=== PATIENT | female | born 1930 | race Hispanic/Latino ===

== ENCOUNTER 2019-01-14 17:27 | Emergency (ER) | payer MEDICARE ==
[2019-01-14 17:39] VITALS: BMI 32.3
[2019-01-14 17:45] VITALS: TEMP 97.5
[2019-01-14] MEDS ORDERED: Sodium Chloride 0.9% 1,000 ML IV SCH (17:45)
[2019-01-14] MEDS ORDERED: Nitroglycerin 2% Ointment Foilpak UD TOP STA (18:03)
[2019-01-14 18:15] LABS: BASO % 0.9 % (0.0-2.0); EOS # 0.1 K/uL (0.0-0.7); EOS % 2.4 % (0.0-4.0); LYMPH # 1.3 K/uL (1.0-4.3); LYMPH % 23.7 % (20.0-40.0); MEAN CELL VOLUME 95.6 fL (81.0-99.0); MEAN CORPUSCULAR HEMOGLOBIN 31.4 pg (27.0-31.0); MEAN CORPUSCULAR HGB CONC 32.9 g/dL (33.0-37.0); MEAN PLATELET VOLUME 8.6 fL (7.2-11.7); MONO # 0.4 K/uL (0.0-0.8); NEUT # 3.6 K/uL (1.8-7.0); RBC 3.5 Mil/uL (3.80-5.20); RED CELL DISTRIBUTION WIDTH 14.4 % (11.5-14.5); WHITE BLOOD COUNT 5.6 K/uL (4.8-10.8)
--- NOTE | 2019-01-14 18:20 | CT ---
Date of service: 01/14/2019 PROCEDURE: CT HEAD WITHOUT CONTRAST. HISTORY: slurred speech x 24 hours COMPARISON: Comparison is made to the previous study dated 03/26/2017 TECHNIQUE: Axial computed tomography images were obtained through the head/brain without intravenous contrast. Radiation dose: Total exam DLP = 842.37 mGy-cm. This CT exam was performed using one or more of the following dose reduction techniques: Automated exposure control, adjustment of the mA and/or kV according to patient size, and/or use of iterative reconstruction technique. FINDINGS: HEMORRHAGE: No intracranial hemorrhage. BRAIN: No mass effect or edema. Mild volume loss is again noted. Moderate to extensive white matter changes suggestive of chronic microvascular ischemic disease is also again noted. VENTRICLES: Unremarkable. No hydrocephalus. CALVARIUM: Unremarkable. PARANASAL SINUSES: Unremarkable as visualized. No significant inflammatory changes. MASTOID AIR CELLS: Unremarkable as visualized. No inflammatory changes. OTHER FINDINGS: None. IMPRESSION: No evidence of acute intracranial hemorrhage or acute territorial infarct. Volume loss and extensive white matter changes suggestive of chronic microvascular ischemic disease.
[2019-01-14 18:22] LABS: PROTHROMBIN TIME 11.4 SECONDS (9.7-12.2)
[2019-01-14] MEDS ORDERED: Nitroglycerin 2% Ointment Foilpak UD TOP ONE (18:26)
[2019-01-14 18:28] LABS: BLOOD UREA NITROGEN 51 mg/dL (7-17); CALCIUM 9.2 mg/dl (8.6-10.4); GFR NON-AFRICAN AMERICAN 28
[2019-01-14 18:29] LABS: ALB/GLOB RATIO 1.4 (1.0-2.1); ALBUMIN 4.5 g/dL (3.5-5.0); ALT/SGPT 7 U/L (9-52); AST/SGOT 18 U/L (14-36); HDL CHOLESTEROL 46 mg/dL (30-70)
[2019-01-14 18:39] LABS: LDL CHOLESTEROL 77 mg/dL (0-129)
[2019-01-14 18:46] VITALS: BP 180/70; PULSE 68; RESP 16
[2019-01-14 18:54] VITALS: O2SAT 97
--- NOTE | 2019-01-14 18:54 | C.PDOC ---
History Of Present Illness 88 y/o female comes in for expressive aphasia for the past 24 hours that was noticed by her daughters. Daughters report patient starting speaking nonsensically at 2pm yesterday. Denies headache, weakness, fever, or other symptoms. Patient, from baseline, is walking with walker. No facial droop noted. Time Seen by Provider: 01/14/19 17:42 Chief Complaint (Nursing): Weakness/Neurological Deficit History Per: Family History/Exam Limitations: no limitations Onset/Duration Of Symptoms: Days Current Symptoms Are (Timing): Still Present Past Medical History Reviewed: Historical Data, Nursing Documentation, Vital Signs Vital Signs: Last Vital Signs Temp 97.5 F L 01/14/19 17:44 Pulse 72 01/14/19 17:44 Resp 18 01/14/19 17:44 BP 193/72 H 01/14/19 17:44 Pulse Ox 97 01/14/19 17:44 - Medical History PMH: HTN, Hypercholesterolemia Denies: Chronic Kidney Disease - [facility] Procedures EXCISION OF LEFT LOWER LEG MUSCLE, OPEN APPROACH (04/22/16) EXCISION OF LEFT LOWER LEG SKIN, EXTERNAL APPROACH, DIAGN (05/27/16) EXTRACTION OF L FOOT SUBCU/FASCIA, OPEN APPROACH (04/22/16) EXTRACTION OF LEFT LOWER LEG SKIN, EXTERNAL APPROACH (05/27/16) GAIT TRAINING/AMBULAT TREATMENT USING ASSIST EQUIPMENT (04/30/16) HOME MANAGEMENT TREATMENT (04/30/16) REPLACE L LOW LEG SKIN W AUTOL SUB, FULL THICK, LEARNING SPECIALIST (05/27/16) THERAPEUTIC EXERCISE TREATMENT OF MUSCULOSK LOW BACK/LE (04/30/16) TRANSFUSE NONAUT RED BLOOD CELLS IN PERIPH VEIN, PERC (04/30/16) Family History: States: No Known Family Hx - Social History Hx Alcohol Use: No Hx Substance Use: No - Immunization History Hx Tetanus Toxoid Vaccination: No Hx Influenza Vaccination: No Hx Pneumococcal Vaccination: No Review Of Systems Except As Marked, All Systems Reviewed And Found Negative. Constitutional: Negative for: Fever, Chills Cardiovascular: Negative for: Chest Pain Respiratory: Negative for: Shortness of Breath Gastrointestinal: Negative for: Nausea, Vomiting Neurological: Positive for: Other (Aphasia, no facial droop). Negative for: Weakness, Numbness, Headache Physical Exam - Physical Exam Appears: Non-toxic, No Acute Distress, Confused Skin: Warm, Dry Head: Atraumatic, Normacephalic Eye(s): bilateral: PERRL, EOMI Oral Mucosa: Moist Neck: Supple Cardiovascular: Rhythm Regular, No Murmur Respiratory: Normal Breath Sounds, No Rales, No Rhonchi, No Wheezing Gastrointestinal/Abdominal: Soft, No Tenderness Extremity: No Swelling Extremity: Bilateral: Atraumatic, Normal ROM Neurological/Psych: Other (Awake and alert. Speech nonsensical) ED Course And Treatment - Laboratory Results Result Diagrams: 01/14/19 18:11 01/14/19 18:11 Lab Results: PT 11.4 SECONDS (9.7-12.2) 01/14/19 18:11 INR 1.0 01/14/19 18:11 APTT 31 SECONDS (21-34) 01/14/19 18:11 Troponin I < 0.0120 ng/mL (0.00-0.120) 01/14/19 18:11 Total Bilirubin 0.7 mg/dL (0.2-1.3) 01/14/19 18:11 AST 18 U/L (14-36) 01/14/19 18:11 ALT 7 U/L (9-52) L D 01/14/19 18:11 Alkaline Phosphatase 109 U/L (38-126) 01/14/19 18:11 Total Protein 7.6 g/dL (6.3-8.3) 01/14/19 18:11 Albumin 4.5 g/dL (3.5-5.0) 01/14/19 18:11 Globulin 3.2 gm/dL (2.2-3.9) 01/14/19 18:11 Albumin/Globulin Ratio 1.4 (1.0-2.1) 01/14/19 18:11 Lab Interpretation: Abnormal (creat 1.7 from 1.3 (2016)) ECG: Interpreted By Ut ECG Rhythm: Sinus Rhythm ECG Interpretation: Normal Rate From EC O2 Sat by Pulse Oximetry: 97 (RA) Pulse Ox Interpretation: Normal - Radiology CXR: Interpreted by Ut CXR Interpretation: Yes: No Acute Disease - CT Scan/US head CT Other Rad Studies (CT/US): Radiology Report Reviewed (no acute findings) Reevaluation Time: 19:06 Reassessment Condition: Improved (remains intermittently coherent, but always awake/alert/aware) Medical Decision Making Medical Decision Making: Plan: --Head CT --EKG --Labs --Chest XR --Ecotrin 162 mg PO --Nitrobid --IV fluids head CT neg, but pt with sudden onset of expressive aphasia (not complete) for about 24 hours, suggest infarct to Broca's area of L temporal brain. today's head CT neg but MRI prob more revealing pt and family adamantly decline inpatient eval ASA and BP control reviewed opt f/u with PMD referral for NEuro and opt MRI Disposition Doctor Will See Patient In The: Office Counseled Patient/Family Regarding: Studies Performed, Diagnosis - Disposition Referrals: [facility] [Outside] [facility] [Outside] [facility] [Outside] Saul Peters DO [Staff Provider] - Tania Gifford MD [Staff Provider] - Disposition: HOME/ ROUTINE Disposition Time: 19:09 Condition: GOOD Additional Instructions: continue daily Aspirin 325 mg continue best BP control Seek Neuro follow-up with Dr. Gifford- Neurology Security Checker- for baseline and further tx. Outpatient MRI brain suggested f/u with Dr. Peters Return to ED for any significant changes or deterioration. Forms: [employer] ([place]) - Clinical Impression Clinical Impression: Expressive aphasia - Scribe Statement The provider has reviewed the documentation as recorded by the Scribe Demetria Segovia Provider Attestation: All medical record entries made by the Scribe were at my direction and pers onally dictated by me. I have reviewed the chart and agree that the record accurately reflects my personal performance of the history, physical exam, medical decision making, and the department course for this patient. I have also personally directed, reviewed, and agree with the discharge instructions and disposition.
--- NOTE | 2019-01-15 14:40 | RAD ---
Date of service: 01/14/2019 HISTORY: Code Stroke COMPARISON: Comparison is made with 02/29/2016 FINDINGS: LUNGS: New consolidation and or infiltrate at the right lung base noted. Findings may represent atelectasis or infiltrate. PLEURA: No significant pleural effusion identified, no pneumothorax apparent. CARDIOVASCULAR: No aortic atherosclerotic calcification present. Normal cardiac size. No pulmonary vascular congestion. OSSEOUS STRUCTURES: No significant abnormalities. VISUALIZED UPPER ABDOMEN: Normal. OTHER FINDINGS: None. IMPRESSION: Atelectasis or infiltrate at the right lung base.
--- NOTE | 2019-01-17 20:55 | CARD ---
APPROVED REPORT Date of service: 01/14/2019 EKG Measurement Heart [id number] <Conclusion> Normal sinus rhythm Incomplete right bundle branch block Left ventricular hypertrophy with repolarization abnormality Cannot rule out Septal infarct, age undetermined Abnormal ECG
== END 2019-01-14 19:35 | disposition home or self-care (01) ==
LOC: C.ER 17:27
DX: R47.01 Aphasia (principal); I10 Essential (primary) hypertension; E78.00 Pure hypercholesterolemia, unspecified

== ENCOUNTER 2019-01-18 22:17 | Inpatient (IN) | payer MEDICARE ==
[2019-01-18 22:18] VITALS: BMI 32.3
--- NOTE | 2019-01-18 23:19 | C.PDOC ---
History Of Present Illness 88 year old female seen here 2 days ago for expressive dysphagia, had work up suggestive of possible TIA or infarct but family did not want patient to be admitted, she was discharged home, symptoms had resolved prior to discharge. W quinn she was here she was noted to have cough, CXR showed possible right lower lobe infiltrate, she was seen at home visit by Dr. Peters who started her on antibiotics, however family does not known which one. Today patient was getting up to go to the bathroom when her legs gave out and she landed on her right knee, she is suppose to use walker due to gait disturbance but does not like to. Patient has been unable to get up and has not walked or been able to weight bear since fall, transported here via EMS. Denies change in sensation, chest pain, SOB, headache, or dizziness. - HPI Time Seen by Provider: 01/18/19 22:35 Chief Complaint (Nursing): Trauma History Per: Patient, Family History/Exam Limitations: no limitations Onset/Duration Of Symptoms: Hrs Injury Occurred (Timing): Just Before Arrival Location Of Injury: Right: Knee Recent travel outside of the [place]: No Past Medical History Reviewed: Historical Data, Nursing Documentation, Vital Signs Vital Signs: Last Vital Signs Temp 97.6 F 01/18/19 22:30 Pulse 81 01/18/19 22:30 Resp 20 01/18/19 22:30 BP 179/104 H 01/18/19 22:30 Pulse Ox 95 01/18/19 22:30 - Medical History PMH: HTN, Hypercholesterolemia Denies: Chronic Kidney Disease - [facility] Procedures EXCISION OF LEFT LOWER LEG MUSCLE, OPEN APPROACH (04/22/16) EXCISION OF LEFT LOWER LEG SKIN, EXTERNAL APPROACH, DIAGN (05/27/16) EXTRACTION OF L FOOT SUBCU/FASCIA, OPEN APPROACH (04/22/16) EXTRACTION OF LEFT LOWER LEG SKIN, EXTERNAL APPROACH (05/27/16) GAIT TRAINING/AMBULAT TREATMENT USING ASSIST EQUIPMENT (04/30/16) HOME MANAGEMENT TREATMENT (04/30/16) REPLACE L LOW LEG SKIN W AUTOL SUB, FULL THICK, INVENTORY COORDINATOR (05/27/16) THERAPEUTIC EXERCISE TREATMENT OF MUSCULOSK LOW BACK/LE (04/30/16) TRANSFUSE NONAUT RED BLOOD CELLS IN PERIPH VEIN, PERC (04/30/16) Family History: States: Unknown Family Hx - Social History Hx Alcohol Use: No Hx Substance Use: No - Immunization History Hx Tetanus Toxoid Vaccination: No Hx Influenza Vaccination: No Hx Pneumococcal Vaccination: No Review Of Systems Constitutional: Negative for: Fever, Chills Cardiovascular: Negative for: Chest Pain, Palpitations Respiratory: Negative for: Cough, Shortness of Breath Gastrointestinal: Negative for: Nausea, Vomiting Musculoskeletal: Positive for: Other (Right knee pain) Neurological: Negative for: Weakness, Numbness, Headache, Dizziness Physical Exam - Physical Exam Appears: Non-toxic Skin: Normal Color, Warm, Dry Head: Atraumatic, Normacephalic Eye(s): bilateral: Normal Inspection, PERRL, EOMI Oral Mucosa: Moist Neck: Normal, No Midline Cervical Tenderness, No Paracervical Tenderness, Supple Chest: Symmetrical, No Tenderness Cardiovascular: Rhythm Regular Respiratory: Normal Breath Sounds, No Rales, No Rhonchi, No Wheezing Gastrointestinal/Abdominal: Soft, No Tenderness Extremity: Deformity (shortening of right leg), Other (Right knee tender to palpation, resisting flexion holding leg at extention, tenderness to right hip at greater trochanter which daughter states is chronic) Neurological/Psych: Oriented x3, Normal Speech, Normal Motor, Normal Sensation ED Course And Treatment - Laboratory Results Result Diagrams: 01/18/19 23:23 01/18/19 23:23 Lab Interpretation: Abnormal (BUN 54, CR 2.0, Hgb 10.4, Hct 31.0) O2 Sat by Pulse Oximetry: 95 (room air) Pulse Ox Interpretation: Normal - Other Rad Right hip X-Ray: Interpreted by Me Interpretation: Intertrochanteric fracture right knee X-Ray: Interpreted by Me Interpretation: No evidence of fracture or dislocation, no effusion Progress Note: Blood work, right knee x-ray and right hip x-ray ordered. - Physician Consult Information Time Consulting Physician Contacted: : Physician Contacted: Bjorn Arcos Disposition - Disposition Disposition: HOSPITALIZED Disposition Time: :07 Condition: FAIR - Clinical Impression Clinical Impression: Fracture, intertrochanteric, right femur - Scribe Statement The provider has reviewed the documentation as recorded by the Scribe Yonathan No All medical record entries made by the Scribe were at my direction and pers onally dictated by me. I have reviewed the chart and agree that the record accurately reflects my personal performance of the history, physical exam, medical decision making, and the department course for this patient. I have also personally directed, reviewed, and agree with the discharge instructions and disposition. Physician Patient Turnover Patient Signed Over To: Ga Langford Handoff Comments: awaiting call back from Dr Arcos for admission.
[2019-01-18 23:26] LABS: BASO % 0.4 % (0.0-2.0); EOS # 0.1 K/uL (0.0-0.7); EOS % 0.9 % (0.0-4.0); HEMOGLOBIN 10.4 g/dL (11.0-16.0); LYMPH # 0.8 K/uL (1.0-4.3); LYMPH % 9.3 % (20.0-40.0); MEAN CELL VOLUME 96.1 fL (81.0-99.0); MEAN CORPUSCULAR HEMOGLOBIN 32.3 pg (27.0-31.0); MEAN CORPUSCULAR HGB CONC 33.6 g/dL (33.0-37.0); MEAN PLATELET VOLUME 8.9 fL (7.2-11.7); MONO # 0.7 K/uL (0.0-0.8); MONO % 7.6 % (0.0-10.0); NEUT # 7.4 K/uL (1.8-7.0); NEUT % 81.8 % (50.0-75.0); PLATELET COUNT 214 K/uL (130-400); RBC 3.22 Mil/uL (3.80-5.20); RED CELL DISTRIBUTION WIDTH 14.6 % (11.5-14.5)
[2019-01-18 23:44] LABS: ALB/GLOB RATIO 1.3 (1.0-2.1); ALBUMIN 4.4 g/dL (3.5-5.0); CALCIUM 9.3 mg/dl (8.6-10.4)
[2019-01-19 00:38] LABS: BANDS 3 % (0-2); EOSINOPHIL 3 % (0-4); LYMPHOCYTE 6 % (20-40); MONOCYTE 4 % (0-10); NEUTROPHIL 84 % (50-75); PLATELET ESTIMATE NORMAL (NORMAL); TOTAL CELLS COUNTED 100
[2019-01-19] MEDS ORDERED: Sodium Chloride 0.9% 1,000 ML IV ONE (02:28)
[2019-01-19] MEDS ORDERED: Sodium Chloride 0.9% 1,000 ML ONE (03:07)
[2019-01-19 04:35] LABS: INR 1.1
[2019-01-19] MEDS: Sodium Chloride 0.45% 1,000 ML IV SCH ×2 (07:00→23:10)
--- NOTE | 2019-01-19 07:59 | RAD ---
Date of service: 01/19/2019 PROCEDURE: CHEST RADIOGRAPH, 1 VIEW HISTORY: admission, Fx Right hip COMPARISON: 01/14/2019 FINDINGS: LUNGS: Discoid atelectasis and/or scarring right lung base similar. Lung volumes shallow as before even more so now than before. PLEURA: No pneumothorax. No significant appearing pleural effusion noted. CARDIOVASCULAR: There is presence of aortic atherosclerotic calcification on x-ray. Mild cardiomegaly Mild concomitant pulmonary venous congestion difficult to assess-not excluded given shallow inspiration. No worsening pulmonary venous congestion appreciated OSSEOUS STRUCTURES: Thoracic spondylosis. Bilateral shoulder arthrosis. VISUALIZED UPPER ABDOMEN: Normal. OTHER FINDINGS: None. IMPRESSION: Interval decreased lung volumes. Similar right basal discoid atelectasis and/or scarring. Other findings as above.
--- NOTE | 2019-01-19 08:08 | RAD ---
Date of service: 01/19/2019 PROCEDURE: Right Knee Radiographs. HISTORY: fall COMPARISON: 07/27/2014 FINDINGS: Exam is limited due to projections and level sof contrast BONES: Generalized osteopenia. No fracture appreciated. JOINTS: Tricompartmental joint arthrosis. JOINT EFFUSION: None. OTHER FINDINGS: Atherosclerotic vascular calcifications present. Bilateral Quadriceps insertional enthesophytes-similar IMPRESSION: No interval fracture or dislocation or gross lytic lesion. Tricompartmental [id number] Interval accentuation of diffuse osteopenia. Bilateral quadriceps insertional enthesophyte.
[2019-01-19] MEDS: (Novolin R) Insulin Human Regular 100 units/ml vial SC SCH ×6 (08:11→22:00)
--- NOTE | 2019-01-19 08:39 | RAD ---
Date of service: 01/19/2019 PROCEDURE: HISTORY: fall COMPARISON: None TECHNIQUE: AP pelvis and frog's leg view. FINDINGS: A right intertrochanteric fracture with fracture maximal spacing of approximately 7 mm near the greater trochanter is present. Bilateral hip joint space narrowing especially severe on the right with diffuse sclerosis and diffuse exuberant osteophytosis. Inferior lumbar spondylosis with probable prominent Schmorl's node indentations and left L5-S1 facet hypertrophic arthrosis. Sacroiliac and pubic symphyseal joints unremarkable. Atherosclerotic vascular calcifications present.. Phleboliths noted. Right stool retention. IMPRESSION: Right intertrochanteric fracture with diastases type displacement no further additional displacement is noted. Severe right hip arthrosis Mild moderate left hip arthrosisOther findings as above. Comments: Fracture findings were called in to the ER where upon it was learned that the patient had already been admitted. The fracture findings were discussed and were already known as per direct conversation with the nurse taking care of this patient Tata Wang at approximately 8 30 a.m. on 01/19/2019
--- NOTE | 2019-01-19 13:34 | CT ---
Date of service: 01/19/2019 PROCEDURE: HISTORY: Rt hip fracture COMPARISON: TECHNIQUE: FINDINGS: Severe degenerative changes of the femoral acetabular joint with joint space narrowing, marginal spur formation and subarticular cyst formation. Minimally displaced intertrochanteric fracture of the left hip. IMPRESSION: Minimally displaced intertrochanteric fracture of the left hip.
[2019-01-19] MEDS ORDERED: Albuterol-Ipratrop 3 mg / 0.5 (3 ml) UD INH STA (15:58)
[2019-01-19] MEDS ORDERED: Promethazine DM 6.25 mg-15 mg/5 ml Syrup PO PRN (16:00)
--- NOTE | 2019-01-19 18:24 | HP ---
HISTORY OF PRESENT ILLNESS: I saw her this morning with the daughter present. She is a 88-year-old white female who had expressive aphasia about two days ago, had workup, suggestive of a TIA. The patient and family did not want her admitted to the hospital. She was discharged to home. The symptoms resolved before she left the hospital. Chest x-ray did show possible right lower lobe infiltrate a few days ago. I put her on antibiotics once more at her home. Today she went up to walk in the bathroom, she was supposed to use the walker, did not. The legs gave out, she landed on the right knee and hurt her right hip. She could not get, she could not weightbear ever since the fall and it took her to the emergency room. She had injuries to the right knee and right leg. She has history of excision of left lower lobe leg muscle. She had gait training in the past. SOCIAL HISTORY: No smoking, no drinking, no drugs. FAMILY HISTORY: Unknown. ALLERGIES: ACETAMINOPHEN AND OXYCODONE. REVIEW OF SYSTEMS: No acute vision or hearing changes at all. No neck pain. No sore throat. No chest pain or palpitations. No shortness of breath or cough. No nausea or vomiting. She has right knee and right leg pain. She is weak, headache, just not feeling well overall, in lot of pain. PHYSICAL EXAMINATION: VITAL SIGNS: She has a 97.6 temperature, 81 pulse, 20 respiratory rate, 179/104 blood pressure, 95% O2 saturation. HEENT: Head is atraumatic, normocephalic. Throat is dry. NECK: Supple. HEART: Regular rate. LUNGS: Decreased breath sounds but clear. No wheezing, no rhonchi, no rales. ABDOMEN: Soft, nontender. Positive bowel sounds. EXTREMITIES: Shortening of the right leg. Right knee very tender to palpation. Cannot flex the leg, cannot move it without having severe pain, the whole trochanter is tender. NEUROLOGIC: She is alert. Speech is fair. Very discomforting. SKIN: Turgor and tone is intact. LABORATORY DATA: She had a bunch of tests done. She has 141 sodium, potassium 4.7, BUN 54, creatinine 2. I put her on IV fluids. GFR is 24. Sugar is 235. I put her on coverage. Calcium is 9.3, total bilirubin 0.6, AST is 19, ALT is 11, alkaline phosphatase 117. Total protein is 7.8, albumin 4.4, INR is 1.1. She has a 9 white count, 10.4 hemoglobin, 31 hematocrit, 214 platelets. There are hip x-rays that are not read yet. Knee x-ray, chest x-ray and EKG are not read yet. ASSESSMENT AND PLAN: She has a fractured right leg. Right femur has a fracture. I will call in Orthopedics, call on Cardiology and make her n.p.o. except meds, pain medication, SCDs, and hopefully within the next 24 hours, we could do right hip surgery are discussed with the daughter at length. We gave pain medications for her also. Discussed with the nurse. Saul Peters DO MTDDotty
--- NOTE | 2019-01-19 18:29 | RAD ---
Date of service: 01/19/2019 HISTORY: Coughing COMPARISON: No prior. FINDINGS: LUNGS: Poor inspiration with low lung volumes, crowded bronchovascular markings and mild bibasilar atelectasis right greater than left. Small effusions not excluded. The central pulmonary vasculature is also slightly congested in appearance which could be due to patient positioning however underlying element of mild chronic compensated pulmonary venous congestion not excluded PLEURA: As above. No pneumothorax apparent. CARDIOVASCULAR: Mild aortic atherosclerotic calcification present. Cardiomegaly. . OSSEOUS STRUCTURES: No significant abnormalities. VISUALIZED UPPER ABDOMEN: Normal. OTHER FINDINGS: None. IMPRESSION: Poor inspiration with low lung volumes, crowded bronchovascular markings and mild bibasilar atelectasis right greater than left. Small effusions not excluded. The central pulmonary vasculature is also slightly congested in appearance which could be due to patient positioning however underlying element of mild chronic compensated pulmonary venous congestion not excluded
--- NOTE | 2019-01-19 19:09 | CP.PCM.CON ---
History of Present Illness - History of Present Illness History of Present Illness: Orthopedic consult: Dr. Kendall Patient is an 88 y/o sami speaking female c/o R hip pain. Her daughters are at bedside who provide history and translation for patient. Patient reports transferring to the bathroom and lost balance resulting in a fall onto her right side. She experienced severe R hip pain and was unable to get up to WB. She denies any LOC/dizziness/other injuries during the fall. She usually walks with walker and lives at home with daughter. Her pain is sharp, intermittent and located at the groin. The pain is worsened with movement and alleviated with rest. She denies radiation of pain/numbness/tingling. She also denies CP/SOB/N/V/D/fever/dysuria/melena. PMH: DM, HTN,HLD PSH: Bunionectomy, L leg skin graft, cataracts meds: as per Med rec allergy: NKDA SH: denies tobacco/drug use, wine occasionally Review of Systems - Review of Systems All systems: reviewed and no additional remarkable complaints except Review of Systems: as per HPI Past Patient History - Infectious Disease Hx of Infectious Diseases: None - Past Medical History & Family History Past Medical History?: Yes Past Family History: Reviewed and not pertinent - Past Social History Smoking Status: Never Smoked - CARDIAC Hx Hypercholesterolemia: Yes Hx Hypertension: Yes - PULMONARY Hx Respiratory Disorders: No - NEUROLOGICAL Hx Dementia: Yes - HEENT Hx HEENT Problems: Yes Hx Cataracts: Yes - RENAL Hx Chronic Kidney Disease: No - ENDOCRINE/METABOLIC Hx Endocrine Disorders: Yes Hx Diabetes Mellitus Type 2: Yes - HEMATOLOGICAL/ONCOLOGICAL Hx Blood Disorders: No - INTEGUMENTARY Hx Dermatological Problems: Yes Other/Comment: LEFT LATERAL LEG ULCER 2015. - MUSCULOSKELETAL/RHEUMATOLOGICAL Hx Falls: Yes - GASTROINTESTINAL Hx Gastrointestinal Disorders: No - GENITOURINARY/GYNECOLOGICAL Hx Genitourinary Disorders: No - PSYCHIATRIC Hx Substance Use: No - SURGICAL HISTORY Hx Surgeries: Yes Hx Eye Surgery: Yes (HENRY CATARACT) Other/Comment: Henry. Bunion Removed. - ANESTHESIA Hx Anesthesia: Yes Hx Anesthesia Reactions: No Hx Malignant Hyperthermia: No Has any member of the family had a problem w/ anesthesia?: No Meds Allergies/Adverse Reactions: Allergies Allergy/AdvReac Type Severity Reaction Status Date / Time acetaminophen [From Percocet] Allergy Verified 01/18/19 22:34 oxycodone [From Percocet] Allergy Verified 01/18/19 22:34 - Medications Medications: Current Medications Albuterol/Ipratropium (Duoneb 3 Mg/0.5 Mg (3 Ml) Ud) 3 ml INH RQ6 [facility] Gabapentin (Neurontin) 300 mg PO HS [facility] Hydrochlorothiazide (Hydrodiuril) 25 mg PO DAILY [facility] Last Admin: 01/19/19 09:30 Dose: 25 mg Sodium Chloride (Sodium Chloride 0.45%) 1,000 mls @ 60 mls/hr IV .[id number] [facility] Last Admin: 01/19/19 07:00 Dose: 60 mls/hr Influenza Virus Vaccine (Flucelvax Quad 8117-6010 Syr) 60 mcg IM .ONCE ONE Stop: 01/21/19 11:01 Insulin Human Regular (Novolin R) 0 unit SC ACHS [facility] Last Admin: 01/19/19 16:30 Dose: Not Given Lamotrigine (Lamictal) 25 mg PO BID [facility] Last Admin: 01/19/19 09:26 Dose: 25 mg Losartan Potassium (Cozaar) 100 mg PO DAILY [facility] Last Admin: 01/19/19 09:26 Dose: 100 mg Metoprolol Succinate (Toprol Xl) 50 mg PO DAILY [facility] Morphine Sulfate (Morphine) 2 mg IVP Q4 PRN PRN Reason: Pain, moderate (4-7) Last Admin: 01/19/19 17:11 Dose: 2 mg Promethazine HCl/Dextromethorphan (Phenergan Dm Syrup) 5 ml PO Q6H PRN PRN Reason: Coughing Quetiapine Fumarate (Seroquel Xr) 50 mg PO [facility] Physical Exam - Constitutional Appears: Well, No Acute Distress - Head Exam Head Exam: ATRAUMATIC, NORMOCEPHALIC - Eye Exam Eye Exam: EOMI, Normal appearance - ENT Exam ENT Exam: Mucous Membranes Moist - Respiratory Exam Respiratory Exam: NORMAL BREATHING PATTERN - Extremities Exam Additional comments: R hip: no lesions/masses/erythema tenderness to groin and over greater troch sensation intact SP/DP/TN motor intact EHL/FHL/TA/G pedal pulse intact calves soft NT b/l L hip: no lesions/masses/erythema no tenderness sensation intact SP/DP/TN motor intact EHL/FHL/TA/G pedal pulse intact - Neurological Exam Neurological exam: Alert, Oriented x3 - Psychiatric Exam Psychiatric exam: Normal Affect, Normal Mood - Skin Skin Exam: Normal Color, Warm Results - Vital Signs Recent Vital Signs: Last Vital Signs Temp 98.1 F 01/19/19 15:16 Pulse 85 01/19/19 16:11 Resp 18 01/19/19 15:16 BP 136/68 01/19/19 15:16 Pulse Ox 94 L 01/19/19 15:16 - Labs Result Diagrams: 01/18/19 23:23 01/18/19 23:23 Labs: Laboratory Results - last 24 hr 01/18/19 01/18/19 01/19/19 23:23 23:23 04:06 WBC 9.0 D RBC 3.22 L Hgb 10.4 L Hct 31.0 L MCV 96.1 MCH 32.3 H MCHC 33.6 RDW 14.6 H Plt Count 214 MPV 8.9 Neut % (Auto) 81.8 H Lymph % (Auto) 9.3 L Jasper % (Auto) 7.6 Eos % (Auto) 0.9 Baso % (Auto) 0.4 Neut # (Auto) 7.4 H Lymph # (Auto) 0.8 L Jasper # (Auto) 0.7 Eos # (Auto) 0.1 Baso # (Auto) 0.0 Neutrophils % (Manual) 84 H Band Neutrophils % 3 H Lymphocytes % (Manual) 6 L Monocytes % (Manual) 4 Eosinophils % (Manual) 3 Platelet Estimate Normal PT INR APTT Sodium 141 Potassium 4.7 Chloride 104 Carbon Dioxide 26 Anion Gap 16 BUN 54 H Creatinine 2.0 H Est GFR ( Amer) 29 Est GFR (Non-Af Amer) 24 POC Glucose (mg/dL) Random Glucose 235 H D Calcium 9.3 Total Bilirubin 0.6 AST 19 ALT 11 Alkaline Phosphatase 117 Total Protein 7.8 Albumin 4.4 Globulin 3.4 Albumin/Globulin Ratio 1.3 Blood Type B POSITIVE Antibody Screen Negative 01/19/19 01/19/19 01/19/19 04:23 06:42 11:24 WBC RBC Hgb Hct MCV MCH MCHC RDW Plt Count MPV Neut % (Auto) Lymph % (Auto) Jasper % (Auto) Eos % (Auto) Baso % (Auto) Neut # (Auto) Lymph # (Auto) Jasper # (Auto) Eos # (Auto) Baso # (Auto) Neutrophils % (Manual) Band Neutrophils % Lymphocytes % (Manual) Monocytes % (Manual) Eosinophils % (Manual) Platelet Estimate PT 12.0 INR 1.1 APTT 28 Sodium Potassium Chloride Carbon Dioxide Anion Gap BUN Creatinine Est GFR ( Amer) Est GFR (Non-Af Amer) POC Glucose (mg/dL) 291 H 147 H Random Glucose Calcium Total Bilirubin AST ALT Alkaline Phosphatase Total Protein Albumin Globulin Albumin/Globulin Ratio Blood Type Antibody Screen 01/19/19 16:36 WBC RBC Hgb Hct MCV MCH MCHC RDW Plt Count MPV Neut % (Auto) Lymph % (Auto) Jasper % (Auto) Eos % (Auto) Baso % (Auto) Neut # (Auto) Lymph # (Auto) Jasper # (Auto) Eos # (Auto) Baso # (Auto) Neutrophils % (Manual) Band Neutrophils % Lymphocytes % (Manual) Monocytes % (Manual) Eosinophils % (Manual) Platelet Estimate PT INR APTT Sodium Potassium Chloride Carbon Dioxide Anion Gap BUN Creatinine Est GFR ( Amer) Est GFR (Non-Af Amer) POC Glucose (mg/dL) 131 H Random Glucose Calcium Total Bilirubin AST ALT Alkaline Phosphatase Total Protein Albumin Globulin Albumin/Globulin Ratio Blood Type Antibody Screen - Impressions Impression: Accession No. : [id number] Patient Name / ID : HEBERT ROE / [id number] Exam Date : 01/19/2019 00:46:59 ( Approved ) Study Comment : Sex / Age : F / 88Y Creator : Rasheeda Long Dictator : Rasheeda Long Returns Clerk : Mine [employer] : Rasheeda Long Approver2 : Report Date : 01/19/2019 08:21:57 My Comment : Date of service: 01/19/2019 PROCEDURE: HISTORY: fall COMPARISON: None TECHNIQUE: AP pelvis and frog's leg view. FINDINGS: A right intertrochanteric fracture with fracture maximal spacing of approximately 7 mm near the greater trochanter is present. Bilateral hip joint space narrowing especially severe on the right with diffuse sclerosis and diffuse exuberant osteophytosis. Inferior lumbar spondylosis with probable prominent Schmorl's node indentations and left L5-S1 facet hypertrophic arthrosis. Sacroiliac and pubic symphyseal joints unremarkable. Atherosclerotic vascular calcifications present.. Phleboliths noted. Right stool retention. IMPRESSION: Right intertrochanteric fracture with diastases type displacement no further additional displacement is noted. Severe right hip arthrosis Mild moderate left hip arthrosisOther findings as above. Comments: Fracture findings were called in to the ER where upon it was learned that the patient had already been admitted. The fracture findings were discussed and were already known as per direct conversation with the nurse taking care of this patient Tata Palmadestiny at approximately 8 30 a.m. on 01/19/2019 Accession No. : [id number] Patient Name / ID : HEBERT ROE / [id number] Exam Date : 01/19/2019 11:54:20 ( Approved ) Study Comment : Sex / Age : F / 88Y Creator : Tomy Bush MD Dictator : Tomy Bush MD Returns Clerk : [employer] : Tomy Bush MD Approver2 : Report Date : 01/19/2019 13:30:13 My Comment : Date of service: 01/19/2019 PROCEDURE: HISTORY: Rt hip fracture COMPARISON: TECHNIQUE: FINDINGS: Severe degenerative changes of the femoral acetabular joint with joint space narrowing, marginal spur formation and subarticular cyst formation. Minimally displaced intertrochanteric fracture of the left hip. IMPRESSION: Minimally displaced intertrochanteric fracture of the left hip. Assessment & Plan (1) Fracture, intertrochanteric, right femur Assessment and Plan: -Dr. Kendall recommends R hip ORIF with intermedullary nail once cleared -Risks/benefits/alternatives were explained to patient and family who understand and agrees to proceed with above procedure -awaiting cardiac clearance -bucks traction, overhead trapeze -bedrest, NWB RLE, frequent icing -NPO pMN -above d/w Dr. Kendall in agreement Status: Acute - Date & Time Date: 01/19/19 Time: 19:09
[2019-01-19] MEDS: Albuterol-Ipratrop 3 mg / 0.5 (3 ml) UD INH SCH (19:14)
[2019-01-19] MEDS ORDERED: Enoxaparin 30 mg Syringe SC STA (21:47)
[2019-01-19 22:35] LABS: CK-MB 1.16 ng/mL (0.0-3.38)
[2019-01-19] MEDS: QUEtiapine 50 mg XR Tab PO SCH (22:40)
--- NOTE | 2019-01-20 00:07 | CARD ---
APPROVED REPORT Date of service: 01/19/2019 EKG Measurement Heart [id number] [place] [id number] <Conclusion> Normal sinus rhythm ST & T wave abnormality, consider lateral ischemia Abnormal ECG
[2019-01-20] MEDS: Albuterol-Ipratrop 3 mg / 0.5 (3 ml) UD INH SCH ×4 (01:38→22:31)
[2019-01-20] MEDS: Sodium Chloride 0.45% 1,000 ML IV SCH ×2 (02:02→16:30)
--- NOTE | 2019-01-20 07:44 | CP.PCM.PN ---
Subjective - Date & Time of Evaluation Date of Evaluation: 01/20/19 Time of Evaluation: 07:44 Objective - Vital Signs/Intake and Output Vital Signs (last 24 hours): Temp Pulse Resp BP Pulse Ox 99.3 F 109 H 20 140/67 96 01/19/19 23:50 01/19/19 23:50 01/19/19 23:50 01/19/19 23:50 01/19/19 23:50 Intake and Output: 01/20/19 01/20/19 06:59 18:59 Intake Total 880 Balance 880 - Medications Medications: Current Medications Albuterol/Ipratropium (Duoneb 3 Mg/0.5 Mg (3 Ml) Ud) 3 ml INH RQ6 [facility] Last Admin: 01/20/19 01:38 Dose: 3 ml Gabapentin (Neurontin) 300 mg PO [facility] Last Admin: 01/19/19 22:16 Dose: 300 mg Hydrochlorothiazide (Hydrodiuril) 25 mg PO DAILY [facility] Last Admin: 01/19/19 09:30 Dose: 25 mg Sodium Chloride (Sodium Chloride 0.45%) 1,000 mls @ 60 mls/hr IV .[id number] [facility] Last Admin: 01/20/19 02:02 Dose: 60 mls/hr Influenza Virus Vaccine (Flucelvax Quad 2705-8268 Syr) 60 mcg IM .ONCE ONE Stop: 01/21/19 11:01 Insulin Human Regular (Novolin R) 0 unit SC ACHS [facility] Last Admin: 01/19/19 22:00 Dose: Not Given Lamotrigine (Lamictal) 25 mg PO BID [facility] Last Admin: 01/19/19 22:09 Dose: 25 mg Losartan Potassium (Cozaar) 100 mg PO DAILY [facility] Last Admin: 01/19/19 09:26 Dose: 100 mg Metoprolol Succinate (Toprol Xl) 50 mg PO DAILY [facility] Morphine Sulfate (Morphine) 2 mg IVP Q4 PRN PRN Reason: Pain, moderate (4-7) Last Admin: 01/20/19 02:02 Dose: 2 mg Promethazine HCl/Dextromethorphan (Phenergan Dm Syrup) 5 ml PO Q6H PRN PRN Reason: Coughing Quetiapine Fumarate (Seroquel Xr) 50 mg PO [facility] Last Admin: 01/19/19 22:40 Dose: 50 mg - Labs Labs: 01/18/19 23:23 01/18/19 23:23 PT 12.0 SECONDS (9.7-12.2) 01/19/19 04:23 INR 1.1 01/19/19 04:23 APTT 28 SECONDS (21-34) 01/19/19 04:23 Assessment and Plan (1) Fracture, intertrochanteric, right femur Status: Acute
[2019-01-20] MEDS: (Novolin R) Insulin Human Regular 100 units/ml vial SC SCH ×4 (08:00→22:09)
[2019-01-20] MEDS ORDERED: Enoxaparin 30 mg Syringe SC SCH (10:00)
[2019-01-20] MEDS ORDERED: Caffeine Citrated **INJ** 20 MG/ML IV ONE (10:07)
--- NOTE | 2019-01-20 10:44 | PN ---
DATE: 01/20/2019 SUBJECTIVE: I saw her this morning with family present, she was having the Maza catheter in place. Cozaar, DuoNebs, HydroDIURIL, Lamictal, morphine, Neurontin, Novolin, Phenergan, Seroquel, IV fluids, and Toprol presently. PHYSICAL EXAMINATION: GENERAL: Multiple phone calls with Orthopedics yesterday. Cardiology came in and ordered cardiologic tests before they can do the surgery. Hopefully, get the surgery done later today or possibly Wednesday. VITAL SIGNS: She has 99.3 temperature, 109 pulse, 140/67 blood pressure, 20 respiratory rate, 96% O2 sat on nasal cannula. HEENT: Head is atraumatic, normocephalic. HEART: Regular rate. LUNGS: Decreased breath sounds, but clear. ABDOMEN: Soft, obese. EXTREMITIES: No edema. She has a fractured hip. LABORATORY DATA: She has a 9 white count, 10.4 hemoglobin, 31 hematocrit with 214 platelets. Unsure why there were no blood tests for yesterday. 141 sodium, potassium 4.7, BUN 64, creatinine 2, GFR is 24, sugar is 177, calcium 9.3, total bili is 0.6, AST is 19, ALT is 11, alk phos 117, total bili is 7.8. ASSESSMENT AND PLAN: I will order blood tests again for this morning and for tomorrow. Hopefully, they can do the surgery soon, multiple discussions. I will continue with aggressive treatment and care on Ms. Roach. Right femur has a fracture, needs to be repaired. Saul Peters DO
[2019-01-20 13:50] LABS: MEAN CELL VOLUME 96.6 fL (81.0-99.0); MEAN CORPUSCULAR HEMOGLOBIN 32.1 pg (27.0-31.0); MEAN CORPUSCULAR HGB CONC 33.3 g/dL (33.0-37.0); MEAN PLATELET VOLUME 9.1 fL (7.2-11.7); RBC 2.59 Mil/uL (3.80-5.20); RED CELL DISTRIBUTION WIDTH 14.9 % (11.5-14.5); WHITE BLOOD COUNT 7.1 K/uL (4.8-10.8)
[2019-01-20 13:53] LABS: HEMOGLOBIN 8.3 g/dL (11.0-16.0)
[2019-01-20] MEDS: Metoprolol Succinate 50 mg XL Tab PO SCH (13:58)
[2019-01-20 14:03] LABS: ALB/GLOB RATIO 1.2 (1.0-2.1); ALBUMIN 3.3 g/dL (3.5-5.0); CALCIUM 8.8 mg/dl (8.6-10.4)
--- NOTE | 2019-01-20 16:07 | CP.PCM.CON ---
History of Present Illness - History of Present Illness History of Present Illness: Pre Op cardiac risk assessment: Patient is an 88 y/o setswana speaking female c/o R hip pain. Her daughters are at bedside who provide history and translation for patient. Patient reports transferring to the bathroom and lost balance resulting in a fall onto her right side. She experienced severe R hip pain and was unable to get up to WB. She denies any LOC/dizziness/other injuries during the fall. She usually walks with walker and lives at home with daughter. Her pain is sharp, intermittent and located at the groin. The pain is worsened with movement and alleviated with rest. She denies radiation of pain/numbness/tingling. She also denies CP/SOB/N/V/D/fever/dysuria/melena. PMH: DM, HTN,HLD PSH: Bunionectomy, L leg skin graft, cataracts meds: as per Med rec allergy: NKDA SH: denies tobacco/drug use, wine occasionally Review of Systems - Review of Systems All systems: reviewed and no additional remarkable complaints except Review of Systems: as per HPI Physical Exam - Constitutional Appears: Well, No Acute Distress - Head Exam Head Exam: ATRAUMATIC, NORMOCEPHALIC - Eye Exam Eye Exam: EOMI, Normal appearance - ENT Exam ENT Exam: Mucous Membranes Moist - Respiratory Exam Respiratory Exam: NORMAL BREATHING PATTERN - Extremities Exam Additional comments: R hip: no lesions/masses/erythema tenderness to groin and over greater troch sensation intact SP/DP/TN motor intact EHL/FHL/TA/G pedal pulse intact calves soft NT b/l L hip: no lesions/masses/erythema no tenderness sensation intact SP/DP/TN motor intact EHL/FHL/TA/G pedal pulse intact - Neurological Exam Neurological exam: Alert, Oriented x3 - Psychiatric Exam Psychiatric exam: Normal Affect, Normal Mood - Skin Skin Exam: Normal Color, Warm Past Patient History - Infectious Disease Hx of Infectious Diseases: None - Past Medical History & Family History Past Medical History?: Yes Past Family History: Reviewed and not pertinent - Past Social History Smoking Status: Never Smoked - CARDIAC Hx Hypercholesterolemia: Yes Hx Hypertension: Yes - PULMONARY Hx Respiratory Disorders: No - NEUROLOGICAL Hx Dementia: Yes - HEENT Hx HEENT Problems: Yes Hx Cataracts: Yes - RENAL Hx Chronic Kidney Disease: No - ENDOCRINE/METABOLIC Hx Endocrine Disorders: Yes Hx Diabetes Mellitus Type 2: Yes - HEMATOLOGICAL/ONCOLOGICAL Hx Blood Disorders: No - INTEGUMENTARY Hx Dermatological Problems: Yes Other/Comment: LEFT LATERAL LEG ULCER 2015. - MUSCULOSKELETAL/RHEUMATOLOGICAL Hx Falls: Yes - GASTROINTESTINAL Hx Gastrointestinal Disorders: No - GENITOURINARY/GYNECOLOGICAL Hx Genitourinary Disorders: No - PSYCHIATRIC Hx Substance Use: No - SURGICAL HISTORY Hx Surgeries: Yes Hx Eye Surgery: Yes (BRET CATARACT) Other/Comment: Bret. Bunion Removed. - ANESTHESIA Hx Anesthesia: Yes Hx Anesthesia Reactions: No Hx Malignant Hyperthermia: No Has any member of the family had a problem w/ anesthesia?: No Meds Allergies/Adverse Reactions: Allergies Allergy/AdvReac Type Severity Reaction Status Date / Time acetaminophen [From Percocet] Allergy Verified 01/18/19 22:34 oxycodone [From Percocet] Allergy Verified 01/18/19 22:34 - Medications Medications: Current Medications Albuterol/Ipratropium (Duoneb 3 Mg/0.5 Mg (3 Ml) Ud) 3 ml INH RQ6 [facility] Last Admin: 01/20/19 15:39 Dose: Not Given Alprazolam (Xanax) 0.5 mg PO ONCE PRN PRN Reason: Anxiety Gabapentin (Neurontin) 300 mg PO HS [facility] Last Admin: 01/19/19 22:16 Dose: 300 mg Hydrochlorothiazide (Hydrodiuril) 25 mg PO DAILY [facility] Last Admin: 01/20/19 13:57 Dose: 25 mg Sodium Chloride (Sodium Chloride 0.45%) 1,000 mls @ 60 mls/hr IV .[id number] [facility] Last Admin: 01/20/19 02:02 Dose: 60 mls/hr Influenza Virus Vaccine (Flucelvax Quad [id number] Syr) 60 mcg IM .ONCE ONE Stop: 01/21/19 11:01 Insulin Human Regular (Novolin R) 0 unit SC ACHS [facility] Last Admin: 01/20/19 12:08 Dose: Not Given Lamotrigine (Lamictal) 25 mg PO BID [facility] Last Admin: 01/20/19 13:58 Dose: 25 mg Losartan Potassium (Cozaar) 100 mg PO DAILY [facility] Last Admin: 01/20/19 13:58 Dose: 100 mg Metoprolol Succinate (Toprol Xl) 50 mg PO DAILY [facility] Last Admin: 01/20/19 13:58 Dose: 50 mg Morphine Sulfate (Morphine) 2 mg IVP Q4 PRN PRN Reason: Pain, moderate (4-7) Last Admin: 01/20/19 02:02 Dose: 2 mg Promethazine HCl/Dextromethorphan (Phenergan Dm Syrup) 5 ml PO Q6H PRN PRN Reason: Coughing Quetiapine Fumarate (Seroquel Xr) 50 mg PO HS [facility] Last Admin: 01/19/19 22:40 Dose: 50 mg Results - Vital Signs Recent Vital Signs: Last Vital Signs Temp 99.6 F 01/20/19 08:59 Pulse 104 H 01/20/19 13:57 Resp 20 01/20/19 08:59 BP 128/74 01/20/19 13:57 Pulse Ox 97 01/20/19 08:59 - Labs Result Diagrams: 01/20/19 13:42 01/20/19 13:42 Labs: Laboratory Results - last 24 hr 01/19/19 01/19/19 01/19/19 16:36 21:04 22:06 WBC RBC Hgb Hct MCV MCH MCHC RDW Plt Count MPV Sodium Potassium Chloride Carbon Dioxide Anion Gap BUN Creatinine Est GFR ( Amer) Est GFR (Non-Af Amer) POC Glucose (mg/dL) 131 H 177 H Random Glucose Calcium Total Bilirubin AST ALT Alkaline Phosphatase Total Creatine Kinase 48 CK-MB (Mass) 1.16 Troponin I < 0.0120 Total Protein Albumin Globulin Albumin/Globulin Ratio 01/20/19 01/20/19 01/20/19 06:21 13:42 13:42 WBC 7.1 RBC 2.59 L Hgb 8.3 L D Hct 25.0 L MCV 96.6 MCH 32.1 H MCHC 33.3 RDW 14.9 H Plt Count 149 MPV 9.1 Sodium 137 Potassium 4.8 Chloride 106 Carbon Dioxide 23 Anion Gap 13 BUN 54 H Creatinine 2.0 H Est GFR ( Amer) 29 Est GFR (Non-Af Amer) 24 POC Glucose (mg/dL) 252 H Random Glucose 219 H Calcium 8.8 Total Bilirubin 0.5 AST 15 ALT 11 Alkaline Phosphatase 83 Total Creatine Kinase CK-MB (Mass) Troponin I Total Protein 6.0 L Albumin 3.3 L D Globulin 2.7 Albumin/Globulin Ratio 1.2 Assessment & Plan - Assessment and Plan (Free Text) Assessment: Pre Op Cardiac Risk assessment: 89 F with Hx of HTN, DM2, ? CVA, Obesity admitted for Right Hip Fracture Pre Op cardiac risk assessment requested No hx of NE Stress test is normal ECHO: Normal EF, No major valvular issues, Severe Pulmonary HTN Basing on ACC/AHA guidelines this patient is assessed as moderate to high risk of Cardiopulmonary events particularly due to severe Pulmonary HTN, eventhough the chance of getting a Myocardial Inafarction during the surgery is less. If benefit outweighs the risk please proceed with the surgery No further cardiac work up necessary at this time I will follow Thank you
--- NOTE | 2019-01-20 16:49 | CARD ---
APPROVED REPORT Date of service: 01/20/2019 Protocol: LEXISCAN Test Type: LEXISCAN STRESS Test Indications: PRE OP Medical History: CP Target HR: 133 bpm Resting ECG: NSR WITH [address] DEPRESSIONS V5-V6 Resting Heart Rate: 102 bpm Resting Blood Pressure: 138/80mmHg submaximum (85%): 113 bpm TEST SUMMARY PREINFSNHYPERV.14:340.00..[id number]/80.0. INFUSIONDOSE 100:300.00.01.0101/.0. [id number]:510.00..[id number]/80.0. PROCEDURE Pharmacologic stress testing was performed using 0.4mg per 5ml of regadenoson given intravenously over 7-10 seconds. POST EXERCISE Reason for Termination: Protocol Completed Target HR: No Max HR: 101 bpm 80% of Maximum Predicted HR: 133 bpm Exercise duration: 00:30 min:sec, 0 Stage Exercise capacity: 1.0METs Max Blood Pressure: 138/80mmHg Blood Pressure response to exercise: normal resting BP - appropriate response Heart Rate response to exercise: appropriate Chest Pain: No, none Angina index: 0 Arrhythmia: No, none ST Change: Yes, NO CHANGE FROM BASELINE Deviation: 0 mm INTERPRETATION Stress EKG Conclusion: NEGATIVE LEXISCAN STRESS TEST NORMAL BP RESPONSE TO LEXISCAN NUCLEAR STUDIES TO BE READ SEPARATELY EXAM: Myocardial Perfusion REST/STRESS Imaging Protocol The imaging protocol used to acquire images was Rest Tc-99m/stress Tc-99m 1 day Rest Spect myocardial perfusion imaging was performed in supine position 45 minutes following the injection of 13 mCi of Tc-99 Myoview. Gated Stress Spect was performed 43 minutes after intravenous 32.4 mCi Tc-99 Myoview injection. The images were gated to evaluate regional wall motion and calculate ventricular ejection fraction.Images were reconstructed using backfilter projection method in short horizontal and verticle long axis. Spect slices were generated. RESTING DATA EDV55.10ikSI3.00L/min ESV14.00mlMyocardial Mass99.00g Av. Heart Rate99.00bpm EF75.00% STRESS DATA EDV55.12mnPU2.30L/min ESV13.00mlMyocardial Mass99.00g EF76.00% Regional WT score at stress:3.00 Regional WM score at stress:0.00 Summed WT score at stress:21.00 Av. Heart Uyve945.00bpmSummed WM score at stress:5.00 LV Perf. Quant 17 Seg. SSS0.00 17 Seg. SRS0.00 17 Seg. SDS0.00 Stress Defect Extent (% LAD)0.00Rest Defect Extent (% LAD)0.00Rev. Defect Extent (% LAD)0.00 Stress Defect Extent (% LCX)0.00Rest Defect Extent (% LCX)0.00Rev. Defect Extent (% LCX)0.00 Stress Defect Extent (% RCA)0.00Rest Defect Extent (% RCA)0.00Rev. Defect Extent (% RCA)0.00 Stress Defect Extent (% PATIENCE)0.00Rest Defect Extent (% PATIENCE)0.00Rev. Defect Extent (% PATIENCE)0.00 Other Information Quality:Good IMPRESSION Normal Myocardial Perfusion exercise stress study Left Ventricle LV Function:Left ventricle systolic function is normal. The Ejection Fraction is >55%. Metabolism/Perfusion There are no perfusion/metabolism defects. Conclusion 1. Normal Lexiscan Nuclear Stress test. Normal EF
--- NOTE | 2019-01-20 16:53 | CARD ---
APPROVED REPORT Date of service: 01/20/2019 EXAM: Two-dimensional and M-mode echocardiogram with Doppler and color Doppler. INDICATION Abnormal EKG/Arrhythmia Pre-Op RISK FACTORS Hypertension Hyperlipidemia Diabetes 2D DIMENSIONS IVSd1.1 (0.7-1.1cm)LVDd4.6 (3.9-5.9cm) PWd1.4 (0.7-1.1cm)LA [id number] (18-58mL) LVDs2.4 (2.5-4.0cm)FS (%) 47.7 % LVEF (%)79.1 (>50%)LVEF (Julio's)69.88 % M-Mode DIMENSIONS RVDd1.59 (2.1-3.2cm)Left Atrium (MM)3.61 (2.5-4.0cm) IVSd0.94 (0.7-1.1cm)Aortic Root3.65 (2.2-3.7cm) LVDd4.95 (4.0-5.6cm)Aortic Cusp Exc.2.16 (1.5-2.0cm) PWd1.04 (0.7-1.1cm)FS (%) 44 % LVDs2.77 (2.0-3.8cm)TAPSE11.06 cm LVEF (%)75 (>50%) Mitral Valve MV E Zmfxitzt36.5cm/sMV A Ntznevjr44.3cm/sE/A ratio0.5 TDI Lateral E' Peak V5.84cm/sMedial E' Peak V3.77cm/sE/Lateral E'8.8 E/Medial E'13.7 Tricuspid Valve TR Peak Rquszrrg252nv/sTR Peak Gr.[id number] LEFT VENTRICLE The left ventricle is normal size. There is mild concentric left ventricular hypertrophy. Left ventricle systolic function is normal. The Ejection Fraction is 65-70%. There is normal LV segmental wall motion. Transmitral Doppler flow pattern is abnormal. There is no ventricular septal defect visualized. RIGHT VENTRICLE The right ventricle is normal size. The right ventricular systolic function is normal. ATRIA The left atrium is mildly dilated. The right atrium size is normal. AORTIC VALVE The aortic valve is mildly sclerotic. The aortic valve is probably trileaflet. No aortic regurgitation is present. There is no aortic valvular stenosis. MITRAL VALVE The mitral valve is normal in structure. There is no evidence of mitral valve prolapse. There is no mitral valve regurgitation noted. TRICUSPID VALVE The tricuspid valve is normal in structure. There is moderate tricuspid regurgitation. Right ventricular systolic pressure is estimated at greater than 60 mmHg. There is severe pulmonary hypertension. PULMONIC VALVE The pulmonic valve is not well visualized. GREAT VESSELS The aortic root is normal in size. The ascending aorta is normal in size. The IVC was not visualized. PERICARDIAL EFFUSION There is no pericardial effusion. <Conclusion> There is mild concentric left ventricular hypertrophy. Left ventricle systolic function is normal. The Ejection Fraction is 65-70%. Transmitral Doppler flow pattern is abnormal. There is severe pulmonary hypertension.
--- NOTE | 2019-01-20 18:45 | CP.PCM.CON ---
History of Present Illness - History of Present Illness History of Present Illness: INFECTIOUS DISEASE CONSULTATION DAVID MONTEJO MD, FACP 01/20/2019 CHART REVIEWED PT EXAMINED CASE DISCUSSED WITH DOMENICA SALGADO AND BANG AN INFECTIOUS DISEASE CONSULTATION WAS REQUESTED BY THE [facility] 2ND CHANGE OF MENTAL STATUS AND POSSIBLE ATELECTASIS VS PNEUMONIA. Patient is an 88 y/o tunisian speaking female c/o R hip pain. PRESENTLY THE PATIENT IS NOT COHERENT AND BARELY ABLE TO MAKE ANY SENSE-THIS WAS OCCURING BEFORE HER FALL AT HOME AND HER PRESENTATION HERE X 2. Her daughters are at bedside who provide history and translation for patient, THOUGH I SPEAK PANAMANIAN FLUENTLY, AND SHE DOESN'T MAKE ANY SENSE IN EITHER LANGUAGE. Patient reportED transferring to the bathroom and lost balance resulting in a fall onto her right side. She experienced severe R hip pain and was unable to get up to WB. APPARENTLY SHE DENIED any LOC/dizziness/other injuries during the fall. She usually walks with walker and lives at home with daughter. Her pain WAS REPORTED sharp, intermittent and located at the groin. The pain is worsened with movement and alleviated with rest. She denies radiation of pain/numbness/tingling. She also denies CP/SOB/N/V/D/fever/dysuria/melena. PMH: DM, HTN, HLD PSH: Bunionectomy, L leg skin graft, cataracts meds: as per Med rec allergy: NKDA SH: denies tobacco/drug use, wine occasionally Review of Systems - Review of Systems All systems: reviewed and no additional remarkable complaints except Review of Systems: as per HPI Physical Exam - Constitutional Appears: Well, No Acute Distress - Head Exam Head Exam: ATRAUMATIC, NORMOCEPHALIC - Eye Exam Eye Exam: EOMI, Normal appearance - ENT Exam ENT Exam: Mucous Membranes Moist - Respiratory Exam Respiratory Exam: NORMAL BREATHING PATTERN - Extremities Exam Additional comments: R hip: no lesions/masses/erythema tenderness to groin and over greater troch sensation intact SP/DP/TN motor intact EHL/FHL/TA/G pedal pulse intact calves soft NT b/l L hip: no lesions/masses/erythema no tenderness sensation intact SP/DP/TN motor intact EHL/FHL/TA/G pedal pulse intact - Neurological Exam Neurological exam: Alert, Oriented x3 - Psychiatric Exam Psychiatric exam: Normal Affect, Normal Mood - Skin Skin Exam: Normal Color, Warm Past Patient History - Infectious Disease Hx of Infectious Diseases: None - Past Medical History & Family History Past Medical History?: Yes Past Family History: Reviewed and not pertinent - Past Social History Smoking Status: Never Smoked - CARDIAC Hx Hypercholesterolemia: Yes Hx Hypertension: Yes - PULMONARY Hx Respiratory Disorders: No - NEUROLOGICAL Hx Dementia: Yes - HEENT Hx HEENT Problems: Yes Hx Cataracts: Yes - RENAL Hx Chronic Kidney Disease: No - ENDOCRINE/METABOLIC Hx Endocrine Disorders: Yes Hx Diabetes Mellitus Type 2: Yes - HEMATOLOGICAL/ONCOLOGICAL Hx Blood Disorders: No - INTEGUMENTARY Hx Dermatological Problems: Yes Other/Comment: LEFT LATERAL LEG ULCER 2014. - MUSCULOSKELETAL/RHEUMATOLOGICAL Hx Falls: Yes - GASTROINTESTINAL Hx Gastrointestinal Disorders: No - GENITOURINARY/GYNECOLOGICAL Hx Genitourinary Disorders: No - PSYCHIATRIC Hx Substance Use: No - SURGICAL HISTORY Hx Surgeries: Yes Hx Eye Surgery: Yes (HENRY CATARACT) Other/Comment: Henry. Bunion Removed. - ANESTHESIA Hx Anesthesia: Yes Hx Anesthesia Reactions: No Hx Malignant Hyperthermia: No Has any member of the family had a problem w/ anesthesia?: No Meds Allergies/Adverse Reactions: Allergies Allergy/AdvReac Type Severity Reaction Status Date / Time acetaminophen [From Percocet] Allergy Verified 01/18/19 22:34 oxycodone [From Percocet] Allergy Verified 01/18/19 22:34 - Medications Medications: Current Medications Albuterol/Ipratropium (Duoneb 3 Mg/0.5 Mg (3 Ml) Ud) 3 ml INH RQ6 [facility] Last Admin: 01/20/19 15:39 Dose: Not Given Alprazolam (Xanax) 0.5 mg PO ONCE PRN PRN Reason: Anxiety Gabapentin (Neurontin) 300 mg PO HS [facility] Last Admin: 01/19/19 22:16 Dose: 300 mg Hydrochlorothiazide (Hydrodiuril) 25 mg PO DAILY [facility] Last Admin: 01/20/19 13:57 Dose: 25 mg Sodium Chloride (Sodium Chloride 0.45%) 1,000 mls @ 60 mls/hr IV .[id number] [facility] Last Admin: 01/20/19 02:02 Dose: 60 mls/hr Influenza Virus Vaccine (Flucelvax Quad [id number] Syr) 60 mcg IM .ONCE ONE Stop: 01/21/19 11:01 Insulin Human Regular (Novolin R) 0 unit SC ACHS [facility] Last Admin: 01/20/19 12:08 Dose: Not Given Lamotrigine (Lamictal) 25 mg PO BID [facility] Last Admin: 01/20/19 13:58 Dose: 25 mg Losartan Potassium (Cozaar) 100 mg PO DAILY [facility] Last Admin: 01/20/19 13:58 Dose: 100 mg Metoprolol Succinate (Toprol Xl) 50 mg PO DAILY [facility] Last Admin: 01/20/19 13:58 Dose: 50 mg Morphine Sulfate (Morphine) 2 mg IVP Q4 PRN PRN Reason: Pain, moderate (4-7) Last Admin: 01/20/19 02:02 Dose: 2 mg Promethazine HCl/Dextromethorphan (Phenergan Dm Syrup) 5 ml PO Q6H PRN PRN Reason: Coughing Quetiapine Fumarate (Seroquel Xr) 50 mg PO HS [facility] Last Admin: 01/19/19 22:40 Dose: 50 mg Results - Vital Signs Recent Vital Signs: Last Vital Signs Temp 99.6 F 01/20/19 08:59 Pulse 104 H 01/20/19 13:57 Resp 20 01/20/19 08:59 BP 128/74 01/20/19 13:57 Pulse Ox 97 01/20/19 08:59 - Labs Result Diagrams: 01/20/19 13:42 01/20/19 13:42 Labs: Laboratory Results - last 24 hr 01/19/19 01/19/19 01/19/19 16:36 21:04 22:06 WBC RBC Hgb Hct MCV MCH MCHC RDW Plt Count MPV Sodium Potassium Chloride Carbon Dioxide Anion Gap BUN Creatinine Est GFR ( Amer) Est GFR (Non-Af Amer) POC Glucose (mg/dL) 131 H 177 H Random Glucose Calcium Total Bilirubin AST ALT Alkaline Phosphatase Total Creatine Kinase 48 CK-MB (Mass) 1.16 Troponin I < 0.0120 Total Protein Albumin Globulin Albumin/Globulin Ratio 01/20/19 01/20/19 01/20/19 06:21 13:42 13:42 WBC 7.1 RBC 2.59 L Hgb 8.3 L D Hct 25.0 L MCV 96.6 MCH 32.1 H MCHC 33.3 RDW 14.9 H Plt Count 149 MPV 9.1 Sodium 137 Potassium 4.8 Chloride 106 Carbon Dioxide 23 Anion Gap 13 BUN 54 H Creatinine 2.0 H Est GFR ( Amer) 29 Est GFR (Non-Af Amer) 24 POC Glucose (mg/dL) 252 H Random Glucose 219 H Calcium 8.8 Total Bilirubin 0.5 AST 15 ALT 11 Alkaline Phosphatase 83 Total Creatine Kinase CK-MB (Mass) Troponin I Total Protein 6.0 L Albumin 3.3 L D Globulin 2.7 Albumin/Globulin Ratio 1.2 I REVIEWED HER LABS AND CXR'S- ATELECTASIS VS POSSIBLE PNEUMONIA(?)- IN VIEW OF HER FRACTURED HIP, ADVANCED AGE AND DM-WOULD CONSIDER STARTING ROCE PHIN 2 G,S IVPB DAILY, OF NOW. ALERT ME TO ANY CLINICAL OR LABORATORY ISSUES FROM THE ID POINT OF VIEW. CONSIDER A NEUROLOGIST EVALUATION, WITHIN REASON, IF POSSIBLE. DAVID MORELOS MD, FACP Past Patient History - Infectious Disease Hx of Infectious Diseases: None - Past Medical History & Family History Past Medical History?: Yes Past Family History: Reviewed and not pertinent - Past Social History Smoking Status: Never Smoked - CARDIAC Hx Hypercholesterolemia: Yes Hx Hypertension: Yes - PULMONARY Hx Respiratory Disorders: No - NEUROLOGICAL Hx Dementia: Yes - HEENT Hx HEENT Problems: Yes Hx Cataracts: Yes - RENAL Hx Chronic Kidney Disease: No - ENDOCRINE/METABOLIC Hx Endocrine Disorders: Yes Hx Diabetes Mellitus Type 2: Yes - HEMATOLOGICAL/ONCOLOGICAL Hx Blood Disorders: No - INTEGUMENTARY Hx Dermatological Problems: Yes Other/Comment: LEFT LATERAL LEG ULCER 2014. - MUSCULOSKELETAL/RHEUMATOLOGICAL Hx Falls: Yes - GASTROINTESTINAL Hx Gastrointestinal Disorders: No - GENITOURINARY/GYNECOLOGICAL Hx Genitourinary Disorders: No - PSYCHIATRIC Hx Substance Use: No - SURGICAL HISTORY Hx Surgeries: Yes Hx Eye Surgery: Yes (HENRY CATARACT) Other/Comment: Henry. Bunion Removed. - ANESTHESIA Hx Anesthesia: Yes Hx Anesthesia Reactions: No Hx Malignant Hyperthermia: No Has any member of the family had a problem w/ anesthesia?: No Meds Allergies/Adverse Reactions: Allergies Allergy/AdvReac Type Severity Reaction Status Date / Time acetaminophen [From Percocet] Allergy Verified 01/18/19 22:34 oxycodone [From Percocet] Allergy Verified 01/18/19 22:34 - Medications Medications: Current Medications Albuterol/Ipratropium (Duoneb 3 Mg/0.5 Mg (3 Ml) Ud) 3 ml INH RQ6 [facility] Last Admin: 01/20/19 15:39 Dose: Not Given Alprazolam (Xanax) 0.5 mg PO ONCE PRN PRN Reason: Anxiety Gabapentin (Neurontin) 300 mg PO HS [facility] Last Admin: 01/19/19 22:16 Dose: 300 mg Hydrochlorothiazide (Hydrodiuril) 25 mg PO DAILY [facility] Last Admin: 01/20/19 13:57 Dose: 25 mg Sodium Chloride (Sodium Chloride 0.45%) 1,000 mls @ 60 mls/hr IV .[id number] [facility] Last Admin: 01/20/19 02:02 Dose: 60 mls/hr Influenza Virus Vaccine (Flucelvax Quad [id number] Syr) 60 mcg IM .ONCE ONE Stop: 01/21/19 11:01 Insulin Human Regular (Novolin R) 0 unit SC [facility] Last Admin: 01/20/19 12:08 Dose: Not Given Lamotrigine (Lamictal) 25 mg PO BID [facility] Last Admin: 01/20/19 13:58 Dose: 25 mg Losartan Potassium (Cozaar) 100 mg PO DAILY [facility] Last Admin: 01/20/19 13:58 Dose: 100 mg Metoprolol Succinate (Toprol Xl) 50 mg PO DAILY [facility] Last Admin: 01/20/19 13:58 Dose: 50 mg Morphine Sulfate (Morphine) 2 mg IVP Q4 PRN PRN Reason: Pain, moderate (4-7) Last Admin: 01/20/19 02:02 Dose: 2 mg Promethazine HCl/Dextromethorphan (Phenergan Dm Syrup) 5 ml PO Q6H PRN PRN Reason: Coughing Quetiapine Fumarate (Seroquel Xr) 50 mg PO [facility] Last Admin: 01/19/19 22:40 Dose: 50 mg Results - Vital Signs Recent Vital Signs: Last Vital Signs Temp 99.8 F H 01/20/19 15:08 Pulse 94 H 01/20/19 15:08 Resp 18 01/20/19 15:08 BP 110/54 L 01/20/19 15:08 Pulse Ox 94 L 01/20/19 15:08 - Labs Result Diagrams: 01/20/19 13:42 01/20/19 13:42 Labs: Laboratory Results - last 24 hr 01/19/19 01/19/19 01/20/19 21:04 22:06 06:21 WBC RBC Hgb Hct MCV MCH MCHC RDW Plt Count MPV Sodium Potassium Chloride Carbon Dioxide Anion Gap BUN Creatinine Est GFR ( Amer) Est GFR (Non-Af Amer) POC Glucose (mg/dL) 177 H 252 H Random Glucose Calcium Total Bilirubin AST ALT Alkaline Phosphatase Total Creatine Kinase 48 CK-MB (Mass) 1.16 Troponin I < 0.0120 Total Protein Albumin Globulin Albumin/Globulin Ratio 01/20/19 01/20/19 01/20/19 13:42 13:42 16:40 WBC 7.1 RBC 2.59 L Hgb 8.3 L D Hct 25.0 L MCV 96.6 MCH 32.1 H MCHC 33.3 RDW 14.9 H Plt Count 149 MPV 9.1 Sodium 137 Potassium 4.8 Chloride 106 Carbon Dioxide 23 Anion Gap 13 BUN 54 H Creatinine 2.0 H Est GFR ( Amer) 29 Est GFR (Non-Af Amer) 24 POC Glucose (mg/dL) 225 H Random Glucose 219 H Calcium 8.8 Total Bilirubin 0.5 AST 15 ALT 11 Alkaline Phosphatase 83 Total Creatine Kinase CK-MB (Mass) Troponin I Total Protein 6.0 L Albumin 3.3 L D Globulin 2.7 Albumin/Globulin Ratio 1.2
[2019-01-20] MEDS: cefTRIAXone 2 GM in Sodium Chloride 0.9% 100 ML IVPB SCH (21:03)
[2019-01-20] MEDS: QUEtiapine 50 mg XR Tab PO SCH (22:13)
[2019-01-21] MEDS: Albuterol-Ipratrop 3 mg / 0.5 (3 ml) UD INH SCH ×4 (01:29→20:28)
[2019-01-21] MEDS: Sodium Chloride 0.45% 1,000 ML IV SCH ×2 (05:45→10:24)
[2019-01-21] MEDS: (Novolin R) Insulin Human Regular 100 units/ml vial SC SCH ×4 (07:30→22:50)
[2019-01-21 09:06] LABS: HEMOGLOBIN 8.3 g/dL (11.0-16.0); MEAN CELL VOLUME 95.4 fL (81.0-99.0); MEAN CORPUSCULAR HEMOGLOBIN 32.7 pg (27.0-31.0); MEAN CORPUSCULAR HGB CONC 34.2 g/dL (33.0-37.0); RBC 2.53 Mil/uL (3.80-5.20); RED CELL DISTRIBUTION WIDTH 14.6 % (11.5-14.5); WHITE BLOOD COUNT 6.5 K/uL (4.8-10.8)
[2019-01-21] MEDS: cefTRIAXone 2 GM in Sodium Chloride 0.9% 100 ML IVPB SCH (09:15)
[2019-01-21 10:19] LABS: ALB/GLOB RATIO 1.1 (1.0-2.1); ALBUMIN 3.1 g/dL (3.5-5.0); CALCIUM 8.8 mg/dl (8.6-10.4)
[2019-01-21] MEDS: Azithromycin 500 MG in Sodium Chloride 0.9% 250 ML IVPB SCH (10:21)
[2019-01-21] MEDS: Metoprolol Succinate 50 mg XL Tab PO SCH (10:22)
[2019-01-21] MEDS ORDERED: Influenza Vaccine 60 mcg/0.5 mL SYR (4YR UP) IM ONE (11:00)
--- NOTE | 2019-01-21 16:29 | CP.PCM.CON ---
History of Present Illness - History of Present Illness History of Present Illness: Neurology Consultation Note: Consult requested by Dr. Peters Mrs. Roach is an 89-year-old woman with a past medical history of DM, HTN, anxiety/depression, gait disturbance, who was in the ED 3 days ago for speech difficulty that resolved. She left the hospital because family did not want her admitted. She then went home and had a fall because she did not use her walker. She was subsequently unable to stand. She was brought to the ED again and was found to have a left hip fracture. She is scheduled for surgery tomorrow. When I saw the patient, her family was present. She had some slurred speech, but had recently received morphine. The content of her speech was not abnormal. She was not aphasic, but had a mild dysarthria. However, she was seemingly confused and was attempting to take off her O2 sensor and pre-occupied with the wires. Review of Systems - Constitutional Constitutional: As Per HPI - EENT Eyes: absent: As Per HPI, Blind Spots, Blurred Vision, Change in Vision, Decreased Night Vision, Diplopia, Discharge, Dry Eye, Exophthalmos, Floaters, Irritation, Itchy Eyes, Loss of Peripheral Vision, Pain, Photophobia, Requires Corrective Lenses, Sees Flashes, Spots in Vision, Tunnel Vision, Other Visual Disturbances, Loss of Vision, Other Ears: absent: As Per HPI, Decreased Hearing, Ear Discharge, Ear Pain, Tinnitus, Abnormal Hearing, Disequilibrium, Dizziness, Other Nose/Mouth/Throat: absent: As Per HPI, Epistaxis, Nasal Congestion, Nasal Dis charge, Nasal Obstruction, Nasal Trauma, Nose Pain, Post Nasal Drip, Sinus Pain, Sinus Pressure, Bleeding Gums, Change in Voice, Dental Pain, Dry Mouth, Dysphagia, Halitosis, Hoarsness, Lip Swelling, Mouth Lesions, Mouth Pain, Odynophagia, Sore Throat, Throat Swelling, Tongue Swelling, Facial Pain, Neck Pain, Neck Mass, Other - Cardiovascular Cardiovascular: absent: As Per HPI, Acrocyanosis, Chest Pain, Chest Pain at Rest, Chest Pain with Activity, Claudication, Diaphoresis, Dyspnea, Dyspnea on Exertion, Edema, Irregular Heart Rhythm, Pain Radiating to Arm/Neck/Jaw, Leg Edema, Leg Ulcers, Lightheadedness, Orthopnea, Palpitations, Paroxysmal Nocturnal Dyspnea, Pedal Edema, Radiating Pain, Rapid Heart Rate, Slow Heart Rate, Syncope, Other - Respiratory Respiratory: absent: As Per HPI, Cough, Dyspnea, Hemoptysis, Dyspnea on Exertion, Wheezing, Snoring, Stridor, Pain on Inspiration, Chest Congestion, Excessive Mucous Production, Change in Mucous Color, Pain with Coughing, Other - Musculoskeletal Musculoskeletal: As Per HPI - Integumentary Integumentary: absent: As Per HPI, Acne, Alopecia, Bleeding Lesions, Change in Hair, Change in Nails, Change in Pigmentation, Changing Lesions, Dry Skin, Erythema, Furuncle, Hirsutism, Lesions, New Lesions, Non-Healing Lesions, Photosensitivity, Pruritus, Rash, Skin Pain, Skin Ulcer, Sores, Striae, Swelling, Unusual Bruising, Wounds, Jaundice, Other - Neurological Neurological: As Per HPI - Psychiatric Psychiatric: absent: As Per HPI, Abnormal Sleep Pattern, Anhedonia, Anxiety, Auditory Hallucinations, Behavioral Changes, Change in Appetite, Change in Libido, Confusion, Depression, Difficulty Concentrating, Hallucinations, Homicidal Ideation, Hopelessness, Irritability, Memory Loss, Mood Swings, Panic Attacks, Paranoia, Suicidal Ideation, Visual Hallucinations, Tactile Hallucinations, Other - Endocrine Endocrine: absent: As Per HPI, Change in Body Appearance, Change in Libido, Cold Intolorance, Deepening of Voice, Excessive Sweating, Fatigue, Flushing, Heat Intolorance, Increase in Ring/Shoe/Hat Size, Palpitations, Polydipsia, Polyphagia, Polyuria, Other - Hematologic/Lymphatic Hematologic: absent: As Per HPI, Easy Bleeding, Easy Bruising, Lymphadenopathy, Other Past Patient History - Infectious Disease Hx of Infectious Diseases: None - Past Medical History & Family History Past Medical History?: Yes Past Family History: Reviewed and not pertinent - Past Social History Smoking Status: Never Smoked - CARDIAC Hx Hypercholesterolemia: Yes Hx Hypertension: Yes - PULMONARY Hx Respiratory Disorders: No - NEUROLOGICAL Hx Dementia: Yes - HEENT Hx HEENT Problems: Yes Hx Cataracts: Yes - RENAL Hx Chronic Kidney Disease: No - ENDOCRINE/METABOLIC Hx Endocrine Disorders: Yes Hx Diabetes Mellitus Type 2: Yes - HEMATOLOGICAL/ONCOLOGICAL Hx Blood Disorders: No - INTEGUMENTARY Hx Dermatological Problems: Yes Other/Comment: LEFT LATERAL LEG ULCER 2015. - MUSCULOSKELETAL/RHEUMATOLOGICAL Hx Falls: Yes - GASTROINTESTINAL Hx Gastrointestinal Disorders: No - GENITOURINARY/GYNECOLOGICAL Hx Genitourinary Disorders: No - PSYCHIATRIC Hx Substance Use: No - SURGICAL HISTORY Hx Surgeries: Yes Hx Eye Surgery: Yes (BRET CATARACT) Other/Comment: Bret. Bunion Removed. - ANESTHESIA Hx Anesthesia: Yes Hx Anesthesia Reactions: No Hx Malignant Hyperthermia: No Has any member of the family had a problem w/ anesthesia?: No Meds Allergies/Adverse Reactions: Allergies Allergy/AdvReac Type Severity Reaction Status Date / Time acetaminophen [From Percocet] Allergy Verified 01/18/19 22:34 oxycodone [From Percocet] Allergy Verified 01/18/19 22:34 - Medications Medications: Current Medications Albuterol/Ipratropium (Duoneb 3 Mg/0.5 Mg (3 Ml) Ud) 3 ml INH RQ6 [facility] Last Admin: 01/21/19 10:13 Dose: Not Given Alprazolam (Xanax) 0.5 mg PO ONCE PRN PRN Reason: Anxiety Gabapentin (Neurontin) 300 mg PO HS [facility] Last Admin: 01/20/19 22:14 Dose: 300 mg Hydrochlorothiazide (Hydrodiuril) 25 mg PO DAILY [facility] Last Admin: 01/21/19 10:22 Dose: 25 mg Sodium Chloride (Sodium Chloride 0.45%) 1,000 mls @ 60 mls/hr IV .[id number] [facility] Last Admin: 01/21/19 10:24 Dose: Not Given Ceftriaxone Sodium 2 gm/ (Sodium Chloride) 100 mls @ 100 mls/hr IVPB DAILY [facility]; Protocol Last Admin: 01/21/19 09:15 Dose: 100 mls/hr Azithromycin 500 mg/ Sodium (Chloride) 250 mls @ 250 mls/hr IVPB DAILY [facility]; Protocol Stop: 01/24/19 10:01 Last Admin: 01/21/19 10:21 Dose: 250 mls/hr Insulin Human Regular (Novolin R) 0 unit SC ACHS [facility] Last Admin: 01/21/19 11:45 Dose: Not Given Lamotrigine (Lamictal) 25 mg PO BID [facility] Last Admin: 01/21/19 10:22 Dose: 25 mg Losartan Potassium (Cozaar) 100 mg PO DAILY [facility] Last Admin: 01/21/19 10:22 Dose: 100 mg Metoprolol Succinate (Toprol Xl) 50 mg PO DAILY [facility] Last Admin: 01/21/19 10:22 Dose: 50 mg Morphine Sulfate (Morphine) 2 mg IVP Q4 PRN PRN Reason: Pain, moderate (4-7) Last Admin: 01/21/19 10:54 Dose: 2 mg Promethazine HCl/Dextromethorphan (Phenergan Dm Syrup) 5 ml PO Q6H PRN PRN Reason: Coughing Quetiapine Fumarate (Seroquel Xr) 50 mg PO HS [facility] Last Admin: 01/20/19 22:13 Dose: 50 mg Physical Exam - Constitutional Appears: Well - Head Exam Head Exam: ATRAUMATIC, NORMAL INSPECTION, NORMOCEPHALIC - Eye Exam Eye Exam: EOMI, Normal appearance, PERRL Pupil Exam: NORMAL ACCOMODATION, PERRL - ENT Exam ENT Exam: Mucous Membranes Moist, Normal Exam - Neck Exam Neck exam: Positive for: Normal Inspection - Respiratory Exam Respiratory Exam: Clear to Auscultation Bilateral, NORMAL BREATHING PATTERN - Cardiovascular Exam Cardiovascular Exam: REGULAR RHYTHM, +S1, +S2 - GI/Abdominal Exam GI & Abdominal Exam: Normal Bowel Sounds, Soft. absent: Tenderness - Extremities Exam Extremities exam: Positive for: normal inspection - Back Exam Back exam: NORMAL INSPECTION - Neurological Exam Neurological exam: Alert, Altered, CN II-XII Intact, Reflexes Normal Additional comments: Unable to test gait. Left hip fracture/weakness. Speech is slightly dysarthric, not aphasic, otherwise non-focal exam. - Psychiatric Exam Psychiatric exam: Normal Affect, Normal Mood - Skin Skin Exam: Dry, Intact, Normal Color, Warm Results - Vital Signs Recent Vital Signs: Last Vital Signs Temp 98.3 F 01/21/19 15:25 Pulse 94 H 01/21/19 15:25 Resp 20 01/21/19 15:25 BP 121/71 01/21/19 15:25 Pulse Ox 93 L 01/21/19 07:00 - Labs Result Diagrams: 01/21/19 09:01 01/21/19 08:54 Labs: Laboratory Results - last 24 hr 01/20/19 01/20/19 01/21/19 16:40 21:35 08:54 WBC RBC Hgb Hct MCV MCH MCHC RDW Plt Count MPV Sodium 137 Potassium 4.2 Chloride 106 Carbon Dioxide 23 Anion Gap 11 BUN 54 H Creatinine 1.9 H Est GFR ( Amer) 30 Est GFR (Non-Af Amer) 25 POC Glucose (mg/dL) 225 H 212 H Random Glucose 154 H D Calcium 8.8 Total Bilirubin 0.4 AST 18 ALT 9 Alkaline Phosphatase 80 Total Protein 5.9 L Albumin 3.1 L Globulin 2.8 Albumin/Globulin Ratio 1.1 Blood Type Antibody Screen Crossmatch 01/21/19 01/21/19 09:01 11:33 WBC 6.5 RBC 2.53 L Hgb 8.3 L Hct 24.1 L MCV 95.4 MCH 32.7 H MCHC 34.2 RDW 14.6 H Plt Count 149 MPV 9.0 Sodium Potassium Chloride Carbon Dioxide Anion Gap BUN Creatinine Est GFR ( Amer) Est GFR (Non-Af Amer) POC Glucose (mg/dL) Random Glucose Calcium Total Bilirubin AST ALT Alkaline Phosphatase Total Protein Albumin Globulin Albumin/Globulin Ratio Blood Type B POSITIVE Antibody Screen Negative Crossmatch See Detail Assessment & Plan (1) Dysarthria Assessment and Plan: Could be due to a small infarct, or may be due to current medication effect, etc. Would recommend MRI of the brain without contrast for further evaluation (will require open MRI as an outpatient, when stable). She is to have surgery tomorrow, so aspirin was held. Will base the resuming of aspirin on orthopedic recommendation after surgery. Continue current management. Thank you for this consultation. Status: Acute
[2019-01-21] MEDS ORDERED: Enoxaparin 40 mg Syringe SC ONE (19:46)
--- NOTE | 2019-01-21 21:04 | CP.PCM.PN ---
Subjective - Date & Time of Evaluation Date of Evaluation: 01/20/19 Time of Evaluation: 15:00 - Subjective Subjective: patient lying in bed sleeping comfortably. Family/daughter's bedside. Objective - Vital Signs/Intake and Output Vital Signs (last 24 hours): Temp Pulse Resp BP Pulse Ox 98.9 F 89 20 130/82 95 01/21/19 17:47 01/21/19 17:47 01/21/19 17:47 01/21/19 20:00 01/21/19 15:33 Intake and Output: 01/21/19 01/22/19 18:59 06:59 Intake Total 325 Output Total 300 Balance 25 - Medications Medications: Current Medications Albuterol/Ipratropium (Duoneb 3 Mg/0.5 Mg (3 Ml) Ud) 3 ml INH RQ6 [facility] Last Admin: 01/21/19 20:28 Dose: 3 ml Alprazolam (Xanax) 0.5 mg PO ONCE PRN PRN Reason: Anxiety Gabapentin (Neurontin) 300 mg PO HS [facility] Last Admin: 01/20/19 22:14 Dose: 300 mg Hydrochlorothiazide (Hydrodiuril) 25 mg PO DAILY [facility] Last Admin: 01/21/19 10:22 Dose: 25 mg Sodium Chloride (Sodium Chloride 0.45%) 1,000 mls @ 60 mls/hr IV .[id number] [facility] Last Admin: 01/21/19 10:24 Dose: Not Given Ceftriaxone Sodium 2 gm/ (Sodium Chloride) 100 mls @ 100 mls/hr IVPB DAILY [facility]; Protocol Last Admin: 01/21/19 09:15 Dose: 100 mls/hr Azithromycin 500 mg/ Sodium (Chloride) 250 mls @ 250 mls/hr IVPB DAILY [facility]; Protocol Stop: 01/24/19 10:01 Last Admin: 01/21/19 10:21 Dose: 250 mls/hr Insulin Human Regular (Novolin R) 0 unit SC ACHS [facility] Last Admin: 01/21/19 17:21 Dose: Not Given Lamotrigine (Lamictal) 25 mg PO BID [facility] Last Admin: 01/21/19 17:43 Dose: 25 mg Losartan Potassium (Cozaar) 100 mg PO DAILY [facility] Last Admin: 01/21/19 10:22 Dose: 100 mg Metoprolol Succinate (Toprol Xl) 50 mg PO DAILY [facility] Last Admin: 01/21/19 10:22 Dose: 50 mg Morphine Sulfate (Morphine) 2 mg IVP Q4 PRN PRN Reason: Pain, moderate (4-7) Last Admin: 01/21/19 10:54 Dose: 2 mg Promethazine HCl/Dextromethorphan (Phenergan Dm Syrup) 5 ml PO Q6H PRN PRN Reason: Coughing Quetiapine Fumarate (Seroquel Xr) 50 mg PO HS [facility] Last Admin: 01/20/19 22:13 Dose: 50 mg - Labs Labs: 01/21/19 09:01 01/21/19 08:54 PT 12.0 SECONDS (9.7-12.2) 01/19/19 04:23 INR 1.1 01/19/19 04:23 APTT 28 SECONDS (21-34) 01/19/19 04:23 - Extremities Exam Additional comments: right lower extremity: + TTP groin and greater trochanter, + + + LOG roll, unable to tolerate any range of motion, skin intact -swelling/erythema/deformity/warmth, + 5/5 motor strength Ankle Dorsiflex/ Ankle Plantarflex/ EHL/ FHL, Sensory intact L2-S1/ DPN/SPN/TN/SN, 2+ DP, DTR 2+, - Babinski, no beats of clonus left lower extremity: -ttp, -swelling/erythema/deformity/warmth, - groin ttp, - GT ttp, FROM= Abd to 45 degrees, Flex to 120 degrees, Ext to 10 degrees, ER to 45 degrees, IR to 40 degrees,- TIFF - TIA - SI mal alignment - instability, - log roll, - TIA, - Impingement w/ flex & IR, - Impingement w/ Ext & ER, - internal snapping, - external snapping, + 5/5 motor strength Hip Flex/ Hip Ext/ Knee flex/ Knee Ext/ Ankle Dorsiflex/ Ankle Plantarflex/ EHL/ FHL, Sensory intact L2-S1/ DPN/SPN/TN/SN, 2+ DP, DTR 2+, - Babinski, no beats of clonus Assessment and Plan (1) Fracture, intertrochanteric, right femur Assessment & Plan: 89-year-old female with questionable history of stroke/TIA with aphasic event3 days prior to admission seen at [facility] event. Admitted through [facility] ER on01/19/19 with RR hip pain after falling at home while going to the bathroom wit hout using her walker. 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
--- NOTE | 2019-01-21 21:44 | CP.PCM.PN ---
Subjective - Date & Time of Evaluation Date of Evaluation: 01/21/19 Time of Evaluation: 09:25 - Subjective Subjective: Patient seen and evaluated Denies chest pain and dyspnea PMH: DM, HTN,HLD PSH: Bunionectomy, L leg skin graft, cataracts meds: as per Med rec allergy: NKDA SH: denies tobacco/drug use, wine occasionally Review of Systems - Review of Systems All systems: reviewed and no additional remarkable complaints except Review of Systems: as per HPI Physical Exam - Constitutional Appears: Well, No Acute Distress - Head Exam Head Exam: ATRAUMATIC, NORMOCEPHALIC - Eye Exam Eye Exam: EOMI, Normal appearance - ENT Exam ENT Exam: Mucous Membranes Moist - Respiratory Exam Respiratory Exam: NORMAL BREATHING PATTERN - Extremities Exam Additional comments: R hip: no lesions/masses/erythema tenderness to groin and over greater troch sensation intact SP/DP/TN motor intact EHL/FHL/TA/G pedal pulse intact calves soft NT b/l L hip: no lesions/masses/erythema no tenderness sensation intact SP/DP/TN motor intact EHL/FHL/TA/G pedal pulse intact - Neurological Exam Neurological exam: Alert, Oriented x3 - Psychiatric Exam Psychiatric exam: Normal Affect, Normal Mood - Skin Skin Exam: Normal Color, Warm Assessment & Plan - Assessment and Plan (Free Text) Assessment: Pre Op Cardiac Risk assessment: 89 F with Hx of HTN, DM2, ? CVA, Obesity admitted for Right Hip Fracture Pre Op cardiac risk assessment requested No hx of [place] Stress test is normal ECHO: Normal EF, No major valvular issues, Severe Pulmonary HTN Basing on ACC/AHA guidelines this patient is assessed as moderate to high risk of Cardiopulmonary events particularly due to severe Pulmonary HTN, eventhough the chance of getting a Myocardial Inafarction during the surgery is less. If benefit outweighs the risk please proceed with the surgery No further cardiac work up necessary at this time I will follow Thank you Patient for surgery on Wednesday Objective - Vital Signs/Intake and Output Vital Signs (last 24 hours): Temp Pulse Resp BP Pulse Ox 98.9 F 89 20 130/82 95 01/21/19 17:47 01/21/19 17:47 01/21/19 17:47 01/21/19 20:00 01/21/19 15:33 Intake and Output: 01/21/19 01/22/19 18:59 06:59 Intake Total 325 Output Total 300 Balance 25 - Medications Medications: Current Medications Albuterol/Ipratropium (Duoneb 3 Mg/0.5 Mg (3 Ml) Ud) 3 ml INH RQ6 [facility] Last Admin: 01/21/19 20:28 Dose: 3 ml Alprazolam (Xanax) 0.5 mg PO ONCE PRN PRN Reason: Anxiety Gabapentin (Neurontin) 300 mg PO HS [facility] Last Admin: 01/20/19 22:14 Dose: 300 mg Hydrochlorothiazide (Hydrodiuril) 25 mg PO DAILY [facility] Last Admin: 01/21/19 10:22 Dose: 25 mg Sodium Chloride (Sodium Chloride 0.45%) 1,000 mls @ 60 mls/hr IV .[id number] [facility] Last Admin: 01/21/19 10:24 Dose: Not Given Ceftriaxone Sodium 2 gm/ (Sodium Chloride) 100 mls @ 100 mls/hr IVPB DAILY [facility]; Protocol Last Admin: 01/21/19 09:15 Dose: 100 mls/hr Azithromycin 500 mg/ Sodium (Chloride) 250 mls @ 250 mls/hr IVPB DAILY [facility]; Protocol Stop: 01/24/19 10:01 Last Admin: 01/21/19 10:21 Dose: 250 mls/hr Insulin Human Regular (Novolin R) 0 unit SC ACHS [facility] Last Admin: 01/21/19 17:21 Dose: Not Given Lamotrigine (Lamictal) 25 mg PO BID [facility] Last Admin: 01/21/19 17:43 Dose: 25 mg Losartan Potassium (Cozaar) 100 mg PO DAILY [facility] Last Admin: 01/21/19 10:22 Dose: 100 mg Metoprolol Succinate (Toprol Xl) 50 mg PO DAILY [facility] Last Admin: 01/21/19 10:22 Dose: 50 mg Morphine Sulfate (Morphine) 2 mg IVP Q4 PRN PRN Reason: Pain, moderate (4-7) Last Admin: 01/21/19 10:54 Dose: 2 mg Promethazine HCl/Dextromethorphan (Phenergan Dm Syrup) 5 ml PO Q6H PRN PRN Reason: Coughing Quetiapine Fumarate (Seroquel Xr) 50 mg PO HS [facility] Last Admin: 01/20/19 22:13 Dose: 50 mg - Labs Labs: 01/21/19 09:01 01/21/19 08:54 PT 12.0 SECONDS (9.7-12.2) 01/19/19 04:23 INR 1.1 01/19/19 04:23 APTT 28 SECONDS (21-34) 01/19/19 04:23
[2019-01-21] MEDS: QUEtiapine 50 mg XR Tab PO SCH (22:49)
[2019-01-22] MEDS: Sodium Chloride 0.45% 1,000 ML IV SCH ×2 (01:00→23:50)
[2019-01-22] MEDS: Albuterol-Ipratrop 3 mg / 0.5 (3 ml) UD INH SCH ×4 (02:01→20:32)
[2019-01-22] MEDS: (Novolin R) Insulin Human Regular 100 units/ml vial SC SCH ×4 (08:10→21:32)
[2019-01-22] MEDS: cefTRIAXone 2 GM in Sodium Chloride 0.9% 100 ML IVPB SCH (09:00)
[2019-01-22 09:31] LABS: MEAN CORPUSCULAR HEMOGLOBIN 31.5 pg (27.0-31.0); MEAN CORPUSCULAR HGB CONC 34.2 g/dL (33.0-37.0); MEAN PLATELET VOLUME 9.3 fL (7.2-11.7); RBC 3.7 Mil/uL (3.80-5.20); RED CELL DISTRIBUTION WIDTH 15.9 % (11.5-14.5); WHITE BLOOD COUNT 7.2 K/uL (4.8-10.8)
[2019-01-22 09:34] LABS: HEMOGLOBIN 11.6 g/dL (11.0-16.0); MEAN CELL VOLUME 92.1 fL (81.0-99.0)
[2019-01-22 09:37] LABS: ALB/GLOB RATIO 1.1 (1.0-2.1); ALBUMIN 3.5 g/dL (3.5-5.0)
[2019-01-22] MEDS: Metoprolol Succinate 50 mg XL Tab PO SCH (09:55)
[2019-01-22] MEDS: Azithromycin 500 MG in Sodium Chloride 0.9% 250 ML IVPB SCH (09:56)
[2019-01-22] MEDS ORDERED: Enoxaparin 30 mg Syringe SC ONE (11:30)
[2019-01-22] MEDS: QUEtiapine 50 mg XR Tab PO SCH (22:21)
--- NOTE | 2019-01-22 23:24 | CP.PCM.PN ---
Subjective - Date & Time of Evaluation Date of Evaluation: 01/22/19 Time of Evaluation: 11:10 - Subjective Subjective: Patient with no cardiac events Possible surgery tomorrow PMH: DM, HTN,HLD PSH: Bunionectomy, L leg skin graft, cataracts meds: as per Med rec allergy: NKDA SH: denies tobacco/drug use, wine occasionally Review of Systems - Review of Systems All systems: reviewed and no additional remarkable complaints except Review of Systems: as per HPI Physical Exam - Constitutional Appears: Well, No Acute Distress - Head Exam Head Exam: ATRAUMATIC, NORMOCEPHALIC - Eye Exam Eye Exam: EOMI, Normal appearance - ENT Exam ENT Exam: Mucous Membranes Moist - Respiratory Exam Respiratory Exam: NORMAL BREATHING PATTERN - Extremities Exam Additional comments: R hip: no lesions/masses/erythema tenderness to groin and over greater troch sensation intact SP/DP/TN motor intact EHL/FHL/TA/G pedal pulse intact calves soft NT b/l L hip: no lesions/masses/erythema no tenderness sensation intact SP/DP/TN motor intact EHL/FHL/TA/G pedal pulse intact - Neurological Exam Neurological exam: Alert, Oriented x3 - Psychiatric Exam Psychiatric exam: Normal Affect, Normal Mood - Skin Skin Exam: Normal Color, Warm Assessment & Plan - Assessment and Plan (Free Text) Assessment: Pre Op Cardiac Risk assessment: 89 F with Hx of HTN, DM2, ? CVA, Obesity admitted for Right Hip Fracture Pre Op cardiac risk assessment requested No hx of [place] Stress test is normal ECHO: Normal EF, No major valvular issues, Severe Pulmonary HTN Basing on ACC/AHA guidelines this patient is assessed as moderate to high risk of Cardiopulmonary events particularly due to severe Pulmonary HTN, eventhough the chance of getting a Myocardial Inafarction during the surgery is less. If benefit outweighs the risk please proceed with the surgery No further cardiac work up necessary at this time Objective - Vital Signs/Intake and Output Vital Signs (last 24 hours): Temp Pulse Resp BP Pulse Ox 98 F 98 H 20 152/72 H 92 L 01/22/19 21:32 01/22/19 21:32 01/22/19 21:32 01/22/19 21:32 01/22/19 21:32 Intake and Output: 01/22/19 01/23/19 18:59 06:59 Intake Total 1200 Output Total 600 800 Balance 600 -800 - Medications Medications: Current Medications Albuterol/Ipratropium (Duoneb 3 Mg/0.5 Mg (3 Ml) Ud) 3 ml INH RQ6 [facility] Last Admin: 01/22/19 20:32 Dose: 3 ml Alprazolam (Xanax) 0.5 mg PO ONCE PRN PRN Reason: Anxiety Gabapentin (Neurontin) 300 mg PO HS [facility] Last Admin: 01/22/19 22:20 Dose: 300 mg Hydrochlorothiazide (Hydrodiuril) 25 mg PO DAILY [facility] Last Admin: 01/22/19 09:55 Dose: 25 mg Sodium Chloride (Sodium Chloride 0.45%) 1,000 mls @ 60 mls/hr IV .[id number] [facility] Last Admin: 01/22/19 01:00 Dose: Not Given Ceftriaxone Sodium 2 gm/ (Sodium Chloride) 100 mls @ 100 mls/hr IVPB DAILY [facility]; Protocol Last Admin: 01/22/19 09:00 Dose: 100 mls/hr Azithromycin 500 mg/ Sodium (Chloride) 250 mls @ 250 mls/hr IVPB DAILY [facility]; Protocol Stop: 01/24/19 10:01 Last Admin: 01/22/19 09:56 Dose: 250 mls/hr Insulin Human Regular (Novolin R) 0 unit SC ACHS [facility] Last Admin: 01/22/19 21:32 Dose: Not Given Lamotrigine (Lamictal) 25 mg PO BID [facility] Last Admin: 01/22/19 18:03 Dose: 25 mg Losartan Potassium (Cozaar) 100 mg PO DAILY [facility] Last Admin: 01/22/19 09:55 Dose: 100 mg Metoprolol Succinate (Toprol Xl) 50 mg PO DAILY [facility] Last Admin: 01/22/19 09:55 Dose: 50 mg Morphine Sulfate (Morphine) 2 mg IVP Q4 PRN PRN Reason: Pain, moderate (4-7) Last Admin: 01/22/19 22:20 Dose: 2 mg Promethazine HCl/Dextromethorphan (Phenergan Dm Syrup) 5 ml PO Q6H PRN PRN Reason: Coughing Quetiapine Fumarate (Seroquel Xr) 50 mg PO HS [facility] Last Admin: 01/22/19 22:21 Dose: 50 mg - Labs Labs: 01/22/19 09:08 01/22/19 09:08 PT 12.0 SECONDS (9.7-12.2) 01/19/19 04:23 INR 1.1 01/19/19 04:23 APTT 28 SECONDS (21-34) 01/19/19 04:23
[2019-01-23] MEDS: Albuterol-Ipratrop 3 mg / 0.5 (3 ml) UD INH SCH ×4 (01:46→20:39)
[2019-01-23 07:17] LABS: HEMOGLOBIN 10.6 g/dL (11.0-16.0); MEAN CELL VOLUME 92.8 fL (81.0-99.0); MEAN CORPUSCULAR HEMOGLOBIN 31.2 pg (27.0-31.0); MEAN CORPUSCULAR HGB CONC 33.6 g/dL (33.0-37.0); MEAN PLATELET VOLUME 8.8 fL (7.2-11.7); RBC 3.39 Mil/uL (3.80-5.20); RED CELL DISTRIBUTION WIDTH 15.6 % (11.5-14.5); WHITE BLOOD COUNT 6.5 K/uL (4.8-10.8)
[2019-01-23] MEDS: (Novolin R) Insulin Human Regular 100 units/ml vial SC SCH ×3 (07:46→22:46)
--- NOTE | 2019-01-23 08:13 | PN ---
DATE: 01/22/2019 SUBJECTIVE: I spoke to her yesterday, she was going for surgery, today is Wednesday, now I'm told she's not going today she's going on Wednesday. Anesthesia and Surgery and Cardiology. MEDICATIONS: She is on Rocephin, Cozaar, DuoNebs, HydroDIURIL, Lamictal, morphine, Neurontin, Novolin, Phenergan, Seroquel, IV fluids, Toprol, and Xanax. She has PHYSICAL EXAMINATION: GENERAL: She is resting in bed. She is very alert today, much more alert than in the past family is with the concern that she has not done the surgery yet. VITAL SIGNS: She has 98.5 temperature, 88 pulse, 190/9 148/66 blood pressure, 20 respiratory rate, 96% O2 sat on 2L. HEAD: Atraumatic, normocephalic. HEART: Regular rate. LUNGS: Decreased breath sounds, but clear. ABDOMEN: Soft. EXTREMITIES: In traction, has a right femur traction from a fall and fractured hip. LABORATORY DATA: She has 7.2 white count, 11.6 hemoglobin, much better after transfusion, 34.1 hematocrit with 155 platelets. I am happy about the hemoglobin surgery. INR 1.1. Sodium 137, potassium 4.2, BUN 64, creatinine 1.9, a little better. GFR is 25, blood sugar is 154, calcium is 8.8. Total bili is 0.4, AST is 18, ALT is 9, alk phos 80, total protein is 5.9. ASSESSMENT AND PLAN: She is seen by neurology, Cardiology, Orthopedics, Infectious Disease. Pulmonary was consulted Blood pressure went up high today. She is on Cozaar, Diuril blood pressure. check her labs tomorrow . Saul Peters DO MTDD
[2019-01-23 08:20] LABS: ALB/GLOB RATIO 1.1 (1.0-2.1); ALBUMIN 3.2 g/dL (3.5-5.0); ALT/SGPT < 6 U/L (9-52); AST/SGOT 14 U/L (14-36); BLOOD UREA NITROGEN 40 mg/dL (7-17); CALCIUM 8.9 mg/dl (8.6-10.4); GFR NON-AFRICAN AMERICAN 33
[2019-01-23] MEDS: Metoprolol Succinate 50 mg XL Tab PO SCH (08:20)
--- NOTE | 2019-01-23 08:32 | PN ---
DATE: 01/21/2019 SUBJECTIVE: I saw her resting comfortably in bed in the 6th floor at [facility]. MEDICATIONS: She is on azithromycin, Rocephin, Cozaar, DuoNebs, HydroDIURIL, Lamictal, morphine, Neurontin, Novolin, Phenergan, Seroquel, IV fluids, Toprol, and Xanax. She is here with her family. I discussed this with Orthopedics who is going to talk to Anesthesia. She is high risk, we know she was at high risks being 89-year-old with all the comorbidities, but there is a delay in surgery because it is Wednesday and we are waiting for Anesthesia to let us know their opinion. PHYSICAL EXAMINATION: VITAL SIGNS: 99.5 temperature, 85 pulse, 142/59 blood pressure, 20 respiratory rate, 90% O2 sat on 2 L. HEAD: Atraumatic, normocephalic. HEART: Regular rate. LUNGS: Decreased breath sounds with congestion bilaterally. ABDOMEN: Soft. EXTREMITIES: No edema. She is in a traction. She has SCDs on. She has a right femur fracture. LABORATORY DATA: She has 7.1 white count, hemoglobin is 8.3, she will need to be transfused, it has gone from 10.4 to 8.3, 25 hematocrit with 149 platelets. She has sodium 137, potassium 4.8, BUN 54, creatinine 2, sugar 212, calcium is 8.8. Total bilirubin is 0.5, AST is 15, ALT is 11, alk phos 83, troponin I is less than 0.012, total protein is 6. ASSESSMENT AND PLAN: Hopefully, she goes for surgery today; because she is high risk, she needs to have this done. She has been seen by Infectious Disease, Cardiology, and Surgery. I will continue with aggressive treatment and care on the patient. Discussed at length with the family. Saul Peters DO
--- NOTE | 2019-01-23 08:45 | PN ---
DATE: 01/23/2019 SUBJECTIVE: She is resting comfortably in bed. Slept well. Family is present. She is on azithromycin, ceftriaxone, Cozaar, DuoNeb, HydroDIURIL, Lamictal, morphine, Neurontin, insulin, Phenergan, Seroquel, IV fluids, Toprol, and Xanax. PHYSICAL EXAMINATION: VITAL SIGNS: She has a 99.5 temp, 94 pulse, 171/74 blood pressure, 20 respiratory rate, 94% O2 sat on nasal cannula. HEENT: Head is atraumatic, normocephalic. HEART: Regular rate. LUNGS: Decreased breath sounds, but clear. ABDOMEN: Soft. EXTREMITIES: The leg is in traction. LABORATORY DATA: She has 7.2 white count, 11.6 hemoglobin, and 155 platelets. Labs are pending this morning. As of yesterday; sodium 147, potassium 4, BUN 51, creatinine 1.7, GFR is 28, sugar is 142, calcium is 9. Total bili is 0.7, AST is 11, ALT is 89, total protein 6.5. ASSESSMENT AND PLAN: She is being seen by Cardiology, Neurology, Orthopedics, and Infectious Disease. Hopefully, she did well today. I believe, today, they are taking her to surgery, and after that, we will work on subacute rehabilitation. Saul Peters DO
[2019-01-23] MEDS ORDERED: ceFAZolin 1 gm in NS 1 GM/100 ML BAG IVPB ONE ×2 (09:16→09:33)
[2019-01-23] MEDS ORDERED: Bupivacaine HCl 0.5% PF (10 ml) Inj ONE (09:17)
--- NOTE | 2019-01-23 10:24 | VASCLAB ---
Date of service: 01/20/2019 PROCEDURE: Carotid Duplex Exam. HISTORY: Fall COMPARISON: None available. TECHNIQUE: Grayscale and duplex Doppler evaluation of the cervical carotid and vertebral arteries were performed. The common carotid, carotid bifurcations and cervical Internal Carotid Artery (ICA) and proximal External Carotid Artery (ECA) were evaluated. The vertebral arteries were evaluated for gross patency and flow direction. Report prepared by Yonathan Martinez, BS, RVT FINDINGS: RIGHT CAROTID ARTERIES: 1. Common Carotid Artery: No significant focal plaque formation of the right common carotid artery. Maximum Peak Systolic velocity: 87 cm/sec: End-diastolic velocity 12 cm/sec. 2. Carotid Bifurcation: plaque formation. Maximum Peak Systolic velocity: 70 cm/sec: End-diastolic velocity 11 cm/sec. 3. Internal Carotid Artery: Plaque description: 3.1. Proximal Segment: Peak systolic velocity 97 cm/sec: End-diastolic velocity 25 cm/sec - % stenosis 0-15% 3.2. Middle Segment: Peak systolic velocity 57 cm/sec: End-diastolic velocity 9 cm/sec - % stenosis 0-15% 3.3. Distal Segment: Peak systolic velocity 82 cm/sec: End-diastolic velocity 19 cm/sec - % stenosis 0-15% 4. External Carotid Artery: No significant focal plaque formation. Peak systolic velocity 169 cm/sec 5. ICA/CCA Ratio: 1.1 LEFT CAROTID ARTERIES: 1. Common Carotid Artery: No significant focal plaque formation of the left common carotid artery. Maximum Peak Systolic velocity: 78 cm/sec: End-diastolic velocity 9 cm/sec. 2. Carotid Bifurcation: plaque formation. Maximum Peak Systolic velocity: 90 cm/sec: End-diastolic velocity 17 cm/sec. 3. Internal Carotid Artery: Plaque description: 3.1. Proximal Segment: Peak systolic velocity 114 cm/sec: End-diastolic velocity 17 cm/sec - % stenosis 0-15% 3.2. Middle Segment: Peak systolic velocity 106 cm/sec: End-diastolic velocity 27 cm/sec - % stenosis 0-15% 3.3. Distal Segment: Peak systolic velocity 54 cm/sec: End-diastolic velocity 9 cm/sec - % stenosis 0-15% 4. External Carotid Artery: No significant focal plaque formation. Peak systolic velocity 116 cm/sec 5. ICA/CCA Ratio: 1.5 VERTEBRAL ARTERIES: 1. Right Vertebral Artery: The right vertebral artery flow direction is antegrade. 2. Left Vertebral Artery: The left vertebral artery flow direction is antegrade. OTHER FINDINGS: 1. Right Brachial Blood pressure: mmHg. 2. Left Brachial Blood pressure: mmHg. 3. No atherosclerotic calcification present IMPRESSION: RIGHT: Duplex scan does not suggest hemodynamically significant stenosis of the right extracranial carotid arteries. Tortuosity of the right internal carotid artery noted. LEFT: Duplex scan does not suggest hemodynamically significant stenosis of the left extracranial carotid arteries.
[2019-01-23] MEDS ORDERED: Etomidate 20 mg/10ml Inj IV ONE (10:33)
[2019-01-23] MEDS ORDERED: Succinylcholine Chloride 20 mg/ml Syr (5 ml) IV ONE (10:34)
[2019-01-23] MEDS ORDERED: Rocuronium 10 mg/ml (5 ml) ONE (10:34)
[2019-01-23] MEDS: Azithromycin 500 MG in Sodium Chloride 0.9% 250 ML IVPB SCH (11:00)
[2019-01-23] MEDS ORDERED: Phenylephrine 10 mg/ml Inj ONE (11:40)
[2019-01-23] MEDS ORDERED: Tramadol 25 mg PO PRN ×2 (13:16→15:30)
[2019-01-23] MEDS ORDERED: Sodium Chloride 0.9% 1,000 ML IV SCH (13:30)
--- NOTE | 2019-01-23 14:24 | RAD ---
Date of service: 01/23/2019 PROCEDURE: Intraoperative Fluoroscopy. HISTORY: Right hip fracture FINDINGS: Fluoroscopic assistance was provided for open reduction internal fixation of a right hip fracture.. Please refer to the operative report from SAMMY Arambula , MD JOSE.
--- NOTE | 2019-01-23 17:17 | CP.PCM.PN ---
Subjective - Date & Time of Evaluation Date of Evaluation: 01/23/19 Time of Evaluation: 17:15 - Subjective Subjective: INFECTIOUS DISEASE PROGRESS NOTES DAVID MORELOS MD, FACP 01/23/2019 CHART REVIEWED PT EXAMINED CASE DISCUSSED POST ORTHOPEDIC SURGERY MUCH MORE AWAKE THAN ON WEDNESDAY PM LOOKS AND ACTS SOMEWHAT MORE COHERENT WATCH FOR SWALLOWING AND FOR ASPIRATION. MAY NEED SENIOR LIVING PLACEMENT. Objective - Vital Signs/Intake and Output Vital Signs (last 24 hours): Temp Pulse Resp BP Pulse Ox 97.5 F L 88 14 140/56 L 95 01/23/19 15:00 01/23/19 15:30 01/23/19 15:30 01/23/19 15:30 01/23/19 15:30 Intake and Output: 01/23/19 01/23/19 06:59 18:59 Intake Total 480 1050 Output Total 1150 250 Balance -670 800 - Medications Medications: Current Medications Acetaminophen (Tylenol 325mg Tab) 650 mg PO Q6 [facility] Stop: 01/25/19 18:01 Albuterol/Ipratropium (Duoneb 3 Mg/0.5 Mg (3 Ml) Ud) 3 ml INH RQ6 [facility] Last Admin: 01/23/19 13:47 Dose: Not Given Alprazolam (Xanax) 0.5 mg PO ONCE PRN PRN Reason: Anxiety Docusate Sodium (Colace) 100 mg PO BID [facility] Gabapentin (Neurontin) 300 mg PO HS [facility] Last Admin: 01/22/19 22:20 Dose: 300 mg Heparin Sodium (Porcine) (Heparin) 5,000 units SC Q12 [facility] Hydrochlorothiazide (Hydrodiuril) 25 mg PO DAILY [facility] Last Admin: 01/22/19 09:55 Dose: 25 mg Sodium Chloride (Sodium Chloride 0.45%) 1,000 mls @ 60 mls/hr IV .[id number] [facility] Last Admin: 01/22/19 23:50 Dose: 60 mls/hr Ceftriaxone Sodium 2 gm/ (Sodium Chloride) 100 mls @ 100 mls/hr IVPB DAILY [facility]; Protocol Last Admin: 01/22/19 09:00 Dose: 100 mls/hr Azithromycin 500 mg/ Sodium (Chloride) 250 mls @ 250 mls/hr IVPB DAILY [facility]; Protocol Stop: 01/24/19 10:01 Last Admin: 01/23/19 11:00 Dose: 250 mls Sodium Chloride (Sodium Chloride 0.9%) 1,000 mls @ 80 mls/hr IV .[id number] [facility] Insulin Human Regular (Novolin R) 0 unit SC ACHS [facility] Last Admin: 01/23/19 07:46 Dose: Not Given Lamotrigine (Lamictal) 25 mg PO BID [facility] Last Admin: 01/22/19 18:03 Dose: 25 mg Losartan Potassium (Cozaar) 100 mg PO DAILY [facility] Last Admin: 01/22/19 09:55 Dose: 100 mg Metoprolol Succinate (Toprol Xl) 50 mg PO DAILY [facility] Last Admin: 01/23/19 08:20 Dose: 50 mg Morphine Sulfate (Morphine) 1 mg IVP Q4H PRN PRN Reason: Pain, severe (8-10) Ondansetron HCl (Zofran Inj) 4 mg IVP ONCE PRN PRN Reason: Nausea/Vomiting Promethazine HCl/Dextromethorphan (Phenergan Dm Syrup) 5 ml PO Q6H PRN PRN Reason: Coughing Quetiapine Fumarate (Seroquel Xr) 50 mg PO HS [facility] Last Admin: 01/22/19 22:21 Dose: 50 mg Tramadol HCl (Ultram) 100 mg PO Q6 PRN PRN Reason: Pain, moderate (4-7) Tramadol HCl (Ultram) 50 mg PO Q6 PRN PRN Reason: Pain, Mild (1-3) - Labs Labs: 01/23/19 07:09 01/23/19 07:09 PT 12.0 SECONDS (9.7-12.2) 01/19/19 04:23 INR 1.1 01/19/19 04:23 APTT 28 SECONDS (21-34) 01/19/19 04:23
[2019-01-23] MEDS: QUEtiapine 50 mg XR Tab PO SCH (21:17)
--- NOTE | 2019-01-23 22:50 | CP.PCM.PN ---
Subjective - Date & Time of Evaluation Date of Evaluation: 01/23/19 Time of Evaluation: 09:30 - Subjective Subjective: Patient seen and evaluated Denies chest pain and dyspnea Review of Systems - Review of Systems All systems: reviewed and no additional remarkable complaints except Review of Systems: as per HPI Physical Exam - Constitutional Appears: Well, No Acute Distress - Head Exam Head Exam: ATRAUMATIC, NORMOCEPHALIC - Eye Exam Eye Exam: EOMI, Normal appearance - ENT Exam ENT Exam: Mucous Membranes Moist - Respiratory Exam Respiratory Exam: NORMAL BREATHING PATTERN - Extremities Exam Additional comments: R hip: no lesions/masses/erythema tenderness to groin and over greater troch sensation intact SP/DP/TN motor intact EHL/FHL/TA/G pedal pulse intact calves soft NT b/l L hip: no lesions/masses/erythema no tenderness sensation intact SP/DP/TN motor intact EHL/FHL/TA/G pedal pulse intact - Neurological Exam Neurological exam: Alert, Oriented x3 - Psychiatric Exam Psychiatric exam: Normal Affect, Normal Mood - Skin Skin Exam: Normal Color, Warm Objective - Vital Signs/Intake and Output Vital Signs (last 24 hours): Temp Pulse Resp BP Pulse Ox 97.5 F L 88 14 140/56 L 95 01/23/19 15:00 01/23/19 15:30 01/23/19 15:30 01/23/19 15:30 01/23/19 15:30 Intake and Output: 01/23/19 01/24/19 18:59 06:59 Intake Total 1050 Output Total 250 Balance 800 - Medications Medications: Current Medications Acetaminophen (Tylenol 325mg Tab) 650 mg PO Q6 [facility] Stop: 01/25/19 18:01 Last Admin: 01/23/19 18:18 Dose: 650 mg Albuterol/Ipratropium (Duoneb 3 Mg/0.5 Mg (3 Ml) Ud) 3 ml INH RQ6 [facility] Last Admin: 01/23/19 20:39 Dose: 3 ml Alprazolam (Xanax) 0.5 mg PO ONCE PRN PRN Reason: Anxiety Docusate Sodium (Colace) 100 mg PO BID [facility] Last Admin: 01/23/19 18:17 Dose: 100 mg Gabapentin (Neurontin) 300 mg PO HS [facility] Last Admin: 01/23/19 21:19 Dose: 300 mg Heparin Sodium (Porcine) (Heparin) 5,000 units SC Q12 [facility] Last Admin: 01/23/19 21:18 Dose: 5,000 units Hydrochlorothiazide (Hydrodiuril) 25 mg PO DAILY [facility] Last Admin: 01/22/19 09:55 Dose: 25 mg Sodium Chloride (Sodium Chloride 0.45%) 1,000 mls @ 60 mls/hr IV .[id number] [facility] Last Admin: 01/22/19 23:50 Dose: 60 mls/hr Ceftriaxone Sodium 2 gm/ (Sodium Chloride) 100 mls @ 100 mls/hr IVPB DAILY [facility]; Protocol Last Admin: 01/22/19 09:00 Dose: 100 mls/hr Azithromycin 500 mg/ Sodium (Chloride) 250 mls @ 250 mls/hr IVPB DAILY [facility]; Protocol Stop: 01/24/19 10:01 Last Admin: 01/23/19 11:00 Dose: 250 mls Sodium Chloride (Sodium Chloride 0.9%) 1,000 mls @ 80 mls/hr IV .[id number] [facility] Insulin Human Regular (Novolin R) 0 unit SC ACHS [facility] Last Admin: 01/23/19 17:34 Dose: Not Given Lamotrigine (Lamictal) 25 mg PO BID [facility] Last Admin: 01/23/19 18:17 Dose: 25 mg Losartan Potassium (Cozaar) 100 mg PO DAILY [facility] Last Admin: 01/22/19 09:55 Dose: 100 mg Metoprolol Succinate (Toprol Xl) 50 mg PO DAILY [facility] Last Admin: 01/23/19 08:20 Dose: 50 mg Morphine Sulfate (Morphine) 1 mg IVP Q4H PRN PRN Reason: Pain, severe (8-10) Ondansetron HCl (Zofran Inj) 4 mg IVP ONCE PRN PRN Reason: Nausea/Vomiting Promethazine HCl/Dextromethorphan (Phenergan Dm Syrup) 5 ml PO Q6H PRN PRN Reason: Coughing Quetiapine Fumarate (Seroquel Xr) 50 mg PO HS [facility] Last Admin: 01/23/19 21:17 Dose: 50 mg Tramadol HCl (Ultram) 100 mg PO Q6 PRN PRN Reason: Pain, moderate (4-7) Tramadol HCl (Ultram) 50 mg PO Q6 PRN PRN Reason: Pain, Mild (1-3) - Labs Labs: 01/23/19 07:09 01/23/19 07:09 PT 12.0 SECONDS (9.7-12.2) 01/19/19 04:23 INR 1.1 01/19/19 04:23 APTT 28 SECONDS (21-34) 01/19/19 04:23 Assessment and Plan - Assessment and Plan (Free Text) Assessment: Hip Fracture Patient for Hip surgery today will monitor
[2019-01-24] MEDS: Albuterol-Ipratrop 3 mg / 0.5 (3 ml) UD INH SCH ×4 (01:59→19:25)
[2019-01-24] MEDS: ceFAZolin 2 MG in Sodium Chloride 0.9% 100 ML IVPB SCH ×2 (05:58→13:03)
[2019-01-24 08:38] LABS: HEMOGLOBIN 9.6 g/dL (11.0-16.0); MEAN CELL VOLUME 93.4 fL (81.0-99.0); MEAN CORPUSCULAR HEMOGLOBIN 31.3 pg (27.0-31.0); MEAN CORPUSCULAR HGB CONC 33.5 g/dL (33.0-37.0); MEAN PLATELET VOLUME 8.9 fL (7.2-11.7); RBC 3.06 Mil/uL (3.80-5.20); RED CELL DISTRIBUTION WIDTH 15.6 % (11.5-14.5); WHITE BLOOD COUNT 6.6 K/uL (4.8-10.8)
[2019-01-24] MEDS: cefTRIAXone 2 GM in Sodium Chloride 0.9% 100 ML IVPB SCH ×2 (09:24→12:51)
--- NOTE | 2019-01-24 09:52 | CP.PCM.PN ---
Subjective - Date & Time of Evaluation Date of Evaluation: 01/24/19 Time of Evaluation: 09:52 - Subjective Subjective: Patient seen and examined at bedside. Awake and alert, at times drowsy. Patient's daughters at bedside. Patient's pain is currently moderate, last pain medication given 4 hours ago. No acute events overnight. Denies CP/SOB/fever/dizziness. Objective - Vital Signs/Intake and Output Vital Signs (last 24 hours): Temp Pulse Resp BP Pulse Ox 97.8 F 96 H 20 141/64 96 01/24/19 08:51 01/24/19 08:51 01/24/19 08:51 01/24/19 08:51 01/24/19 08:51 Intake and Output: 01/24/19 01/24/19 06:59 18:59 Intake Total 660 Output Total 60 Balance 660 -60 - Medications Medications: Current Medications Acetaminophen (Tylenol 325mg Tab) 650 mg PO Q6 [facility] Stop: 01/25/19 18:01 Last Admin: 01/24/19 06:39 Dose: Not Given Albuterol/Ipratropium (Duoneb 3 Mg/0.5 Mg (3 Ml) Ud) 3 ml INH RQ6 [facility] Last Admin: 01/24/19 01:59 Dose: 3 ml Alprazolam (Xanax) 0.5 mg PO ONCE PRN PRN Reason: Anxiety Amlodipine Besylate (Norvasc) 2.5 mg PO DAILY [facility] Docusate Sodium (Colace) 100 mg PO BID [facility] Last Admin: 01/23/19 18:17 Dose: 100 mg Gabapentin (Neurontin) 300 mg PO HS [facility] Last Admin: 01/23/19 21:19 Dose: 300 mg Heparin Sodium (Porcine) (Heparin) 5,000 units SC Q12 [facility] Last Admin: 01/23/19 21:18 Dose: 5,000 units Hydrochlorothiazide (Hydrodiuril) 25 mg PO DAILY [facility] Last Admin: 01/22/19 09:55 Dose: 25 mg Sodium Chloride (Sodium Chloride 0.45%) 1,000 mls @ 60 mls/hr IV .[id number] [facility] Last Admin: 01/22/19 23:50 Dose: 60 mls/hr Ceftriaxone Sodium 2 gm/ (Sodium Chloride) 100 mls @ 100 mls/hr IVPB DAILY [facility]; Protocol Last Admin: 01/22/19 09:00 Dose: 100 mls/hr Azithromycin 500 mg/ Sodium (Chloride) 250 mls @ 250 mls/hr IVPB DAILY [facility]; Protocol Stop: 01/24/19 10:01 Last Admin: 01/23/19 11:00 Dose: 250 mls Sodium Chloride (Sodium Chloride 0.9%) 1,000 mls @ 80 mls/hr IV .[id number] [facility] Cefazolin Sodium 2 mg/ Sodium (Chloride) 100 mls @ 100 mls/hr IVPB Q8H [facility]; Protocol Stop: 01/27/19 23:59 Last Admin: 01/24/19 05:58 Dose: 100 mls/hr Insulin Human Regular (Novolin R) 0 unit SC ACHS [facility] Last Admin: 01/23/19 22:46 Dose: Not Given Lamotrigine (Lamictal) 25 mg PO BID [facility] Last Admin: 01/23/19 18:17 Dose: 25 mg Losartan Potassium (Cozaar) 100 mg PO DAILY [facility] Last Admin: 01/22/19 09:55 Dose: 100 mg Metoprolol Succinate (Toprol Xl) 50 mg PO DAILY [facility] Last Admin: 01/23/19 08:20 Dose: 50 mg Morphine Sulfate (Morphine) 1 mg IVP Q4H PRN PRN Reason: Pain, severe (8-10) Last Admin: 01/24/19 06:05 Dose: 1 mg Ondansetron HCl (Zofran Inj) 4 mg IVP ONCE PRN PRN Reason: Nausea/Vomiting Promethazine HCl/Dextromethorphan (Phenergan Dm Syrup) 5 ml PO Q6H PRN PRN Reason: Coughing Quetiapine Fumarate (Seroquel Xr) 50 mg PO HS [facility] Last Admin: 01/23/19 21:17 Dose: 50 mg Tramadol HCl (Ultram) 100 mg PO Q6 PRN PRN Reason: Pain, moderate (4-7) Tramadol HCl (Ultram) 50 mg PO Q6 PRN PRN Reason: Pain, Mild (1-3) - Labs Labs: 01/24/19 08:21 01/23/19 07:09 PT 12.0 SECONDS (9.7-12.2) 01/19/19 04:23 INR 1.1 01/19/19 04:23 APTT 28 SECONDS (21-34) 01/19/19 04:23 - Extremities Exam Additional comments: R hip: Compression dressings intact Wound Dressings CDI moderate thigh swelling sensation intact SP/DP/TN motor intact EHL/FHL/TA/G pedal pulse dopplerable calves soft NT b/l Assessment and Plan (1) Fracture, intertrochanteric, right femur Assessment & Plan: POD#1 s/p R hip closed reduction internal fixation with long IM nail -continue pain regiment, patient sensitive to narcotics -PT/OT PWB RLE -DVT ppx, heparin, b/l SCD's -encourage OOB -above d/w Dr. Kendall in agreement Status: Acute
[2019-01-24] MEDS ORDERED: Enoxaparin 40 mg Syringe SC SCH (10:00)
[2019-01-24] MEDS: (Novolin R) Insulin Human Regular 100 units/ml vial SC SCH ×4 (10:24→22:56)
[2019-01-24] MEDS: Azithromycin 500 MG in Sodium Chloride 0.9% 250 ML IVPB SCH (10:24)
[2019-01-24] MEDS: Metoprolol Succinate 50 mg XL Tab PO SCH ×2 (10:28→10:29)
[2019-01-24 10:33] LABS: ALBUMIN 2.9 g/dL (3.5-5.0); CALCIUM 8.4 mg/dl (8.6-10.4)
--- NOTE | 2019-01-24 11:50 | PN ---
DATE: 01/24/2019 SUBJECTIVE: She finally had her hip surgery done yesterday. She is now congested, coughing, feels like she has a fever. She is alert. She is not eating. She needs swallow eval. Family is at the bedside. PHYSICAL EXAMINATION: VITAL SIGNS: She has 98.2 temperature, 100 pulse, 139/97 blood pressure. I added Norvasc 2.5 mg to her regular blood pressure meds, respiratory rate 20, 94% nasal cannula. HEENT: Head atraumatic, normocephalic. Alert. Eyes are open, not hungry. HEART: Regular rate and tachy. LUNGS: Decreased breath sounds with congestion bilaterally. I renewed DuoNebs. ABDOMEN: Soft, nontender. Positive bowel sounds. EXTREMITIES: Wrapped. LABORATORY DATA: She has 140 sodium, potassium 3.8, BUN is 45, creatinine 1.5, last blood sugar was 176. AST is 14, ALT is 6, alkaline phos 56, total protein 6.2. She has a 6.5 white count, 10.6 hemoglobin, 31.5 hematocrit with 169 platelets. ASSESSMENT AND PLAN: She has been seen by Infectious Disease, Cardiology, Neurology, Orthopedics. Continue aggressive treatment and care. I am going to order chest x-ray. At this time, we will today. Continue aggressive treatment and care and IV antibiotics status post fall, fracture, repair. Saul Peters DO MTDD
--- NOTE | 2019-01-24 13:13 | CP.PCM.PN ---
Subjective - Date & Time of Evaluation Date of Evaluation: 01/24/19 Time of Evaluation: 13:13 - Subjective Subjective: Neuro Follow-Up Note: Mrs. Roach was evaluated this afternoon at bedside. Pt's daughters at bedside. Pt has aphasia and is unable to answer my questions or speak. Pt follows simple commands. Per family, this started on 01/13/19. She was seen in the ED and had a CT Head done; was advised to stay in the hospital for further w/u but refused to be admitted. Family is concerned that her speech has not returned. Pt does appear comfortable. She is POD # 1 closed internal reduction of a femur fracture. ROS limited 2/2 pt's aphasia. Objective - Vital Signs/Intake and Output Vital Signs (last 24 hours): Temp Pulse Resp BP Pulse Ox 97.8 F 96 H 20 141/64 96 01/24/19 08:51 01/24/19 08:51 01/24/19 08:51 01/24/19 08:51 01/24/19 08:51 Intake and Output: 01/24/19 01/24/19 06:59 18:59 Intake Total 660 Output Total 60 Balance 660 -60 - Medications Medications: Current Medications Acetaminophen (Tylenol 325mg Tab) 650 mg PO Q6 [facility] Stop: 01/25/19 18:01 Last Admin: 01/24/19 13:02 Dose: Not Given Albuterol/Ipratropium (Duoneb 3 Mg/0.5 Mg (3 Ml) Ud) 3 ml INH RQ6 [facility] Last Admin: 01/24/19 09:59 Dose: 3 ml Alprazolam (Xanax) 0.5 mg PO ONCE PRN PRN Reason: Anxiety Amlodipine Besylate (Norvasc) 2.5 mg PO DAILY [facility] Last Admin: 01/24/19 10:23 Dose: 2.5 mg Docusate Sodium (Colace) 100 mg PO BID [facility] Last Admin: 01/24/19 10:23 Dose: 100 mg Gabapentin (Neurontin) 300 mg PO HS [facility] Last Admin: 01/23/19 21:19 Dose: 300 mg Heparin Sodium (Porcine) (Heparin) 5,000 units SC Q12 [facility] Last Admin: 01/24/19 10:20 Dose: 5,000 units Hydrochlorothiazide (Hydrodiuril) 25 mg PO DAILY [facility] Last Admin: 01/24/19 10:23 Dose: 25 mg Sodium Chloride (Sodium Chloride 0.45%) 1,000 mls @ 60 mls/hr IV .[id number] [facility] Last Admin: 01/22/19 23:50 Dose: 60 mls/hr Ceftriaxone Sodium 2 gm/ (Sodium Chloride) 100 mls @ 100 mls/hr IVPB DAILY [facility]; Protocol Last Admin: 01/24/19 12:51 Dose: Not Given Sodium Chloride (Sodium Chloride 0.9%) 1,000 mls @ 80 mls/hr IV .[id number] [facility] Cefazolin Sodium 2,000 mg/ (Sodium Chloride) 100 mls @ 100 mls/hr IVPB Q8H [facility]; Protocol Stop: 01/27/19 23:59 Insulin Human Regular (Novolin R) 0 unit SC ACHS [facility] Last Admin: 01/24/19 12:50 Dose: Not Given Lamotrigine (Lamictal) 25 mg PO BID [facility] Last Admin: 01/24/19 10:24 Dose: 25 mg Losartan Potassium (Cozaar) 100 mg PO DAILY [facility] Last Admin: 01/24/19 12:49 Dose: Not Given Metoprolol Succinate (Toprol Xl) 50 mg PO DAILY [facility] Last Admin: 01/24/19 10:29 Dose: 50 mg Morphine Sulfate (Morphine) 1 mg IVP Q4H PRN PRN Reason: Pain, severe (8-10) Last Admin: 01/24/19 06:05 Dose: 1 mg Ondansetron HCl (Zofran Inj) 4 mg IVP ONCE PRN PRN Reason: Nausea/Vomiting Promethazine HCl/Dextromethorphan (Phenergan Dm Syrup) 5 ml PO Q6H PRN PRN Reason: Coughing Last Admin: 01/24/19 10:23 Dose: 5 ml Quetiapine Fumarate (Seroquel Xr) 50 mg PO HS [facility] Last Admin: 01/23/19 21:17 Dose: 50 mg Tramadol HCl (Ultram) 100 mg PO Q6 PRN PRN Reason: Pain, moderate (4-7) Last Admin: 01/24/19 10:22 Dose: 100 mg Tramadol HCl (Ultram) 50 mg PO Q6 PRN PRN Reason: Pain, Mild (1-3) - Labs Labs: 01/24/19 08:21 01/24/19 08:21 PT 12.0 SECONDS (9.7-12.2) 01/19/19 04:23 INR 1.1 01/19/19 04:23 APTT 28 SECONDS (21-34) 01/19/19 04:23 - Constitutional Appears: Well, No Acute Distress - Head Exam Head Exam: ATRAUMATIC, NORMAL INSPECTION, NORMOCEPHALIC - Eye Exam Eye Exam: EOMI, Normal appearance, PERRL Pupil Exam: NORMAL ACCOMODATION, PERRL - ENT Exam ENT Exam: Mucous Membranes Moist - Neck Exam Neck Exam: Full ROM, Normal Inspection - Respiratory Exam Respiratory Exam: NORMAL BREATHING PATTERN - Extremities Exam Additional comments: able to move LLE and BUE without weakness limited rom to RLE noted 2/2 fracture - Neurological Exam Neurological Exam: Alert, Awake, CN II-XII Intact Neuro motor strength exam: Left Upper Extremity: 5, Right Upper Extremity: 5, Left Lower Extremity: 3 Additional comments: + expressive aphasia noted able to move LLE and BUE without weakness limited rom to RLE noted 2/2 fracture difficulty assessing sensation 2/2 pt cannot follow commands no tremors or abnormal movements - Psychiatric Exam Additional comments: difficult to assess 2/2 aphasia appears comfortable and in no distress - Skin Skin Exam: Normal Color Assessment and Plan (1) Dysarthria Assessment & Plan: Imaging reviewed: -CT head (01/13/19): No evidence of acute intracranial hemorrhage or acute te rritorial infarct. Volume loss and extensive white matter changes suggestive of chronic microvascular ischemic disease. -Family is requesting to hold off on MRI at this time as they feel pt may not be able to tolerate it. -Repeat non-contrast CT head to evaluate for any ischemic intracranial changes. -ASA on hold 2/2 ortho surgery. Will discuss with ortho once the CT Head is completed when to resume ASA. -Continue DVT ppx per ortho. -Continue PT. Start ST if not already done for expressive aphasia. -Notify neuro team of any acute changes. Adela Bravo, MARGARET, [employer]IE [employer]IVER Discussed with Dr. Gifford Status: Acute
--- NOTE | 2019-01-24 15:12 | RAD ---
Date of service: 01/24/2019 PROCEDURE: CHEST RADIOGRAPH, 1 VIEW HISTORY: cough COMPARISON: 01/19/2019 FINDINGS: LUNGS: The triangular opacity at the right lung base is no longer seen as such re-expansion of atelectatic changes here is inferred. The left hemidiaphragm is more indistinct on this exam-contiguous left basal infiltrate atelectasis or effusion are some considerations. Follow-up advised. PLEURA: No pneumothorax. Probable left pleural effusion-in part present explaining findings above at left lung base. CARDIOVASCULAR: There is presence of aortic atherosclerotic calcification on x-ray. Cardiomegaly interval increased pulmonary venous congestion. OSSEOUS STRUCTURES: Thoraco lumbar spondylosis. Right shoulder arthrosis. VISUALIZED UPPER ABDOMEN: Normal. OTHER FINDINGS: None. IMPRESSION: Interval increasing opacity perceived at left lung base-considerations increase left pleural effusion-compressive atelectasis with or without infiltrate are favored. Interval improved aeration right lung base. Cardiomegaly and pulmonary venous congestion-the latter slightly increased since prior exam. Other findings as above.
--- NOTE | 2019-01-24 16:16 | CT ---
Date of service: 01/24/2019 PROCEDURE: CT HEAD WITHOUT CONTRAST. HISTORY: r/o ischemic changes; pt is aphasic x11 days COMPARISON: 01/14/2019. TECHNIQUE: Axial computed tomography images were obtained through the head/brain without intravenous contrast. Radiation dose: Total exam DLP = 1014.29 mGy-cm. This CT exam was performed using one or more of the following dose reduction techniques: Automated exposure control, adjustment of the mA and/or kV according to patient size, and/or use of iterative reconstruction technique. FINDINGS: HEMORRHAGE: No intracranial hemorrhage. BRAIN: There are moderate chronic microangiopathic changes. There is a chronic lacunar infarction in left posterior basal ganglia. There is no mass, mass effect or abnormal extra-axial fluid collection. There is no territorial infarction. The midline sagittal structures are normal.There are coarse atherosclerotic calcifications in the cavernous carotid arteries. The VENTRICLES: There is mild age-related global parenchymal volume loss and proportionate enlargement of the ventricles and cortical sulci. CALVARIUM: There is no calvarial fracture or extracranial soft tissue swelling. PARANASAL SINUSES: There is scattered mucoperiosteal thickening in the ethmoid air cell and mild mucosal thickening in the maxillary sinuses with retention cysts/polyps, worse in the right maxillary sinus. MASTOID AIR CELLS: Predominantly clear. OTHER FINDINGS: None. IMPRESSION: No acute intracranial abnormality. If there is a persistent focal neurologic deficit and an ongoing clinical concern for acute infarction, an MRI of the brain without intravenous contrast would be a more sensitive modality for evaluation of hyperacute/acute ischemic infarction. Moderate chronic microangiopathic changes and mild age-related global parenchymal volume loss. 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
--- NOTE | 2019-01-24 20:21 | CP.PCM.PN ---
Subjective - Date & Time of Evaluation Date of Evaluation: 01/24/19 Time of Evaluation: 20:18 - Subjective Subjective: INFECTIOUS DISEASE PROGRESS NOTES DAVID MORELOS MD, FACP 01/24/2019 CHART REVIEWED PT EXAMINED CASE DISCUSSED WITH FAMILY CLINICALLY SLEEPING, WAS NOT ABLE TO MOVE FOR PHYSICAL THERAPY NEEDS NUTRITION LUNGS DECREASED BREATH SOUNDS COR NOTED ABD SOFT CT OF HEAD OLD INFARCTIONS, AND ADVANCED AGE TO D/C ROCEPHIN IV TODAY TO FOLLOW PERIPHERALLY, FAMILY AWARE. Objective - Vital Signs/Intake and Output Vital Signs (last 24 hours): Temp Pulse Resp BP Pulse Ox 97.4 F L 90 20 146/64 93 L 01/24/19 16:39 01/24/19 20:15 01/24/19 16:39 01/24/19 16:39 01/24/19 16:39 Intake and Output: 01/24/19 01/25/19 18:59 06:59 Output Total 60 Balance -60 - Medications Medications: Current Medications Acetaminophen (Tylenol 325mg Tab) 650 mg PO Q6 [facility] Stop: 01/25/19 18:01 Last Admin: 01/24/19 17:55 Dose: Not Given Albuterol/Ipratropium (Duoneb 3 Mg/0.5 Mg (3 Ml) Ud) 3 ml INH RQ6 [facility] Last Admin: 01/24/19 19:25 Dose: 3 ml Alprazolam (Xanax) 0.5 mg PO ONCE PRN PRN Reason: Anxiety Amlodipine Besylate (Norvasc) 2.5 mg PO DAILY [facility] Last Admin: 01/24/19 10:23 Dose: 2.5 mg Gabapentin (Neurontin) 300 mg PO HS [facility] Last Admin: 01/23/19 21:19 Dose: 300 mg Heparin Sodium (Porcine) (Heparin) 5,000 units SC Q12 [facility] Last Admin: 01/24/19 10:20 Dose: 5,000 units Hydrochlorothiazide (Hydrodiuril) 25 mg PO DAILY [facility] Last Admin: 01/24/19 10:23 Dose: 25 mg Cefazolin Sodium 2,000 mg/ (Sodium Chloride) 100 mls @ 100 mls/hr IVPB Q8H [facility]; Protocol Stop: 01/27/19 23:59 Last Admin: 01/24/19 14:09 Dose: 100 mls/hr Sodium Chloride (Sodium Chloride 0.45%) 1,000 mls @ 60 mls/hr IV .[id number] [facility] Insulin Human Regular (Novolin R) 0 unit SC ACHS [facility] Last Admin: 01/24/19 18:01 Dose: 6 unit Lamotrigine (Lamictal) 25 mg PO BID [facility] Last Admin: 01/24/19 17:52 Dose: 25 mg Losartan Potassium (Cozaar) 100 mg PO DAILY [facility] Last Admin: 01/24/19 12:49 Dose: Not Given Metoprolol Succinate (Toprol Xl) 50 mg PO DAILY [facility] Last Admin: 01/24/19 10:29 Dose: 50 mg Morphine Sulfate (Morphine) 1 mg IVP Q4H PRN PRN Reason: Pain, severe (8-10) Last Admin: 01/24/19 06:05 Dose: 1 mg Ondansetron HCl (Zofran Inj) 4 mg IVP ONCE PRN PRN Reason: Nausea/Vomiting Promethazine HCl/Dextromethorphan (Phenergan Dm Syrup) 5 ml PO Q6H PRN PRN Reason: Coughing Last Admin: 01/24/19 10:23 Dose: 5 ml Quetiapine Fumarate (Seroquel Xr) 50 mg PO HS [facility] Last Admin: 01/23/19 21:17 Dose: 50 mg Tramadol HCl (Ultram) 100 mg PO Q6 PRN PRN Reason: Pain, moderate (4-7) Last Admin: 01/24/19 10:22 Dose: 100 mg Tramadol HCl (Ultram) 50 mg PO Q6 PRN PRN Reason: Pain, Mild (1-3) - Labs Labs: 01/24/19 08:21 01/24/19 08:21 PT 12.0 SECONDS (9.7-12.2) 01/19/19 04:23 INR 1.1 01/19/19 04:23 APTT 28 SECONDS (21-34) 01/19/19 04:23
[2019-01-24] MEDS: QUEtiapine 50 mg XR Tab PO SCH ×2 (21:09→22:00)
[2019-01-24] MEDS: Sodium Chloride 0.45% 1,000 ML IV SCH (21:10)
--- NOTE | 2019-01-24 23:56 | CP.PCM.PN ---
Subjective - Date & Time of Evaluation Date of Evaluation: 01/24/19 Time of Evaluation: 16:40 - Subjective Subjective: Patient seen and evaluated Denies chest pain and dyspnea Review of Systems - Review of Systems All systems: reviewed and no additional remarkable complaints except Review of Systems: as per HPI Physical Exam - Constitutional Appears: Well, No Acute Distress - Head Exam Head Exam: ATRAUMATIC, NORMOCEPHALIC - Eye Exam Eye Exam: EOMI, Normal appearance - ENT Exam ENT Exam: Mucous Membranes Moist - Respiratory Exam Respiratory Exam: NORMAL BREATHING PATTERN - Extremities Exam Additional comments: R hip: no lesions/masses/erythema tenderness to groin and over greater troch sensation intact SP/DP/TN motor intact EHL/FHL/TA/G pedal pulse intact calves soft NT b/l L hip: no lesions/masses/erythema no tenderness sensation intact SP/DP/TN motor intact EHL/FHL/TA/G pedal pulse intact - Neurological Exam Neurological exam: Alert, Oriented x3 - Psychiatric Exam Psychiatric exam: Normal Affect, Normal Mood - Skin Skin Exam: Normal Color, Warm Assessment and Plan - Assessment and Plan (Free Text) Assessment: s/Hip surgery Stable Objective - Vital Signs/Intake and Output Vital Signs (last 24 hours): Temp Pulse Resp BP Pulse Ox 97.4 F L 90 20 146/64 93 L 01/24/19 16:39 01/24/19 20:15 01/24/19 16:39 01/24/19 16:39 01/24/19 16:39 Intake and Output: 01/24/19 01/25/19 18:59 06:59 Output Total 60 Balance -60 - Medications Medications: Current Medications Acetaminophen (Tylenol 325mg Tab) 650 mg PO Q6 [facility] Stop: 01/25/19 18:01 Last Admin: 01/24/19 17:55 Dose: Not Given Albuterol/Ipratropium (Duoneb 3 Mg/0.5 Mg (3 Ml) Ud) 3 ml INH RQ6 [facility] Last Admin: 01/24/19 19:25 Dose: 3 ml Alprazolam (Xanax) 0.5 mg PO ONCE PRN PRN Reason: Anxiety Amlodipine Besylate (Norvasc) 2.5 mg PO DAILY [facility] Last Admin: 01/24/19 10:23 Dose: 2.5 mg Gabapentin (Neurontin) 300 mg PO HS [facility] Last Admin: 01/24/19 21:13 Dose: 300 mg Heparin Sodium (Porcine) (Heparin) 5,000 units SC Q12 [facility] Last Admin: 01/24/19 21:13 Dose: 5,000 units Hydrochlorothiazide (Hydrodiuril) 25 mg PO DAILY [facility] Last Admin: 01/24/19 10:23 Dose: 25 mg Cefazolin Sodium 2,000 mg/ (Sodium Chloride) 100 mls @ 100 mls/hr IVPB Q8H [facility]; Protocol Stop: 01/27/19 23:59 Last Admin: 01/24/19 21:09 Dose: 100 mls/hr Sodium Chloride (Sodium Chloride 0.45%) 1,000 mls @ 60 mls/hr IV .[id number] [facility] Last Admin: 01/24/19 21:10 Dose: 60 mls/hr Insulin Human Regular (Novolin R) 0 unit SC ACHS [facility] Last Admin: 01/24/19 22:56 Dose: Not Given Lactulose (Enulose) 20 gm PO HS PRN PRN Reason: constipation Last Admin: 01/24/19 21:08 Dose: 20 gm Lamotrigine (Lamictal) 25 mg PO BID [facility] Last Admin: 01/24/19 17:52 Dose: 25 mg Losartan Potassium (Cozaar) 100 mg PO DAILY [facility] Last Admin: 01/24/19 12:49 Dose: Not Given Metoprolol Succinate (Toprol Xl) 50 mg PO DAILY [facility] Last Admin: 01/24/19 10:29 Dose: 50 mg Morphine Sulfate (Morphine) 1 mg IVP Q4H PRN PRN Reason: Pain, severe (8-10) Last Admin: 01/24/19 06:05 Dose: 1 mg Ondansetron HCl (Zofran Inj) 4 mg IVP ONCE PRN PRN Reason: Nausea/Vomiting Promethazine HCl/Dextromethorphan (Phenergan Dm Syrup) 5 ml PO Q6H PRN PRN Reason: Coughing Last Admin: 01/24/19 10:23 Dose: 5 ml Quetiapine Fumarate (Seroquel Xr) 50 mg PO HS [facility] Last Admin: 01/24/19 21:09 Dose: 50 mg Tramadol HCl (Ultram) 100 mg PO Q6 PRN PRN Reason: Pain, moderate (4-7) Last Admin: 01/24/19 10:22 Dose: 100 mg Tramadol HCl (Ultram) 50 mg PO Q6 PRN PRN Reason: Pain, Mild (1-3) - Labs Labs: 01/24/19 08:21 01/24/19 08:21 PT 12.0 SECONDS (9.7-12.2) 01/19/19 04:23 INR 1.1 01/19/19 04:23 APTT 28 SECONDS (21-34) 01/19/19 04:23
[2019-01-25] MEDS: Albuterol-Ipratrop 3 mg / 0.5 (3 ml) UD INH SCH ×4 (01:25→19:41)
[2019-01-25 07:35] LABS: HEMOGLOBIN 9.1 g/dL (11.0-16.0); MEAN CELL VOLUME 95.1 fL (81.0-99.0); MEAN CORPUSCULAR HEMOGLOBIN 31.1 pg (27.0-31.0); MEAN CORPUSCULAR HGB CONC 32.7 g/dL (33.0-37.0); MEAN PLATELET VOLUME 8.8 fL (7.2-11.7); RBC 2.94 Mil/uL (3.80-5.20); RED CELL DISTRIBUTION WIDTH 15.9 % (11.5-14.5); WHITE BLOOD COUNT 7.7 K/uL (4.8-10.8)
[2019-01-25 07:54] LABS: ALT/SGPT < 6 U/L (9-52); AST/SGOT 15 U/L (14-36); BLOOD UREA NITROGEN 35 mg/dL (7-17); CALCIUM 8.5 mg/dl (8.6-10.4); GFR NON-AFRICAN AMERICAN 33
[2019-01-25] MEDS: (Novolin R) Insulin Human Regular 100 units/ml vial SC SCH ×4 (08:22→22:06)
--- NOTE | 2019-01-25 08:50 | CP.PCM.PN ---
Subjective - Date & Time of Evaluation Date of Evaluation: 01/25/19 Time of Evaluation: 08:47 - Subjective Subjective: Patient with daughters at bedside. Patient refusing to eat, coughing, refuses swallow eval. Was unable to tolerate crushed pills last night. Complaining of severe pain in her leg with attempts with PT. Objective - Vital Signs/Intake and Output Vital Signs (last 24 hours): Temp Pulse Resp BP Pulse Ox 98.7 F 90 20 148/72 95 01/24/19 23:25 01/25/19 07:33 01/24/19 23:25 01/24/19 23:25 01/24/19 23:25 Intake and Output: 01/25/19 01/25/19 06:59 18:59 Intake Total 1140 Output Total 300 Balance 840 - Medications Medications: Current Medications Acetaminophen (Tylenol 325mg Tab) 650 mg PO Q6 [facility] Stop: 01/30/19 18:01 Last Admin: 01/25/19 05:46 Dose: Not Given Albuterol/Ipratropium (Duoneb 3 Mg/0.5 Mg (3 Ml) Ud) 3 ml INH RQ6 [facility] Last Admin: 01/25/19 08:41 Dose: 3 ml Alprazolam (Xanax) 0.5 mg PO ONCE PRN PRN Reason: Anxiety Amlodipine Besylate (Norvasc) 2.5 mg PO DAILY [facility] Last Admin: 01/24/19 10:23 Dose: 2.5 mg Gabapentin (Neurontin) 300 mg PO HS [facility] Last Admin: 01/24/19 21:13 Dose: 300 mg Heparin Sodium (Porcine) (Heparin) 5,000 units SC Q12 [facility] Last Admin: 01/24/19 21:13 Dose: 5,000 units Hydrochlorothiazide (Hydrodiuril) 25 mg PO DAILY [facility] Last Admin: 01/24/19 10:23 Dose: 25 mg Cefazolin Sodium 2,000 mg/ (Sodium Chloride) 100 mls @ 100 mls/hr IVPB Q8H [facility]; Protocol Stop: 01/27/19 23:59 Last Admin: 01/25/19 05:38 Dose: 100 mls/hr Sodium Chloride (Sodium Chloride 0.45%) 1,000 mls @ 60 mls/hr IV .[id number] [facility] Last Admin: 01/24/19 21:10 Dose: 60 mls/hr Insulin Human Regular (Novolin R) 0 unit SC ACHS [facility] Last Admin: 01/25/19 08:22 Dose: Not Given Ketorolac Tromethamine (Toradol) 15 mg IVP Q8H [facility] Stop: 01/27/19 00:46 Lactulose (Enulose) 20 gm PO HS PRN PRN Reason: constipation Last Admin: 01/24/19 21:08 Dose: 20 gm Lamotrigine (Lamictal) 25 mg PO BID [facility] Last Admin: 01/24/19 17:52 Dose: 25 mg Losartan Potassium (Cozaar) 100 mg PO DAILY [facility] Last Admin: 01/24/19 12:49 Dose: Not Given Metoprolol Succinate (Toprol Xl) 50 mg PO DAILY [facility] Last Admin: 01/24/19 10:29 Dose: 50 mg Morphine Sulfate (Morphine) 1 mg IVP Q4H PRN PRN Reason: Pain, severe (8-10) Last Admin: 01/24/19 06:05 Dose: 1 mg Ondansetron HCl (Zofran Inj) 4 mg IVP ONCE PRN PRN Reason: Nausea/Vomiting Promethazine HCl/Dextromethorphan (Phenergan Dm Syrup) 5 ml PO Q6H PRN PRN Reason: Coughing Last Admin: 01/24/19 10:23 Dose: 5 ml Quetiapine Fumarate (Seroquel Xr) 50 mg PO [facility] Last Admin: 01/24/19 21:09 Dose: 50 mg Tramadol HCl (Ultram) 100 mg PO Q6 PRN PRN Reason: Pain, moderate (4-7) Last Admin: 01/24/19 10:22 Dose: 100 mg Tramadol HCl (Ultram) 50 mg PO Q6 PRN PRN Reason: Pain, Mild (1-3) - Labs Labs: 01/25/19 07:15 01/25/19 07:15 PT 12.0 SECONDS (9.7-12.2) 01/19/19 04:23 INR 1.1 01/19/19 04:23 APTT 28 SECONDS (21-34) 01/19/19 04:23 - Extremities Exam Additional comments: RLE: thigh mild to mod swelling, ice applied, incisions dry, thigh tender, calf tender, +ROM ankle/toes but with much prompting. +DP/PT pulses, No venodyne to right leg, multiple areas of redness to right lower leg. sensation intact. Assessment and Plan (1) Fracture, intertrochanteric, right femur Assessment & Plan: POD#2 s/p longn IM nail O2 sat low unable to tolerate PO pain medication, toradol 15mg q8h ordered VTE proph on lovenox calf tender, dopplers ordered IS/RT d/w Dr. Kendall, agrees with above Status: Acute (2) Acute blood loss anemia Assessment & Plan: monitor, stable Status: Acute
[2019-01-25] MEDS: Metoprolol Succinate 50 mg XL Tab PO SCH (12:29)
[2019-01-25] MEDS: Sodium Chloride 0.45% 1,000 ML IV SCH (12:29)
[2019-01-25] MEDS ORDERED: Iodixanol 320 MG/ML 100 ML BOTTLE IV ONE (13:31)
--- NOTE | 2019-01-25 14:08 | CP.PCM.PN ---
<Adela Bravo - Last Filed: 01/25/19 14:12> Subjective - Date & Time of Evaluation Date of Evaluation: 01/25/19 Time of Evaluation: 14:05 - Subjective Subjective: Neuro Follow-Up Note: Mrs. Roach was evaluated this afternoon sitting in chair at bedside. Pt's daughters at bedside. Pt today is verbal with some slurring of speech noted. She is able to follow commands and answer questions. She is currently NPO for swallow eval; however, daughters stated that the pt just drank a glass of water and ate 6 blackberries without any difficulty or cough. She is POD # 2 closed internal reduction of a femur fracture. Pt denies h/a, dizziness, visual changes, chest pain, palpitations, sob, cough, abd pain, n/v/d, paresthesias. Does have some discomfort to the right leg on/off but none now. Objective - Vital Signs/Intake and Output Vital Signs (last 24 hours): Temp Pulse Resp BP Pulse Ox 98.7 F 90 20 148/72 95 01/24/19 23:25 01/25/19 07:33 01/24/19 23:25 01/24/19 23:25 01/24/19 23:25 Intake and Output: 01/25/19 01/25/19 06:59 18:59 Intake Total 1140 Output Total 300 Balance 840 - Medications Medications: Current Medications Acetaminophen (Tylenol 325mg Tab) 650 mg PO Q6 [facility] Stop: 01/30/19 18:01 Last Admin: 01/25/19 12:29 Dose: Not Given Albuterol/Ipratropium (Duoneb 3 Mg/0.5 Mg (3 Ml) Ud) 3 ml INH RQ6 [facility] Last Admin: 01/25/19 13:03 Dose: 3 ml Alprazolam (Xanax) 0.5 mg PO ONCE PRN PRN Reason: Anxiety Amlodipine Besylate (Norvasc) 2.5 mg PO DAILY [facility] Last Admin: 01/25/19 12:29 Dose: Not Given Gabapentin (Neurontin) 300 mg PO HS [facility] Last Admin: 01/24/19 21:13 Dose: 300 mg Heparin Sodium (Porcine) (Heparin) 5,000 units SC Q12 [facility] Last Admin: 01/25/19 09:33 Dose: 5,000 units Hydrochlorothiazide (Hydrodiuril) 25 mg PO DAILY [facility] Last Admin: 01/25/19 12:28 Dose: Not Given Sodium Chloride (Sodium Chloride 0.45%) 1,000 mls @ 60 mls/hr IV .[id number] [facility] Last Admin: 01/25/19 12:29 Dose: Not Given Multivitamins/Vitamin C 10 ml/Chromium/Copper/Manganese/Zinc 1 ml/ Amino Acids 1,011 mls @ 62 mls/hr IV .[id number] [facility] Stop: 01/26/19 10:00 Amino Acids (Clinimix 4.25/5 % "E" (1000 Ml)) 1,000 mls @ 62 mls/hr IV .[id number] [facility] Stop: 01/26/19 18:00 Fat Emulsion Intravenous (Intralipid 20%) 500 mls @ 23 mls/hr IV MWF@1800 [facility] Stop: 02/01/19 18:01 Insulin Human Regular (Novolin R) 0 unit SC ACHS [facility] Last Admin: 01/25/19 12:29 Dose: Not Given Ketorolac Tromethamine (Toradol) 15 mg IVP Q8H [facility] Stop: 01/27/19 00:46 Last Admin: 01/25/19 09:08 Dose: 15 mg Lactulose (Enulose) 20 gm PO HS PRN PRN Reason: constipation Last Admin: 01/24/19 21:08 Dose: 20 gm Lamotrigine (Lamictal) 25 mg PO BID [facility] Last Admin: 01/25/19 12:28 Dose: Not Given Losartan Potassium (Cozaar) 100 mg PO DAILY [facility] Last Admin: 01/25/19 12:28 Dose: Not Given Metoprolol Succinate (Toprol Xl) 50 mg PO DAILY [facility] Last Admin: 01/25/19 12:29 Dose: Not Given Morphine Sulfate (Morphine) 1 mg IVP Q4H PRN PRN Reason: Pain, severe (8-10) Last Admin: 01/24/19 06:05 Dose: 1 mg Ondansetron HCl (Zofran Inj) 4 mg IVP ONCE PRN PRN Reason: Nausea/Vomiting Promethazine HCl/Dextromethorphan (Phenergan Dm Syrup) 5 ml PO Q6H PRN PRN Reason: Coughing Last Admin: 01/24/19 10:23 Dose: 5 ml Quetiapine Fumarate (Seroquel Xr) 50 mg PO HS [facility] Last Admin: 01/24/19 21:09 Dose: 50 mg Rosuvastatin Calcium (Crestor) 5 mg PO HS [facility] Tramadol HCl (Ultram) 100 mg PO Q6 PRN PRN Reason: Pain, moderate (4-7) Last Admin: 01/24/19 10:22 Dose: 100 mg Tramadol HCl (Ultram) 50 mg PO Q6 PRN PRN Reason: Pain, Mild (1-3) - Labs Labs: 01/25/19 07:15 01/25/19 07:15 PT 12.0 SECONDS (9.7-12.2) 01/19/19 04:23 INR 1.1 01/19/19 04:23 APTT 28 SECONDS (21-34) 01/19/19 04:23 - Constitutional Appears: Well, Non-toxic, No Acute Distress - Head Exam Head Exam: ATRAUMATIC, NORMAL INSPECTION, NORMOCEPHALIC - Eye Exam Eye Exam: EOMI, Normal appearance, PERRL Pupil Exam: NORMAL ACCOMODATION, PERRL - ENT Exam ENT Exam: Mucous Membranes Moist - Neck Exam Neck Exam: Full ROM, Normal Inspection - Respiratory Exam Respiratory Exam: NORMAL BREATHING PATTERN - Extremities Exam Extremities Exam: absent: Calf Tenderness, Full ROM, Pedal Edema Additional comments: Able to move LLE and BUE Limited rom to RLE post-op however able to move foot and toes. - Neurological Exam Neurological Exam: Alert, Awake, CN II-XII Intact Neuro motor strength exam: Left Upper Extremity: 5 (imposer 4/5), Right Upper Extremity: 5 (imposer 4/5), Left Lower Extremity: 3, Right Lower Extremity: 0 (unable to move 2/2 post op pain) Additional comments: Pt is more alert today and is verbal. She is able to follow commands without difficulty and answers questions appropriately. No aphasia noted today, however, does have some slurring of speech. No facial asymmetry. Able to move LLE and BUE Limited rom to RLE post-op 2/2 pain however able to move foot and toes. No tremors or abnormal movements noted - Psychiatric Exam Psychiatric exam: Normal Affect, Normal Mood - Skin Skin Exam: Normal Color Assessment and Plan (1) Dysarthria Assessment & Plan: Imaging reviewed: -CT Head (01/24/19): No acute intracranial abnormality. If there is a persistent focal neurologic deficit and an ongoing clinical concern for acute infarction, an MRI of the brain without intravenous contrast would be a more sensitive modality for evaluation of hyperacute/acute ischemic infarction. Moderate chronic microangiopathic changes and mild age-related global parenchymal volume loss. 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 -CT head (01/13/19): No evidence of acute intracranial hemorrhage or acute territorial infarct. Volume loss and extensive white matter changes suggestive of chronic microvascular ischemic disease. -CTA head and neck ordered, pending---will f/u with results. -Family is requesting to hold off on MRI at this time as they feel pt may not be able to tolerate it--pt can have an outpatient open MRI as soon as she is d/c. -Ortho cleared pt to restart ASA 81 mg PO Daily--I discussed with Yanci LÓPEZ. For now we will hold off on restarting it as the pt will have endoscopy with GI tomorrow for dysphagia. Once she is cleared from that, we can restart ASA. -Start Statin once pt passes swallow eval and is not NPO. -Continue DVT ppx per ortho. -Continue PT and ST. -Notify neuro team of any acute changes. Adela Bravo, MARGARET, [employer] Discussed with Dr. Gifford Status: Acute <Tania Gifford - Last Filed: 01/26/19 09:08> Objective - Vital Signs/Intake and Output Vital Signs (last 24 hours): Temp Pulse Resp BP Pulse Ox 97.9 F 91 H 20 168/84 H 95 01/26/19 08:38 01/26/19 08:38 01/26/19 08:38 01/26/19 08:38 01/26/19 08:38 Intake and Output: 01/26/19 01/26/19 06:59 18:59 Intake Total 680 Output Total 750 Balance -70 - Medications Medications: Current Medications Acetaminophen (Tylenol 325mg Tab) 650 mg PO Q6 [facility] Stop: 01/30/19 18:01 Last Admin: 01/26/19 06:06 Dose: Not Given Albuterol/Ipratropium (Duoneb 3 Mg/0.5 Mg (3 Ml) Ud) 3 ml INH RQ6 [facility] Last Admin: 01/26/19 01:17 Dose: Not Given Alprazolam (Xanax) 0.5 mg PO ONCE PRN PRN Reason: Anxiety Amlodipine Besylate (Norvasc) 2.5 mg PO DAILY [facility] Last Admin: 01/25/19 12:29 Dose: Not Given Gabapentin (Neurontin) 300 mg PO HS [facility] Last Admin: 01/25/19 22:22 Dose: Not Given Heparin Sodium (Porcine) (Heparin) 5,000 units SC Q12 [facility] Last Admin: 01/25/19 22:05 Dose: 5,000 units Hydrochlorothiazide (Hydrodiuril) 25 mg PO DAILY [facility] Last Admin: 01/25/19 12:28 Dose: Not Given Sodium Chloride (Sodium Chloride 0.45%) 1,000 mls @ 60 mls/hr IV .[id number] [facility] Last Admin: 01/25/19 12:29 Dose: Not Given Multivitamins/Vitamin C 10 ml/Chromium/Copper/Manganese/Zinc 1 ml/ Amino Acids 1,011 mls @ 62 mls/hr IV .[id number] [facility] Stop: 01/26/19 10:00 Last Admin: 01/25/19 18:18 Dose: 62 mls/hr Amino Acids (Clinimix 4.25/5 % "E" (1000 Ml)) 1,000 mls @ 62 mls/hr IV .[id number] [facility] Stop: 01/26/19 18:00 Fat Emulsion Intravenous (Intralipid 20%) 500 mls @ 23 mls/hr IV MWF@1800 [facility] Stop: 02/01/19 18:01 Last Admin: 01/25/19 18:18 Dose: 23 mls/hr Potassium Chloride (Potassium Chloride 10 Meq/100 Ml) 10 meq in 100 mls @ 100 mls/hr IVPB ONCE [facility] Stop: 01/26/19 10:59 Insulin Human Regular (Novolin R) 0 unit SC ACHS [facility] Last Admin: 01/25/19 22:06 Dose: 9 unit Ketorolac Tromethamine (Toradol) 15 mg IVP Q8H [facility] Stop: 01/27/19 00:46 Last Admin: 01/26/19 01:02 Dose: 15 mg Lactulose (Enulose) 20 gm PO HS PRN PRN Reason: constipation Lamotrigine (Lamictal) 25 mg PO BID [facility] Last Admin: 01/25/19 18:35 Dose: Not Given Losartan Potassium (Cozaar) 100 mg PO DAILY [facility] Last Admin: 01/25/19 12:28 Dose: Not Given Metoprolol Succinate (Toprol Xl) 50 mg PO DAILY [facility] Last Admin: 01/25/19 12:29 Dose: Not Given Morphine Sulfate (Morphine) 1 mg IVP Q4H PRN PRN Reason: Pain, severe (8-10) Last Admin: 01/24/19 06:05 Dose: 1 mg Ondansetron HCl (Zofran Inj) 4 mg IVP ONCE PRN PRN Reason: Nausea/Vomiting Promethazine HCl/Dextromethorphan (Phenergan Dm Syrup) 5 ml PO Q6H PRN PRN Reason: Coughing Last Admin: 01/24/19 10:23 Dose: 5 ml Quetiapine Fumarate (Seroquel Xr) [address] [facility] Last Admin: 01/25/19 22:22 Dose: Not Given Rosuvastatin Calcium (Crestor) [address] [facility] Last Admin: 01/25/19 22:22 Dose: Not Given Tramadol HCl (Ultram) 100 mg PO Q6 PRN PRN Reason: Pain, moderate (4-7) Last Admin: 01/24/19 10:22 Dose: 100 mg Tramadol HCl (Ultram) 50 mg PO Q6 PRN PRN Reason: Pain, Mild (1-3) - Labs Labs: 01/26/19 07:38 01/26/19 07:38 PT 12.0 SECONDS (9.7-12.2) 01/19/19 04:23 INR 1.1 01/19/19 04:23 APTT 28 SECONDS (21-34) 01/19/19 04:23 Assessment and Plan - Assessment and Plan (Free Text) Assessment: Patient is cleared for EGD from a neurological point of view. I have discussed this with Dr. Glaser this morning at 845 This has also been documented in the chart. Thank you Dr. Gifford Neurology
--- NOTE | 2019-01-25 14:51 | RAD ---
Date of service: 01/25/2019 PROCEDURE: CHEST RADIOGRAPH, 1 VIEW HISTORY: Congestion COMPARISON: January 24, 2019. FINDINGS: LUNGS: Improved aeration of the lungs particularly findings in the lower lobes. PLEURA: No pneumothorax or pleural fluid seen. CARDIOVASCULAR: Atherosclerotic calcifications identified primarily aortic arch. Cardiomegaly. No evidence of acute, significant cardiovascular disease. OSSEOUS STRUCTURES: No significant abnormalities. VISUALIZED UPPER ABDOMEN: Normal. OTHER FINDINGS: None. IMPRESSION: No active disease.
--- NOTE | 2019-01-25 15:09 | CT ---
Date of service: 01/25/2019 PROCEDURE: CTA HEAD AND NECK WITH CONTRAST HISTORY: Stroke COMPARISON: None available. TECHNIQUE: Initial noncontrast head CT was performed. Subsequently, CT angiogram of the head and neck were performed after the intravenous administration of 80 mL of Omnipaque 350. Contiguous 1.5mm thick images were obtained in the axial plane of the neck. 2-D coronal and sagittal MPR images were obtained. Imaging postprocessing was performed with 3-D images also obtained. A delayed contrast head CT was also obtained. This CT exam was performed using one or more of the following dose reduction techniques: Automated exposure control, adjustment of the mA and/or kV according to patient size, and/or use of iterative reconstruction technique. Contrast dose: 100 mL Visipaque 320 Radiation dose: Total exam DLP = 563.33 mGy-cm. FINDINGS: HEAD: There are coarse atherosclerotic calcifications in the cavernous carotid and supraclinoid internal carotid arteries. Right: The intracranial internal carotid artery, and anterior and middle cerebral arteries are widely patent. Left: The intracranial internal carotid artery, and anterior and middle cerebral arteries are widely patent. Posterior circulation: The visualized intracranial vertebral arteries, basilar artery and posterior cerebral arteries are widely patent. The right vertebral artery is hypoplastic, an anatomic variant. There is dolichoectasia of the basilar artery There is no endoluminal filling defect to suggest thrombus. There is no intracranial saccular aneurysm. NECK: There is a three vessel aortic arch. There is no stenosis at the origins of the great vessels at the level of the aortic arch. There are coarse atherosclerotic calcifications in the carotid bulbs and right proximal internal carotid artery without hemodynamically significant stenosis. Right Carotid: On the right, the common carotid, internal carotid and external carotid arteries are widely patent. There is no hemodynamically significant stenosis in the internal carotid artery by NASCET criteria. Left Carotid: On the left, the common carotid, internal carotid and external carotid arteries are widely patent. There is no hemodynamically significant stenosis in the internal carotid artery by NASCET criteria. The vertebral arteries are widely patent. The right vertebral artery is hypoplastic, an anatomic variant. The visualized soft tissues of the neck are normal. The visualized brain and cervical spine are within normal limits. The lung apices are clear. IMPRESSION: 1. No evidence of endoluminal thrombus,occlusion or definite significant stenosis in the intracranial arteries. 2. No evidence of hemodynamically significant stenosis in the internal carotid arteries. 3. Patent bilateral vertebral arteries.
--- NOTE | 2019-01-25 15:11 | PN ---
DATE: 01/25/2019 LOCATION: 667, bed A. SUBJECTIVE: This is an 89-year-old female seen initially for GI consultation with Dr. Bartholomew on 01/24/2019, reexamined again today with very poor oral intake, choking when she swallows for which her dysphagia was persistent. The entire chart is reviewed including but not limited to the most recent lab and radiology study results, current and the previous medication list, current and the previous medical events. It has to be mentioned that no reported actual chest pain, palpitation, or significant increase of shortness of breath or evidence of active GI bleeding. Today's lab showed hemoglobin dropped to 9.1, hematocrit 28 with CO2 content of 21, BUN of 35, creatinine 1.5. Blood glucose level 162 with low calcium 8.5, albumin 3, total protein 5.9. Today's chest x-ray done is still pending, but yesterday's head CAT scan official report is seen. PHYSICAL EXAMINATION: GENERAL: An 89-year-old female. VITAL SIGNS: Afebrile with pulse of 86, respiratory rate of 20 to 22, blood pressure 140/70. HEENT: Pale dry oral mucous membrane. Nonicteric sclerae. LUNGS: Few scattered crepitation. Decreased air entry at bases. HEART: Positive S1 and S2. ABDOMEN: Soft with mild generalized tenderness. No mass or organomegaly. No rebound tenderness or guarding. It has to be mentioned that the patient is unable to perform any kind of physical therapy treatment. IMPRESSION: 1. Dysphagia of unclear etiology, to rule out upper gastrointestinal tract lesion versus dysphagia secondary to central lesion. 2. Rule out occult gastrointestinal blood loss. 3. Multiple past medical history, recent and old including but not limited to hypertension with hyperlipidemia as well as blood transfusion due to subsequent drop of hemoglobin and hematocrit with lower back pain chronic syndrome. 4. Malnutrition with hypoalbuminemia. 5. Prerenal azotemia. SUGGESTIONS: 1. Continue current management. 2. Antireflux measure. 3. Peripheral hyperalimentation. 4. Swallow evaluation. 5. The patient will need an upper endoscopy, that to be discussed with treating MD as well as the family members. Further recommendation to follow. Stephan Dobson MD
--- NOTE | 2019-01-25 15:29 | VASCLAB ---
Date of service: 01/25/2019 PROCEDURE: Lower Extremity Venous Duplex Exam. HISTORY: RLE swelling, r/o DVT PRIORS: None. TECHNIQUE: Bilateral common femoral, femoral, popliteal and posterior tibial, peroneal and great saphenous veins were evaluated. Flow was assessed with color Doppler, compressibility, assessment of phasic flow and augmentation response. Report prepared by AUDREY Coffey FINDINGS: RIGHT: 1. Common Femoral Vein: 1.1. Compressibility - Fully compressible: Thrombus - None : Flow - Phasic: Augmentation -Normal: Reflux - None. 2. Femoral Vein: (mid-distal views) 2.1. Compressibility - Fully compressible: Thrombus - None : Flow - Phasic: Augmentation -Normal: Reflux - None. 3. Popliteal Vein: 4. Posterior Tibial Vein: 4.1. Compressibility - Fully compressible: Thrombus - None: Flow - Phasic: Augmentation -Normal: Reflux - None. 5. Peroneal Vein: 5.1. Compressibility - Fully compressible: Thrombus - None: Flow - Phasic: Augmentation -Normal: Reflux - None. 6. Great Saphenous Vein: 6.1. Compressibility - Fully compressible: Thrombus - None: Flow - Phasic: Augmentation - Normal: Reflux - None. LEFT: 1. Common Femoral Vein: 1.1. Compressibility - Fully compressible: Thrombus - None: Flow - Phasic: Augmentation -Normal: Reflux - None. 2. Femoral Vein: (mid-distal views) 2.1. Compressibility - Fully compressible: Thrombus - None: Flow - Phasic: Augmentation -Normal: Reflux - None. 3. Popliteal Vein: 3.1. Compressibility - Fully compressible: Thrombus - None : Flow - Phasic: Augmentation -Normal: Reflux - None. 4. Posterior Tibial Vein: 4.1. Compressibility - Fully compressible: Thrombus - None: Flow - Phasic: Augmentation -Normal: Reflux - None. 5. Peroneal Vein: 6. Great Saphenous Vein: OTHER FINDINGS: LIMITED EXAM. Patient intolerant to probe compressions. IMPRESSION: No evidence of deep or superficial vein thrombosis of bilateral lower extremities, as visualized.
[2019-01-25] MEDS ORDERED: PPN #1 IV SCH (18:00)
[2019-01-25] MEDS: Fat Emulsion 20% IV 500 ML IV SCH (18:18)
--- NOTE | 2019-01-25 18:40 | CP.PCM.PN ---
Subjective - Date & Time of Evaluation Date of Evaluation: 01/25/19 Time of Evaluation: 18:39 - Subjective Subjective: INFECTIOUS DISEASE PROGRESS NOTES DAVID MORELOS MD, FACP 01/25/2019 CHART REVIEWED PT EXAMINED CASE DISCUSSED NO ID ISSUES APPEAR ACUTE TO FOLLOW PERIPHERALLY RECALL NECESSARY THANK YOU DR CUENCA/GLADIS Objective - Vital Signs/Intake and Output Vital Signs (last 24 hours): Temp Pulse Resp BP Pulse Ox 98.7 F 90 20 148/72 95 01/24/19 23:25 01/25/19 07:33 01/24/19 23:25 01/24/19 23:25 01/24/19 23:25 Intake and Output: 01/25/19 01/25/19 06:59 18:59 Intake Total 1140 670 Output Total 300 200 Balance 840 470 - Medications Medications: Current Medications Acetaminophen (Tylenol 325mg Tab) 650 mg PO Q6 [facility] Stop: 01/30/19 18:01 Last Admin: 01/25/19 12:29 Dose: Not Given Albuterol/Ipratropium (Duoneb 3 Mg/0.5 Mg (3 Ml) Ud) 3 ml INH RQ6 [facility] Last Admin: 01/25/19 13:03 Dose: 3 ml Alprazolam (Xanax) 0.5 mg PO ONCE PRN PRN Reason: Anxiety Amlodipine Besylate (Norvasc) 2.5 mg PO DAILY [facility] Last Admin: 01/25/19 12:29 Dose: Not Given Gabapentin (Neurontin) 300 mg PO HS [facility] Last Admin: 01/24/19 21:13 Dose: 300 mg Heparin Sodium (Porcine) (Heparin) 5,000 units SC Q12 [facility] Last Admin: 01/25/19 09:33 Dose: 5,000 units Hydrochlorothiazide (Hydrodiuril) 25 mg PO DAILY [facility] Last Admin: 01/25/19 12:28 Dose: Not Given Sodium Chloride (Sodium Chloride 0.45%) 1,000 mls @ 60 mls/hr IV .[id number] [facility] Last Admin: 01/25/19 12:29 Dose: Not Given Multivitamins/Vitamin C 10 ml/Chromium/Copper/Manganese/Zinc 1 ml/ Amino Acids 1,011 mls @ 62 mls/hr IV .[id number] [facility] Stop: 01/26/19 10:00 Last Admin: 01/25/19 18:18 Dose: 62 mls/hr Amino Acids (Clinimix 4.25/5 % "E" (1000 Ml)) 1,000 mls @ 62 mls/hr IV .[id number] [facility] Stop: 01/26/19 18:00 Fat Emulsion Intravenous (Intralipid 20%) 500 mls @ 23 mls/hr IV MWF@1800 [facility] Stop: 02/01/19 18:01 Last Admin: 01/25/19 18:18 Dose: 23 mls/hr Insulin Human Regular (Novolin R) 0 unit SC [facility] Last Admin: 01/25/19 17:30 Dose: Not Given Ketorolac Tromethamine (Toradol) 15 mg IVP Q8H [facility] Stop: 01/27/19 00:46 Last Admin: 01/25/19 09:08 Dose: 15 mg Lactulose (Enulose) 20 gm PO HS PRN PRN Reason: constipation Last Admin: 01/24/19 21:08 Dose: 20 gm Lamotrigine (Lamictal) 25 mg PO BID [facility] Last Admin: 01/25/19 18:35 Dose: Not Given Losartan Potassium (Cozaar) 100 mg PO DAILY [facility] Last Admin: 01/25/19 12:28 Dose: Not Given Metoprolol Succinate (Toprol Xl) 50 mg PO DAILY [facility] Last Admin: 01/25/19 12:29 Dose: Not Given Morphine Sulfate (Morphine) 1 mg IVP Q4H PRN PRN Reason: Pain, severe (8-10) Last Admin: 01/24/19 06:05 Dose: 1 mg Ondansetron HCl (Zofran Inj) 4 mg IVP ONCE PRN PRN Reason: Nausea/Vomiting Promethazine HCl/Dextromethorphan (Phenergan Dm Syrup) 5 ml PO Q6H PRN PRN Reason: Coughing Last Admin: 01/24/19 10:23 Dose: 5 ml Quetiapine Fumarate (Seroquel Xr) 50 mg PO HS [facility] Last Admin: 01/24/19 21:09 Dose: 50 mg Rosuvastatin Calcium (Crestor) 5 mg PO HS [facility] Tramadol HCl (Ultram) 100 mg PO Q6 PRN PRN Reason: Pain, moderate (4-7) Last Admin: 01/24/19 10:22 Dose: 100 mg Tramadol HCl (Ultram) 50 mg PO Q6 PRN PRN Reason: Pain, Mild (1-3) - Labs Labs: 01/25/19 07:15 01/25/19 07:15 PT 12.0 SECONDS (9.7-12.2) 01/19/19 04:23 INR 1.1 01/19/19 04:23 APTT 28 SECONDS (21-34) 01/19/19 04:23
[2019-01-25] MEDS: QUEtiapine 50 mg XR Tab PO SCH (22:22)
--- NOTE | 2019-01-26 00:34 | CP.PCM.PN ---
Subjective - Date & Time of Evaluation Date of Evaluation: 01/25/19 Time of Evaluation: 15:15 - Subjective Subjective: Patient seen and evaluated Denies chest pain and dyspnea No cardiac events noted Review of Systems - Review of Systems All systems: reviewed and no additional remarkable complaints except Review of Systems: as per HPI Physical Exam - Constitutional Appears: Well, No Acute Distress - Head Exam Head Exam: ATRAUMATIC, NORMOCEPHALIC - Eye Exam Eye Exam: EOMI, Normal appearance - ENT Exam ENT Exam: Mucous Membranes Moist - Respiratory Exam Respiratory Exam: NORMAL BREATHING PATTERN - Extremities Exam Additional comments: R hip: no lesions/masses/erythema tenderness to groin and over greater troch sensation intact SP/DP/TN motor intact EHL/FHL/TA/G pedal pulse intact calves soft NT b/l L hip: no lesions/masses/erythema no tenderness sensation intact SP/DP/TN motor intact EHL/FHL/TA/G pedal pulse intact - Neurological Exam Neurological exam: Alert, Oriented x3 - Psychiatric Exam Psychiatric exam: Normal Affect, Normal Mood - Skin Skin Exam: Normal Color, Warm Assessment and Plan - Assessment and Plan (Free Text) Assessment: s/Hip surgery Stable Objective - Vital Signs/Intake and Output Vital Signs (last 24 hours): Temp Pulse Resp BP Pulse Ox 98 F 87 20 144/59 L 96 01/25/19 15:00 01/25/19 15:00 01/25/19 15:00 01/25/19 15:00 01/25/19 15:00 Intake and Output: 01/25/19 01/26/19 18:59 06:59 Intake Total 670 Output Total 200 200 Balance 470 -200 - Medications Medications: Current Medications Acetaminophen (Tylenol 325mg Tab) 650 mg PO Q6 [facility] Stop: 01/30/19 18:01 Last Admin: 01/26/19 00:13 Dose: Not Given Albuterol/Ipratropium (Duoneb 3 Mg/0.5 Mg (3 Ml) Ud) 3 ml INH RQ6 [facility] Last Admin: 01/25/19 19:41 Dose: 3 ml Alprazolam (Xanax) 0.5 mg PO ONCE PRN PRN Reason: Anxiety Amlodipine Besylate (Norvasc) 2.5 mg PO DAILY [facility] Last Admin: 01/25/19 12:29 Dose: Not Given Gabapentin (Neurontin) 300 mg PO HS [facility] Last Admin: 01/25/19 22:22 Dose: Not Given Heparin Sodium (Porcine) (Heparin) 5,000 units SC Q12 [facility] Last Admin: 01/25/19 22:05 Dose: 5,000 units Hydrochlorothiazide (Hydrodiuril) 25 mg PO DAILY [facility] Last Admin: 01/25/19 12:28 Dose: Not Given Sodium Chloride (Sodium Chloride 0.45%) 1,000 mls @ 60 mls/hr IV .[id number] [facility] Last Admin: 01/25/19 12:29 Dose: Not Given Multivitamins/Vitamin C 10 ml/Chromium/Copper/Manganese/Zinc 1 ml/ Amino Acids 1,011 mls @ 62 mls/hr IV .[id number] [facility] Stop: 01/26/19 10:00 Last Admin: 01/25/19 18:18 Dose: 62 mls/hr Amino Acids (Clinimix 4.25/5 % "E" (1000 Ml)) 1,000 mls @ 62 mls/hr IV .Q16H8M [facility] Stop: 01/26/19 18:00 Fat Emulsion Intravenous (Intralipid 20%) 500 mls @ 23 mls/hr IV MWF@1800 [facility] Stop: 02/01/19 18:01 Last Admin: 01/25/19 18:18 Dose: 23 mls/hr Insulin Human Regular (Novolin R) 0 unit SC ACHS [facility] Last Admin: 01/25/19 22:06 Dose: 9 unit Ketorolac Tromethamine (Toradol) 15 mg IVP Q8H [facility] Stop: 01/27/19 00:46 Last Admin: 01/25/19 18:39 Dose: 15 mg Lactulose (Enulose) 20 gm PO HS PRN PRN Reason: constipation Lamotrigine (Lamictal) 25 mg PO BID [facility] Last Admin: 01/25/19 18:35 Dose: Not Given Losartan Potassium (Cozaar) 100 mg PO DAILY [facility] Last Admin: 01/25/19 12:28 Dose: Not Given Metoprolol Succinate (Toprol Xl) 50 mg PO DAILY [facility] Last Admin: 01/25/19 12:29 Dose: Not Given Morphine Sulfate (Morphine) 1 mg IVP Q4H PRN PRN Reason: Pain, severe (8-10) Last Admin: 01/24/19 06:05 Dose: 1 mg Ondansetron HCl (Zofran Inj) 4 mg IVP ONCE PRN PRN Reason: Nausea/Vomiting Promethazine HCl/Dextromethorphan (Phenergan Dm Syrup) 5 ml PO Q6H PRN PRN Reason: Coughing Last Admin: 01/24/19 10:23 Dose: 5 ml Quetiapine Fumarate (Seroquel Xr) 50 mg PO HS [facility] Last Admin: 01/25/19 22:22 Dose: Not Given Rosuvastatin Calcium (Crestor) 5 mg PO HS [facility] Last Admin: 01/25/19 22:22 Dose: Not Given Tramadol HCl (Ultram) 100 mg PO Q6 PRN PRN Reason: Pain, moderate (4-7) Last Admin: 01/24/19 10:22 Dose: 100 mg Tramadol HCl (Ultram) 50 mg PO Q6 PRN PRN Reason: Pain, Mild (1-3) - Labs Labs: 01/25/19 07:15 01/25/19 07:15 PT 12.0 SECONDS (9.7-12.2) 01/19/19 04:23 INR 1.1 01/19/19 04:23 APTT 28 SECONDS (21-34) 01/19/19 04:23
[2019-01-26] MEDS: Albuterol-Ipratrop 3 mg / 0.5 (3 ml) UD INH SCH ×4 (01:17→20:02)
--- NOTE | 2019-01-26 06:37 | PN ---
DATE: 01/25/2019 SUBJECTIVE: She is resting comfortably in bed right now. Looking comfortable. She is taking better deep breath plus congestion. Family is present. I understand and refused a swallow eval yesterday because she was sleeping. We had to change as they are coming to do it, we have to do the swallow eval. She is not getting her meds because she is not swallowing from the anesthesia. She is on IV, Cozaar. She is not getting DuoNeb, Rocephin, HydroDIURIL, Lamictal, morphine, Neurontin, Norvasc, Novolin, Phenergan, Seroquel, IV fluids, Toprol, also Xanax and Zofran are the medicines she refused. She is not getting because she is not swallowing about yet. PHYSICAL EXAMINATION: VITAL SIGNS: Temperature 98.7, 85 pulse, 148/70 blood pressure, 20 respiratory rate, 95% O2 sat on nasal cannula at 2 L. HEAD: Atraumatic, normocephalic. GENERAL: She was awake this morning. She tried to say good morning. HEART: Regular rate. LUNGS: Decreased breath sounds with a little bit of congestion but loose, more air movement than yesterday. Taking deeper breaths. ABDOMEN: Soft. EXTREMITIES: Wrapped up in bandage, status post ORIF. LABORATORY DATA: She has 6.6 white count, 9.6 hemoglobin, 28.6 hematocrit, and 128 platelets. She has 141 sodium, potassium 4.1, BUN 24, creatinine 1.4, sugars 178, calcium 8.4, total bili is 0.5, AST 16, ALT 11, alk phos 26, these are labs from yesterday. We are waiting for labs from this morning. ASSESSMENT AND PLAN: Today seen by Cardiology, Infectious Disease. She had head CT done which showed no acute intracranial abnormality. Therefore consistent with focal neurological deficits. She also has a chest x-ray with increasing opacity of left lung base, possible infiltrate, today sounds improved, being seen by multiple doctors, receiving progressive treatment and care. We will check her labs tomorrow, encouragement for a swallow eval, and making sure she is moving and is being alert. Discussed with the family, they will keep her stimulated as possible directions as she is still recovering from open reduction internal fixation of the hip. Answered many questions of the family. They are concerned as she is not improving so well. We will watch her very closely. Saul Peters DO [facility]
[2019-01-26 07:48] LABS: HEMOGLOBIN 8.9 g/dL (11.0-16.0); MEAN CELL VOLUME 93.8 fL (81.0-99.0); MEAN CORPUSCULAR HEMOGLOBIN 30.9 pg (27.0-31.0); MEAN CORPUSCULAR HGB CONC 32.9 g/dL (33.0-37.0); MEAN PLATELET VOLUME 8.9 fL (7.2-11.7); RBC 2.87 Mil/uL (3.80-5.20); RED CELL DISTRIBUTION WIDTH 15.8 % (11.5-14.5); WHITE BLOOD COUNT 8.7 K/uL (4.8-10.8)
[2019-01-26 08:02] LABS: ALB/GLOB RATIO 1.1 (1.0-2.1); ALBUMIN 3.1 g/dL (3.5-5.0); ALT/SGPT < 6 U/L (9-52); AST/SGOT 13 U/L (14-36); BLOOD UREA NITROGEN 38 mg/dL (7-17); CALCIUM 8.9 mg/dl (8.6-10.4); GFR NON-AFRICAN AMERICAN 39
--- NOTE | 2019-01-26 09:51 | PN ---
DATE: 01/26/2019 SUBJECTIVE: I saw her this morning, and both her daughters were in the room, sleeping there. She is alert. They are now allowing us to rotate the patient. She does have a blister on the right heel that would not allow us to move her. Now they are. They are asking for an air mattress. I will order an air mattress. We have to get her out of bed to chair every day; I am hoping swallow eval will come today. She is on TPN but she has not been eating. I think she is slowly coming around. There is upper airway congestion, it is thin and it is moving in the upper airway and the chest x-ray was clear. PHYSICAL EXAMINATION: VITAL SIGNS: She has 97.3 temp, 95 pulse, 161/79 blood pressure, 20 respiratory rate, 94% O2 sat nasal cannula on 2 L. GENERAL: She is alert, looking at me. Said a word or two, smile. HEENT: Head is atraumatic, normocephalic. Throat is dry. NECK: Supple. HEART: Regular rate. LUNGS: Upper airway congestion but clear to auscultation. Chest x-ray was clear. ABDOMEN: Soft, nontender. Positive bowel sounds. EXTREMITIES: Right leg is bandaged. She has a right heel blister, needs to get an air mattress. MEDICATIONS: She is currently on Clinimix, Cozaar, Crestor, DuoNeb, Enulose, heparin, HydroDIURIL, intralipid, Lamictal, morphine as needed, amino acids, Neurontin, Norvasc, insulin, Phenergan, Seroquel, IV fluids, Toprol, Toradol, Tylenol, Ultram, Xanax, Zofran. I will decrease the IV fluids a little bit as she is on TPN. We are checking her labs. She has 7.7 white count, 9.1 hemoglobin, 28 hematocrit with 169 platelets. She has 145 sodium, potassium 3.9, BUN 35, creatinine 1.5. Sugars are 212. Calcium is 8.5. Total bili is 0.5. AST is 15. ALT is 6. Alk phos 83. Total protein is 5.9. I will adjust her diabetes medication. Get her out of bed to chair. Air mattress. She has a swallow eval today, and she had been thinking about [facility] or [facility] for subacute rehab. Discussed with the family. Saul Peters DO
[2019-01-26] MEDS ORDERED: PPN #2 IV SCH (10:00)
[2019-01-26] MEDS: (Novolin R) Insulin Human Regular 100 units/ml vial SC SCH ×5 (10:50→22:52)
[2019-01-26] MEDS: Metoprolol Succinate 50 mg XL Tab PO SCH (10:51)
--- NOTE | 2019-01-26 14:24 | CP.PCM.PN ---
Subjective - Date & Time of Evaluation Date of Evaluation: 01/26/19 Time of Evaluation: 14:20 - Subjective Subjective: Neuro Follow-Up Note: Mrs. Roach was evaluated this afternoon in bed. Pt's daughters at bedside. Pt today is verbal with some slurring of speech still noted. She is still able to follow commands and answer questions. She is currently NPO. EGD was cancelled this morning and is rescheduled for tomorrow morning. Per daughters the pt tried drinking water and coughed a little, but was able to eat a blackberry today without any problems. She is POD # 3 closed internal reduction of a femur fracture. Pt denies h/a, dizziness, visual changes, chest pain, palpitations, sob, cough, abd pain, n/v/d, paresthesias. Objective - Vital Signs/Intake and Output Vital Signs (last 24 hours): Temp Pulse Resp BP Pulse Ox 97.9 F 91 H 20 168/84 H 95 01/26/19 08:38 01/26/19 08:38 01/26/19 08:38 01/26/19 08:38 01/26/19 08:38 Intake and Output: 01/26/19 01/26/19 06:59 18:59 Intake Total 680 Output Total 750 Balance -70 - Medications Medications: Current Medications Acetaminophen (Tylenol 325mg Tab) 650 mg PO Q6 [facility] Stop: 01/30/19 18:01 Last Admin: 01/26/19 12:22 Dose: Not Given Albuterol/Ipratropium (Duoneb 3 Mg/0.5 Mg (3 Ml) Ud) 3 ml INH RQ6 [facility] Last Admin: 01/26/19 08:05 Dose: 3 ml Alprazolam (Xanax) 0.5 mg PO ONCE PRN PRN Reason: Anxiety Amlodipine Besylate (Norvasc) 2.5 mg PO DAILY [facility] Last Admin: 01/26/19 10:52 Dose: Not Given Gabapentin (Neurontin) 300 mg PO HS [facility] Last Admin: 01/25/19 22:22 Dose: Not Given Heparin Sodium (Porcine) (Heparin) 5,000 units SC Q12 [facility] Last Admin: 01/26/19 13:30 Dose: 5,000 units Hydrochlorothiazide (Hydrodiuril) 25 mg PO DAILY [facility] Last Admin: 01/26/19 10:51 Dose: Not Given Sodium Chloride (Sodium Chloride 0.45%) 1,000 mls @ 60 mls/hr IV .[id number] [facility] Last Admin: 01/25/19 12:29 Dose: Not Given Amino Acids (Clinimix 4.25/5 % "E" (1000 Ml)) 1,000 mls @ 62 mls/hr IV .[id number] [facility] Stop: 01/26/19 18:00 Last Admin: 01/26/19 10:50 Dose: 62 mls/hr Fat Emulsion Intravenous (Intralipid 20%) 500 mls @ 23 mls/hr IV MWF@1800 [facility] Stop: 02/01/19 18:01 Last Admin: 01/25/19 18:18 Dose: 23 mls/hr Multivitamins/Vitamin C 10 ml/Chromium/Copper/Manganese/Zinc 1 ml/ Amino Acids 1,011 mls @ 62 mls/hr IV .[id number] [facility] Stop: 01/27/19 09:59 Amino Acids (Clinimix 4.25/5 % "E" (1000 Ml)) 1,000 mls @ 62 mls/hr IV .Q16H8M [facility] Stop: 01/27/19 18:00 Insulin Human Regular (Novolin R) 0 unit SC ACHS [facility] Last Admin: 01/26/19 13:51 Dose: 12 unit Ketorolac Tromethamine (Toradol) 15 mg IVP Q8H [facility] Stop: 01/27/19 00:46 Last Admin: 01/26/19 10:49 Dose: 15 mg Lactulose (Enulose) 20 gm PO HS PRN PRN Reason: constipation Lamotrigine (Lamictal) 25 mg PO BID [facility] Last Admin: 01/26/19 10:52 Dose: Not Given Losartan Potassium (Cozaar) 100 mg PO DAILY [facility] Last Admin: 01/26/19 10:51 Dose: Not Given Metoprolol Succinate (Toprol Xl) 50 mg PO DAILY [facility] Last Admin: 01/26/19 10:51 Dose: Not Given Morphine Sulfate (Morphine) 1 mg IVP Q4H PRN PRN Reason: Pain, severe (8-10) Last Admin: 01/24/19 06:05 Dose: 1 mg Ondansetron HCl (Zofran Inj) 4 mg IVP ONCE PRN PRN Reason: Nausea/Vomiting Promethazine HCl/Dextromethorphan (Phenergan Dm Syrup) 5 ml PO Q6H PRN PRN Reason: Coughing Last Admin: 01/24/19 10:23 Dose: 5 ml Quetiapine Fumarate (Seroquel Xr) 50 mg PO HS [facility] Last Admin: 01/25/19 22:22 Dose: Not Given Rosuvastatin Calcium (Crestor) 5 mg PO HS [facility] Last Admin: 01/25/19 22:22 Dose: Not Given Tramadol HCl (Ultram) 100 mg PO Q6 PRN PRN Reason: Pain, moderate (4-7) Last Admin: 01/24/19 10:22 Dose: 100 mg Tramadol HCl (Ultram) 50 mg PO Q6 PRN PRN Reason: Pain, Mild (1-3) - Labs Labs: 01/26/19 07:38 01/26/19 07:38 PT 12.0 SECONDS (9.7-12.2) 01/19/19 04:23 INR 1.1 01/19/19 04:23 APTT 28 SECONDS (21-34) 01/19/19 04:23 - Constitutional Appears: Well, Non-toxic, No Acute Distress - Head Exam Head Exam: ATRAUMATIC, NORMAL INSPECTION - Eye Exam Eye Exam: EOMI, Normal appearance, PERRL Pupil Exam: NORMAL ACCOMODATION, PERRL - ENT Exam ENT Exam: Mucous Membranes Moist - Neck Exam Neck Exam: Full ROM, Normal Inspection - Respiratory Exam Respiratory Exam: NORMAL BREATHING PATTERN - Extremities Exam Extremities Exam: absent: Calf Tenderness, Tenderness Additional comments: Able to move LLE and BUE Limited rom to RLE post-op however still able to move foot and toes. - Neurological Exam Neurological Exam: Alert, Awake, CN II-XII Intact Neuro motor strength exam: Left Upper Extremity: 5, Right Upper Extremity: 5, Left Lower Extremity: 3, Right Lower Extremity: 0 (post closed rif) Additional comments: Pt remains alert and verbal. She is able to follow commands without difficulty and answers questions appropriately. No aphasia noted today, however, does have some slurring of speech is still no marzena, same as yesterday No facial asymmetry. Able to move LLE and BUE Limited rom to RLE post-op 2/2 pain however able to move foot and toes. No tremors or abnormal movements noted No sensory deficits. - Psychiatric Exam Psychiatric exam: Normal Affect, Normal Mood - Skin Skin Exam: Normal Color Assessment and Plan (1) Dysarthria Assessment & Plan: Imaging reviewed: -CTA Head and Neck (01/25/19): 1. No evidence of endoluminal thrombus,occlusion or definite significant stenosis in the intracranial arteries. 2. No evidence of hemodynamically significant stenosis in the internal carotid arteries. 3. Patent bilateral vertebral arteries. -CT Head (01/24/19): No acute intracranial abnormality. If there is a persistent focal neurologic deficit and an ongoing clinical concern for acute infarction, an MRI of the brain without intravenous contrast would be a more sensitive modality for evaluation of hyperacute/acute ischemic infarction. Moderate chronic microangiopathic changes and mild age-related global parenchymal volume loss. 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 -CT head (01/13/19): No evidence of acute intracranial hemorrhage or acute territorial infarct. Volume loss and extensive white matter changes suggestive of chronic microvascular ischemic disease. -Pt can have an outpatient open MRI as soon as she is d/c. -Ortho cleared pt to restart ASA 81 mg PO Daily--I discussed with Yanci LÓPEZ. For now we will hold off on restarting it as the pt will have endoscopy with GI tomorrow for dysphagia (was scheduled for today and rescheduled for tomorrow morning). Once she is cleared from that, we can restart ASA. -Start Statin once pt passes swallow eval and is not NPO. -Continue DVT ppx per ortho. -Continue PT and ST. Recommend for pt to be re-eval'd by ST. -Incentive spirometry given to the pt by me; pt instructed how to use; family and pt verbalize understanding. -Pt is neurologically stable and cleared for EGD tomorrow. -Notify neuro team of any acute changes. Discussed plan with the pt's family and they are in agreement with the above. Adela Bravo, MARGARET, MYCOLOGY TEACHER Discussed with Dr. Gifford Status: Acute
--- NOTE | 2019-01-26 14:30 | CON ---
DATE: 01/24/[address] Dobson to Dr. Peters. HISTORY OF PRESENT ILLNESS: I was called for GI consultation by the admitting medical staff as well as Dr. Daren Bartholomew. The patient is seen and fully examined in the presence of her family members on 01/24/2019. The entire chart is reviewed including but not limited to the most recent lab and radiology study results, current and the previous medication list, current and the previous medical events, allergy to medication list as well as all the available current and the previous medical records. This is an 88-year-old female, who was admitted to the hospital almost 6 days ago prior to my GI consultation through the emergency room with a main complaint of expressive dysphasia with possible TIA or/and possible brain infarction; however, during her stay in the hospital, the patient was not able to eat or even drink anything as per nursing staff and the family member with episode of progressive cough by oral intake, even water. The patient had extensive neurology workup including but not limited to CAT scan of the head and also had CAT scan of the head with x-rays due to reported pain and the fall as per the record, indicative of minimally displaced inferior trochanteric fracture of the left hip. At that time, the patient was cleared by the Neurology otm consultant as well as the pre owned sales consultant for potential hip surgery. In summary, due to the patient's persistent dysphagia and malnutrition, I was called for GI consultation by the pre owned sales consultant for potential upper endoscopy and/or PEG insertion as needed. On record and as per the family, the patient has persistent complaint of pain in the middle of her esophagus even before the most recent neurological symptoms started. At the time of my physical examination, the patient denied any significant chest pain, palpitation or significant increase of shortness of breath. No reported active GI bleeding at that time. PAST MEDICAL HISTORY: Including mainly but not limited to, 1. Hypertension. 2. Hyperlipidemia. 3. Peptic ulcer disease. 4. Multiple vascular procedures before as per the record. FAMILY HISTORY: Unknown. SOCIAL HISTORY: No known recent history of cigarette smoking or alcohol intake. CURRENT MEDICATION: Post admission medication lists were reviewed. LABORATORY DATA: Most recent lab results showed hemoglobin of 9.6, hematocrit 28.6 with normal white blood cells and platelet count with CO2 content of 20, BUN of 34, and creatinine 1.4. Blood glucose level 229, calcium 8.4, albumin 2.9, and total protein 5.7. It has to be mentioned that all the reported radiology study reading is seen. PHYSICAL EXAMINATION: GENERAL: An 88-year-old female. VITAL SIGNS: Afebrile at the time she was seen by me with pulse of 82, respiratory rate 20 to 22, and blood pressure of 144/70. HEENT: Showed pale, dry oral mucous membrane. Nonicteric sclerae. LUNGS: Few scattered crepitation. Decreased air entry at bases. HEART: Positive S1 and S2. ABDOMEN: Soft with mild distention, mildly obese. No mass or organomegaly. No rebound tenderness or guarding. EXTREMITIES: With lower extremity slight edematous changes. Left lower extremity is in cast. It has to be mentioned that this case was discussed at length with Dr. Daren Bartholomew immediately after my GI consultation and before, on 01/24/2019. IMPRESSION: 1. Dysphagia, of unclear etiology with anemia, to rule out upper gastrointestinal tract lesion versus dysphagia secondary to neurological deficits. 2. Malnutrition with hypoalbuminemia and hypoproteinemia. 3. Past medical history including mainly hypertension with hyperlipidemia. 4. Left hip fracture by recent radiology study results. SUGGESTIONS: 1. Agree with your plan. 2. Peripheral hyperalimentation. 3. Endoscopic evaluation of the upper GI tract. 4. Antireflux measure. Proton pump inhibitors. 5. Guaiac all the stools daily x3. 6. Cancer markers. 7. Further recommendation to follow post upper endoscopy and the patient may need PEG insertion if her symptoms persist. Thank you for letting me participate in your patient's case management. Stephan Dobson MD
--- NOTE | 2019-01-26 14:35 | PN ---
DATE: 01/26/2019 LOCATION: 667, bed A SUBJECTIVE: This is an 88-year-old female who was scheduled today for upper endoscopy at 08:30. Due to the concern of the Anesthesia staff and their refusing to do the case without a neurological clearance, I did not know for what initially, but anyhow and after three and half hours waiting in the endoscopy room, the patient was not available for me to do the procedure. I contacted Dr. Peters who gave me the green light to do the case. I spent over 35 to 40 minutes with the family and they wanted the upper endoscopy to be done due to the patient's persistent anesthesia. At this point and after three and a half hours waiting in the endoscopy room, I decided to reschedule the patient for a.m., after Neurology clearance to satisfy the Anesthesia staff's request. Stephan Dobson MD
--- NOTE | 2019-01-26 14:50 | CP.PCM.PN ---
Subjective - Date & Time of Evaluation Date of Evaluation: 01/26/19 Time of Evaluation: 14:47 - Subjective Subjective: Patient with family at bedside. Patient stood with PT yesterday, refused today. She has been choking today and unable/unwilling to eat today. Objective - Vital Signs/Intake and Output Vital Signs (last 24 hours): Temp Pulse Resp BP Pulse Ox 97.9 F 91 H 20 168/84 H 95 01/26/19 08:38 01/26/19 08:38 01/26/19 08:38 01/26/19 08:38 01/26/19 08:38 Intake and Output: 01/26/19 01/26/19 06:59 18:59 Intake Total 680 Output Total 750 Balance -70 - Medications Medications: Current Medications Acetaminophen (Tylenol 325mg Tab) 650 mg PO Q6 [facility] Stop: 01/30/19 18:01 Last Admin: 01/26/19 12:22 Dose: Not Given Albuterol/Ipratropium (Duoneb 3 Mg/0.5 Mg (3 Ml) Ud) 3 ml INH RQ6 [facility] Last Admin: 01/26/19 08:05 Dose: 3 ml Alprazolam (Xanax) 0.5 mg PO ONCE PRN PRN Reason: Anxiety Amlodipine Besylate (Norvasc) 2.5 mg PO DAILY [facility] Last Admin: 01/26/19 10:52 Dose: Not Given Gabapentin (Neurontin) 300 mg PO HS [facility] Last Admin: 01/25/19 22:22 Dose: Not Given Heparin Sodium (Porcine) (Heparin) 5,000 units SC Q12 [facility] Last Admin: 01/26/19 13:30 Dose: 5,000 units Hydrochlorothiazide (Hydrodiuril) 25 mg PO DAILY [facility] Last Admin: 01/26/19 10:51 Dose: Not Given Sodium Chloride (Sodium Chloride 0.45%) 1,000 mls @ 60 mls/hr IV .[id number] [facility] Last Admin: 01/25/19 12:29 Dose: Not Given Amino Acids (Clinimix 4.25/5 % "E" (1000 Ml)) 1,000 mls @ 62 mls/hr IV .Q16H8M [facility] Stop: 01/26/19 18:00 Last Admin: 01/26/19 10:50 Dose: 62 mls/hr Fat Emulsion Intravenous (Intralipid 20%) 500 mls @ 23 mls/hr IV MWF@1800 [facility] Stop: 02/01/19 18:01 Last Admin: 01/25/19 18:18 Dose: 23 mls/hr Multivitamins/Vitamin C 10 ml/Chromium/Copper/Manganese/Zinc 1 ml/ Amino Acids 1,011 mls @ 62 mls/hr IV .[id number] [facility] Stop: 01/27/19 09:59 Amino Acids (Clinimix 4.25/5 % "E" (1000 Ml)) 1,000 mls @ 62 mls/hr IV .Q16H8M [facility] Stop: 01/27/19 18:00 Insulin Human Regular (Novolin R) 0 unit SC [facility] Last Admin: 01/26/19 13:51 Dose: 12 unit Ketorolac Tromethamine (Toradol) 15 mg IVP Q8H [facility] Stop: 01/27/19 00:46 Last Admin: 01/26/19 10:49 Dose: 15 mg Lactulose (Enulose) 20 gm PO HS PRN PRN Reason: constipation Lamotrigine (Lamictal) 25 mg PO BID [facility] Last Admin: 01/26/19 10:52 Dose: Not Given Losartan Potassium (Cozaar) 100 mg PO DAILY [facility] Last Admin: 01/26/19 10:51 Dose: Not Given Metoprolol Succinate (Toprol Xl) 50 mg PO DAILY [facility] Last Admin: 01/26/19 10:51 Dose: Not Given Morphine Sulfate (Morphine) 1 mg IVP Q4H PRN PRN Reason: Pain, severe (8-10) Last Admin: 01/24/19 06:05 Dose: 1 mg Ondansetron HCl (Zofran Inj) 4 mg IVP ONCE PRN PRN Reason: Nausea/Vomiting Promethazine HCl/Dextromethorphan (Phenergan Dm Syrup) 5 ml PO Q6H PRN PRN Reason: Coughing Last Admin: 01/24/19 10:23 Dose: 5 ml Quetiapine Fumarate (Seroquel Xr) 50 mg PO HS [facility] Last Admin: 01/25/19 22:22 Dose: Not Given Rosuvastatin Calcium (Crestor) 5 mg PO [facility] Last Admin: 01/25/19 22:22 Dose: Not Given Tramadol HCl (Ultram) 100 mg PO Q6 PRN PRN Reason: Pain, moderate (4-7) Last Admin: 01/24/19 10:22 Dose: 100 mg Tramadol HCl (Ultram) 50 mg PO Q6 PRN PRN Reason: Pain, Mild (1-3) - Labs Labs: 01/26/19 07:38 01/26/19 07:38 PT 12.0 SECONDS (9.7-12.2) 01/19/19 04:23 INR 1.1 01/19/19 04:23 APTT 28 SECONDS (21-34) 01/19/19 04:23 - Extremities Exam Additional comments: RLE: mild expected thigh swelling, no change. Dresssings dry. Less tender. +ROM ankle/toes, sesnation intact, noted pressure sore to heel, +DP/PT pulses. 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 Neg homans Assessment and Plan (1) Fracture, intertrochanteric, right femur Assessment & Plan: POD#6 s/p right long IM nail cont VTE proph PT/OT orthopedically stable dopplers negative for DVT official reading d/w Dr. Kendall, agrees with above Status: Acute (2) Acute blood loss anemia Status: Acute
[2019-01-26] MEDS ORDERED: PPN #3 IV SCH (18:00)
[2019-01-26] MEDS: QUEtiapine 50 mg XR Tab PO SCH (22:55)
[2019-01-27] MEDS ORDERED: Nitroglycerin 2% Ointment Foilpak UD TOP ONE (01:26)
[2019-01-27] MEDS: Albuterol-Ipratrop 3 mg / 0.5 (3 ml) UD INH SCH ×4 (01:29→21:11)
[2019-01-27] MEDS ORDERED: Labetalol 25mg/5ml Syringe IVP STA ×2 (01:32→02:02)
[2019-01-27] MEDS ORDERED: Metoprolol 1 mg/ml Inj IVP ONE ×4 (02:55→14:15)
--- NOTE | 2019-01-27 06:30 | CP.PCM.PN ---
Subjective - Date & Time of Evaluation Date of Evaluation: 01/26/19 Time of Evaluation: 10:40 - Subjective Subjective: Patient seen and evaluated Denies chest pain and dyspnea No cardiac events noted Review of Systems - Review of Systems All systems: reviewed and no additional remarkable complaints except Review of Systems: as per HPI Physical Exam - Constitutional Appears: Well, No Acute Distress - Head Exam Head Exam: ATRAUMATIC, NORMOCEPHALIC - Eye Exam Eye Exam: EOMI, Normal appearance - ENT Exam ENT Exam: Mucous Membranes Moist - Respiratory Exam Respiratory Exam: NORMAL BREATHING PATTERN - Extremities Exam Additional comments: R hip: no lesions/masses/erythema tenderness to groin and over greater troch sensation intact SP/DP/TN motor intact EHL/FHL/TA/G pedal pulse intact calves soft NT b/l L hip: no lesions/masses/erythema no tenderness sensation intact SP/DP/TN motor intact EHL/FHL/TA/G pedal pulse intact - Neurological Exam Neurological exam: Alert, Oriented x3 - Psychiatric Exam Psychiatric exam: Normal Affect, Normal Mood - Skin Skin Exam: Normal Color, Warm Assessment and Plan - Assessment and Plan (Free Text) Assessment: s/Hip surgery Stable Objective - Vital Signs/Intake and Output Vital Signs (last 24 hours): Temp Pulse Resp BP Pulse Ox 97.3 F L 90 20 195/76 H 96 01/27/19 00:20 01/27/19 06:20 01/27/19 00:20 01/27/19 06:20 01/27/19 00:20 - Medications Medications: Current Medications Albuterol/Ipratropium (Duoneb 3 Mg/0.5 Mg (3 Ml) Ud) 3 ml INH RQ6 [facility] Last Admin: 01/27/19 01:29 Dose: Not Given Alprazolam (Xanax) 0.5 mg PO ONCE PRN PRN Reason: Anxiety Amlodipine Besylate (Norvasc) 2.5 mg PO DAILY [facility] Last Admin: 01/26/19 10:52 Dose: Not Given Gabapentin (Neurontin) 300 mg PO [facility] Last Admin: 01/26/19 22:55 Dose: Not Given Heparin Sodium (Porcine) (Heparin) 5,000 units SC Q12 [facility] Hydrochlorothiazide (Hydrodiuril) 25 mg PO DAILY [facility] Last Admin: 01/26/19 10:51 Dose: Not Given Fat Emulsion Intravenous (Intralipid 20%) 500 mls @ 23 mls/hr IV MWF@1800 [facility] Stop: 02/01/19 18:01 Last Admin: 01/25/19 18:18 Dose: 23 mls/hr Multivitamins/Vitamin C 10 ml/Chromium/Copper/Manganese/Zinc 1 ml/ Amino Acids 1,011 mls @ 62 mls/hr IV .[id number] [facility] Stop: 01/27/19 09:59 Last Admin: 01/26/19 18:00 Dose: 62 mls/hr Amino Acids (Clinimix 4.25/5 % "E" (1000 Ml)) 1,000 mls @ 62 mls/hr IV .Q16H8M [facility] Stop: 01/27/19 18:00 Insulin Human Regular (Novolin R) 0 unit SC [facility] Last Admin: 01/26/19 22:52 Dose: 6 unit Lactulose (Enulose) 20 gm PO HS PRN PRN Reason: constipation Lamotrigine (Lamictal) 25 mg PO BID [facility] Last Admin: 01/26/19 18:55 Dose: Not Given Losartan Potassium (Cozaar) 100 mg PO DAILY [facility] Last Admin: 01/26/19 10:51 Dose: Not Given Metoprolol Succinate (Toprol Xl) 50 mg PO DAILY [facility] Last Admin: 01/26/19 10:51 Dose: Not Given Morphine Sulfate (Morphine) 1 mg IVP Q4H PRN PRN Reason: Pain, severe (8-10) Last Admin: 01/27/19 03:46 Dose: 1 mg Ondansetron HCl (Zofran Inj) 4 mg IVP ONCE PRN PRN Reason: Nausea/Vomiting Promethazine HCl/Dextromethorphan (Phenergan Dm Syrup) 5 ml PO Q6H PRN PRN Reason: Coughing Last Admin: 01/24/19 10:23 Dose: 5 ml Quetiapine Fumarate (Seroquel Xr) 50 mg PO HS [facility] Last Admin: 01/26/19 22:55 Dose: Not Given Rosuvastatin Calcium (Crestor) 5 mg PO HS [facility] Last Admin: 01/26/19 22:54 Dose: Not Given Tramadol HCl (Ultram) 100 mg PO Q6 PRN PRN Reason: Pain, moderate (4-7) Last Admin: 01/24/19 10:22 Dose: 100 mg Tramadol HCl (Ultram) 50 mg PO Q6 PRN PRN Reason: Pain, Mild (1-3) - Labs Labs: 01/26/19 07:38 01/26/19 07:38 PT 12.0 SECONDS (9.7-12.2) 01/19/19 04:23 INR 1.1 01/19/19 04:23 APTT 28 SECONDS (21-34) 01/19/19 04:23
[2019-01-27] MEDS: (Novolin R) Insulin Human Regular 100 units/ml vial SC SCH ×4 (08:07→22:40)
[2019-01-27 08:27] LABS: HEMOGLOBIN 8.8 g/dL (11.0-16.0); MEAN CELL VOLUME 93.4 fL (81.0-99.0); MEAN CORPUSCULAR HEMOGLOBIN 31.4 pg (27.0-31.0); MEAN CORPUSCULAR HGB CONC 33.7 g/dL (33.0-37.0); MEAN PLATELET VOLUME 9.1 fL (7.2-11.7); RBC 2.81 Mil/uL (3.80-5.20); RED CELL DISTRIBUTION WIDTH 15.8 % (11.5-14.5); WHITE BLOOD COUNT 7.7 K/uL (4.8-10.8)
[2019-01-27 08:45] LABS: ALBUMIN 3.1 g/dL (3.5-5.0); AST/SGOT 14 U/L (14-36); BLOOD UREA NITROGEN 39 mg/dL (7-17); CALCIUM 8.8 mg/dl (8.6-10.4); GFR NON-AFRICAN AMERICAN 47
[2019-01-27 08:46] LABS: ALT/SGPT < 6 U/L (9-52)
--- NOTE | 2019-01-27 09:50 | PN ---
DATE: 01/27/2019 SUBJECTIVE: Apparently, she had a rough night last night with her blood pressures, given multiple doses of IV labetalol. I put her on the Catapres 0.1 patch hoping that will help her so she could swallow, waiting for swallow eval to happen. She is resting comfortably in bed, smiling. She was sleeping. Family is present. At this time, no acute distress. PHYSICAL EXAMINATION: GENERAL: She is smiling at me. VITAL SIGNS: She has 97.3 temp, blood pressure is now 180/80, pulse is 87, 96% O2 sat. HEENT: Head is atraumatic, normocephalic. HEART: Regular rate. LUNGS: Decreased breath sounds. ABDOMEN: Soft. EXTREMITIES: No edema. She is status post fall with right hip repair. LABORATORY DATA: She has an 8.7 white count, 8.9 hemoglobin, 26.9 hematocrit with 195 platelets. She has a 145 sodium, potassium is 3.5, we replaced her potassium, we this morning, BUN 38, creatinine 1.3, her blood sugar is 253, calcium is 8.9. Total bilirubin is 0.5, AST is 13, ALT is 6, alk phos 91. ASSESSMENT AND PLAN: She is being seen by multiple physicians. I wanted to scope her yesterday. We will continue with regards to treatment and care on Priscila Roach, waiting for Cardiology for blood pressure issues, waiting for swallow eval for the swallowing issues and we could start to feed her. The patient had a fall and fractured hip, open reduction and internal fixation. Saul Peters DO MTDD
[2019-01-27] MEDS: Metoprolol Succinate 50 mg XL Tab PO SCH (09:57)
[2019-01-27] MEDS ORDERED: PPN #4 IV SCH (10:00)
--- NOTE | 2019-01-27 12:03 | CP.PCM.PN ---
Subjective - Date & Time of Evaluation Date of Evaluation: 01/27/19 Time of Evaluation: 12:00 - Subjective Subjective: Patient with daughter at bedside. No PT today due to elevated BP. Still poor PO intake, now on PPN. Yesterday pm patient was in chair for several hours and was actively moving RLE much more than previously without complaints of pain. Objective - Vital Signs/Intake and Output Vital Signs (last 24 hours): Temp Pulse Resp BP Pulse Ox 97.4 F L 85 20 201/79 H 94 L 01/27/19 07:00 01/27/19 11:01 01/27/19 07:00 01/27/19 11:01 01/27/19 07:00 Intake and Output: 01/27/19 01/27/19 06:59 18:59 Intake Total 496 Output Total 300 Balance 196 - Medications Medications: Current Medications Albuterol/Ipratropium (Duoneb 3 Mg/0.5 Mg (3 Ml) Ud) 3 ml INH RQ6 [facility] Last Admin: 01/27/19 01:29 Dose: Not Given Amlodipine Besylate (Norvasc) 2.5 mg PO DAILY [facility] Last Admin: 01/27/19 09:57 Dose: Not Given Gabapentin (Neurontin) 300 mg PO HS [facility] Last Admin: 01/26/19 22:55 Dose: Not Given Heparin Sodium (Porcine) (Heparin) 5,000 units SC Q12 [facility] Last Admin: 01/27/19 11:00 Dose: 5,000 units Hydrochlorothiazide (Hydrodiuril) 25 mg PO DAILY [facility] Last Admin: 01/27/19 09:56 Dose: Not Given Fat Emulsion Intravenous (Intralipid 20%) 500 mls @ 23 mls/hr IV MWF@1800 [facility] Stop: 02/01/19 18:01 Last Admin: 01/25/19 18:18 Dose: 23 mls/hr Amino Acids (Clinimix 4.25/5 % "E" (1000 Ml)) 1,000 mls @ 62 mls/hr IV .Q16H8M [facility] Stop: 01/27/19 18:00 Last Admin: 01/27/19 10:54 Dose: 62 mls/hr Multivitamins/Vitamin C 10 ml/Chromium/Copper/Manganese/Zinc 1 ml/ Amino Acids 1,011 mls @ 62 mls/hr IV .[id number] [facility] Stop: 01/28/19 10:18 Amino Acids (Clinimix 4.25/5 % "E" (1000 Ml)) 1,000 mls @ 62 mls/hr IV .Q16H8M [facility] Stop: 01/29/19 02:27 Insulin Human Regular (Novolin R) 0 unit SC [facility] Last Admin: 01/27/19 11:09 Dose: 12 unit Lactulose (Enulose) 20 gm PO HS PRN PRN Reason: constipation Lamotrigine (Lamictal) 25 mg PO BID [facility] Last Admin: 01/27/19 09:56 Dose: Not Given Losartan Potassium (Cozaar) 100 mg PO DAILY [facility] Last Admin: 01/27/19 09:56 Dose: Not Given Metoprolol Succinate (Toprol Xl) 50 mg PO DAILY [facility] Last Admin: 01/27/19 09:57 Dose: Not Given Morphine Sulfate (Morphine) 1 mg IVP Q4H PRN PRN Reason: Pain, severe (8-10) Last Admin: 01/27/19 11:25 Dose: 1 mg Ondansetron HCl (Zofran Inj) 4 mg IVP ONCE PRN PRN Reason: Nausea/Vomiting Promethazine HCl/Dextromethorphan (Phenergan Dm Syrup) 5 ml PO Q6H PRN PRN Reason: Coughing Last Admin: 01/24/19 10:23 Dose: 5 ml Quetiapine Fumarate (Seroquel Xr) 50 mg PO [facility] Last Admin: 01/26/19 22:55 Dose: Not Given Rosuvastatin Calcium (Crestor) 5 mg PO [facility] Last Admin: 01/26/19 22:54 Dose: Not Given Tramadol HCl (Ultram) 100 mg PO Q6 PRN PRN Reason: Pain, moderate (4-7) Last Admin: 01/24/19 10:22 Dose: 100 mg Tramadol HCl (Ultram) 50 mg PO Q6 PRN PRN Reason: Pain, Mild (1-3) - Labs Labs: 01/27/19 08:05 01/27/19 08:05 PT 12.0 SECONDS (9.7-12.2) 01/19/19 04:23 INR 1.1 01/19/19 04:23 APTT 28 SECONDS (21-34) 01/19/19 04:23 - Extremities Exam Additional comments: Right hip: soft, no active drainage. +ROM ankle/toes, sensation intact, calf tenderness improving, neg homans +DP/PT pulses Assessment and Plan (1) Fracture, intertrochanteric, right femur Assessment & Plan: POD#4 s/p long IM nail PT/OT when appropriate VTE proph d/c planning orthopedically stable d/w Dr. Kendall, agrees with above Status: Acute (2) Acute blood loss anemia Status: Acute
--- NOTE | 2019-01-27 13:02 | CP.PCM.PN ---
Subjective - Date & Time of Evaluation Date of Evaluation: 01/26/19 Time of Evaluation: 08:00 - Subjective Subjective: 89 yof with multiple medical problems including recent TIA vs CVA, recent hip nailing was scheduled for elective EGD on the morning of 01/26. Patient was preoped by anesthesia team in a timely manner on 01/25 at 16.30. Multiple neurology notes indicated that if patient continues to have symptoms MRI to be done. Patient has some dysarrthria and therefore neurology clearance was requested as part of anesthesia assesment. Patient was scheduled to have swallow study on the same day. Multiple phone calls from nurses and anesthesia was placed to Dr Gifford on 01/25 without success to let her know of the need of clearance. On the morning of jolly Morejon was notified we were waiting on neurology clearance. Dr Gifford was called on the phone and said will put the clearance. In a meanwhile a call to PMD Dr Peters was given to confirm the patient was optimized. He was unaware of planned EGD, however when told by Dr Morejon of his plan agreed to it. When neuro clearance was obtained 2 hours after initial call to Dr Gifford, Dr Morejon was notified the patient was ready to come down to endo suite. Dr Morejon canceled the case due to the need to attend to his other cases in another hospital and re-booked the patient for the following day. Objective - Vital Signs/Intake and Output Vital Signs (last 24 hours): Temp Pulse Resp BP Pulse Ox 97.4 F L 79 20 188/74 H 94 L 01/27/19 07:00 01/27/19 12:04 01/27/19 07:00 01/27/19 12:04 01/27/19 07:00 Intake and Output: 01/27/19 01/27/19 06:59 18:59 Intake Total 496 Output Total 300 Balance 196 - Medications Medications: Current Medications Albuterol/Ipratropium (Duoneb 3 Mg/0.5 Mg (3 Ml) Ud) 3 ml INH RQ6 [facility] Last Admin: 01/27/19 01:29 Dose: Not Given Amlodipine Besylate (Norvasc) 2.5 mg PO DAILY [facility] Last Admin: 01/27/19 09:57 Dose: Not Given Gabapentin (Neurontin) 300 mg PO HS [facility] Last Admin: 01/26/19 22:55 Dose: Not Given Heparin Sodium (Porcine) (Heparin) 5,000 units SC Q12 [facility] Last Admin: 01/27/19 11:00 Dose: 5,000 units Hydrochlorothiazide (Hydrodiuril) 25 mg PO DAILY [facility] Last Admin: 01/27/19 09:56 Dose: Not Given Fat Emulsion Intravenous (Intralipid 20%) 500 mls @ 23 mls/hr IV MWF@1800 [facility] Stop: 02/01/19 18:01 Last Admin: 01/25/19 18:18 Dose: 23 mls/hr Amino Acids (Clinimix 4.25/5 % "E" (1000 Ml)) 1,000 mls @ 62 mls/hr IV .Q16H8M [facility] Stop: 01/27/19 18:00 Last Admin: 01/27/19 10:54 Dose: 62 mls/hr Multivitamins/Vitamin C 10 ml/Chromium/Copper/Manganese/Zinc 1 ml/ Amino Acids 1,011 mls @ 62 mls/hr IV .[id number] [facility] Stop: 01/28/19 10:18 Amino Acids (Clinimix 4.25/5 % "E" (1000 Ml)) 1,000 mls @ 62 mls/hr IV .Q16H8M [facility] Stop: 01/29/19 02:27 Insulin Human Regular (Novolin R) 0 unit SC A[facility]S [facility] Last Admin: 01/27/19 11:09 Dose: 12 unit Lactulose (Enulose) 20 gm PO HS PRN PRN Reason: constipation Lamotrigine (Lamictal) 25 mg PO BID [facility] Last Admin: 01/27/19 09:56 Dose: Not Given Losartan Potassium (Cozaar) 100 mg PO DAILY [facility] Last Admin: 01/27/19 09:56 Dose: Not Given Metoprolol Succinate (Toprol Xl) 50 mg PO DAILY [facility] Last Admin: 01/27/19 09:57 Dose: Not Given Morphine Sulfate (Morphine) 1 mg IVP Q4H PRN PRN Reason: Pain, severe (8-10) Last Admin: 01/27/19 11:25 Dose: 1 mg Ondansetron HCl (Zofran Inj) 4 mg IVP ONCE PRN PRN Reason: Nausea/Vomiting Promethazine HCl/Dextromethorphan (Phenergan Dm Syrup) 5 ml PO Q6H PRN PRN Reason: Coughing Last Admin: 01/24/19 10:23 Dose: 5 ml Quetiapine Fumarate (Seroquel Xr) 50 mg PO HS [facility] Last Admin: 01/26/19 22:55 Dose: Not Given Rosuvastatin Calcium (Crestor) 5 mg PO HS [facility] Last Admin: 01/26/19 22:54 Dose: Not Given Tramadol HCl (Ultram) 100 mg PO Q6 PRN PRN Reason: Pain, moderate (4-7) Last Admin: 01/24/19 10:22 Dose: 100 mg Tramadol HCl (Ultram) 50 mg PO Q6 PRN PRN Reason: Pain, Mild (1-3) - Labs Labs: 01/27/19 08:05 01/27/19 08:05 PT 12.0 SECONDS (9.7-12.2) 01/19/19 04:23 INR 1.1 01/19/19 04:23 APTT 28 SECONDS (21-34) 01/19/19 04:23
--- NOTE | 2019-01-27 15:35 | CP.PCM.PN ---
Subjective - Date & Time of Evaluation Date of Evaluation: 01/27/19 Time of Evaluation: 14:05 - Subjective Subjective: Neuro Follow-Up Note: Mrs. Roach was evaluated this afternoon in bed. Pt's family present. Today the pt is sleepy but easily arousable to voice and answers questions and participates in neuro exam. C/O mild h/a that is tolerable (unable to rate the pain). Per daughter, the pt was awake all night with periods of agitation. Pt also noted to have elevated BP throughout the night, which family is concerned about. However, please note that since being NPO she has not rec'd any oral BP meds. EGD that was rescheduled from yesterday to today was also cancelled 2/2 her elevated BP. She is POD # 4 closed internal reduction of a femur fracture. At this time the pt denies dizziness, visual changes, chest pain, palpitations, sob, cough, abd pain, n/v/d, paresthesias. Objective - Vital Signs/Intake and Output Vital Signs (last 24 hours): Temp Pulse Resp BP Pulse Ox 97.4 F L 86 20 184/82 H 94 L 01/27/19 07:00 01/27/19 13:57 01/27/19 07:00 01/27/19 13:57 01/27/19 12:46 Intake and Output: 01/27/19 01/27/19 06:59 18:59 Intake Total 496 Output Total 300 Balance 196 - Medications Medications: Current Medications Albuterol/Ipratropium (Duoneb 3 Mg/0.5 Mg (3 Ml) Ud) 3 ml INH RQ6 [facility] Last Admin: 01/27/19 13:36 Dose: 3 ml Amlodipine Besylate (Norvasc) 2.5 mg PO DAILY [facility] Last Admin: 01/27/19 09:57 Dose: Not Given Gabapentin (Neurontin) 300 mg PO HS [facility] Last Admin: 01/26/19 22:55 Dose: Not Given Heparin Sodium (Porcine) (Heparin) 5,000 units SC Q12 [facility] Last Admin: 01/27/19 11:00 Dose: 5,000 units Hydrochlorothiazide (Hydrodiuril) 25 mg PO DAILY [facility] Last Admin: 01/27/19 09:56 Dose: Not Given Fat Emulsion Intravenous (Intralipid 20%) 500 mls @ 23 mls/hr IV MWF@1800 [facility] Stop: 02/01/19 18:01 Last Admin: 01/25/19 18:18 Dose: 23 mls/hr Amino Acids (Clinimix 4.25/5 % "E" (1000 Ml)) 1,000 mls @ 62 mls/hr IV .Q16H8M [facility] Stop: 01/27/19 18:00 Last Admin: 01/27/19 10:54 Dose: 62 mls/hr Multivitamins/Vitamin C 10 ml/Chromium/Copper/Manganese/Zinc 1 ml/ Amino Acids 1,011 mls @ 62 mls/hr IV .[id number] ONE Stop: 01/28/19 10:18 Amino Acids (Clinimix 4.25/5 % "E" (1000 Ml)) 1,000 mls @ 62 mls/hr IV .Q16H8M ONE Stop: 01/29/19 02:27 Insulin Human Regular (Novolin R) 0 unit SC [facility] Last Admin: 01/27/19 11:09 Dose: 12 unit Lactulose (Enulose) 20 gm PO HS PRN PRN Reason: constipation Lamotrigine (Lamictal) 25 mg PO BID [facility] Last Admin: 01/27/19 09:56 Dose: Not Given Losartan Potassium (Cozaar) 100 mg PO DAILY [facility] Last Admin: 01/27/19 09:56 Dose: Not Given Metoprolol Succinate (Toprol Xl) 50 mg PO DAILY [facility] Last Admin: 01/27/19 09:57 Dose: Not Given Ondansetron HCl (Zofran Inj) 4 mg IVP ONCE PRN PRN Reason: Nausea/Vomiting Promethazine HCl/Dextromethorphan (Phenergan Dm Syrup) 5 ml PO Q6H PRN PRN Reason: Coughing Last Admin: 01/24/19 10:23 Dose: 5 ml Quetiapine Fumarate (Seroquel Xr) 50 mg PO HS [facility] Last Admin: 01/26/19 22:55 Dose: Not Given Rosuvastatin Calcium (Crestor) 5 mg PO HS [facility] Last Admin: 01/26/19 22:54 Dose: Not Given Tramadol HCl (Ultram) 100 mg PO Q6 PRN PRN Reason: Pain, moderate (4-7) Last Admin: 01/24/19 10:22 Dose: 100 mg Tramadol HCl (Ultram) 50 mg PO Q6 PRN PRN Reason: Pain, Mild (1-3) - Labs Labs: 01/27/19 08:05 01/27/19 08:05 PT 12.0 SECONDS (9.7-12.2) 01/19/19 04:23 INR 1.1 01/19/19 04:23 APTT 28 SECONDS (21-34) 01/19/19 04:23 - Constitutional Appears: Other (sleepier than usual; easily arousable to voice) - Head Exam Head Exam: ATRAUMATIC, NORMAL INSPECTION, NORMOCEPHALIC - Eye Exam Eye Exam: EOMI, Normal appearance, PERRL Pupil Exam: NORMAL ACCOMODATION, PERRL - ENT Exam ENT Exam: Mucous Membranes Moist - Neck Exam Neck Exam: Full ROM, Normal Inspection - Respiratory Exam Respiratory Exam: NORMAL BREATHING PATTERN - Extremities Exam Extremities Exam: absent: Calf Tenderness, Pedal Edema Additional comments: Able to move LLE and BUE Still had limited ROM to RLE 2/2 orthopedic surgery, does move foot and toes. - Neurological Exam Neuro motor strength exam: Left Upper Extremity: 5, Right Upper Extremity: 5, Left Lower Extremity: 3, Right Lower Extremity: 0 (2/2 post ortho surgery) Additional comments: Pt today noted to be sleepier than usual, however she did not sleep last night per family. Easily arousable to voice. Remains verbal today with some slurring still noted. She is able to follow commands and answers questions appropriately. No facial asymmetry. Able to move LLE and BUE Still had limited ROM to RLE 2/2 orthopedic surgery, does move foot and toes. No tremors or abnormal movements noted No sensory deficits. - Psychiatric Exam Psychiatric exam: Normal Mood Additional comments: sleepier than usual, however, easily arousable to voice - Skin Skin Exam: Normal Color Assessment and Plan (1) Dysarthria Assessment & Plan: Imaging reviewed: -CTA Head and Neck (01/25/19): 1. No evidence of endoluminal thrombus,occlusion or definite significant stenosis in the intracranial arteries. 2. No evidence of hemodynamically significant stenosis in the internal carotid arteries. 3. Patent bilateral vertebral arteries. -CT Head (01/24/19): No acute intracranial abnormality. If there is a persistent focal neurologic deficit and an ongoing clinical concern for acute infarction, an MRI of the brain without intravenous contrast would be a more sensitive modality for evaluation of hyperacute/acute ischemic infarction. Moderate chronic microangiopathic changes and mild age-related global parenchymal volume loss. 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 -CT head (01/13/19): No evidence of acute intracranial hemorrhage or acute territorial infarct. Volume loss and extensive white matter changes suggestive of chronic microvascular ischemic disease. -Pt can have an outpatient open MRI as soon as she is d/c. -Ortho cleared pt to restart ASA 81 mg PO Daily--I discussed with Yanci LÓPEZ. For now we are still holding off on restarting the ASA as the pt is pending endoscopy with GI for dysphagia (has been cancelled and rescheduled twice so far). Once completed or if it is cancelled indefinitely, we can restart ASA. -Start Statin once pt passes swallow eval and is not NPO. -Continue DVT ppx per ortho--on Heparin 5,000 units SQ Q12. -Recommend that cardio and/or primary adjust HTN medications from PO to IV or TD if pt remains NPO. She is at risk of secondary stroke. -Continue PT and ST. -Continue IS. -Pt is neurologically stable and cleared for EGD whenever rescheduled. -Notify neuro team of any acute changes in pt's condition. Discussed plan with the pt's family and they are in agreement with the above. Adela Bravo, MARGARET, [employer] Discussed with Dr. Gifford Status: Acute
--- NOTE | 2019-01-27 15:41 | PN ---
DATE: 01/27/2019 LOCATION: 667, Bed A. SUBJECTIVE: This is an 88-year-old female seen and examined at rounds, again was rescheduled for upper endoscopy today due to persistent dysphagia and unable to eat since admission and even before as per family members' statement, was found to have persistently elevated blood pressure level, reported to be 200/80, then 188/84, the procedure had to be rescheduled due to the difficulty to control the blood pressure especially during the procedure. At this point, the procedure discussed again with Anesthesia, who canceled the procedure yesterday without any acceptable reason and the family members were informed. The patient will need proper hyperalimentation and electrolyte imbalance, to be rescheduled within the next one or two days after her blood pressure is more stable for upper endoscopy. Family is informed again. Stephan Dobson MD
[2019-01-27] MEDS: Fat Emulsion 20% IV 500 ML IV SCH (17:14)
[2019-01-27] MEDS ORDERED: PPN #5 IV ONE (18:00)
[2019-01-27] MEDS ORDERED: Labetalol 5mg/ml (4ml) IVP STA (22:19)
[2019-01-27] MEDS: QUEtiapine 50 mg XR Tab PO SCH (22:41)
[2019-01-28] MEDS: Albuterol-Ipratrop 3 mg / 0.5 (3 ml) UD INH SCH ×4 (02:19→21:22)
[2019-01-28] MEDS ORDERED: Labetalol 25mg/5ml Syringe IVP STA ×2 (04:31→05:00)
[2019-01-28] MEDS ORDERED: Labetalol 5mg/ml (4ml) IVP STA (05:04)
[2019-01-28 06:37] LABS: HEMOGLOBIN 8.9 g/dL (11.0-16.0); MEAN CELL VOLUME 93.4 fL (81.0-99.0); MEAN CORPUSCULAR HEMOGLOBIN 32.1 pg (27.0-31.0); MEAN CORPUSCULAR HGB CONC 34.4 g/dL (33.0-37.0); MEAN PLATELET VOLUME 9.1 fL (7.2-11.7); RBC 2.77 Mil/uL (3.80-5.20); RED CELL DISTRIBUTION WIDTH 15.8 % (11.5-14.5); WHITE BLOOD COUNT 7.6 K/uL (4.8-10.8)
[2019-01-28 06:53] LABS: ALBUMIN 2.9 g/dL (3.5-5.0); ALT/SGPT < 6 U/L (9-52); AST/SGOT 15 U/L (14-36); BLOOD UREA NITROGEN 40 mg/dL (7-17); CALCIUM 8.9 mg/dl (8.6-10.4); GFR NON-AFRICAN AMERICAN 52
[2019-01-28] MEDS: (Novolin R) Insulin Human Regular 100 units/ml vial SC SCH ×4 (08:17→21:25)
[2019-01-28] MEDS ORDERED: PPN #6 IV ONE (10:20)
[2019-01-28] MEDS: Metoprolol Succinate 50 mg XL Tab PO SCH (10:36)
[2019-01-28] MEDS: Enalaprilat 2.5 MG/2 ML IV SCH ×2 (11:13→17:51)
[2019-01-28] MEDS ORDERED: Labetalol 25mg/5ml Syringe IVP PRN (11:54)
[2019-01-28] MEDS: Labetalol 5mg/ml (4ml) IVP PRN ×2 (12:47→21:52)
--- NOTE | 2019-01-28 12:48 | CP.PCM.CON ---
History of Present Illness - History of Present Illness History of Present Illness: Consult for HTN HPI: 89 F w/ pmh of DM/HTN/anxiety that presetned to ER w/ speech difficulty and fall. She was found to have hip fracture which she had surgery during this admission but has had persistent agitation, altered mental status, and difficulty w/ swallowing. Due to inability to swallow she has not been getting bp medicatiosn and as a result bp has been difficult to control. She was started on clonidine patch and has received occasional boluses of labetalol ROS: A full detailed ROS is limted as pt is altered pmh: as below famhx: as below sochx: as below pe: VS as below gen: nad sclera: anicteric op: clear neck: supplec CV: +S1+s2 no rub lungs cta b/l abd: soft ntnd no orgnomegaly ext: no edema neuro: altered and agitated psych: agitated skin no rash labs and imaging reviewd IMP: ARF/ Hypertension / CVA/ Agitation / Anemia/ DM plan: GRISELDA resolved renal function at baseline re: htn - would recc consider placement of NGT while pt is in NPO status so that oral meds can be given. In the interim - i started enalprilat standing and iv labetalol prn and clonidine patch was already ordered. Once enteral access is reestablished please discontinue the iv medications agitation per primary team - tx of agitation may assist w/ htn as well DM per primary team CVA per neuro Past Patient History - Infectious Disease Hx of Infectious Diseases: None - Past Medical History & Family History Past Medical History?: Yes Past Family History: Reviewed and not pertinent - Past Social History Smoking Status: Never Smoked - CARDIAC Hx Hypertension: Yes - PULMONARY Hx Respiratory Disorders: No - NEUROLOGICAL Hx Dementia: Yes - HEENT Hx HEENT Problems: Yes Hx Cataracts: Yes - RENAL Hx Chronic Kidney Disease: No - ENDOCRINE/METABOLIC Hx Diabetes Mellitus Type 2: Yes - HEMATOLOGICAL/ONCOLOGICAL Hx Blood Disorders: No - INTEGUMENTARY Hx Dermatological Problems: Yes Other/Comment: LEFT LATERAL LEG ULCER 2014. - MUSCULOSKELETAL/RHEUMATOLOGICAL Hx Falls: Yes - GASTROINTESTINAL Hx Gastrointestinal Disorders: No - GENITOURINARY/GYNECOLOGICAL Hx Genitourinary Disorders: No - PSYCHIATRIC Hx Substance Use: No - SURGICAL HISTORY Hx Surgeries: Yes Hx Eye Surgery: Yes (BRET CATARACT) Other/Comment: Bret. Bunion Removed. - ANESTHESIA Hx Anesthesia: Yes Hx Anesthesia Reactions: No Hx Malignant Hyperthermia: No Has any member of the family had a problem w/ anesthesia?: No Meds Allergies/Adverse Reactions: Allergies Allergy/AdvReac Type Severity Reaction Status Date / Time acetaminophen [From Percocet] Allergy Verified 01/18/19 22:34 oxycodone [From Percocet] Allergy Verified 01/18/19 22:34 - Medications Medications: Current Medications Albuterol/Ipratropium (Duoneb 3 Mg/0.5 Mg (3 Ml) Ud) 3 ml INH RQ6 [facility] Last Admin: 01/28/19 02:19 Dose: Not Given Amlodipine Besylate (Norvasc) 2.5 mg PO DAILY [facility] Last Admin: 01/28/19 10:36 Dose: Not Given Enalaprilat (Vasotec) 1.25 mg IV Q6 [facility] Last Admin: 01/28/19 11:13 Dose: 1.25 mg Gabapentin (Neurontin) 300 mg PO HS [facility] Last Admin: 01/27/19 22:41 Dose: Not Given Heparin Sodium (Porcine) (Heparin) 5,000 units SC Q12 [facility] Last Admin: 01/28/19 11:00 Dose: 5,000 units Hydrochlorothiazide (Hydrodiuril) 25 mg PO DAILY [facility] Last Admin: 01/28/19 10:36 Dose: Not Given Amino Acids (Clinimix 4.25/5 % "E" (1000 Ml)) 1,000 mls @ 62 mls/hr IV .Q16H8M ONE Stop: 01/29/19 02:27 Last Admin: 01/28/19 11:18 Dose: 62 mls/hr Multivitamins/Vitamin C 10 ml/Chromium/Copper/Manganese/Zinc 1 ml/ Amino Acids 1,011 mls @ 62 mls/hr IV .[id number] [facility] Stop: 01/29/19 10:18 Amino Acids (Clinimix 4.25/5 % "E" (1000 Ml)) 1,000 mls @ 62 mls/hr IV .Q16H8M [facility] Stop: 01/30/19 02:27 Multivitamins/Vitamin C 10 ml/Chromium/Copper/Manganese/Zinc 1 ml/ Amino Acids 1,011 mls @ 62 mls/hr IV .[id number] [facility] Stop: 01/30/19 10:18 Amino Acids (Clinimix 4.25/5 % "E" (1000 Ml)) 1,000 mls @ 62 mls/hr IV .Q16H8M ONE Stop: 01/31/19 02:27 Insulin Glargine (Lantus) 5 unit SC HS [facility] Insulin Human Regular (Novolin R) 0 unit SC [facility] Last Admin: 01/28/19 11:27 Dose: 12 unit Labetalol HCl (Trandate) 10 mg IVP Q8 PRN PRN Reason: elevated BP Lactulose (Enulose) 20 gm PO HS PRN PRN Reason: constipation Lamotrigine (Lamictal) 25 mg PO BID [facility] Last Admin: 01/28/19 10:36 Dose: Not Given Losartan Potassium (Cozaar) 100 mg PO DAILY [facility] Last Admin: 01/28/19 11:18 Dose: Not Given Metoprolol Succinate (Toprol Xl) 50 mg PO DAILY [facility] Last Admin: 01/28/19 10:36 Dose: Not Given Ondansetron HCl (Zofran Inj) 4 mg IVP ONCE PRN PRN Reason: Nausea/Vomiting Promethazine HCl/Dextromethorphan (Phenergan Dm Syrup) 5 ml PO Q6H PRN PRN Reason: Coughing Last Admin: 01/24/19 10:23 Dose: 5 ml Quetiapine Fumarate (Seroquel Xr) 50 mg PO [facility] Last Admin: 01/27/19 22:41 Dose: Not Given Rosuvastatin Calcium (Crestor) 5 mg PO [facility] Last Admin: 01/27/19 22:40 Dose: Not Given Tramadol HCl (Ultram) 100 mg PO Q6 PRN PRN Reason: Pain, moderate (4-7) Last Admin: 01/24/19 10:22 Dose: 100 mg Tramadol HCl (Ultram) 50 mg PO Q6 PRN PRN Reason: Pain, Mild (1-3) Results - Vital Signs Recent Vital Signs: Last Vital Signs Temp 97.4 F L 01/28/19 08:58 Pulse 86 01/28/19 08:58 Resp 20 01/28/19 08:58 BP 188/85 H 01/28/19 11:13 Pulse Ox 96 01/28/19 08:58 - Labs Result Diagrams: 01/28/19 06:26 01/28/19 06:26 Labs: Laboratory Results - last 24 hr 01/27/19 01/27/19 01/28/19 16:42 21:35 06:26 WBC 7.6 RBC 2.77 L Hgb 8.9 L Hct 25.8 L MCV 93.4 MCH 32.1 H MCHC 34.4 RDW 15.8 H Plt Count 233 MPV 9.1 Sodium Potassium Chloride Carbon Dioxide Anion Gap BUN Creatinine Est GFR ( Amer) Est GFR (Non-Af Amer) POC Glucose (mg/dL) 197 H 228 H Random Glucose Calcium Total Bilirubin AST ALT Alkaline Phosphatase Total Protein Albumin Globulin Albumin/Globulin Ratio 01/28/19 01/28/19 01/28/19 06:26 06:33 11:22 WBC RBC Hgb Hct MCV MCH MCHC RDW Plt Count MPV Sodium 140 Potassium 3.6 Chloride 111 H Carbon Dioxide 25 Anion Gap 9 L BUN 40 H Creatinine 1.0 Est GFR ( Amer) > 60 Est GFR (Non-Af Amer) 52 POC Glucose (mg/dL) 312 H 325 H Random Glucose 283 H Calcium 8.9 Total Bilirubin 0.6 AST 15 ALT < 6 L Alkaline Phosphatase 94 Total Protein 5.8 L Albumin 2.9 L Globulin 2.8 Albumin/Globulin Ratio 1.0
--- NOTE | 2019-01-28 16:15 | PN ---
DATE: 01/28/2019 SUBJECTIVE: She is very much confused, little combative, she did not finish the swallow eval. She still to be fair to taking all medicines. She is on IV fluids, PPN and lipids, also trying to give her blood pressure meds which is going to be IV, they have been pretty high, and I am adding Ativan for her change in mentation. I have called in Dr. Thorne Psychiatry, family is present in bed, they are very upset about her recovery from the hip ORIF from the fall. PHYSICAL EXAMINATION: VITAL SIGNS: She has 97.4 temp, 86 pulse, blood pressure has been as high as 161/94, now it is 188/85, 20 respiratory rate, 96% O2 sat. GENERAL: Alert. She is making a fist in her hand like she is going to hit me. She is confused. HEART: Regular rate. LUNGS: Decreased breath sounds. ABDOMEN: Soft, EXTREMITIES: No edema. She is status post ORIF. MEDICATIONS: She is currently on Ativan which I added, Clinimix, Cozaar, Crestor, DuoNeb, Enulose, heparin, HydroDIURIL, Lamictal, Lantus I added, multivitamins, Neurontin, Norvasc,Novolin, Phenergan, Seroquel, Toprol, Trandate, Ultram, Vasotec, and Zofran. Only medicine she is getting in the IV she is getting for blood pressure is Vasotec IV, and Catapres patch which is weekly. LABORATORY DATA: She has 140 sodium, potassium 3.6, BUN 40, creatinine 1, GFR is 62, sugars is 325, we added Lantus 5 units at night, time to start. Calcium 8.9, total bilirubin is 0.6, AST is 15, ALT is 6, alk phos 94. Total protein is 5.8. White count 7.6, hemoglobin 8.9, hematocrit, 25.8 and platelets 233. ASSESSMENT AND PLAN: She is being seen by Renal, GI, Cardiology, Infectious Disease, and I added Psychiatry. Continue aggressive postop care on Priscila Doc. Saul Peters DO MTDDotty
--- NOTE | 2019-01-28 16:36 | PN ---
DATE: 01/28/2019 LOCATION: 667, bed A. SUBJECTIVE: This is an 89-year-old female seen and examined in rounds without reported significant clinical changes as per the family and the staff in the floor. The patient still has persistent dysphagia with choking when she tried to eat or to drink even water since admission and even before. The patient still has persistently elevated blood pressure but less than what reported yesterday. The entire chart is reviewed. Case discussed with the family again; and today's lab results showed hemoglobin of 8.9, hematocrit 25.8 with blood glucose level 312 with low albumin and low total protein. The most recently done head and neck CTA, official report is seen indicative of no evidence of thrombosis or occlusion or definitive significant stenosis in the intracranial arteries or stenosis in the internal carotid arteries with patent bilateral ventricular arteries, this report to be read also with the anesthesia staff if they wish for . PHYSICAL EXAMINATION: GENERAL: A 89-year-old female, somewhat awake. VITAL SIGNS: Afebrile with pulse of 82, respiratory 20-22, blood pressure of 184/78. HEENT: Showed pale dry mucous membrane. Nonicteric sclerae. LUNGS: Few scattered crepitation. Decreased air entry at bases. HEART: Positive S1 and S2. ABDOMEN: Soft with mild generalized tenderness. No mass or organomegaly. No rebound tenderness or guarding. EXTREMITIES: Without significant clubbing, cyanosis or edema. No other new reported neurological deficit. No reported new local deficits. IMPRESSION: 1. Dysphagia, to rule out intraluminal esophageal lesion versus dysphagia secondary to neurological deficits. 2. Anemia to rule out upper versus lower gastrointestinal blood loss versus anemia secondary to chronic disease. 3. To rule out occult gastrointestinal malignancy. 4. Multiple past medical history including poorly controlled hypertension, hyperlipidemia with chronic lower back pain syndrome. 5. Prerenal azotemia. 6. Malnutrition with hypoalbuminemia. SUGGESTIONS: 1. Agree with your plan. 2. The patient was cleared by Neurology regulatory consultant for upper endoscopy and then subsequently PEG insertion before. Unfortunately, the case was discussed and canceled by the anesthesia staff more than once despite the patient's persistent dysphagia of unclear etiology, please take a note. 3. We will reschedule the patient for upper endoscopy when the blood pressure is more stable, most likely on Wednesday. Further recommendation to follow and peripheral hyperalimentation to start. Stephan Dobson MD [facility] # [id number]
[2019-01-28] MEDS ORDERED: PPN #7 IV ONE (18:00)
[2019-01-28] MEDS ORDERED: (Lantus) Insulin Glargine, Recombinant SC SCH (22:00)
--- NOTE | 2019-01-28 23:38 | CP.PCM.PN ---
Subjective - Date & Time of Evaluation Date of Evaluation: 01/28/19 Time of Evaluation: 12:05 - Subjective Subjective: Patient seen and evaluated Denies chest pain and dyspnea No cardiac events noted Review of Systems - Review of Systems All systems: reviewed and no additional remarkable complaints except Review of Systems: as per HPI Physical Exam - Constitutional Appears: Well, No Acute Distress - Head Exam Head Exam: ATRAUMATIC, NORMOCEPHALIC - Eye Exam Eye Exam: EOMI, Normal appearance - ENT Exam ENT Exam: Mucous Membranes Moist - Respiratory Exam Respiratory Exam: NORMAL BREATHING PATTERN - Extremities Exam Additional comments: R hip: no lesions/masses/erythema tenderness to groin and over greater troch sensation intact SP/DP/TN motor intact EHL/FHL/TA/G pedal pulse intact calves soft NT b/l L hip: no lesions/masses/erythema no tenderness sensation intact SP/DP/TN motor intact EHL/FHL/TA/G pedal pulse intact - Neurological Exam Neurological exam: Alert, Oriented x3 - Psychiatric Exam Psychiatric exam: Normal Affect, Normal Mood - Skin Skin Exam: Normal Color, Warm Assessment and Plan - Assessment and Plan (Free Text) Assessment: s/Hip surgery Uncontrolled HTN mgt by Nephrology Objective - Vital Signs/Intake and Output Vital Signs (last 24 hours): Temp Pulse Resp BP Pulse Ox 97.3 F L 78 20 190/104 H 97 01/28/19 17:09 01/28/19 17:09 01/28/19 17:09 01/28/19 20:51 01/28/19 17:09 Intake and Output: 01/28/19 01/29/19 18:59 06:59 Intake Total 680 Output Total 200 Balance 480 - Medications Medications: Current Medications Albuterol/Ipratropium (Duoneb 3 Mg/0.5 Mg (3 Ml) Ud) 3 ml INH RQ6 [facility] Last Admin: 01/28/19 21:22 Dose: 3 ml Amlodipine Besylate (Norvasc) 2.5 mg PO DAILY [facility] Last Admin: 01/28/19 10:36 Dose: Not Given Enalaprilat (Vasotec) 1.25 mg IV Q6 [facility] Last Admin: 01/28/19 17:51 Dose: 1.25 mg Gabapentin (Neurontin) 300 mg PO HS [facility] Last Admin: 01/28/19 21:24 Dose: Not Given Heparin Sodium (Porcine) (Heparin) 5,000 units SC Q12 [facility] Last Admin: 01/28/19 21:41 Dose: 5,000 units Hydrochlorothiazide (Hydrodiuril) 25 mg PO DAILY [facility] Last Admin: 01/28/19 10:36 Dose: Not Given Amino Acids (Clinimix 4.25/5 % "E" (1000 Ml)) 1,000 mls @ 62 mls/hr IV .Q16H8M ONE Stop: 01/29/19 02:27 Last Admin: 01/28/19 11:18 Dose: 62 mls/hr Multivitamins/Vitamin C 10 ml/Chromium/Copper/Manganese/Zinc 1 ml/ Amino Acids 1,011 mls @ 62 mls/hr IV .[id number] [facility] Stop: 01/29/19 10:18 Last Admin: 01/28/19 17:51 Dose: 62 mls/hr Amino Acids (Clinimix 4.25/5 % "E" (1000 Ml)) 1,000 mls @ 62 mls/hr IV .Q16H8M [facility] Stop: 01/30/19 02:27 Multivitamins/Vitamin C 10 ml/Chromium/Copper/Manganese/Zinc 1 ml/ Amino Acids 1,011 mls @ 62 mls/hr IV .[id number] ONE Stop: 01/30/19 10:18 Amino Acids (Clinimix 4.25/5 % "E" (1000 Ml)) 1,000 mls @ 62 mls/hr IV .Q16H8M [facility] Stop: 01/31/19 02:27 Insulin Glargine (Lantus) 5 unit SC HS [facility] Last Admin: 01/28/19 21:42 Dose: 5 u Insulin Human Regular (Novolin R) 0 unit SC [facility] Last Admin: 01/28/19 21:25 Dose: Not Given Labetalol HCl (Trandate) 10 mg IVP Q8 PRN PRN Reason: elevated BP Last Admin: 01/28/19 21:52 Dose: 10 mg Lactulose (Enulose) 20 gm PO HS PRN PRN Reason: constipation Lamotrigine (Lamictal) 25 mg PO BID [facility] Last Admin: 01/28/19 18:00 Dose: Not Given Lorazepam (Ativan) 0.5 mg IVP Q6H PRN PRN Reason: Anxiety Last Admin: 01/28/19 21:41 Dose: 0.5 mg Losartan Potassium (Cozaar) 100 mg PO DAILY [facility] Last Admin: 01/28/19 11:18 Dose: Not Given Metoprolol Succinate (Toprol Xl) 50 mg PO DAILY [facility] Last Admin: 01/28/19 10:36 Dose: Not Given Ondansetron HCl (Zofran Inj) 4 mg IVP ONCE PRN PRN Reason: Nausea/Vomiting Promethazine HCl/Dextromethorphan (Phenergan Dm Syrup) 5 ml PO Q6H PRN PRN Reason: Coughing Last Admin: 01/24/19 10:23 Dose: 5 ml Rosuvastatin Calcium (Crestor) 5 mg PO HS [facility] Last Admin: 01/28/19 21:23 Dose: Not Given Tramadol HCl (Ultram) 100 mg PO Q6 PRN PRN Reason: Pain, moderate (4-7) Last Admin: 01/24/19 10:22 Dose: 100 mg Tramadol HCl (Ultram) 50 mg PO Q6 PRN PRN Reason: Pain, Mild (1-3) - Labs Labs: 01/28/19 06:26 01/28/19 06:26 PT 12.0 SECONDS (9.7-12.2) 01/19/19 04:23 INR 1.1 01/19/19 04:23 APTT 28 SECONDS (21-34) 01/19/19 04:23
--- NOTE | 2019-01-28 23:38 | CP.PCM.PN ---
Subjective - Date & Time of Evaluation Date of Evaluation: 01/27/19 Time of Evaluation: 16:20 - Subjective Subjective: Patient seen and evaluated Denies chest pain and dyspnea No cardiac events noted Review of Systems - Review of Systems All systems: reviewed and no additional remarkable complaints except Review of Systems: as per HPI Physical Exam - Constitutional Appears: Well, No Acute Distress - Head Exam Head Exam: ATRAUMATIC, NORMOCEPHALIC - Eye Exam Eye Exam: EOMI, Normal appearance - ENT Exam ENT Exam: Mucous Membranes Moist - Respiratory Exam Respiratory Exam: NORMAL BREATHING PATTERN - Extremities Exam Additional comments: R hip: no lesions/masses/erythema tenderness to groin and over greater troch sensation intact SP/DP/TN motor intact EHL/FHL/TA/G pedal pulse intact calves soft NT b/l L hip: no lesions/masses/erythema no tenderness sensation intact SP/DP/TN motor intact EHL/FHL/TA/G pedal pulse intact - Neurological Exam Neurological exam: Alert, Oriented x3 - Psychiatric Exam Psychiatric exam: Normal Affect, Normal Mood - Skin Skin Exam: Normal Color, Warm Assessment and Plan - Assessment and Plan (Free Text) Assessment: s/Hip surgery Uncontrolled HTN mgt by Nephrology Objective - Vital Signs/Intake and Output Vital Signs (last 24 hours): Temp Pulse Resp BP Pulse Ox 97.3 F L 78 20 190/104 H 97 01/28/19 17:09 01/28/19 17:09 01/28/19 17:09 01/28/19 20:51 01/28/19 17:09 Intake and Output: 01/28/19 01/29/19 18:59 06:59 Intake Total 680 Output Total 200 Balance 480 - Medications Medications: Current Medications Albuterol/Ipratropium (Duoneb 3 Mg/0.5 Mg (3 Ml) Ud) 3 ml INH RQ6 [facility] Last Admin: 01/28/19 21:22 Dose: 3 ml Amlodipine Besylate (Norvasc) 2.5 mg PO DAILY [facility] Last Admin: 01/28/19 10:36 Dose: Not Given Enalaprilat (Vasotec) 1.25 mg IV Q6 [facility] Last Admin: 01/28/19 17:51 Dose: 1.25 mg Gabapentin (Neurontin) 300 mg PO HS [facility] Last Admin: 01/28/19 21:24 Dose: Not Given Heparin Sodium (Porcine) (Heparin) 5,000 units SC Q12 [facility] Last Admin: 01/28/19 21:41 Dose: 5,000 units Hydrochlorothiazide (Hydrodiuril) 25 mg PO DAILY [facility] Last Admin: 01/28/19 10:36 Dose: Not Given Amino Acids (Clinimix 4.25/5 % "E" (1000 Ml)) 1,000 mls @ 62 mls/hr IV .[id number] ONE Stop: 01/29/19 02:27 Last Admin: 01/28/19 11:18 Dose: 62 mls/hr Multivitamins/Vitamin C 10 ml/Chromium/Copper/Manganese/Zinc 1 ml/ Amino Acids 1,011 mls @ 62 mls/hr IV .[id number] ONE Stop: 01/29/19 10:18 Last Admin: 01/28/19 17:51 Dose: 62 mls/hr Amino Acids (Clinimix 4.25/5 % "E" (1000 Ml)) 1,000 mls @ 62 mls/hr IV .[id number] ONE Stop: 01/30/19 02:27 Multivitamins/Vitamin C 10 ml/Chromium/Copper/Manganese/Zinc 1 ml/ Amino Acids 1,011 mls @ 62 mls/hr IV .[id number] ONE Stop: 01/30/19 10:18 Amino Acids (Clinimix 4.25/5 % "E" (1000 Ml)) 1,000 mls @ 62 mls/hr IV .[id number] ONE Stop: 01/31/19 02:27 Insulin Glargine (Lantus) 5 unit SC HS [facility] Last Admin: 01/28/19 21:42 Dose: 5 u Insulin Human Regular (Novolin R) 0 unit SC ACHS [facility] Last Admin: 01/28/19 21:25 Dose: Not Given Labetalol HCl (Trandate) 10 mg IVP Q8 PRN PRN Reason: elevated BP Last Admin: 01/28/19 21:52 Dose: 10 mg Lactulose (Enulose) 20 gm PO HS PRN PRN Reason: constipation Lamotrigine (Lamictal) 25 mg PO BID [facility] Last Admin: 01/28/19 18:00 Dose: Not Given Lorazepam (Ativan) 0.5 mg IVP Q6H PRN PRN Reason: Anxiety Last Admin: 01/28/19 21:41 Dose: 0.5 mg Losartan Potassium (Cozaar) 100 mg PO DAILY [facility] Last Admin: 01/28/19 11:18 Dose: Not Given Metoprolol Succinate (Toprol Xl) 50 mg PO DAILY [facility] Last Admin: 01/28/19 10:36 Dose: Not Given Ondansetron HCl (Zofran Inj) 4 mg IVP ONCE PRN PRN Reason: Nausea/Vomiting Promethazine HCl/Dextromethorphan (Phenergan Dm Syrup) 5 ml PO Q6H PRN PRN Reason: Coughing Last Admin: 01/24/19 10:23 Dose: 5 ml Rosuvastatin Calcium (Crestor) 5 mg PO HS [facility] Last Admin: 01/28/19 21:23 Dose: Not Given Tramadol HCl (Ultram) 100 mg PO Q6 PRN PRN Reason: Pain, moderate (4-7) Last Admin: 01/24/19 10:22 Dose: 100 mg Tramadol HCl (Ultram) 50 mg PO Q6 PRN PRN Reason: Pain, Mild (1-3) - Labs Labs: 01/28/19 06:26 01/28/19 06:26 PT 12.0 SECONDS (9.7-12.2) 01/19/19 04:23 INR 1.1 01/19/19 04:23 APTT 28 SECONDS (21-34) 01/19/19 04:23
[2019-01-29] MEDS: Enalaprilat 2.5 MG/2 ML IV SCH ×4 (00:23→18:01)
[2019-01-29] MEDS: Albuterol-Ipratrop 3 mg / 0.5 (3 ml) UD INH SCH ×4 (01:36→19:37)
--- NOTE | 2019-01-29 03:58 | CON ---
DATE: 01/28/2019 PSYCHIATRIC CONSULTATION The patient seen with family who gave collateral information as well as helped translate as the patient speaks limited Australian. The patient speaks mostly Croatian. Family gave more collateral information about what happened to the patient. HISTORY OF PRESENT ILLNESS: This is a case of an 88-year-old female who is a patient Dr. Peters. The patient was admitted here earlier for a possible TIA. The patient has expressive aphasia, but the patient's speech improved.. The patient's family did not want her admitted, she went home. The patient had a fall at home and sustained fracture of her right hip. The patient can be admitted here for further treatment. The patient is referred for comanagement. The patient has not been sleeping for the last three days. She has history of dementia and review of her chart showed the patient was taking Lamictal 25 mg b.i.d. as well as Remeron 15 mg at bedtime and Seroquel 50 mg at bedtime. The patient's Seroquel was discontinued and the patient has not been sleeping. The family is very anxious as the patient is not sleeping. Today, she was earlier reported to have periods of confusion, but the patient is very pleasant and conversing and well related. The patient is very forgetful. PAST PSYCHIATRIC HISTORY: Dementia taking Seroquel, Lamictal at home and Remeron. PAST MEDICAL HISTORY: The patient has a history of CVA, hypertension, possible TIA, diabetes, MRSA, fracture of the right femur, intertrochanteric; also constipation, anemia. DRUG/ALCOHOL HISTORY: Denies any. ALLERGIES: THE PATIENT IS ALLERGIC TO ACETAMINOPHEN AND OXYCODONE. PSYCHOSOCIAL HISTORY: The patient lives with her family who is taking care of her. CURRENT MEDICATIONS: The patient is on Ativan 0.5 mg IV every 6 hours, the patient is having problem with swallowing. Clonidine patch. The patient is on losartan, Crestor, heparin, hydrochlorothiazide, metoprolol, promethazine, tramadol 100 mg p.o. every 6 hours p.r.n. and Vasotec. The patient is on lamotrigine 25 mg b.i.d. LABORATORY DATA: Review of her labs, the patient's sodium is 140, creatinine is 1. Liver function tests are within normal limits. REVIEW OF SYSTEMS: The patient is more alert, verbal, still forgetful, seen in her room with family members around her. No behavioral problems. According to family members, she is not sleeping well. The patient's speech seems to be back to her baseline. She is able to converse well, although she speaks limited Australian. PHYSICAL EXAMINATION: VITAL SIGNS: Temperature is 97.4, pulse 86, blood pressure 196/91, respirations 20, and oxygen saturation is 96%. SKIN: No diaphoresis. HEENT: No headache or dizziness. NECK: Supple. RESPIRATORY: No dyspnea. CARDIOVASCULAR: No chest pain. GASTROINTESTINAL: No nausea, no vomiting.curently NPO sec to dysphagia. EXTREMITIES: Moving extremities. Complaining of weakness. NEUROLOGIC: Alert, but forgetful. GENITOURINARY: No dysuria. MENTAL STATUS EXAMINATION: Elderly female, who looks her stated age, oriented x1( person ).. The patient thinks she is in daughter's house. She is not sure if she is in the hospital, not the date and time. Seen with her family members, looks stated age. Speech is spontaneous. Affect is reactive. Mood is dysphoric. Thought process confused often. Thought content, no overt psychosis. No suicidal or homicidal ideation. Attention and memory seem to be limited. Insight and judgment limited. Impulse control is fair at this time. IMPRESSION: Dementia, senile onset with mood changes and possible delirium. Metabolic encephalopathy, probably metabolic versus drug-induced. PLAN AND RECOMMENDATION: The patient's medications reviewed. We will discontinue her Seroquel 50 mg for now as the Seroquel has the black box warning, it can cause increased mortality in elderly and increase risk of stroke. The patient has a history of possible transient ischemic attack. She is currently not taking any p.o. meds because she has problem swallowing. We will just keep her on Ativan 0.5 mg IV every 6 hours for now. The patient is for swallowing eval and according to nurse, for possible EGD. Once the gastrointestinal problems are resolved, then we can readjust her medications.. We will try to put her back to Remeron to help her sleep once she is more medically stable. Continue treatment plan as outlined. Luis E Thorne MD [facility] # [id number] MTDD
[2019-01-29] MEDS: (Novolin R) Insulin Human Regular 100 units/ml vial SC SCH ×4 (08:08→21:21)
[2019-01-29] MEDS: Labetalol 5mg/ml (4ml) IVP PRN (08:09)
[2019-01-29 08:19] LABS: HEMOGLOBIN 8.7 g/dL (11.0-16.0); MEAN CELL VOLUME 93.7 fL (81.0-99.0); MEAN CORPUSCULAR HEMOGLOBIN 31.7 pg (27.0-31.0); MEAN CORPUSCULAR HGB CONC 33.9 g/dL (33.0-37.0); MEAN PLATELET VOLUME 8.9 fL (7.2-11.7); RBC 2.73 Mil/uL (3.80-5.20); RED CELL DISTRIBUTION WIDTH 15.1 % (11.5-14.5); WHITE BLOOD COUNT 8.2 K/uL (4.8-10.8)
[2019-01-29 08:39] LABS: ALB/GLOB RATIO 1.1 (1.0-2.1); ALBUMIN 3.1 g/dL (3.5-5.0); ALT/SGPT 7 U/L (9-52); AST/SGOT 20 U/L (14-36); BLOOD UREA NITROGEN 43 mg/dL (7-17); CALCIUM 8.8 mg/dl (8.6-10.4); GFR NON-AFRICAN AMERICAN 52
--- NOTE | 2019-01-29 09:57 | PN ---
DATE: 01/29/2019 LOCATION 667, bed A. SUBJECTIVE: This is an 89-year-old female, seen and examined early in rounds, appears to be somewhat restless, agitated as reported with reported somewhat elevated blood pressure. The patient still has very poor to near zero oral intake and also as reported by the family and the nursing staff in the floor, very confused. The entire chart is reviewed including but not limited to the most recent lab and radiology study results, current and the previous medication list and today's lab results showed blood glucose level of 320 and recent hemoglobin 8.9, hematocrit 25.8 with normal platelet count with increased BUN but normal creatinine, low albumin and low total protein. PHYSICAL EXAMINATION: GENERAL: An 89-year-old female. VITAL SIGNS: Afebrile with pulse of 86, blood pressure 190/84, respiratory rate 20 to 22. HEENT: Showed pale dry oral mucous membrane. Nonicteric sclerae. LUNGS: Few scattered crepitation. Decreased air entry at bases. HEART: Positive S1 and S2. ABDOMEN: Soft with mild generalized tenderness. No mass or organomegaly. No rebound tenderness or guarding. EXTREMITIES: With mild lower extremity edematous changes. No clubbing or cyanosis. NEUROLOGIC: No reported new neurological deficits, sensory or motor. IMPRESSION: 1. Dysphagia, of unclear etiology. 2. Poorly controlled hypertension. 3. Recent change of mental status. 4. Hyperlipidemia, by history. 5. Recent history of left hip fracture. 6. Anemia, the possibility of gastrointestinal blood loss versus anemia secondary to chronic disease is raised. SUGGESTIONS: 1. Continue current management. 2. This case discussed at length with the family who requested again upper endoscopy to be performed in the meantime. 3. The patient is to be scheduled for upper endoscopy at a.m. 4. Further recommendation to follow. Stephan Dobson MD
[2019-01-29] MEDS ORDERED: PPN #8 IV ONE (10:20)
[2019-01-29] MEDS: Metoprolol Succinate 50 mg XL Tab PO SCH (10:33)
--- NOTE | 2019-01-29 12:20 | CP.PCM.PN ---
Subjective - Date & Time of Evaluation Date of Evaluation: 01/29/19 Time of Evaluation: 12:18 - Subjective Subjective: RENAL s: seen and examined remains agitated pe: VS as below gen: nad sclera: anicteric op: clear neck: supplec CV: +S1+s2 no rub lungs cta b/l abd: soft ntnd no organomegaly ext: no edema neuro: altered and agitated psych: agitated skin no rash labs and imaging reviewd IMP: ARF/ Hypertension / CVA/ Agitation / Anemia/ DM plan: GRISELDA resolved renal function at baseline re: htn - would recc consider placement of NGT while pt is in NPO status. will inc vasotec iv to 2.5 q 6 and inc clonidine transdermal to 0.3. Recc if no improvement may need ICU/CCU for nicardipine gtt once enteral access reestablished d/c iv anithypertensives so far, cr stable on iv aashish-i agitation per primary team - tx of agitation may assist w/ htn as well DM per primary team CVA per neuro Objective - Vital Signs/Intake and Output Vital Signs (last 24 hours): Temp Pulse Resp BP Pulse Ox 98.0 F 88 20 190/84 H 95 01/28/19 23:16 01/29/19 09:00 01/28/19 23:16 01/29/19 06:15 01/28/19 23:16 Intake and Output: 01/29/19 01/29/19 06:59 18:59 Output Total 300 Balance -300 - Medications Medications: Current Medications Albuterol/Ipratropium (Duoneb 3 Mg/0.5 Mg (3 Ml) Ud) 3 ml INH RQ6 [facility] Last Admin: 01/29/19 09:20 Dose: Not Given Amlodipine Besylate (Norvasc) 2.5 mg PO DAILY [facility] Last Admin: 01/29/19 10:33 Dose: Not Given Clonidine HCl (Catapres-Tts3 0.3 Mg/24 Hr) 1 patch TD Q7D@1000 [facility] Last Admin: 01/29/19 10:45 Dose: 1 patch Enalaprilat (Vasotec) 2.5 mg IV Q6 [facility] Gabapentin (Neurontin) 300 mg PO HS [facility] Last Admin: 01/28/19 21:24 Dose: Not Given Heparin Sodium (Porcine) (Heparin) 5,000 units SC Q12 [facility] Last Admin: 01/29/19 10:43 Dose: 5,000 units Hydrochlorothiazide (Hydrodiuril) 25 mg PO DAILY [facility] Last Admin: 01/29/19 10:33 Dose: Not Given Amino Acids (Clinimix 4.25/5 % "E" (1000 Ml)) 1,000 mls @ 62 mls/hr IV .Q16H8M ONE Stop: 01/30/19 02:27 Last Admin: 01/29/19 10:45 Dose: 62 mls/hr Multivitamins/Vitamin C 10 ml/Chromium/Copper/Manganese/Zinc 1 ml/ Amino Acids 1,011 mls @ 62 mls/hr IV .[id number] ONE Stop: 01/30/19 10:18 Amino Acids (Clinimix 4.25/5 % "E" (1000 Ml)) 1,000 mls @ 62 mls/hr IV .Q16H8M ONE Stop: 01/31/19 02:27 Insulin Glargine (Lantus) 5 unit SC HS [facility] Last Admin: 01/28/19 21:42 Dose: 5 u Insulin Human Regular (Novolin R) 0 unit SC ACHS [facility] Last Admin: 01/29/19 08:08 Dose: 12 unit Labetalol HCl (Trandate) 10 mg IVP Q8 PRN PRN Reason: elevated BP Last Admin: 01/29/19 08:09 Dose: 10 mg Lactulose (Enulose) 20 gm PO HS PRN PRN Reason: constipation Lamotrigine (Lamictal) 25 mg PO BID [facility] Last Admin: 01/29/19 10:33 Dose: Not Given Lorazepam (Ativan) 1 mg IVP Q6H PRN PRN Reason: Anxiety Losartan Potassium (Cozaar) 100 mg PO DAILY [facility] Last Admin: 01/29/19 10:32 Dose: Not Given Metoprolol Succinate (Toprol Xl) 50 mg PO DAILY [facility] Last Admin: 01/29/19 10:33 Dose: Not Given Ondansetron HCl (Zofran Inj) 4 mg IVP ONCE PRN PRN Reason: Nausea/Vomiting Promethazine HCl/Dextromethorphan (Phenergan Dm Syrup) 5 ml PO Q6H PRN PRN Reason: Coughing Last Admin: 01/24/19 10:23 Dose: 5 ml Rosuvastatin Calcium (Crestor) 5 mg PO HS [facility] Last Admin: 01/28/19 21:23 Dose: Not Given Tramadol HCl (Ultram) 100 mg PO Q6 PRN PRN Reason: Pain, moderate (4-7) Last Admin: 01/24/19 10:22 Dose: 100 mg Tramadol HCl (Ultram) 50 mg PO Q6 PRN PRN Reason: Pain, Mild (1-3) - Labs Labs: 01/29/19 07:01 01/29/19 07:01 PT 12.0 SECONDS (9.7-12.2) 01/19/19 04:23 INR 1.1 01/19/19 04:23 APTT 28 SECONDS (21-34) 01/19/19 04:23
[2019-01-29] MEDS ORDERED: (Lantus) Insulin Glargine, Recombinant SC SCH (12:38)
--- NOTE | 2019-01-29 16:27 | CP.PCM.CON ---
History of Present Illness - History of Present Illness History of Present Illness: Podiatry Consult: Dr. Truong 88 year old female patient, with PMHx of DM, HTN, HLD, seen and evaluated for R heel DTI. Patient not alert at this time and unable to answer questions, history obtained from family members present at bedside. Patient was admitted after falling onto her R side. Her family notes that she has had recently developed bruising to her R heel which causes her pain. Per chart, no acute events overnight. PMHx: DM II, HTN,HLD PSHx: Bunionectomy, L leg skin graft, cataracts SH: Denies tobacco use ALL: NKDA Review of Systems - Constitutional Constitutional: As Per HPI Past Patient History - Infectious Disease Hx of Infectious Diseases: None - Past Medical History & Family History Past Medical History?: Yes Past Family History: Reviewed and not pertinent - Past Social History Smoking Status: Never Smoked - CARDIAC Hx Hypertension: Yes - PULMONARY Hx Respiratory Disorders: No - NEUROLOGICAL Hx Dementia: Yes - HEENT Hx HEENT Problems: Yes Hx Cataracts: Yes - RENAL Hx Chronic Kidney Disease: No - ENDOCRINE/METABOLIC Hx Diabetes Mellitus Type 2: Yes - HEMATOLOGICAL/ONCOLOGICAL Hx Blood Disorders: No - INTEGUMENTARY Hx Dermatological Problems: Yes Other/Comment: LEFT LATERAL LEG ULCER 2015. - MUSCULOSKELETAL/RHEUMATOLOGICAL Hx Falls: Yes - GASTROINTESTINAL Hx Gastrointestinal Disorders: No - GENITOURINARY/GYNECOLOGICAL Hx Genitourinary Disorders: No - PSYCHIATRIC Hx Substance Use: No - SURGICAL HISTORY Hx Surgeries: Yes Hx Eye Surgery: Yes (BRET CATARACT) Other/Comment: Bret. Bunion Removed. - ANESTHESIA Hx Anesthesia: Yes Hx Anesthesia Reactions: No Hx Malignant Hyperthermia: No Has any member of the family had a problem w/ anesthesia?: No Meds Allergies/Adverse Reactions: Allergies Allergy/AdvReac Type Severity Reaction Status Date / Time acetaminophen [From Percocet] Allergy Verified 01/18/19 22:34 oxycodone [From Percocet] Allergy Verified 01/18/19 22:34 - Medications Medications: Current Medications Albuterol/Ipratropium (Duoneb 3 Mg/0.5 Mg (3 Ml) Ud) 3 ml INH RQ6 [facility] Last Admin: 01/29/19 14:30 Dose: 3 ml Amlodipine Besylate (Norvasc) 2.5 mg PO DAILY [facility] Last Admin: 01/29/19 10:33 Dose: Not Given Clonidine HCl (Catapres-Tts3 0.3 Mg/24 Hr) 1 patch TD Q7D@1000 [facility] Last Admin: 01/29/19 10:45 Dose: 1 patch Enalaprilat (Vasotec) 2.5 mg IV Q6 [facility] Last Admin: 01/29/19 12:33 Dose: 2.5 mg Gabapentin (Neurontin) 300 mg PO HS [facility] Last Admin: 01/28/19 21:24 Dose: Not Given Heparin Sodium (Porcine) (Heparin) 5,000 units SC Q12 [facility] Last Admin: 01/29/19 10:43 Dose: 5,000 units Hydrochlorothiazide (Hydrodiuril) 25 mg PO DAILY [facility] Last Admin: 01/29/19 10:33 Dose: Not Given Amino Acids (Clinimix 4.25/5 % "E" (1000 Ml)) 1,000 mls @ 62 mls/hr IV .Q16H8M ONE Stop: 01/30/19 02:27 Last Admin: 01/29/19 10:45 Dose: 62 mls/hr Multivitamins/Vitamin C 10 ml/Chromium/Copper/Manganese/Zinc 1 ml/ Amino Acids 1,011 mls @ 62 mls/hr IV .[id number] ONE Stop: 01/30/19 10:18 Amino Acids (Clinimix 4.25/5 % "E" (1000 Ml)) 1,000 mls @ 62 mls/hr IV .Q16H8M ONE Stop: 01/31/19 02:27 Insulin Glargine (Lantus) 10 unit SC HS [facility] Insulin Human Regular (Novolin R) 0 unit SC ACHS [facility] Last Admin: 01/29/19 12:36 Dose: 6 unit Labetalol HCl (Trandate) 10 mg IVP Q8 PRN PRN Reason: elevated BP Last Admin: 01/29/19 08:09 Dose: 10 mg Lactulose (Enulose) 20 gm PO HS PRN PRN Reason: constipation Lamotrigine (Lamictal) 25 mg PO BID [facility] Last Admin: 01/29/19 10:33 Dose: Not Given Lorazepam (Ativan) 1 mg IVP Q6H PRN PRN Reason: Anxiety Losartan Potassium (Cozaar) 100 mg PO DAILY [facility] Last Admin: 01/29/19 10:32 Dose: Not Given Metoprolol Succinate (Toprol Xl) 50 mg PO DAILY [facility] Last Admin: 01/29/19 10:33 Dose: Not Given Ondansetron HCl (Zofran Inj) 4 mg IVP ONCE PRN PRN Reason: Nausea/Vomiting Promethazine HCl/Dextromethorphan (Phenergan Dm Syrup) 5 ml PO Q6H PRN PRN Reason: Coughing Last Admin: 01/24/19 10:23 Dose: 5 ml Rosuvastatin Calcium (Crestor) 5 mg PO HS [facility] Last Admin: 01/28/19 21:23 Dose: Not Given Tramadol HCl (Ultram) 100 mg PO Q6 PRN PRN Reason: Pain, moderate (4-7) Last Admin: 01/24/19 10:22 Dose: 100 mg Tramadol HCl (Ultram) 50 mg PO Q6 PRN PRN Reason: Pain, Mild (1-3) Physical Exam - Constitutional Appears: Non-toxic, No Acute Distress - Head Exam Head Exam: ATRAUMATIC, NORMOCEPHALIC - Extremities Exam Additional comments: Vascular: DP/PT 1/4, CFT < 3 seconds, TG warm to warm, no edema appreciated Ortho: Unable to assess at this time, no gross deformities appreciated Neuro: Gross sensation intact. Unable to assess for protective sensation Derm: Deep tissue injury appreciated to R heel, stage 1 secondary to pressure. No open lesions, no drainage, no cellulitis, no clinical signs of infection. - Neurological Exam Neurological exam: Alert - Psychiatric Exam Psychiatric exam: Normal Affect, Normal Mood - Skin Skin Exam: Warm Results - Vital Signs Recent Vital Signs: Last Vital Signs Temp 98.0 F 01/28/19 23:16 Pulse 98 H 01/29/19 13:00 Resp 20 01/28/19 23:16 BP 186/74 H 01/29/19 12:33 Pulse Ox 95 01/28/19 23:16 - Labs Result Diagrams: 01/29/19 07:01 01/29/19 07:01 Labs: Laboratory Results - last 24 hr 01/28/19 01/29/19 01/29/19 21:05 06:18 07:01 WBC 8.2 RBC 2.73 L Hgb 8.7 L Hct 25.6 L MCV 93.7 MCH 31.7 H MCHC 33.9 RDW 15.1 H Plt Count 251 MPV 8.9 Sodium Potassium Chloride Carbon Dioxide Anion Gap BUN Creatinine Est GFR ( Amer) Est GFR (Non-Af Amer) POC Glucose (mg/dL) 216 H 320 H Random Glucose Calcium Total Bilirubin AST ALT Alkaline Phosphatase Total Protein Albumin Globulin Albumin/Globulin Ratio 01/29/19 01/29/19 07:01 11:45 WBC RBC Hgb Hct MCV MCH MCHC RDW Plt Count MPV Sodium 141 Potassium 3.9 Chloride 110 H Carbon Dioxide 25 Anion Gap 10 BUN 43 H Creatinine 1.0 Est GFR ( Amer) > 60 Est GFR (Non-Af Amer) 52 POC Glucose (mg/dL) 236 H Random Glucose 309 H Calcium 8.8 Total Bilirubin 0.7 AST 20 ALT 7 L Alkaline Phosphatase 107 Total Protein 5.9 L Albumin 3.1 L Globulin 2.8 Albumin/Globulin Ratio 1.1 Assessment & Plan - Assessment and Plan (Free Text) Assessment: 89F with PMHx of DMII, HTN, with deept tissue injury appreciated to R heel, stage 1 secondary to pressure. Plan: Patient seen and evaluated Discussed in detail with Dr. Dionne Salazar, WBC 8.2 Optifoam applied to R heel Patient to wear multipodus boots at all times while in bed No podiatric intervention at this time, stable Will continue to follow Thank you for the consult - Date & Time Date: 01/29/19 Time: 16:30
[2019-01-29] MEDS: PPN #9 IV ONE (18:02)
--- NOTE | 2019-01-29 18:20 | PN ---
DATE: 01/29/2019 SUBJECTIVE: She is resting in bed. She is in and out of it mentally, told me she was feeling well in Chinese. Family is present. She has lot of issues, status post right hip ORIF. She cannot swallow yet and will need swallow evaluation to happen and blood pressure has been a problem. She is on Catapres patch up to 0.3 and lots of IV labetalol and IV Vasotec. Psychiatry is involved, trying to adjust the medications. She has IV Ativan and multiple issues. PHYSICAL EXAMINATION: VITAL SIGNS: She has 98 temp, 82 pulse, 184/76 blood pressure, 20 respiratory rate, 95% O2 sat on room air. HEENT: Head is atraumatic, normocephalic. HEART: Regular rate. LUNGS: Decreased breath sounds. ABDOMEN: Soft. EXTREMITIES: No edema, but the right heel has got a little blackish ulcer and is going to podiatry. LABORATORY DATA: 8.2 white count, 8.7 hemoglobin, 25.6 hematocrit, 251 platelets. She has a 141 sodium, potassium is 3.9. BUN 42, creatinine 1.6, her blood sugar is 236, we will increase the medicine for diabetes. AST is 20,ALT is 7, alk phos 107 and total protein 5.7. ASSESSMENT AND PLAN: She is definitely having a hard time, she is being seen by Renal, GI, Cardiology, Psychiatry, Infectious Disease We will check her labs and swallow evaluation, podiatry and hopefully she will swallow soon that is very important. She can take her regular medications. She is on partial parenteral nutrition and we will continue with aggressive treatment care Saul Peters DO [email or web address]
--- NOTE | 2019-01-29 18:25 | PN ---
DATE: 01/29/2019 SUBJECTIVE: The patient is seen. The patient is sleeping today as the patient did not sleep the whole night, was very restless and the family reports that the patient is still having confusion and bouts of agitation and asking for a readjustment of medications. The patient is currently n.p.o., still awaiting evaluation. GI is following her problems swallowing. The patient is to be seen by Dr. Morejon. PHYSICAL EXAMINATION: VITAL SIGNS: Temperature is 98, heart rate 88, blood pressure 190/84, respiration is 20, and oxygen saturation is 95%. REVIEW OF SYSTEMS: GENERAL: The patient is seen in her room with family members, very drowsy, still confused. The patient is not sleeping well. The family is concerned about her agitation and her confusion and lack of sleep. SKIN: No diaphoresis. HEENT: No headache. No dizziness. NECK: Supple. RESPIRATORY: No dyspnea. CARDIOVASCULAR: No chest pain. GASTROINTESTINAL: The patient is n.p.o. EXTREMITIES: Moving extremities. The patient has a history of fracture, but not complaining of pain. MUSCULOSKELETAL: Feels weak. NEUROLOGIC: Alert, is sleepy, but still confused, drowsy when seen. MENTAL STATUS EXAMINATION: An elderly female, who looks stated age, confused, oriented x1. Mood is dysphoric. Affect is restricted. Speech is slow. The patient is drowsy from not sleeping last night. Thought process, confused. Thought content, no overt psychosis. No suicidal or homicidal ideation. Attention and memory seemed to be limited. Insight and judgment limited. Impulse control, is guarded at this time. 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 PLAN AND RECOMMENDATIONS: The patient is seen, medications reviewed. The patient's n.p.o. at this time. We will readjust the dose of her Ativan to 1 mg IV q.6 hours p.r.n. Once the patient is cleared by GI, we will try to put her back on Remeron and readjust her psychiatric medications to control her behavior. For now, we will give only Ativan as the patient is n.p.o. Luis E Thorne MD [facility] # [id number]
--- NOTE | 2019-01-29 22:22 | CP.PCM.PN ---
Subjective - Date & Time of Evaluation Date of Evaluation: 01/29/19 Time of Evaluation: 13:05 - Subjective Subjective: Patient with no cardiac events BP under control Renal consult appreciated Objective - Vital Signs/Intake and Output Vital Signs (last 24 hours): Temp Pulse Resp BP Pulse Ox 97.8 F 86 18 152/81 H 95 01/29/19 15:30 01/29/19 15:30 01/29/19 15:30 01/29/19 18:01 01/29/19 15:30 Intake and Output: 01/29/19 01/30/19 18:59 06:59 Intake Total 496 Output Total 300 Balance 196 - Medications Medications: Current Medications Albuterol/Ipratropium (Duoneb 3 Mg/0.5 Mg (3 Ml) Ud) 3 ml INH RQ6 [facility] Last Admin: 01/29/19 19:37 Dose: 3 ml Amlodipine Besylate (Norvasc) 2.5 mg PO DAILY [facility] Last Admin: 01/29/19 10:33 Dose: Not Given Clonidine HCl (Catapres-Tts3 0.3 Mg/24 Hr) 1 patch TD Q7D@1000 [facility] Last Admin: 01/29/19 10:45 Dose: 1 patch Enalaprilat (Vasotec) 2.5 mg IV Q6 [facility] Last Admin: 01/29/19 18:01 Dose: 2.5 mg Gabapentin (Neurontin) 300 mg PO HS [facility] Last Admin: 01/29/19 21:12 Dose: Not Given Heparin Sodium (Porcine) (Heparin) 5,000 units SC Q12 [facility] Last Admin: 01/29/19 21:44 Dose: 5,000 units Hydrochlorothiazide (Hydrodiuril) 25 mg PO DAILY [facility] Last Admin: 01/29/19 10:33 Dose: Not Given Amino Acids (Clinimix 4.25/5 % "E" (1000 Ml)) 1,000 mls @ 62 mls/hr IV .[id number] ONE Stop: 01/30/19 02:27 Last Admin: 01/29/19 10:45 Dose: 62 mls/hr Multivitamins/Vitamin C 10 ml/Chromium/Copper/Manganese/Zinc 1 ml/ Amino Acids 1,011 mls @ 62 mls/hr IV .[id number] ONE Stop: 03/25/19 10:18 Last Admin: 01/29/19 18:02 Dose: 62 mls/hr Amino Acids (Clinimix 4.25/5 % "E" (1000 Ml)) 1,000 mls @ 62 mls/hr IV .[id number] ONE Stop: 01/31/19 02:27 Insulin Glargine (Lantus) 10 unit SC HS [facility] Last Admin: 01/29/19 21:45 Dose: 10 unit Insulin Human Regular (Novolin R) [address] [facility] Last Admin: 01/29/19 21:21 Dose: Not Given Labetalol HCl (Trandate) 10 mg IVP Q8 PRN PRN Reason: elevated BP Last Admin: 01/29/19 08:09 Dose: 10 mg Lactulose (Enulose) 20 gm PO HS PRN PRN Reason: constipation Lamotrigine (Lamictal) 25 mg PO BID [facility] Last Admin: 01/29/19 17:49 Dose: Not Given Lorazepam (Ativan) 1 mg IVP Q6H PRN PRN Reason: Anxiety Losartan Potassium (Cozaar) 100 mg PO DAILY [facility] Last Admin: 01/29/19 10:32 Dose: Not Given Metoprolol Succinate (Toprol Xl) 50 mg PO DAILY [facility] Last Admin: 01/29/19 10:33 Dose: Not Given Ondansetron HCl (Zofran Inj) 4 mg IVP ONCE PRN PRN Reason: Nausea/Vomiting Promethazine HCl/Dextromethorphan (Phenergan Dm Syrup) 5 ml PO Q6H PRN PRN Reason: Coughing Last Admin: 01/24/19 10:23 Dose: 5 ml Rosuvastatin Calcium (Crestor) 5 mg PO [facility] Last Admin: 01/29/19 21:12 Dose: Not Given Tramadol HCl (Ultram) 100 mg PO Q6 PRN PRN Reason: Pain, moderate (4-7) Last Admin: 01/24/19 10:22 Dose: 100 mg Tramadol HCl (Ultram) 50 mg PO Q6 PRN PRN Reason: Pain, Mild (1-3) - Labs Labs: 01/29/19 07:01 01/29/19 07:01 PT 12.0 SECONDS (9.7-12.2) 01/19/19 04:23 INR 1.1 01/19/19 04:23 APTT 28 SECONDS (21-34) 01/19/19 04:23
[2019-01-30] MEDS: Enalaprilat 2.5 MG/2 ML IV SCH ×3 (00:24→13:58)
[2019-01-30] MEDS: Albuterol-Ipratrop 3 mg / 0.5 (3 ml) UD INH SCH ×4 (01:24→20:31)
--- NOTE | 2019-01-30 03:02 | PCM.SURG1 ---
Surgeon's Initial Post Op Note - Surgeon's Notes Surgeon: Chance Kendall MD Weatherization Director: Luis Sultana PA-C Type of Anesthesia: General Endo Pre-Operative Diagnosis: Right hip. #1 displaced IT fx. #2 severe DJD Operative Findings: Right hip. #1 displaced IT fx. #2 severe DJD Post-Operative Diagnosis: Right hip. #1 displaced IT fx. #2 severe DJD Operation Performed: Right hip : IT fx closed reduction and internal fixation with long hip nail Specimen/Specimens Removed: specimen= none. complications= none. implants= [employer] long TFNa, 340mm length, 42mm length distal interlocking screw, helical blade 100mm length Estimated Blood Loss: EBL {In ML}: 100 Blood Products Given: N/A, PRBC Drains Used: No Drains Post-Op Condition: Good Date of Surgery/Procedure: 01/23/19 Time of Surgery/Procedure: 10:00
[2019-01-30] MEDS: Labetalol 5mg/ml (4ml) IVP PRN (04:44)
[2019-01-30] MEDS: (Novolin R) Insulin Human Regular 100 units/ml vial SC SCH ×4 (08:31→21:51)
[2019-01-30 08:58] LABS: MEAN CELL VOLUME 94.3 fL (81.0-99.0); MEAN CORPUSCULAR HEMOGLOBIN 31.2 pg (27.0-31.0); MEAN CORPUSCULAR HGB CONC 33.1 g/dL (33.0-37.0); MEAN PLATELET VOLUME 9.3 fL (7.2-11.7); RBC 2.89 Mil/uL (3.80-5.20); RED CELL DISTRIBUTION WIDTH 15.4 % (11.5-14.5); WHITE BLOOD COUNT 8.5 K/uL (4.8-10.8)
--- NOTE | 2019-01-30 08:59 | PN ---
DATE: 01/30/2019 SUBJECTIVE: I saw her this morning resting in bed in family's presence. She is more alert I think, looking at me with brighter eyes. She is supposed to go for EGD with GI this morning depending on her blood pressure. Her clonidine was increased to 0.3 as per Renal. She is on IV fluid, PPN. Cozaar was bumped up to 100. She is also getting labetalol and Vasotec IV because she cannot swallow his morning. PHYSICAL EXAMINATION: VITAL SIGNS: She has 98.6 temperature, last blood pressure was 189/82, 20 respiratory rate, 95% O2 sat. I have given another dose of labetalol and Vasotec before the procedure and that should help get her blood pressure down. Clinically, she looks stable. HEENT: Head is atraumatic, normocephalic. GENERAL: She is alert, talking. HEART: Regular rate. LUNGS: Decreased breath sounds, but clear. ABDOMEN: Soft. EXTREMITIES: No edema, status post surgery. LABORATORY DATA: She has 8.2 white count, 8.7 hemoglobin, 25.6 hematocrit with 251 platelets. Sodium 141, potassium 3.9, BUN 43, creatinine 1, GFR is 52, sugars 220, I will increase the Lantus again. AST is 20, ALT is 7, alkaline phosphatase 107, total protein 5.9. ASSESSMENT AND PLAN: I am hoping that she does well with her endoscopy. I am also hoping that the swallow eval will today, and we evaluated her for that, so we can see if she can swallow. She is also more appropriate. I think she will follow directions and commands. Psychiatry came in and adjusted her medication. We will check her labs tomorrow. Discussed with family, she should go for EGD this morning. Blood pressure as per Cardiology and Renal. Saul Peters DO MTDDotty
[2019-01-30 09:11] LABS: ALB/GLOB RATIO 1.1 (1.0-2.1); ALBUMIN 3.1 g/dL (3.5-5.0); ALT/SGPT 8 U/L (9-52); AST/SGOT 25 U/L (14-36); BLOOD UREA NITROGEN 42 mg/dL (7-17); CALCIUM 8.7 mg/dl (8.6-10.4); GFR NON-AFRICAN AMERICAN 59
[2019-01-30] MEDS ORDERED: PPN #10 IV ONE (10:20)
--- NOTE | 2019-01-30 11:32 | CP.PCM.PN ---
Subjective - Date & Time of Evaluation Date of Evaluation: 01/30/19 Time of Evaluation: 11:30 - Subjective Subjective: Podiatry Progress Note 88 year old female with PMHx of DM, HTN, HLD, seen and evaluated with attending Dr. Truong for right heel DTI. Patient is seen laying in bed, in NAD. Family members are at bedside during visitation. Patient is seen wearing multipodus boots. Dressing clean, dry, and intact. Patient expresses pain during dressing change. Objective - Vital Signs/Intake and Output Vital Signs (last 24 hours): Temp Pulse Resp BP Pulse Ox 97.1 F L 87 20 186/80 H 96 01/30/19 07:00 01/30/19 07:00 01/30/19 07:00 01/30/19 07:00 01/30/19 07:00 Intake and Output: 01/30/19 01/30/19 06:59 18:59 Output Total 500 Balance -500 - Medications Medications: Current Medications Albuterol/Ipratropium (Duoneb 3 Mg/0.5 Mg (3 Ml) Ud) 3 ml INH RQ6 [facility] Last Admin: 01/30/19 08:54 Dose: 3 ml Amlodipine Besylate (Norvasc) 2.5 mg PO DAILY [facility] Last Admin: 01/29/19 10:33 Dose: Not Given Clonidine HCl (Catapres-Tts3 0.3 Mg/24 Hr) 1 patch TD Q7D@1000 [facility] Last Admin: 01/29/19 10:45 Dose: 1 patch Enalaprilat (Vasotec) 2.5 mg IV Q6 [facility] Last Admin: 01/30/19 06:26 Dose: 2.5 mg Gabapentin (Neurontin) 300 mg PO HS [facility] Last Admin: 01/29/19 21:12 Dose: Not Given Heparin Sodium (Porcine) (Heparin) 5,000 units SC Q12 [facility] Last Admin: 01/29/19 21:44 Dose: 5,000 units Hydrochlorothiazide (Hydrodiuril) 25 mg PO DAILY [facility] Last Admin: 01/29/19 10:33 Dose: Not Given Amino Acids (Clinimix 4.25/5 % "E" (1000 Ml)) 1,000 mls @ 62 mls/hr IV .[id number] ONE Stop: 01/31/19 02:27 Fat Emulsion Intravenous (Intralipid 20%) 500 mls @ 23 mls/hr IV ONCE ONE Stop: 01/31/19 15:44 Multivitamins/Vitamin C 10 ml/Chromium/Copper/Manganese/Zinc 1 ml/ Amino Acids 1,011 mls @ 62 mls/hr IV .[id number] ONE Stop: 01/31/19 10:18 Amino Acids (Clinimix 4.25/5 % "E" (1000 Ml)) 1,000 mls @ 62 mls/hr IV .Q16H8M ONE Stop: 02/01/19 02:07 Insulin Glargine (Lantus) 15 unit SC HS [facility] Insulin Human Regular (Novolin R) 0 unit SC ACHS [facility] Last Admin: 01/30/19 08:31 Dose: 12 unit Labetalol HCl (Trandate) 10 mg IVP Q6 [facility] Lactulose (Enulose) 20 gm PO HS PRN PRN Reason: constipation Lamotrigine (Lamictal) 25 mg PO BID [facility] Last Admin: 01/29/19 17:49 Dose: Not Given Lorazepam (Ativan) 1 mg IVP Q6H PRN PRN Reason: Anxiety Lorazepam (Ativan) 1 mg IVP HS [facility] Losartan Potassium (Cozaar) 100 mg PO DAILY [facility] Last Admin: 01/29/19 10:32 Dose: Not Given Metoprolol Succinate (Toprol Xl) 50 mg PO DAILY [facility] Last Admin: 01/29/19 10:33 Dose: Not Given Ondansetron HCl (Zofran Inj) 4 mg IVP ONCE PRN PRN Reason: Nausea/Vomiting Promethazine HCl/Dextromethorphan (Phenergan Dm Syrup) 5 ml PO Q6H PRN PRN Reason: Coughing Last Admin: 01/24/19 10:23 Dose: 5 ml Rosuvastatin Calcium (Crestor) 5 mg PO HS [facility] Last Admin: 01/29/19 21:12 Dose: Not Given Tramadol HCl (Ultram) 100 mg PO Q6 PRN PRN Reason: Pain, moderate (4-7) Last Admin: 01/24/19 10:22 Dose: 100 mg Tramadol HCl (Ultram) 50 mg PO Q6 PRN PRN Reason: Pain, Mild (1-3) - Labs Labs: 01/30/19 08:42 01/30/19 08:42 PT 12.0 SECONDS (9.7-12.2) 01/19/19 04:23 INR 1.1 01/19/19 04:23 APTT 28 SECONDS (21-34) 01/19/19 04:23 - Constitutional Appears: Non-toxic, No Acute Distress - Extremities Exam Extremities Exam: absent: Calf Tenderness Additional comments: Vascular: DP/PT 1/4, CFT < 3 seconds, TG warm to warm, no edema appreciated Ortho: Unable to assess at this time, no gross deformities appreciated Neuro: Gross sensation intact. Unable to assess for protective sensation Derm: Deep tissue injury appreciated to R heel, stage 1 secondary to pressure. No open lesions, no drainage, no cellulitis, no clinical signs of infection. - Neurological Exam Neurological Exam: Awake - Psychiatric Exam Psychiatric exam: Normal Affect, Normal Mood Assessment and Plan - Assessment and Plan (Free Text) Assessment: 89F with PMHx of DMII, HTN, with deept tissue injury appreciated to R heel, stage 1 secondary to pressure. Plan: Patient seen and evaluated Discussed in detail with Dr. Truong Afebrile, absent leukocytosis Cleansed heel with saline and pat dry, Optifoam applied to right heel Patient to wear multipodus boots at all times while in bed No podiatric intervention at this time, stable Will continue to follow
[2019-01-30] MEDS ORDERED: Lactated Ringer's 500 ML IV ONE ×2 (11:40)
[2019-01-30] MEDS ORDERED: Propofol 10 mg/ml Inj (20 ML) ONE (11:55)
[2019-01-30] MEDS ORDERED: Lidocaine 4% (Laryng-O-Jet) Kit MM ONE (11:59)
[2019-01-30] MEDS ORDERED: Labetalol 5mg/ml (4ml) IVP SCH ×2 (12:00→13:30)
[2019-01-30] MEDS ORDERED: Labetalol 25mg/5ml Syringe ONE (12:28)
[2019-01-30] MEDS ORDERED: Labetalol 5mg/ml (4ml) IVP ONE (12:45)
[2019-01-30] MEDS: Metoprolol Succinate 50 mg XL Tab PO SCH (12:50)
[2019-01-30] MEDS: PPN #9 IV ONE (13:59)
--- NOTE | 2019-01-30 14:01 | CP.PCM.PN ---
Subjective - Date & Time of Evaluation Date of Evaluation: 01/30/19 Time of Evaluation: 13:58 - Subjective Subjective: RENAL Follow up Note s: seen and examined she is unable to provide hx or ROS pe: VS as below gen: nad sclera: anicteric op: clear neck: supplec CV: +S1+s2 no rub lungs cta b/l abd: soft ntnd no organomegaly ext: no edema neuro: less agitated. psych: agitated skin no rash labs and imaging reviewed IMP: ARF resolving/ Hypertension uncontrolled with urgency / CVA/ Agitation / Anemia/ DM, hip fracture, severe pulmonary HTN plan: GRISELDA resolved renal function at baseline continue with vasotec iv and clonidine transdermal to 0.3. will add IV Labetalol scheduled doses once able to take oral meds, d/c iv anithypertensives so far, cr stable on iv aashish-i agitation per primary team - tx of agitation may assist w/ htn as well DM per primary team CVA per neuro had d/w daughter Objective - Vital Signs/Intake and Output Vital Signs (last 24 hours): Temp Pulse Resp BP Pulse Ox 99.3 F 76 21 159/66 H 100 01/30/19 12:20 01/30/19 12:50 01/30/19 12:50 01/30/19 12:50 01/30/19 12:50 Intake and Output: 01/30/19 01/30/19 06:59 18:59 Output Total 500 Balance -500 - Medications Medications: Current Medications Albuterol/Ipratropium (Duoneb 3 Mg/0.5 Mg (3 Ml) Ud) 3 ml INH RQ6 [facility] Last Admin: 01/30/19 08:54 Dose: 3 ml Amlodipine Besylate (Norvasc) 2.5 mg PO DAILY [facility] Last Admin: 01/29/19 10:33 Dose: Not Given Clonidine HCl (Catapres-Tts3 0.3 Mg/24 Hr) 1 patch TD Q7D@1000 [facility] Last Admin: 01/29/19 10:45 Dose: 1 patch Enalaprilat (Vasotec) 2.5 mg IV Q6 [facility] Last Admin: 01/30/19 06:26 Dose: 2.5 mg Gabapentin (Neurontin) 300 mg PO HS [facility] Last Admin: 01/29/19 21:12 Dose: Not Given Heparin Sodium (Porcine) (Heparin) 5,000 units SC Q12 [facility] Last Admin: 01/30/19 12:49 Dose: Not Given Hydrochlorothiazide (Hydrodiuril) 25 mg PO DAILY [facility] Last Admin: 01/30/19 12:49 Dose: Not Given Amino Acids (Clinimix 4.25/5 % "E" (1000 Ml)) 1,000 mls @ 62 mls/hr IV .[id number] ONE Stop: 01/31/19 02:27 Fat Emulsion Intravenous (Intralipid 20%) 500 mls @ 23 mls/hr IV ONCE ONE Stop: 01/31/19 15:44 Multivitamins/Vitamin C 10 ml/Chromium/Copper/Manganese/Zinc 1 ml/ Amino Acids 1,011 mls @ 62 mls/hr IV .[id number] ONE Stop: 01/31/19 10:18 Amino Acids (Clinimix 4.25/5 % "E" (1000 Ml)) 1,000 mls @ 62 mls/hr IV .Q16H8M ONE Stop: 02/01/19 02:07 Insulin Glargine (Lantus) 15 unit SC HS [facility] Insulin Human Regular (Novolin R) 0 unit SC ACHS [facility] Last Admin: 01/30/19 08:31 Dose: 12 unit Labetalol HCl (Trandate) 10 mg IVP Q6 [facility] Lactulose (Enulose) 20 gm PO HS PRN PRN Reason: constipation Lamotrigine (Lamictal) 25 mg PO BID [facility] Last Admin: 01/30/19 12:49 Dose: Not Given Lorazepam (Ativan) 1 mg IVP Q6H PRN PRN Reason: Anxiety Lorazepam (Ativan) 1 mg IVP HS [facility] Losartan Potassium (Cozaar) 100 mg PO DAILY [facility] Last Admin: 01/30/19 12:49 Dose: Not Given Metoprolol Succinate (Toprol Xl) 50 mg PO DAILY [facility] Last Admin: 01/30/19 12:50 Dose: Not Given Ondansetron HCl (Zofran Inj) 4 mg IVP ONCE PRN PRN Reason: Nausea/Vomiting Promethazine HCl/Dextromethorphan (Phenergan Dm Syrup) 5 ml PO Q6H PRN PRN Reason: Coughing Last Admin: 01/24/19 10:23 Dose: 5 ml Rosuvastatin Calcium (Crestor) 5 mg PO HS [facility] Last Admin: 01/29/19 21:12 Dose: Not Given Tramadol HCl (Ultram) 100 mg PO Q6 PRN PRN Reason: Pain, moderate (4-7) Last Admin: 01/24/19 10:22 Dose: 100 mg Tramadol HCl (Ultram) 50 mg PO Q6 PRN PRN Reason: Pain, Mild (1-3) - Labs Labs: 01/30/19 08:42 01/30/19 08:42 PT 12.0 SECONDS (9.7-12.2) 01/19/19 04:23 INR 1.1 01/19/19 04:23 APTT 28 SECONDS (21-34) 01/19/19 04:23
[2019-01-30 14:22] LABS: INR 1.1; PROTHROMBIN TIME 12.5 SECONDS (9.7-12.2)
--- NOTE | 2019-01-30 15:18 | CP.PCM.PN ---
Subjective - Date & Time of Evaluation Date of Evaluation: 01/30/19 Time of Evaluation: 14:20 - Subjective Subjective: Neuro Follow-Up Note: Mrs. Roach was evaluated this afternoon in bed. Daughter present at bedside. Pt had endoscopy done this morning. Noted to be sleepy but is easily arousable to voice. She is able to follow commands. Pt states that she feels "bad" today, has pain "all over" though denies dizziness, visual changes, chest pain, palpitations, sob, cough, abd pain, n/v/d, paresthesias. Per daughter, the pt is having a difficult time tolerating PT, unknown whether it is due to pain or fear of falling. She is also still having dysphagia; for PEG placement on Wednesday. She is POD # 7 closed internal reduction of a femur fracture. Objective - Vital Signs/Intake and Output Vital Signs (last 24 hours): Temp Pulse Resp BP Pulse Ox 99.3 F 76 21 183/79 H 100 01/30/19 12:20 01/30/19 12:50 01/30/19 12:50 01/30/19 13:58 01/30/19 12:50 Intake and Output: 01/30/19 01/30/19 06:59 18:59 Output Total 500 Balance -500 - Medications Medications: Current Medications Albuterol/Ipratropium (Duoneb 3 Mg/0.5 Mg (3 Ml) Ud) 3 ml INH RQ6 [facility] Last Admin: 01/30/19 15:04 Dose: 3 ml Amlodipine Besylate (Norvasc) 2.5 mg PO DAILY [facility] Last Admin: 01/29/19 10:33 Dose: Not Given Clonidine HCl (Catapres-Tts3 0.3 Mg/24 Hr) 1 patch TD Q7D@1000 [facility] Last Admin: 01/29/19 10:45 Dose: 1 patch Enalaprilat (Vasotec) 2.5 mg IV Q6 [facility] Last Admin: 01/30/19 13:58 Dose: 2.5 mg Gabapentin (Neurontin) 300 mg PO HS [facility] Last Admin: 01/29/19 21:12 Dose: Not Given Heparin Sodium (Porcine) (Heparin) 5,000 units SC Q12 [facility] Last Admin: 01/30/19 12:49 Dose: Not Given Hydrochlorothiazide (Hydrodiuril) 25 mg PO DAILY [facility] Last Admin: 01/30/19 12:49 Dose: Not Given Amino Acids (Clinimix 4.25/5 % "E" (1000 Ml)) 1,000 mls @ 62 mls/hr IV .[id number] ONE Stop: 01/31/19 02:27 Fat Emulsion Intravenous (Intralipid 20%) 500 mls @ 23 mls/hr IV ONCE ONE Stop: 01/31/19 15:44 Multivitamins/Vitamin C 10 ml/Chromium/Copper/Manganese/Zinc 1 ml/ Amino Acids 1,011 mls @ 62 mls/hr IV .[id number] ONE Stop: 01/31/19 10:18 Amino Acids (Clinimix 4.25/5 % "E" (1000 Ml)) 1,000 mls @ 62 mls/hr IV .Q16H8M ONE Stop: 02/01/19 02:07 Insulin Glargine (Lantus) 15 unit SC [facility] Insulin Human Regular (Novolin R) 0 unit SC [facility] Last Admin: 01/30/19 08:31 Dose: 12 unit Labetalol HCl (Trandate) 10 mg IVP Q6 [facility] Last Admin: 01/30/19 13:58 Dose: Not Given Lactulose (Enulose) 20 gm PO HS PRN PRN Reason: constipation Lamotrigine (Lamictal) 25 mg PO BID [facility] Last Admin: 01/30/19 12:49 Dose: Not Given Lorazepam (Ativan) 1 mg IVP Q6H PRN PRN Reason: Anxiety Lorazepam (Ativan) 1 mg IVP [facility] Losartan Potassium (Cozaar) 100 mg PO DAILY [facility] Last Admin: 01/30/19 12:49 Dose: Not Given Metoprolol Succinate (Toprol Xl) 50 mg PO DAILY [facility] Last Admin: 01/30/19 12:50 Dose: Not Given Ondansetron HCl (Zofran Inj) 4 mg IVP ONCE PRN PRN Reason: Nausea/Vomiting Promethazine HCl/Dextromethorphan (Phenergan Dm Syrup) 5 ml PO Q6H PRN PRN Reason: Coughing Last Admin: 01/24/19 10:23 Dose: 5 ml Rosuvastatin Calcium (Crestor) 5 mg PO [facility] Last Admin: 01/29/19 21:12 Dose: Not Given Tramadol HCl (Ultram) 100 mg PO Q6 PRN PRN Reason: Pain, moderate (4-7) Last Admin: 01/24/19 10:22 Dose: 100 mg Tramadol HCl (Ultram) 50 mg PO Q6 PRN PRN Reason: Pain, Mild (1-3) - Labs Labs: 01/30/19 08:42 01/30/19 08:42 PT 12.5 SECONDS (9.7-12.2) H 01/30/19 14:04 INR 1.1 01/30/19 14:04 APTT 25 SECONDS (21-34) 01/30/19 14:04 - Constitutional Appears: Other (sleepy post endoscopy; easily arousable to voice) - Head Exam Head Exam: ATRAUMATIC, NORMAL INSPECTION, NORMOCEPHALIC - Eye Exam Eye Exam: EOMI, Normal appearance, PERRL Pupil Exam: NORMAL ACCOMODATION, PERRL - ENT Exam ENT Exam: Mucous Membranes Moist - Neck Exam Neck Exam: Full ROM, Normal Inspection - Respiratory Exam Respiratory Exam: NORMAL BREATHING PATTERN - Extremities Exam Extremities Exam: absent: Calf Tenderness, Full ROM, Tenderness Additional comments: Generalized weakness noted more today 2/2 deconditioning. She is able to move LLE and BUE Still had limited ROM to RLE 2/2 post-op pain, does move foot and toes. - Neurological Exam Neurological Exam: Altered, Awake Neuro motor strength exam: Left Upper Extremity: 4 (senior director 4/5), Right Upper Extremity: 4 (senior director 4/5), Left Lower Extremity: 3 (plantar flexion 3/5), Right Lower Extremity: 2/1 (plantar flexion 2/5) Additional comments: Pt today noted to be sleepier than last week, though she had endoscopy this morning. Easily arousable to voice. Remains verbal today with some slurring still noted but she is sleepy so unclear if this is present today 2/2 the anesthesia given today. She is able to follow commands. No facial asymmetry. Generalized weakness noted more today 2/2 deconditioning. She is able to move LLE and BUE Still had limited ROM to RLE 2/2 post-op pain, does move foot and toes. No tremors or abnormal movements noted No sensory deficits. - Psychiatric Exam Additional comments: sleepy today post- endoscopy able to follow commands and is easily arousable - Skin Skin Exam: Normal Color Assessment and Plan (1) Dysarthria Assessment & Plan: Imaging reviewed: -CTA Head and Neck (01/25/19): 1. No evidence of endoluminal thrombus,occlusion or definite significant stenosis in the intracranial arteries. 2. No evidence of hemodynamically significant stenosis in the internal carotid arteries. 3. Patent bilateral vertebral arteries. -CT Head (01/24/19): No acute intracranial abnormality. If there is a persistent focal neurologic deficit and an ongoing clinical concern for acute infarction, an MRI of the brain without intravenous contrast would be a more sensitive modality for evaluation of hyperacute/acute ischemic infarction. Moderate chronic microangiopathic changes and mild age-related global parenchymal volume loss. 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 -CT head (01/13/19): No evidence of acute intracranial hemorrhage or acute territorial infarct. Volume loss and extensive white matter changes suggestive of chronic microvascular ischemic disease. -Pt can have an outpatient open MRI as soon as she is d/c. -Ortho cleared pt to restart ASA 81 mg PO Daily. However per my discussion with Dr. Morejon today, pt should not be taking ASA 2/2 large GI ulcer. For now we will continue to hold off on ASA until after her PEG is placed this Wednesday; we will f/u with GI then to discuss when we can safely start ASA or other options. -Continue Statin; DVT ppx. -Continue BP control. -Continue PT and ST. -Continue IS. -Notify neuro team of any acute changes in pt's condition. Discussed plan with the pt's family and they are in agreement with the above. Adela Bravo, MARGARET, ADVERTISING OPERATIONS COORDINATOR Discussed with Dr. Rosenberg Status: Acute
--- NOTE | 2019-01-30 17:03 | PN ---
DATE: 01/30/2019 SUBJECTIVE: The patient was seen. The patient seems to have inversion of sleep-wake cycle. The patient is still not sleeping well at night and still has periods of confusion and restlessness. The patient is still n.p.o. and is going for endoscopy today. The patient is only on Ativan 1 mg IV every 6 hours p.r.n, we will try to give 1 mg IV at bedtime, so the patient will be able to sleep at night. The patient is also on TPN. REVIEW OF SYSTEMS: The patient is sleepy but arousable, family members at the bedside. Still confused. The patient is sleeping mostly in the morning and awake at night. Distressing the family. PHYSICAL EXAMINATION: VITAL SIGNS: Temperature 97.1, pulse 87, blood pressure 186/80, respirations 20. Oxygen saturation 96%. SKIN: No diaphoresis. HEENT: No headache. No dizziness. NECK: Supple. RESPIRATORY: No dyspnea. CARDIOVASCULAR; No chest pain. GASTROINTESTINAL: The patient is n.p.o., has problem swallowing. EXTREMITIES: Moving extremities, NEUROLOGICAL: Alert but confused. GENITOURINARY: Did not have any dysuria. MENTAL STATUS EXAMINATION: The patient is an elderly female with history of dementia, oriented x1. Speech is low. Speaks limited Bruneian. Affective is reactive. Mood dysphoric. Thought process confused. Thought content, no overt psychosis. No suicidal or homicidal ideation. Attention and memory seemed to be limited. Insight and judgment limited. Impulse control is guarded at this time. IMPRESSION: Senile onset dementia with behavioral problem as well as delirium. PLAN AND RECOMMENDATIONS: The patient is seen and meds reviewed. The patient is for EGD today, to be done by Dr. Morejon and also we will change her medication. We will start with Ativan 1 mg IV at bedtime and continue with the p.r.n. as ordered. Luis E Thorne MD
[2019-01-30] MEDS ORDERED: Fat Emulsion 20% IV 500 ML IV ONE (18:00)
[2019-01-30] MEDS ORDERED: Enalaprilat 2.5 MG/2 ML IV SCH (18:00)
[2019-01-30] MEDS ORDERED: PPN #11 IV ONE (18:00)
[2019-01-30] MEDS: (Lantus) Insulin Glargine, Recombinant SC SCH (21:51)
[2019-01-30] MEDS: Labetalol 5mg/ml (4ml) IVP SCH (21:56)
--- NOTE | 2019-01-30 23:38 | CP.PCM.PN ---
Subjective - Date & Time of Evaluation Date of Evaluation: 01/30/19 Time of Evaluation: 08:30 - Subjective Subjective: Patient seen and evaluated No cardiac events noted BP managed by renal Objective - Vital Signs/Intake and Output Vital Signs (last 24 hours): Temp Pulse Resp BP Pulse Ox 97.8 F 76 20 165/73 H 98 01/30/19 15:54 01/30/19 15:54 01/30/19 15:54 01/30/19 21:20 01/30/19 15:54 - Medications Medications: Current Medications Acetaminophen (Tylenol 650 Mg Supp) 650 mg [place] Q6 PRN PRN Reason: Pain, moderate (4-7) Albuterol/Ipratropium (Duoneb 3 Mg/0.5 Mg (3 Ml) Ud) 3 ml INH RQ6 [facility] Last Admin: 01/30/19 20:31 Dose: 3 ml Amlodipine Besylate (Norvasc) 2.5 mg PO DAILY [facility] Last Admin: 01/30/19 10:00 Dose: Not Given Clonidine HCl (Catapres-Tts3 0.3 Mg/24 Hr) 1 patch TD Q7D@1000 [facility] Last Admin: 01/29/19 10:45 Dose: 1 patch Gabapentin (Neurontin) 300 mg PO HS [facility] Last Admin: 01/29/19 21:12 Dose: Not Given Heparin Sodium (Porcine) (Heparin) 5,000 units SC Q12 [facility] Last Admin: 01/30/19 21:39 Dose: 5,000 units Hydrochlorothiazide (Hydrodiuril) 25 mg PO DAILY [facility] Last Admin: 01/30/19 12:49 Dose: Not Given Amino Acids (Clinimix 4.25/5 % "E" (1000 Ml)) 1,000 mls @ 62 mls/hr IV .[id number] ONE Stop: 01/31/19 02:27 Last Admin: 01/30/19 10:00 Dose: Not Given Fat Emulsion Intravenous (Intralipid 20%) 500 mls @ 23 mls/hr IV ONCE ONE Stop: 01/31/19 15:44 Multivitamins/Vitamin C 10 ml/Chromium/Copper/Manganese/Zinc 1 ml/ Amino Acids 1,011 mls @ 62 mls/hr IV .[id number] ONE Stop: 01/31/19 10:18 Amino Acids (Clinimix 4.25/5 % "E" (1000 Ml)) 1,000 mls @ 62 mls/hr IV .[id number] ONE Stop: 02/01/19 02:07 Enalaprilat 2.5 mg/ Sodium (Chloride) 52 mls @ 200 mls/hr IV Q6 [facility] Last Admin: 01/30/19 21:20 Dose: 200 mls/hr Insulin Glargine (Lantus) 15 unit SC HS [facility] Last Admin: 01/30/19 21:51 Dose: 15 units Insulin Human Regular (Novolin R) 0 unit SC ACHS [facility] Last Admin: 01/30/19 21:51 Dose: 9 unit Labetalol HCl (Trandate) 10 mg IVP Q6H [facility] Last Admin: 01/30/19 21:56 Dose: 10 mg Lactulose (Enulose) 20 gm PO HS PRN PRN Reason: constipation Lamotrigine (Lamictal) 25 mg PO BID [facility] Last Admin: 01/30/19 12:49 Dose: Not Given Lorazepam (Ativan) 1 mg IVP Q6H PRN PRN Reason: Anxiety Lorazepam (Ativan) 1 mg IVP [facility] Last Admin: 01/30/19 21:40 Dose: 1 mg Losartan Potassium (Cozaar) 100 mg PO DAILY [facility] Last Admin: 01/30/19 12:49 Dose: Not Given Metoprolol Succinate (Toprol Xl) 50 mg PO DAILY [facility] Last Admin: 01/30/19 12:50 Dose: Not Given Ondansetron HCl (Zofran Inj) 4 mg IVP ONCE PRN PRN Reason: Nausea/Vomiting Promethazine HCl/Dextromethorphan (Phenergan Dm Syrup) 5 ml PO Q6H PRN PRN Reason: Coughing Last Admin: 01/24/19 10:23 Dose: 5 ml Rosuvastatin Calcium (Crestor) 5 mg PO HS [facility] Last Admin: 01/29/19 21:12 Dose: Not Given Tramadol HCl (Ultram) 100 mg PO Q6 PRN PRN Reason: Pain, moderate (4-7) Last Admin: 01/24/19 10:22 Dose: 100 mg Tramadol HCl (Ultram) 50 mg PO Q6 PRN PRN Reason: Pain, Mild (1-3) - Labs Labs: 01/30/19 08:42 01/30/19 08:42 PT 12.5 SECONDS (9.7-12.2) H 01/30/19 14:04 INR 1.1 01/30/19 14:04 APTT 25 SECONDS (21-34) 01/30/19 14:04
[2019-01-31] MEDS: Albuterol-Ipratrop 3 mg / 0.5 (3 ml) UD INH SCH ×4 (01:21→20:19)
[2019-01-31] MEDS: Labetalol 5mg/ml (4ml) IVP SCH ×6 (04:07→18:16)
--- NOTE | 2019-01-31 07:58 | CP.PCM.PN ---
Subjective - Date & Time of Evaluation Date of Evaluation: 01/31/19 Time of Evaluation: 07:57 - Subjective Subjective: Patient seen and examined at bedside. Family at bedside. Patient poor historian. Pain is well controlled. Placement delayed due to poor PO intake. No acute events overnight. No other complaints. Objective - Vital Signs/Intake and Output Vital Signs (last 24 hours): Temp Pulse Resp BP Pulse Ox 98.7 F 80 20 160/68 H 97 01/30/19 23:25 01/31/19 04:00 01/30/19 23:25 01/31/19 06:22 01/30/19 23:25 Intake and Output: 01/31/19 01/31/19 06:59 18:59 Output Total 400 Balance -400 - Medications Medications: Current Medications Acetaminophen (Tylenol 650 Mg Supp) 650 mg [place] Q6 PRN PRN Reason: Pain, moderate (4-7) Acetaminophen (Tylenol 325 Mg Supp) 325 mg [place] Q4 PRN PRN Reason: Pain, moderate (4-7) Albuterol/Ipratropium (Duoneb 3 Mg/0.5 Mg (3 Ml) Ud) 3 ml INH RQ6 [facility] Last Admin: 01/31/19 01:21 Dose: Not Given Amlodipine Besylate (Norvasc) 2.5 mg PO DAILY [facility] Last Admin: 01/30/19 10:00 Dose: Not Given Clonidine HCl (Catapres-Tts3 0.3 Mg/24 Hr) 1 patch TD Q7D@1000 [facility] Last Admin: 01/29/19 10:45 Dose: 1 patch Gabapentin (Neurontin) 300 mg PO HS [facility] Last Admin: 01/30/19 23:45 Dose: Not Given Heparin Sodium (Porcine) (Heparin) 5,000 units SC Q12 [facility] Last Admin: 01/30/19 21:39 Dose: 5,000 units Hydrochlorothiazide (Hydrodiuril) 25 mg PO DAILY [facility] Last Admin: 01/30/19 12:49 Dose: Not Given Fat Emulsion Intravenous (Intralipid 20%) 500 mls @ 23 mls/hr IV ONCE ONE Stop: 01/31/19 15:44 Last Admin: 01/30/19 23:43 Dose: 23 mls/hr Multivitamins/Vitamin C 10 ml/Chromium/Copper/Manganese/Zinc 1 ml/ Amino Acids 1,011 mls @ 62 mls/hr IV .[id number] ONE Stop: 01/31/19 10:18 Last Admin: 01/30/19 22:40 Dose: 62 mls/hr Parenteral Electrolytes 20 ml/ (Amino Acids) 1,020 mls @ 62 mls/hr IV .[id number] ONE Stop: 02/01/19 02:27 Enalaprilat 2.5 mg/ Sodium (Chloride) 52 mls @ 200 mls/hr IV Q6 [facility] Last Admin: 01/31/19 06:22 Dose: 200 mls/hr Insulin Glargine (Lantus) 15 unit SC HS [facility] Last Admin: 01/30/19 21:51 Dose: 15 units Insulin Human Regular (Novolin R) 0 unit SC [facility] Last Admin: 01/30/19 21:51 Dose: 9 unit Labetalol HCl (Trandate) 10 mg IVP Q6H [facility] Last Admin: 01/31/19 04:11 Dose: 10 mg Lactulose (Enulose) 20 gm PO HS PRN PRN Reason: constipation Lamotrigine (Lamictal) 25 mg PO BID [facility] Last Admin: 01/30/19 23:44 Dose: Not Given Lorazepam (Ativan) 1 mg IVP Q6H PRN PRN Reason: Anxiety Lorazepam (Ativan) 1 mg IVP [facility] Last Admin: 01/30/19 21:40 Dose: 1 mg Losartan Potassium (Cozaar) 100 mg PO DAILY [facility] Last Admin: 01/30/19 12:49 Dose: Not Given Metoprolol Succinate (Toprol Xl) 50 mg PO DAILY [facility] Last Admin: 01/30/19 12:50 Dose: Not Given Ondansetron HCl (Zofran Inj) 4 mg IVP ONCE PRN PRN Reason: Nausea/Vomiting Pantoprazole Sodium (Protonix Inj) 40 mg IVP Q12H [facility] Promethazine HCl/Dextromethorphan (Phenergan Dm Syrup) 5 ml PO Q6H PRN PRN Reason: Coughing Last Admin: 01/24/19 10:23 Dose: 5 ml Rosuvastatin Calcium (Crestor) 5 mg PO [facility] Last Admin: 01/30/19 23:43 Dose: Not Given - Labs Labs: 01/30/19 08:42 01/30/19 08:42 PT 12.5 SECONDS (9.7-12.2) H 01/30/19 14:04 INR 1.1 01/30/19 14:04 APTT 25 SECONDS (21-34) 01/30/19 14:04 - Extremities Exam Additional comments: R hip: Dressings CDI incisions x 3 CDI with adri moderate thigh swelling sensation intact SP/DP/TN motor intact EHL/FHL/TA/G pedal pulse dopplerable calves soft NT b/l Assessment and Plan (1) Fracture, intertrochanteric, right femur Assessment & Plan: POD#8 s/p R hip closed reduction internal fixation with long IM nail -PT/OT PWB RLE -DVT ppx -orthopedically stable for d/c to [facility] -above d/w Dr. Kendall in agreement Status: Acute
[2019-01-31 08:06] LABS: HEMOGLOBIN 9.1 g/dL (11.0-16.0); MEAN CELL VOLUME 94.4 fL (81.0-99.0); MEAN CORPUSCULAR HEMOGLOBIN 32.4 pg (27.0-31.0); MEAN CORPUSCULAR HGB CONC 34.3 g/dL (33.0-37.0); RBC 2.8 Mil/uL (3.80-5.20); RED CELL DISTRIBUTION WIDTH 15.3 % (11.5-14.5); WHITE BLOOD COUNT 8.9 K/uL (4.8-10.8)
[2019-01-31 08:16] LABS: ALT/SGPT 7 U/L (9-52); AST/SGOT 34 U/L (14-36); BLOOD UREA NITROGEN 38 mg/dL (7-17); CALCIUM 8.6 mg/dl (8.6-10.4); GFR NON-AFRICAN AMERICAN 59
[2019-01-31] MEDS ORDERED: PPN #12 IV ONE (10:00)
[2019-01-31] MEDS: (Novolin R) Insulin Human Regular 100 units/ml vial SC SCH ×4 (10:13→22:10)
--- NOTE | 2019-01-31 11:14 | CP.PCM.PN ---
Subjective - Date & Time of Evaluation Date of Evaluation: 01/31/19 Time of Evaluation: 11:13 - Subjective Subjective: RENAL Follow up Note s: seen and examined she is unable to provide hx or ROS pe: VS as below gen: nad sclera: anicteric op: clear neck: supplec CV: +S1+s2 no rub lungs cta b/l abd: soft ntnd no organomegaly ext: no edema neuro: less agitated. awake alert psych: agitated often skin no rash labs and imaging reviewed IMP: ARF resolving/ Hypertension uncontrolled with urgency / CVA/ Agitation / Anemia/ DM, hip fracture, severe pulmonary HTN, PUD plan: GRISELDA resolved renal function at baseline continue with vasotec iv at increased dose 5 mg q 6 hr and clonidine transdermal to 0.3. Increased IV Labetalol scheduled doses 20 mg q 6 once able to take oral meds, d/c iv anithypertensives so far, cr stable on iv aashish-i agitation per primary team - tx of agitation may assist w/ htn as well DM per primary team CVA per neuro had d/w daughter Objective - Vital Signs/Intake and Output Vital Signs (last 24 hours): Temp Pulse Resp BP Pulse Ox 97.7 F 81 20 204/84 H 100 01/31/19 08:50 01/31/19 08:50 01/31/19 08:50 01/31/19 08:50 01/31/19 08:50 Intake and Output: 01/31/19 01/31/19 06:59 18:59 Output Total 400 Balance -400 - Medications Medications: Current Medications Acetaminophen (Tylenol 650 Mg Supp) 650 mg [place] Q6 PRN PRN Reason: Pain, moderate (4-7) Acetaminophen (Tylenol 325 Mg Supp) 325 mg [place] Q4 PRN PRN Reason: Pain, moderate (4-7) Albuterol/Ipratropium (Duoneb 3 Mg/0.5 Mg (3 Ml) Ud) 3 ml INH RQ6 [facility] Last Admin: 01/31/19 08:36 Dose: 3 ml Amlodipine Besylate (Norvasc) 2.5 mg PO DAILY [facility] Last Admin: 01/30/19 10:00 Dose: Not Given Clonidine HCl (Catapres-Tts3 0.3 Mg/24 Hr) 1 patch TD Q7D@1000 [facility] Last Admin: 01/29/19 10:45 Dose: 1 patch Gabapentin (Neurontin) 300 mg PO HS [facility] Last Admin: 01/30/19 23:45 Dose: Not Given Heparin Sodium (Porcine) (Heparin) 5,000 units SC Q12 [facility] Last Admin: 01/31/19 10:14 Dose: 5,000 units Hydrochlorothiazide (Hydrodiuril) 25 mg PO DAILY [facility] Last Admin: 01/30/19 12:49 Dose: Not Given Fat Emulsion Intravenous (Intralipid 20%) 500 mls @ 23 mls/hr IV ONCE ONE Stop: 01/31/19 15:44 Last Admin: 01/30/19 23:43 Dose: 23 mls/hr Parenteral Electrolytes 20 ml/ (Amino Acids) 1,020 mls @ 62 mls/hr IV .[id number] ONE Stop: 02/01/19 02:27 Multivitamins/Vitamin C 10 ml/Chromium/Copper/Manganese/Zinc 1 ml/ Amino Acids 1,011 mls @ 62 mls/hr IV .[id number] ONE Stop: 02/01/19 10:18 Amino Acids (Clinimix 4.25/5 % "E" (1000 Ml)) 1,000 mls @ 62 mls/hr IV .Q16H8M [facility] Stop: 02/01/19 17:59 Enalaprilat 5 mg/ Sodium (Chloride) 54 mls @ 200 mls/hr IV Q6 [facility] Insulin Glargine (Lantus) 15 unit SC HS [facility] Last Admin: 01/30/19 21:51 Dose: 15 units Insulin Human Regular (Novolin R) 0 unit SC ACHS [facility] Last Admin: 01/31/19 10:13 Dose: 6 unit Labetalol HCl (Trandate) 20 mg IVP Q6H [facility] Lactulose (Enulose) 20 gm PO HS PRN PRN Reason: constipation Lamotrigine (Lamictal) 25 mg PO BID [facility] Last Admin: 01/30/19 23:44 Dose: Not Given Lorazepam (Ativan) 1 mg IVP Q6H PRN PRN Reason: Anxiety Lorazepam (Ativan) 1 mg IVP HS [facility] Last Admin: 01/30/19 21:40 Dose: 1 mg Losartan Potassium (Cozaar) 100 mg PO DAILY [facility] Last Admin: 01/30/19 12:49 Dose: Not Given Metoprolol Succinate (Toprol Xl) 50 mg PO DAILY [facility] Last Admin: 01/30/19 12:50 Dose: Not Given Ondansetron HCl (Zofran Inj) 4 mg IVP ONCE PRN PRN Reason: Nausea/Vomiting Pantoprazole Sodium (Protonix Inj) 40 mg IVP Q12H [facility] Last Admin: 01/31/19 10:13 Dose: 40 mg Promethazine HCl/Dextromethorphan (Phenergan Dm Syrup) 5 ml PO Q6H PRN PRN Reason: Coughing Last Admin: 01/24/19 10:23 Dose: 5 ml Rosuvastatin Calcium (Crestor) 5 mg PO HS [facility] Last Admin: 01/30/19 23:43 Dose: Not Given - Labs Labs: 01/31/19 07:43 01/31/19 07:43 PT 12.5 SECONDS (9.7-12.2) H 01/30/19 14:04 INR 1.1 01/30/19 14:04 APTT 25 SECONDS (21-34) 01/30/19 14:04
[2019-01-31] MEDS: Metoprolol Succinate 50 mg XL Tab PO SCH (11:22)
--- NOTE | 2019-01-31 11:34 | PN ---
DATE: 01/31/2019 LOCATION: 667, bed A. SUBJECTIVE: This is an 89-year-old female post upper endoscopy with biopsy, seen and examined in rounds with recurrent episodes again of dysphagia with poor oral intake, . No reported chest pain, palpitation or reported active GI bleeding. The most recent lab results showed low hemoglobin of 9, hematocrit 27, normal white blood cells. PT 12.5 with increased blood glucose level. Today's lab result is still pending. The patient still has low albumin of 3.1. PHYSICAL EXAMINATION: GENERAL: An 89-year-old female, awake, alert. VITAL SIGNS: Afebrile with blood pressure of 154/64, heart rate 82, respiratory rate 20 to 22. HEENT: Pale dry oral mucous membrane, nonicteric sclerae. LUNGS: Few scattered crepitation. Decreased air entry at bases. HEART: Positive S1 and S2. ABDOMEN: Soft with mild generalized tenderness. No mass or organomegaly. EXTREMITIES: Without significant clubbing, cyanosis, or edema. NEUROLOGIC: No reported new neurological deficits, sensory or motor. IMPRESSION: 1. Abnormal esophagogastroduodenoscopy with duodenal ulcer and gastritis. 2. Anemia secondary to above. 3. Dysphagia, malnutrition, hypoalbuminemia, hypoproteinemia. 4. Reported cerebrovascular accident. 5. Known history of hyperlipidemia, poorly controlled hypertension with recent change of mental status. SUGGESTIONS: 1. Continue current management. 2. The patient is scheduled for potential PEG insertion at a.m., discussed with the family at length. We will follow up closely with you. Stephan Dobson MD
--- NOTE | 2019-01-31 11:38 | PN ---
DATE: 01/31/2019 SUBJECTIVE: She is resting in bed. She is more alert. Yesterday, she was asking for pasta food. We will get swallow evaluation come in today, speech therapy. We will get her started her on something. The family absolutely does not want a feeding tube after EGD yesterday showing gastritis, hiatal hernia, and a small ulcer. MEDICATIONS: She is on lorazepam, clonidine, TPN with lipids, Cozaar, Crestor, Enulose, heparin, HydroDIURIL, Lamictal, Lantus, Neurontin, Norvasc, Phenergan, Toprol, Trandate, Tylenol. We are going to stop the Ultram, Vasotec, and Zofran. There is no Protonix ordered from GI. ASSESSMENT AND PLAN: I recommend feeding tub. Family does not want it and no treatment for the ulcer. I will help them with that. We need to get her out of bed, physical therapy, right heel care Podiatry appreciated, and swallow evaluation to get her eating. Family does not want a feeding tube. Continue aggressive treatment and care. She is here for fall, fractured hip. I am waiting for . Saul Peters DO MTDD
--- NOTE | 2019-01-31 12:49 | PN ---
DATE: 01/31/2019 SUBJECTIVE: The patient is seen. The patient according to family, slept last night. The patient has a lot of family watching her. The patient's family is advised to rotate and to have only one family member to watch instead of all of them crowding the patient in the room. The patient is still confused, but more manageable. The patient was given Ativan 1 mg IV at bedtime standing. REVIEW OF SYSTEMS: The patient is sleepy, but arousable, still confused. Seen in her room with family members around her. PHYSICAL EXAMINATION: VITAL SIGNS: Temperature 97.7; pulse 81; blood pressure seems to be elevated today 204/84; respirations 20; oxygen sat is 100%. SKIN: No diaphoresis. HEENT: No headache. No dizziness. NECK: Supple. RESPIRATORY: No dyspnea. CARDIOVASCULAR: No chest pain. GASTROINTESTINAL: No nausea. No vomiting. EXTREMITIES: Moving extremities, not complaining of pain. MUSCULOSKELETAL: Feels weak. NEUROLOGIC: Alert with periods of confusion. MENTAL STATUS EXAMINATION: An elderly female who looks stated age. Still confused, drowsy. Speech is slow. Affect is restricted. Mood dysphoric. Thought process confused. Thought content, no overt psychosis. No suicidal or homicidal ideation. Attention and memory seems to be limited. Insight and judgment limited. Impulse control seems to be improving at this time. IMPRESSION: Senile onset dementia with behavioral problem as well as delirium. PLAN AND RECOMMENDATIONS: The patient is seen and meds reviewed. Continue present management. Continue present psych meds as ordered. Luis E Thorne MD
--- NOTE | 2019-01-31 15:39 | CP.PCM.PN ---
Subjective - Date & Time of Evaluation Date of Evaluation: 01/31/19 Time of Evaluation: 15:38 - Subjective Subjective: Neuro Follow-Up Note: Mrs. Roach was evaluated this afternoon in bed. Daughter present at bedside. Pt is more awake and alert today. She is able to follow commands and participate in exam. Pt denies any new complaints today aside from some pain to her right hip where she had surgery. Per daughter she may possibly get PEG inse rted tomorrow. Pt denies dizziness, visual changes, chest pain, palpitations, sob, cough, abd pain, n/v/d, paresthesias. She is POD # 8 closed internal reduction of a femur fracture. Objective - Vital Signs/Intake and Output Vital Signs (last 24 hours): Temp Pulse Resp BP Pulse Ox 97.7 F 81 20 178/69 H 100 01/31/19 08:50 01/31/19 08:50 01/31/19 08:50 01/31/19 14:18 01/31/19 08:50 Intake and Output: 01/31/19 01/31/19 06:59 18:59 Output Total 400 Balance -400 - Medications Medications: Current Medications Acetaminophen (Tylenol 650 Mg Supp) 650 mg [place] Q6 PRN PRN Reason: Pain, moderate (4-7) Acetaminophen (Tylenol 325 Mg Supp) 325 mg [place] Q4 PRN PRN Reason: Pain, moderate (4-7) Albuterol/Ipratropium (Duoneb 3 Mg/0.5 Mg (3 Ml) Ud) 3 ml INH RQ6 [facility] Last Admin: 01/31/19 13:02 Dose: 3 ml Amlodipine Besylate (Norvasc) 2.5 mg PO DAILY [facility] Last Admin: 01/31/19 11:22 Dose: Not Given Clonidine HCl (Catapres-Tts3 0.3 Mg/24 Hr) 1 patch TD Q7D@1000 [facility] Last Admin: 01/29/19 10:45 Dose: 1 patch Gabapentin (Neurontin) 300 mg PO HS [facility] Last Admin: 01/30/19 23:45 Dose: Not Given Heparin Sodium (Porcine) (Heparin) 5,000 units SC Q12 [facility] Last Admin: 01/31/19 10:14 Dose: 5,000 units Hydrochlorothiazide (Hydrodiuril) 25 mg PO DAILY [facility] Last Admin: 01/31/19 11:22 Dose: Not Given Fat Emulsion Intravenous (Intralipid 20%) 500 mls @ 23 mls/hr IV ONCE ONE Stop: 01/31/19 15:44 Last Admin: 01/30/19 23:43 Dose: 23 mls/hr Parenteral Electrolytes 20 ml/ (Amino Acids) 1,020 mls @ 62 mls/hr IV .[id number] ONE Stop: 02/01/19 02:27 Last Admin: 01/31/19 12:34 Dose: 62 mls/hr Multivitamins/Vitamin C 10 ml/Chromium/Copper/Manganese/Zinc 1 ml/ Amino Acids 1,011 mls @ 62 mls/hr IV .[id number] ONE Stop: 02/01/19 10:18 Amino Acids (Clinimix 4.25/5 % "E" (1000 Ml)) 1,000 mls @ 62 mls/hr IV .[id number] [facility] Stop: 02/01/19 17:59 Enalaprilat 5 mg/ Sodium (Chloride) 54 mls @ 200 mls/hr IV Q6 [facility] Insulin Glargine (Lantus) 15 unit SC HS [facility] Last Admin: 01/30/19 21:51 Dose: 15 units Insulin Human Regular (Novolin R) 0 unit SC ACHS [facility] Last Admin: 01/31/19 12:35 Dose: 12 unit Labetalol HCl (Trandate) 20 mg IVP Q6H [facility] Last Admin: 01/31/19 12:35 Dose: 20 mg Lactulose (Enulose) 20 gm PO HS PRN PRN Reason: constipation Lamotrigine (Lamictal) 25 mg PO BID [facility] Last Admin: 01/31/19 11:22 Dose: Not Given Lorazepam (Ativan) 1 mg IVP Q6H PRN PRN Reason: Anxiety Lorazepam (Ativan) 1 mg IVP HS [facility] Last Admin: 01/30/19 21:40 Dose: 1 mg Losartan Potassium (Cozaar) 100 mg PO DAILY [facility] Last Admin: 01/31/19 11:21 Dose: Not Given Metoprolol Succinate (Toprol Xl) 50 mg PO DAILY [facility] Last Admin: 01/31/19 11:22 Dose: Not Given Ondansetron HCl (Zofran Inj) 4 mg IVP ONCE PRN PRN Reason: Nausea/Vomiting Pantoprazole Sodium (Protonix Inj) 40 mg IVP Q12H [facility] Last Admin: 01/31/19 10:13 Dose: 40 mg Promethazine HCl/Dextromethorphan (Phenergan Dm Syrup) 5 ml PO Q6H PRN PRN Reason: Coughing Last Admin: 01/24/19 10:23 Dose: 5 ml Rosuvastatin Calcium (Crestor) 5 mg PO HS [facility] Last Admin: 01/30/19 23:43 Dose: Not Given - Labs Labs: 01/31/19 07:43 01/31/19 07:43 PT 12.5 SECONDS (9.7-12.2) H 01/30/19 14:04 INR 1.1 01/30/19 14:04 APTT 25 SECONDS (21-34) 01/30/19 14:04 - Constitutional Appears: Well, Non-toxic, No Acute Distress - Head Exam Head Exam: ATRAUMATIC, NORMAL INSPECTION, NORMOCEPHALIC - Eye Exam Eye Exam: EOMI, Normal appearance, PERRL Pupil Exam: NORMAL ACCOMODATION, PERRL - ENT Exam ENT Exam: Mucous Membranes Moist - Neck Exam Neck Exam: Full ROM, Normal Inspection - Respiratory Exam Respiratory Exam: NORMAL BREATHING PATTERN - Extremities Exam Extremities Exam: absent: Calf Tenderness, Full ROM, Pedal Edema Additional comments: Still has limited ROM to RLE 2/2 post-op pain, does move foot and toes. - Neurological Exam Neurological Exam: Alert, Awake Neuro motor strength exam: Left Upper Extremity: 5, Right Upper Extremity: 5, Left Lower Extremity: 3, Right Lower Extremity: 2/1 Additional comments: Awake, alert today. Still has some slurring of speech though improved. She is able to follow commands. No facial asymmetry. Generalized weakness noted 2/2 deconditioning. Still has limited ROM to RLE 2/2 post-op pain, does move foot and toes. No tremors or abnormal movements noted No sensory deficits. - Psychiatric Exam Psychiatric exam: Normal Affect, Normal Mood - Skin Skin Exam: Normal Color Assessment and Plan (1) Dysarthria Assessment & Plan: Imaging reviewed: -CTA Head and Neck (01/25/19): 1. No evidence of endoluminal thrombus,occlusion or definite significant stenosis in the intracranial arteries. 2. No evidence of hemodynamically significant stenosis in the internal carotid arteries. 3. Patent bilateral vertebral arteries. -CT Head (01/24/19): No acute intracranial abnormality. If there is a persistent focal neurologic deficit and an ongoing clinical concern for acute infarction, an MRI of the brain without intravenous contrast would be a more sensitive modality for evaluation of hyperacute/acute ischemic infarction. Moderate chronic microangiopathic changes and mild age-related global parenchymal volume loss. 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 -CT head (01/13/19): No evidence of acute intracranial hemorrhage or acute territorial infarct. Volume loss and extensive white matter changes suggestive of chronic microvascular ischemic disease. -Pt can have an outpatient open MRI as soon as she is d/c. -Ortho cleared pt to restart ASA 81 mg PO Daily. However per my discussion with Dr. Morejon yesterday, pt should not be taking ASA 2/2 large GI ulcer. For now we will continue to hold off on ASA as she is for possible PEG insertion tomorrow; we will f/u with GI after PEG placement to discuss when we can safely start ASA or other options. -Continue Statin; DVT ppx. -Continue BP control. -Continue PT and ST. -Continue IS. -Notify neuro team of any acute changes in pt's condition. Discussed plan with the pt's family and they are in agreement with the above. Adela Bravo DNP, SCREEN TENDER HELPER Discussed with Dr. Rosenberg Status: Acute
[2019-01-31] MEDS ORDERED: PPN #13 IV ONE (18:00)
[2019-01-31] MEDS: (Lantus) Insulin Glargine, Recombinant SC SCH (22:02)
[2019-02-01] MEDS: Labetalol 5mg/ml (4ml) IVP SCH ×2 (00:38→06:13)
[2019-02-01] MEDS: Albuterol-Ipratrop 3 mg / 0.5 (3 ml) UD INH SCH ×4 (01:21→19:54)
--- NOTE | 2019-02-01 06:28 | OP ---
PROCEDURE DATE: 01/23/2019 PREOPERATIVE DIAGNOSES: Right hip: 1. Displaced intertrochanteric hip fracture. 2. Severe degenerative joint disease. POSTOPERATIVE DIAGNOSES: Right hip: 1. Displaced intertrochanteric hip fracture. 2. Severe degenerative joint disease. PROCEDURE: Right hip intertrochanteric displaced fracture closed reduction and internal fixation with a long intramedullary hip nail. SURGEON: Chance Kendall MD JAVASCRIPT FRONT END DEVELOPER: Luis Sultana PA-C JUSTIFICATION FOR JAVASCRIPT FRONT END DEVELOPER: Luis Sultana is a certified physician family services assistant whose skilled surgical service was an absolute necessity for successful completion of the procedure as he provided skilled surgical assistance with positioning of the patient, positioning of extremity, management of surgical mont[place], careful transfer of the patient from bed to fracture top table and securing to fracture top table with all bony prominences and superficial neurovascular structures well padded followed by transfer carefully back to hospital bed postoperatively, retraction of neurovascular structures, surgical approach, placement of internal fixation hardware/long hip nail, intramedullary, wound closure, careful transfer back. Luis Sultana PA-C was present for the entire case and was an absolute necessity for successful completion of the procedure. ANESTHESIA: General endotracheal anesthesia. SPECIMEN: None. COMPLICATIONS: None. IMPLANTS: 1. De[employer] Synthes long TFNA nail, 340 mm length, 10 mm width. 2. A 5 mm width, 42 mm length distal interlocking screw. 3. A 100 mm length helical blade. ESTIMATED BLOOD LOSS: 100 mL. BLOOD PRODUCTS: One unit packed red blood cells administrated intraoperatively transfusion. DRAINS: None. DISPOSITION: The patient was extubated and transferred to PACU in stable condition and tolerated the procedure well. INDICATIONS FOR SURGERY: The patient is an 88-year-old female, [place]uran speaking, with a past medical history consisting of diabetes, hypertension, hyperlipidemia, dementia, possible acute stroke, presented to the ER at [facility] on 01/19/2019 with right hip pain and inability to weight bear on the right lower extremity. The patient was brought to the ER at [facility] on and after evaluation by ER staff, there was high suspicion for an acute stroke occurring or a stroke that just happened. Despite recommendation by ER staff for admission and observation, family wanted the patient to go home. She went home and approximately four days later, on 01/19/2019, while at home, she got up out of bed to go to the bathroom when her legs gave out on her according to witnesses and she fell to the ground landing on her right side and right knee. She developed immediate pain and was not able to get up from the floor and not able to weight bear on the right lower extremity. She was brought to the ER at [facility] via EMS immediately after. As stated before, she was brought to the ER on 01/14/2019 with expressive dysphasia, and workup was suggestive of possible TIA or stroke/infarct in progress. Currently, the patient has not regained ability to speak up. After review of imaging and evaluation by ER staff, she was diagnosed with a right hip fracture and admitted to the medical service under Dr. Peters. Orthopedic consultation was placed, and initial management was placed with ER staff over the phone. The orthopedic team saw the patient on 01/19/2019. I reviewed the imaging and confirmed a displaced intertrochanteric hip fracture with severe right hip joint DJD. X-rays and CT done in the ER confirmed. REVIEW OF IMAGING: The right hip, pelvis, right knee x-rays done in the ER on 01/18/2019 in the evening: + + displaced intertrochanteric hip fracture with severe DJD at hip joint. No further injury seen. Hip joint is located. X-rays of the knee also showed significant DJD with no evidence of fracture. Right hip CT scan done on 01/19/2019 at [facility]: Again confirmed the displaced intertrochanteric hip fracture with severe DJD right hip joint. She was admitted to the medical service, and I communicated with the team that medical clearance/optimization will have to be provided as the patient will need hip fixation surgery as soon as possible. I reviewed at length with the family the patient's imaging. As stated before, the patient has expressive aphasia and has dementia at baseline. All consents were provided by the patient's daughter. I had a long discussion with the patient's daughters reviewing the imaging of the right hip and femur as well as x-rays of the internal fixation hardware being the long intramedullary hip nail, Synthes long TFNA nail. The risks, benefits and alternatives to hip surgery were discussed at length with the patient's daughters and family. The risks included but not limited to infection, neurovascular damage, malunion, nonunion, failure of hardware, need for future surgery including removal of hardware and conversation to a total hip arthroplasty especially in the setting of severe DJD, development of chronic pain and disability, development of blood clots including DVT and PE, inability to return to preinjury level of activity and independence, perioperative cardiopulmonary complications, anesthesia reactions including . After answering all their questions, they stated that they understood the risks and wished to proceed with the surgery. After reviewing the imaging and multiple images of the fixation hardware, they also confirm that they had a good understanding of the injury and diagnosis as well as the procedure to be done. There was a delay in obtaining medical optimization as there was a question on initial injury as to whether or not it was a syncopal fall and therefore, cardiology and syncopal workup was done, which eventually was found to be negative. The study was carried out. A stress test was done that was found to be normal. Carotid Doppler study was carried out that was found to be normal for the most part. EKG had shown possible signs of lateral ischemia, and therefore the cardiology workup was prompted as well. Echocardiogram was done that was read as normal function with ejection fraction of 65% to 70%. Severe pulmonary hypertension was also noted. Chest x-rays also showed bilateral lower extremity infiltrate, which is being treated by the medical team with IV antibiotics as well. All of these factors, the cardiology clearance along with Pulmonary and Infectious Disease led to delay in being cleared to proceed with this type of surgery and finally on Wednesday, we were able to place the patient on the elective OR schedule and proceed with the hip fixation. Surgery was done on 01/23/2019 at [facility] on the elective OR schedule. PROCEDURE IN DETAIL: The patient was identified in the preoperative holding area, right hip was marked for surgery. I reviewed at length again the risks, benefits, alternatives to the procedure with the risks as described above with the patients daughter as the patient has dementia and all consents have been provided by her daughter. After answering some more questions, the daughters accepted the risks and wished to proceed with surgery. After a brief discussion with anesthesia staff, patient was brought to the operating room on her hospital bed. Perioperative IV antibiotics were administered. An initial timeout was done with the surgeon, OR staff, anesthesia staff, all in agreement with the patient, procedure being done and extremity being operated on. General anesthesia was administered without difficulty or complication. Patient was then carefully transferred to the fracture top table and secured to the OR table. All bony prominences and superficial neurovascular structures were well-padded. Patient was brought down distally on the OR table until the Perineum was snugged onto the well-padded peroneal post that was secured. Left lower extremity (nonoperative) was then brought into flexion and abduction, secured to well-padded well leg march. This was done to ensure good access for fluoroscopic imaging right hip during the procedure. Right lower extremity was placed in the traction boot well-padded with a layer of cast padding and Coban between the skin and the boot. The boot was secured and locked into the traction march. A secondary layer of Coban was then wrapped around the boot to ensure less chances of the right foot pulling out of the boot. Left upper extremity was secured to the arm board that was well-padded. Right upper extremity was brought across her chest with egg crate padding surrounding the arm in the form of a sugar tong, ulnar nerve was well-padded as well as other superficial neurovascular structures. Final timeout was done with the surgeon, anesthesia staff, OR staff all in agreement with the patient, procedure being done and extremity being operated on. CLOSED REDUCTION HIP FRACTURE: Initial, pre-treatment fluoroscopic biplanar imaging was done of the right hip and femur down to the knee. Gross traction was applied to the right lower extremity with slight internal rotation and moderate abduction. Biplanar fluoroscopic imaging confirmed anatomic reduction of the displaced intertrochanteric hip fracture. We then proceeded with placement of internal fixation. Severe hip joint degenerative joint disease with complete loss of hip joint space was seen on fluoroscopic imaging as well. INTERNAL FIXATION WITH LONG INTRAMEDULLARY HIP NAIL: Optimal Proximal entry point for the hip nail was identified at the tip of the greater trochanter with percutaneous placement of K wire and confirmed on lateral projection to be aligned centrally with shaft to allow access to the proximal femur while minimizing anterior or posterior cortex breakthrough at the shaft and distally. Guidewire was advanced down to the level of the lesser trochanter and the proximal cannulated reamer with the soft tissue protector was passed over the guidewire reaming the proximal femur and allowing for access for the long hip nail. the proximal reaming was done under fluoroscopic imaging to confirm good placement proximally. The beaded tip guidewire was then advanced through the proximal entry point down to the level of the knee. The tip of the beaded tip guidewire was advanced to the level of superior pole of the patella on fluoroscopic imaging. Lateral projection confirmed that the beaded tip was not abutting the anterior cortex or posterior cortex. Measurement for the length of the nail was taken, measurements = 340 mm length. A cannulated flexible reamers were then advanced sequentially to prepare the shaft of the femur for the 10 mm width nail. We started with 9 mm cannulated flexible reamer and proceeded from proximal to distal within the femoral canal with good chatter achieved with fluoroscopic imaging throughout. We sequentially increase the size of the flexible reamer until we got to 11.5 mm. A 340 mm length, 10 mm with, right-sided long TFNa nail from [employer] was opened and selected, the was then slid over the proximal aspect of the beaded tip guidewire, advanced through the proximal femur and into the shaft. Tip of the nail was then advanced down to the superior pole of the patella. Lateral projection was taken to confirm that the tip of the nail was not abutting the anterior cortex or posterior cortex. Once this was confirmed, AP imaging approximately confirmed the positioning for placement of the helical blade. Triple sleeve cannula was then assembled, the sleeve was then advanced through the helical blade guide, incision at the proximal lateral thigh was made through skin down to subcutaneous tissue, down to iliotibial fascia, down to proximal lateral femoral shaft while maintaining good hemostasis. Triple sleeve guide was then advanced flush to the proximal lateral femoral cortex. Guidewire was advanced through the triple sleeve up to the level of the femoral head and neck with good tip to apex distance maintained. Some fine-tuning of the position was carried out of the nail proximally for placement of the helical blade. Another attempt at placement of the guidewire through the triple sleeve at the proximal femur was then carried out down to be in perfect position center-center on the femoral head, slightly inferior along the femoral neck, good tip to apex distance maintained. Measurement was then taken for length of the helical blade, 100 mm length helical blade from [employer] was then selected and opened. After cannulated drill was passed over the guidewire for the helical blade, the final helical blade was then inserted over the guidewire through the triple sleeve cannula and impacted into position. Biplanar fluoroscopic imaging confirmed good final placement of the helical blade with good tip to apex distance maintained. Proximal locking screw within the nail was then advanced to full locking position securing the helical blade in a static position. One half turn was then made counterclockwise to allow for dynamic compression at the level of the fracture proximally perpendicular to the plane of the helical blade. The traction was released from the right lower extremity, and compression was dialed in across the helical blade. Attention was then turned towards placement of the distal interlocking screw. Perfect pechanga technique was employed with fluoroscopic imaging for placement of the distal interlocking screw, centered on the proximal static distal interlocking screw hole within the nail. Good perfect pechanga imaging was achieved on lateral projection. Incision was made at the distal lateral femur, stab incision through skin and subcutaneous tissue down to the iliotibial band and to the lateral cortex distal femur. Good hemostasis was achieved. The drill was then advanced while utilizing perfect pechanga technique from the near cortex through the nail to the far cortex. Once the drill was bicortical, the drill was removed and depth gauge was used to find our length for the distal screw. A length of 42 mm was measured and a 5 mm width, 42 mm length, distal interlocking screw from [employer] was opened and placed successfully bicortical with good fixation achieved and biplanar fluoroscopy confirmed that the screw was through the nail distal interlocking hole as well. Final biplanar fluoroscopic imaging was taken of the entire nail and fracture confirming maintenance of anatomic reduction, good placement of hardware, distal interlocking screws with confirmation of screw going through the distal hole of the nail. All wounds were copiously irrigated with 1000 cc normal saline and antibiotic wash, Iricept. All wounds were reapproximated with #1 Vicryl suture for deep tissue, fascia, and iliotibial band, 2.0 Vicryl suture was used for subcutaneous tissue reapproximation, followed by adri for skin. Sterile dressings were applied. The patient was then released from all secured extremities. Patient was then carefully transferred back to the hospital bed and extubated from general anesthesia without any difficulty or complications. Patient was then transferred to PACU in stable condition. DISPOSITION: Patient will remain as an inpatient for the next 24-48 hours. Once she is deemed medically stable for transfer, she will then be discharged/transferred to a rehab facility versus home with services. She is instructed to be weightbearing as tolerated right lower extremity. She will keep the dressings clean dry and intact until the dressings are changed by the orthopedic team prior to discharge. She will be started on DVT prophylaxis in the form of Lovenox 40 mg once daily starting postoperative day #1 unless the primary medical team as contraindications or a different DVT prophylaxis medication to use. She will receive adequate pain control while minimizing narcotic medication use due to her age. She will be out of bed as much as possible. she will work with physical therapy focusing on ambulation and range of motion/stretching/strengthening. While she is an inpatient, we will monitor her progress closely. Once he is discharged, she will follow up in my office at [facility], [facility] within 1 week. Chance Kendall MD [email or web address]
[2019-02-01] MEDS: (Novolin R) Insulin Human Regular 100 units/ml vial SC SCH ×4 (07:30→22:26)
[2019-02-01 07:34] LABS: HEMOGLOBIN 8.5 g/dL (11.0-16.0); MEAN CELL VOLUME 94.1 fL (81.0-99.0); MEAN CORPUSCULAR HEMOGLOBIN 31.8 pg (27.0-31.0); MEAN CORPUSCULAR HGB CONC 33.8 g/dL (33.0-37.0); MEAN PLATELET VOLUME 9.3 fL (7.2-11.7); RBC 2.66 Mil/uL (3.80-5.20); RED CELL DISTRIBUTION WIDTH 15.5 % (11.5-14.5); WHITE BLOOD COUNT 7.5 K/uL (4.8-10.8)
--- NOTE | 2019-02-01 07:43 | CP.PCM.PN ---
Subjective - Date & Time of Evaluation Date of Evaluation: 01/31/19 Time of Evaluation: 18:15 - Subjective Subjective: Patient seen and evaluated Denies chest pain and dyspnea IV antihypertensives managed by Nephrology Cardiac point of view no events Objective - Vital Signs/Intake and Output Vital Signs (last 24 hours): Temp Pulse Resp BP Pulse Ox 97.9 F 72 20 164/71 H 97 01/31/19 23:20 02/01/19 01:34 01/31/19 23:20 02/01/19 06:12 01/31/19 23:20 - Medications Medications: Current Medications Acetaminophen (Tylenol 650 Mg Supp) 650 mg AR Q6 PRN PRN Reason: Pain, moderate (4-7) Acetaminophen (Tylenol 325 Mg Supp) 325 mg AR Q4 PRN PRN Reason: Pain, moderate (4-7) Albuterol/Ipratropium (Duoneb 3 Mg/0.5 Mg (3 Ml) Ud) 3 ml INH RQ6 [facility] Last Admin: 02/01/19 01:21 Dose: Not Given Amlodipine Besylate (Norvasc) 2.5 mg PO DAILY [facility] Last Admin: 01/31/19 11:22 Dose: Not Given Clonidine HCl (Catapres-Tts3 0.3 Mg/24 Hr) 1 patch TD Q7D@1000 [facility] [place] Last Admin: 01/29/19 10:45 Dose: 1 patch Cyproheptadine HCl (Periactin) 4 mg PO DAILY [facility] Gabapentin (Neurontin) 300 mg PO HS [facility] Last Admin: 01/31/19 22:09 Dose: Not Given Heparin Sodium (Porcine) (Heparin) 5,000 units SC Q12 [facility] Last Admin: 01/31/19 22:03 Dose: 5,000 units Hydrochlorothiazide (Hydrodiuril) 25 mg PO DAILY [facility] [place] Last Admin: 01/31/19 11:22 Dose: Not Given Multivitamins/Vitamin C 10 ml/Chromium/Copper/Manganese/Zinc 1 ml/ Amino Acids 1,011 mls @ 62 mls/hr IV .[id number] ONE Stop: 02/01/19 10:18 Last Admin: 01/31/19 18:14 Dose: 62 mls/hr Amino Acids (Clinimix 4.25/5 % "E" (1000 Ml)) 1,000 mls @ 62 mls/hr IV .Q16H8M [facility] [place] Stop: 02/01/19 17:59 Enalaprilat 5 mg/ Sodium (Chloride) 54 mls @ 200 mls/hr IV Q6 [facility] [place] Last Admin: 02/01/19 06:12 Dose: 200 mls/hr Insulin Glargine (Lantus) 15 unit SC [facility] Last Admin: 01/31/19 22:02 Dose: 15 units Insulin Human Regular (Novolin R) [address] [facility] Last Admin: 01/31/19 22:10 Dose: 3 unit Labetalol HCl (Trandate) 20 mg IVP Q6H [facility] Last Admin: 02/01/19 06:13 Dose: 20 mg Lactulose (Enulose) 20 gm PO HS PRN PRN Reason: constipation Lamotrigine (Lamictal) 25 mg PO BID [facility] Last Admin: 01/31/19 22:08 Dose: Not Given Lorazepam (Ativan) 1 mg IVP Q6H PRN PRN Reason: Anxiety Lorazepam (Ativan) 1 mg IVP [facility] Last Admin: 01/31/19 22:01 Dose: 1 mg Losartan Potassium (Cozaar) 100 mg PO DAILY [facility] Last Admin: 01/31/19 11:21 Dose: Not Given Metoprolol Succinate (Toprol Xl) 50 mg PO DAILY [facility] Last Admin: 01/31/19 11:22 Dose: Not Given Ondansetron HCl (Zofran Inj) 4 mg IVP ONCE PRN PRN Reason: Nausea/Vomiting Pantoprazole Sodium (Protonix Inj) 40 mg IVP Q12H [facility] Last Admin: 01/31/19 20:02 Dose: 40 mg Promethazine HCl/Dextromethorphan (Phenergan Dm Syrup) 5 ml PO Q6H PRN PRN Reason: Coughing Last Admin: 01/24/19 10:23 Dose: 5 ml Rosuvastatin Calcium (Crestor) 5 mg PO [facility] Last Admin: 01/31/19 22:08 Dose: Not Given - Labs Labs: 01/31/19 07:43 01/31/19 07:43 PT 12.5 SECONDS (9.7-12.2) H 01/30/19 14:04 INR 1.1 01/30/19 14:04 APTT 25 SECONDS (21-34) 01/30/19 14:04
[2019-02-01 08:00] LABS: ALBUMIN 2.8 g/dL (3.5-5.0); ALT/SGPT 13 U/L (9-52); AST/SGOT 39 U/L (14-36); BLOOD UREA NITROGEN 39 mg/dL (7-17); CALCIUM 8.6 mg/dl (8.6-10.4); GFR NON-AFRICAN AMERICAN 52
[2019-02-01] MEDS ORDERED: PPN #14 IV SCH (10:19)
[2019-02-01] MEDS: Metoprolol Succinate 50 mg XL Tab PO SCH (10:45)
--- NOTE | 2019-02-01 11:17 | CP.PCM.PN ---
<Grace Hawkins - Last Filed: 02/01/19 15:23> Subjective - Date & Time of Evaluation Date of Evaluation: 02/01/19 Time of Evaluation: 10:40 - Subjective Subjective: PGY-1 Neurology Progress Note for Dr. Rosenberg Patient was seen and examined today in no acute distress with daughter and niece at bedside. Nurse reports no overnight events. Patient denies any new complaints, but is still complaining of the surgical site pain being unchanged. Patient is alert and able to follow commands and participate in exam, however she has been unwilling to participate in physical therapy. The family decided against the PEG today since they believe she would pull it out upon being left alone. Denies headache, dizziness, blurry vision, loss of vision or hearing, chest pain, palpitations, shortness of breath, abdominal pain, n/v, numbness, tingling. She is POD #9 closed internal reduction of a femur fracture. Objective - Vital Signs/Intake and Output Vital Signs (last 24 hours): Temp Pulse Resp BP Pulse Ox 97.3 F L 73 20 198/84 H 98 02/01/19 08:01 02/01/19 08:01 02/01/19 08:01 02/01/19 08:01 02/01/19 08:01 Intake and Output: 02/01/19 02/01/19 06:59 18:59 Intake Total 434 Output Total 200 Balance 234 - Medications Medications: Current Medications Acetaminophen (Tylenol 650 Mg Supp) 650 mg FL Q6 PRN PRN Reason: Pain, moderate (4-7) Last Admin: 02/01/19 09:36 Dose: 650 mg Acetaminophen (Tylenol 325 Mg Supp) 325 mg FL Q4 PRN PRN Reason: Pain, moderate (4-7) Albuterol/Ipratropium (Duoneb 3 Mg/0.5 Mg (3 Ml) Ud) 3 ml INH RQ6 [facility] Last Admin: 02/01/19 01:21 Dose: Not Given Amlodipine Besylate (Norvasc) 2.5 mg PO DAILY [facility] Last Admin: 01/31/19 11:22 Dose: Not Given Clonidine HCl (Catapres-Tts3 0.3 Mg/24 Hr) 1 patch TD Q7D@1000 [facility] Last Admin: 01/29/19 10:45 Dose: 1 patch Cyproheptadine HCl (Periactin) 4 mg PO DAILY [facility] Gabapentin (Neurontin) 300 mg PO HS [facility] Last Admin: 01/31/19 22:09 Dose: Not Given Heparin Sodium (Porcine) (Heparin) 5,000 units SC Q12 [facility] Last Admin: 02/01/19 09:37 Dose: 5,000 units Hydrochlorothiazide (Hydrodiuril) 25 mg PO DAILY [facility] Last Admin: 01/31/19 11:22 Dose: Not Given Amino Acids (Clinimix 4.25/5 % "E" (1000 Ml)) 1,000 mls @ 62 mls/hr IV .Q16H8M [facility] Stop: 02/01/19 17:59 Enalaprilat 5 mg/ Sodium (Chloride) 54 mls @ 200 mls/hr IV Q6 [facility] Last Admin: 02/01/19 06:12 Dose: 200 mls/hr Insulin Glargine (Lantus) 15 unit SC [facility] Last Admin: 01/31/19 22:02 Dose: 15 units Insulin Human Regular (Novolin R) 0 unit SC ACHS [facility] Last Admin: 02/01/19 07:30 Dose: Not Given Labetalol HCl (Trandate) 20 mg IVP Q6H [facility] Last Admin: 02/01/19 06:13 Dose: 20 mg Lactulose (Enulose) 20 gm PO HS PRN PRN Reason: constipation Lamotrigine (Lamictal) 25 mg PO BID [facility] Last Admin: 01/31/19 22:08 Dose: Not Given Lorazepam (Ativan) 1 mg IVP Q6H PRN PRN Reason: Anxiety Lorazepam (Ativan) 1 mg IVP [facility] Last Admin: 01/31/19 22:01 Dose: 1 mg Losartan Potassium (Cozaar) 100 mg PO DAILY [facility] Last Admin: 01/31/19 11:21 Dose: Not Given Metoprolol Succinate (Toprol Xl) 50 mg PO DAILY [facility] Last Admin: 01/31/19 11:22 Dose: Not Given Ondansetron HCl (Zofran Inj) 4 mg IVP ONCE PRN PRN Reason: Nausea/Vomiting Pantoprazole Sodium (Protonix Inj) 40 mg IVP Q12H [facility] Last Admin: 02/01/19 08:11 Dose: 40 mg Promethazine HCl/Dextromethorphan (Phenergan Dm Syrup) 5 ml PO Q6H PRN PRN Reason: Coughing Last Admin: 01/24/19 10:23 Dose: 5 ml Rosuvastatin Calcium (Crestor) 5 mg PO HS [facility] Last Admin: 01/31/19 22:08 Dose: Not Given - Labs Labs: 02/01/19 07:25 02/01/19 07:25 PT 12.5 SECONDS (9.7-12.2) H 01/30/19 14:04 INR 1.1 01/30/19 14:04 APTT 25 SECONDS (21-34) 01/30/19 14:04 - Constitutional Appears: Well, Non-toxic, No Acute Distress - Head Exam Head Exam: ATRAUMATIC, NORMAL INSPECTION, NORMOCEPHALIC - Eye Exam Eye Exam: EOMI, Normal appearance, PERRL Pupil Exam: NORMAL ACCOMODATION - ENT Exam ENT Exam: Mucous Membranes Dry - Neck Exam Neck Exam: Full ROM, Normal Inspection - Respiratory Exam Respiratory Exam: NORMAL BREATHING PATTERN - Cardiovascular Exam Cardiovascular Exam: +S1, +S2 - GI/Abdominal Exam GI & Abdominal Exam: Soft, Normal Bowel Sounds. absent: Tenderness Additional comments: obese - Extremities Exam Extremities Exam: Normal Capillary Refill. absent: Calf Tenderness, Full ROM Additional comments: offloading pressure boot on R LE limited active and passive ROM of RLE 2/2 post-op pain, does move foot and toes - Neurological Exam Neurological Exam: Alert, Awake, CN II-XII Intact, Oriented x3, Reflexes Normal Neuro motor strength exam: Left Upper Extremity: 5, Right Upper Extremity: 5, Left Lower Extremity: 5, Right Lower Extremity: 2/1 Additional comments: awake, alert today still has some lsurring of speech, though improved able to follow commands no facial asymmetry generalized weakness noted 2/2 deconditioning no tremors or abnormal movements noted no sensory deficits - Psychiatric Exam Psychiatric exam: Normal Affect, Normal Mood - Skin Skin Exam: Normal Color Assessment and Plan (1) Dysarthria Assessment & Plan: Imaging reviewed: -CTA Head and Neck (01/25/19): 1. No evidence of endoluminal thrombus,occlusion or definite significant stenosis in the intracranial arteries. 2. No evidence of hemodynamically significant stenosis in the internal carotid arteries. 3. Patent bilateral vertebral arteries. -CT Head (01/24/19): No acute intracranial abnormality. If there is a persistent focal neurologic deficit and an ongoing clinical concern for acute infarction, an MRI of the brain without intravenous contrast would be a more sensitive mo dality for evaluation of hyperacute/acute ischemic infarction. Moderate chronic microangiopathic changes and mild age-related global parenchymal volume loss. 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 -CT head (01/13/19): No evidence of acute intracranial hemorrhage or acute ter ritorial infarct. Volume loss and extensive white matter changes suggestive of chronic microvascular ischemic disease. -Pt can have an outpatient open MRI as soon as she is d/c. -Ortho cleared pt to restart ASA 81 mg PO Daily. However, GI wants to hold ASA 2/2 large GI ulcer. As she did not go for PEG today, unable to visualize GI ulcer. We weill defer to GI at this point and continue to hold ASA. From a Neuro perspective, patient should be on ASA. -Continue Statin; DVT ppx. -Continue BP control. -Continue PT and ST. -Continue IS. -Notify neuro team of any acute changes in pt's condition. Discussed plan with the pt's family and they are in agreement with the above. d/w Dr. Shakira Hawkins PGY-1 Status: Acute <Josiah Rosenberg - Last Filed: 02/03/19 16:38> Objective - Vital Signs/Intake and Output Vital Signs (last 24 hours): Temp Pulse Resp BP Pulse Ox 97.4 F L 83 20 168/72 H 96 02/03/19 07:00 02/03/19 07:50 02/03/19 07:00 02/03/19 11:56 02/03/19 07:00 Intake and Output: 02/03/19 02/03/19 06:59 18:59 Intake Total 604 Balance 604 - Medications Medications: Current Medications Acetaminophen (Tylenol 650 Mg Supp) 650 mg FL Q6 PRN PRN Reason: Pain, moderate (4-7) Last Admin: 02/01/19 09:36 Dose: 650 mg Acetaminophen (Tylenol 325 Mg Supp) 325 mg FL Q4 PRN PRN Reason: Pain, moderate (4-7) Albuterol/Ipratropium (Duoneb 3 Mg/0.5 Mg (3 Ml) Ud) 3 ml INH RQ6 [facility] Last Admin: 02/03/19 14:35 Dose: 3 ml Amlodipine Besylate (Norvasc) 2.5 mg PO DAILY [facility] Last Admin: 02/03/19 09:32 Dose: Not Given Clonidine HCl (Catapres-Tts3 0.3 Mg/24 Hr) 1 patch TD Q7D@1000 [facility] Last Admin: 01/29/19 10:45 Dose: 1 patch Cyproheptadine HCl (Periactin) 4 mg PO DAILY [facility] Last Admin: 02/03/19 11:37 Dose: Not Given Gabapentin (Neurontin) 300 mg PO HS [facility] Last Admin: 02/02/19 21:33 Dose: Not Given Heparin Sodium (Porcine) (Heparin) 5,000 units SC Q12 [facility] Last Admin: 02/03/19 09:31 Dose: Not Given Hydralazine HCl (Apresoline) 20 mg IVP Q6H [facility] Last Admin: 02/03/19 09:27 Dose: 20 mg Hydrochlorothiazide (Hydrodiuril) 25 mg PO DAILY [facility] Last Admin: 02/03/19 09:31 Dose: Not Given Enalaprilat 5 mg/ Sodium (Chloride) 54 mls @ 200 mls/hr IV Q6 [facility] Last Admin: 02/03/19 11:56 Dose: 200 mls/hr Fat Emulsion Intravenous (Intralipid 20%) 250 mls @ 23 mls/hr IV MWF@1800 [facility] Stop: 02/08/19 18:01 Last Admin: 02/01/19 18:35 Dose: 23 mls/hr Amino Acids (Clinimix 4.25/5 % "E" (1000 Ml)) 1,000 mls @ 62 mls/hr IV .Q16H8M [facility] Stop: 02/03/19 18:00 Multivitamins/Vitamin C 10 ml/Chromium/Copper/Manganese/Zinc 1 ml/ Amino Acids 1,011 mls @ 62 mls/hr IV .[id number] [facility] Stop: 02/04/19 10:18 Amino Acids (Clinimix 4.25/5 % "E" (1000 Ml)) 1,000 mls @ 62 mls/hr IV .Q16H8M [facility] Stop: 02/04/19 17:59 Insulin Glargine (Lantus) 15 unit SC [facility] Last Admin: 02/02/19 21:43 Dose: 15 units Insulin Human Regular (Novolin R) 0 unit SC ACHS [facility] Last Admin: 02/03/19 11:59 Dose: 6 unit Lactulose (Enulose) 20 gm PO HS PRN PRN Reason: constipation Lamotrigine (Lamictal) 25 mg PO BID [facility] Last Admin: 02/03/19 11:37 Dose: Not Given Lorazepam (Ativan) 1 mg IVP Q6H PRN PRN Reason: Anxiety Lorazepam (Ativan) 1 mg IVP HS [facility] Last Admin: 02/02/19 21:44 Dose: 1 mg Losartan Potassium (Cozaar) 100 mg PO DAILY [facility] Last Admin: 02/03/19 09:30 Dose: Not Given Metoprolol Succinate (Toprol Xl) 50 mg PO DAILY [facility] Last Admin: 02/03/19 09:32 Dose: Not Given Ondansetron HCl (Zofran Inj) 4 mg IVP ONCE PRN PRN Reason: Nausea/Vomiting Pantoprazole Sodium (Protonix Inj) 40 mg IVP Q12H [facility] Last Admin: 02/03/19 06:28 Dose: 40 mg Promethazine HCl/Dextromethorphan (Phenergan Dm Syrup) 5 ml PO Q6H PRN PRN Reason: Coughing Last Admin: 01/24/19 10:23 Dose: 5 ml Rosuvastatin Calcium (Crestor) 5 mg PO [facility] Last Admin: 02/02/19 21:32 Dose: Not Given - Labs Labs: 02/03/19 08:37 02/03/19 08:37 PT 12.5 SECONDS (9.7-12.2) H 01/30/19 14:04 INR 1.1 01/30/19 14:04 APTT 25 SECONDS (21-34) 01/30/19 14:04 Assessment and Plan (1) Dysarthria Status: Acute Attending/Attestation - Attestation I have personally seen and examined this patient.: Yes I have fully participated in the care of the patient.: Yes I have reviewed all pertinent clinical information, including history, physical exam and plan: Yes Notes (Text): I agree with the assessment and plan. Will continue current work-up and management as outlined above.
--- NOTE | 2019-02-01 11:50 | PN ---
DATE: 02/01/2019 SUBJECTIVE: Seen in her room. Her family members are present. She is up. She is alert. She is talking. Not really hungry. She got the okay to swallow. Nurse and speech therapist do allow her to start eating pureed foods which is great. Yesterday was the first day it had been tried. She had a little bit, not much. Just swallowed some food down. She is alert. She is having little bit of a cough. I am concerned about aspiration. I will do another chest x-ray on her, but also no appetite. PHYSICAL EXAMINATION: GENERAL: She is pleasant Long discussion with the family and they absolutely refused feeding tube at this time. They want her to try and eat and encouraging her to eat. They are bringing in foods. VITAL SIGNS: 97.9 temp, 72 pulse, 162/70 blood pressure, 20 respiratory rate, 97% O2 sat on room air. HEENT: Head is atraumatic, normocephalic. She is very alert. HEART: Regular rate. LUNGS: Decreased breath sounds. ABDOMEN: Soft, nontender. Positive bowel sounds. No guarding, no rebound, CVA tenderness. EXTREMITIES: No edema. MEDICATIONS: She is currently on Ativan, Catapres, Clinimix, Cozaar, Crestor, DuoNeb. She gets enalapril IV, Enulose, heparin, HydroDIURIL, Lamictal, Lantus, multivitamins, Neurontin, Norvasc, Novolin, cough meds, Phenergan DM, Protonix, Toprol, Trandate IV as needed, Tylenol, and Zofran. I added Periactin 4 mg a day to try and stimulate her appetite. LABORATORY DATA: She has 141 sodium, potassium 4, BUN 38, creatinine 0.9. GFR is greater than 59. Sugar is 151, calcium is 8.6. Total bili is 0.78, AST is 34, ALT is 7, alk phos 139, total protein is 5.9, hemoglobin is 8.9, hematocrit 26.4, platelets 273. ASSESSMENT AND PLAN: I encouraged her to eat. Discussed with family. Out of bed to chair all day. Periactin 4 mg. I will do a chest x-ray to make sure she is not having any kind of lung issues. She sounded a little bit congested today. She started eating pureeds yesterday. I am checking her labs. Discussed with family. They do not want a feeding tube at this time. Encouraged minimum diet and after that subacute rehab. Saul Peters DO [email or web address]
--- NOTE | 2019-02-01 12:32 | PN ---
DATE: 02/01/2019 LOCATION: 667, bed A. SUBJECTIVE: This is an 88-year-old female, seen and examined early today in the presence of her two daughter as well as the staff in the floor again with very poor to near zero oral intake, refusing to eat with period of semi-agitation and confusion. However, no reported chest pain or evidence of active bleeding, palpitation or significant increase of shortness of breath. I spent over 45 minutes discussing the case with the family in different angles today and currently so far, they refused the PEG insertion, preferred to observe the patient for the next 24 to 48 hours until final decision is to be made. Most recent lab results showed hemoglobin of 8.5, hematocrit 25 with normal white blood cells and normal platelet count with BUN of 39, normal creatinine, AST 39, alkaline phosphatase 128, total protein 5.6, albumin 2.8 due to the patient's poor oral intake. PHYSICAL EXAMINATION: GENERAL: An 89-year-old female. VITAL SIGNS: Afebrile with pulse of 76, respiratory rate 20 to 22, blood pressure of 190/82, somewhat disoriented. HEENT: Showed pale dry oral mucous membrane. Nonicteric sclerae. LUNGS: Few scattered crepitation. Decreased air entry at bases. HEART: Positive S1 and S2. ABDOMEN: Soft. Bowel sounds are present with mild generalized tenderness. No mass or organomegaly. No rebound tenderness or guarding. EXTREMITIES: Without significant clubbing, cyanosis or edema. NEUROLOGIC: No reported new neurological deficits, sensory or motor. No reported new focal deficits. IMPRESSION: 1. Change of mental status with failure to thrive, associated with period of dysphagia even before her admission. 2. Malnutrition with hypoalbuminemia, hypoproteinemia. 3. Large duodenal ulcer, nonbleeding. 4. Gastritis with moderate-sized hiatus hernia and mild distal esophageal stricture by recent endoscopy. 5. Reported recent history of cerebrovascular accident. 6. Poorly controlled hypertension. SUGGESTIONS: 1. Agree with your plan. 2. Due to the patient's family decision, we will follow up closely with you with recommended central hyperalimentation. 3. On record, gastric biopsy results was negative for Helicobacter pylori infection. Stephan Dobson MD
--- NOTE | 2019-02-01 13:07 | PN ---
DATE: 02/01/2019 SUBJECTIVE: The patient is seen. The patient is sleeping better according to the family. The patient is status post EDG and starting to eat slowly. Still has poor appetite. Review of her meds, the patient was started with Periactin 4 mg daily to improve her appetite; however, we will need to monitor as Periactin is very anticholinergic. The patient has history of dementia, it might increase confusion or increase sedation, especially that the patient is taking Ativan at night. We will monitor for change of mental status. Family is also trying to bring some homemade food that the patient prefers to eat. PHYSICAL EXAMINATION: VITAL SIGNS: Temperature 97.3, pulse 73, blood pressure 198/84, respirations 20, and oxygen saturation is 98%. GENERAL: The patient is sleepy but arousable, not agitated, slept most of the night according to the family member and compliant with meds. SKIN: No pruritus. HEENT: No headache. No dizziness. NECK: Supple. RESPIRATORY: No dyspnea. CARDIOVASCULAR: No chest pain. GASTROINTESTINAL: No nausea. No vomiting. Appetite is poor. EXTREMITIES: Moving extremities. MUSCULOSKELETAL: Feels weak. NEUROLOGIC: Alert with periods of confusion. MENTAL STATUS EXAMINATION: An elderly female, who is sleepy, but arousable still, confused off and on, very directable, seen with family members, oriented x1. Speech is slow. Affect is restricted. Mood dysphoric. Thought process confused often. Thought content, no overt psychosis. No suicidal or homicidal ideation. Attention and memory seemed to be limited. Insight and judgment limited. Impulse control is fair at this time. IMPRESSION: Senile-onset dementia with mood changes and possible delirium and metabolic encephalopathy. PLAN AND RECOMMENDATIONS: The patient is seen and meds reviewed. Continue the Ativan as ordered, but we will monitor for change in mental status, especially as the patient was given Periactin which is very anticholinergic. The anticholinergic property of Periactin, although may improve the appetite, can increase confusion or cause even agitation side effect. Luis E Thorne MD
[2019-02-01] MEDS ORDERED: Labetalol 5mg/ml (4ml) IVP SCH (13:30)
--- NOTE | 2019-02-01 15:16 | CP.PCM.PN ---
Subjective - Date & Time of Evaluation Date of Evaluation: 02/01/19 Time of Evaluation: 15:15 - Subjective Subjective: RENAL Follow up Note s: seen and examined she is unable to provide hx or ROS she is more calm and pleasant though pe: VS as below gen: nad sclera: anicteric op: clear neck: supplec CV: +S1+s2 no rub lungs cta b/l abd: soft ntnd no organomegaly ext: no edema neuro: less agitated. awake alert psych: agitated often skin no rash labs and imaging reviewed IMP: ARF resolving/ Hypertension uncontrolled with urgency / CVA/ Agitation / Anemia/ DM, hip fracture, severe pulmonary HTN, PUD plan: GRISELDA resolved renal function at baseline continue with vasotec iv at increased dose 5 mg q 6 hr and clonidine transdermal to 0.3. per pharmacy, labetalol IV not available, start hydralazine 10 m IV q 4 hr once able to take oral meds, plan to d/c iv anithypertensives so far, cr stable on iv aashish-i agitation per primary team - tx of agitation may assist w/ htn as well DM per primary team CVA per neuro had d/w daughter Objective - Vital Signs/Intake and Output Vital Signs (last 24 hours): Temp Pulse Resp BP Pulse Ox 97.3 F L 73 20 177/82 H 98 02/01/19 08:01 02/01/19 08:01 02/01/19 08:01 02/01/19 14:09 02/01/19 08:01 Intake and Output: 02/01/19 02/01/19 06:59 18:59 Intake Total 434 Output Total 200 Balance 234 - Medications Medications: Current Medications Acetaminophen (Tylenol 650 Mg Supp) 650 mg [place] Q6 PRN PRN Reason: Pain, moderate (4-7) Last Admin: 02/01/19 09:36 Dose: 650 mg Acetaminophen (Tylenol 325 Mg Supp) 325 mg [place] Q4 PRN PRN Reason: Pain, moderate (4-7) Albuterol/Ipratropium (Duoneb 3 Mg/0.5 Mg (3 Ml) Ud) 3 ml INH RQ6 [facility] Last Admin: 02/01/19 13:42 Dose: 3 ml Amlodipine Besylate (Norvasc) 2.5 mg PO DAILY [facility] Last Admin: 03/27/19 10:45 Dose: Not Given Clonidine HCl (Catapres-Tts3 0.3 Mg/24 Hr) 1 patch TD Q7D@1000 [facility] Last Admin: 01/29/19 10:45 Dose: 1 patch Cyproheptadine HCl (Periactin) 4 mg PO DAILY [facility] Last Admin: 02/01/19 10:45 Dose: Not Given Gabapentin (Neurontin) 300 mg PO HS [facility] Last Admin: 01/31/19 22:09 Dose: Not Given Heparin Sodium (Porcine) (Heparin) 5,000 units SC Q12 [facility] Last Admin: 02/01/19 09:37 Dose: 5,000 units Hydralazine HCl (Apresoline) 10 mg IVP Q4 [facility] Hydrochlorothiazide (Hydrodiuril) 25 mg PO DAILY [facility] Last Admin: 02/01/19 10:45 Dose: Not Given Amino Acids (Clinimix 4.25/5 % "E" (1000 Ml)) 1,000 mls @ 62 mls/hr IV .Q16H8M [facility] Stop: 02/01/19 17:59 Enalaprilat 5 mg/ Sodium (Chloride) 54 mls @ 200 mls/hr IV Q6 [facility] Last Admin: 02/01/19 14:09 Dose: 200 mls/hr Multivitamins/Vitamin C 10 ml/Chromium/Copper/Manganese/Zinc 1 ml/ Amino Acids 1,011 mls @ 62 mls/hr IV .[id number] [facility] Stop: 02/02/19 10:00 Amino Acids (Clinimix 4.25/5 % "E" (1000 Ml)) 1,000 mls @ 62 mls/hr IV .Q16H8M [facility] Stop: 02/02/19 18:00 Fat Emulsion Intravenous (Intralipid 20%) 250 mls @ 23 mls/hr IV MWF@1800 [facility] Stop: 02/08/19 18:01 Insulin Glargine (Lantus) 15 unit SC HS [facility] Last Admin: 01/31/19 22:02 Dose: 15 units Insulin Human Regular (Novolin R) 0 unit SC ACHS [facility] Last Admin: 02/01/19 12:30 Dose: 3 unit Lactulose (Enulose) 20 gm PO HS PRN PRN Reason: constipation Lamotrigine (Lamictal) 25 mg PO BID [facility] Last Admin: 02/01/19 10:45 Dose: Not Given Lorazepam (Ativan) 1 mg IVP Q6H PRN PRN Reason: Anxiety Lorazepam (Ativan) 1 mg IVP HS [facility] Last Admin: 01/31/19 22:01 Dose: 1 mg Losartan Potassium (Cozaar) 100 mg PO DAILY [facility] Last Admin: 02/01/19 10:45 Dose: Not Given Metoprolol Succinate (Toprol Xl) 50 mg PO DAILY [facility] Last Admin: 02/01/19 10:45 Dose: Not Given Ondansetron HCl (Zofran Inj) 4 mg IVP ONCE PRN PRN Reason: Nausea/Vomiting Pantoprazole Sodium (Protonix Inj) 40 mg IVP Q12H [facility] Last Admin: 02/01/19 08:11 Dose: 40 mg Promethazine HCl/Dextromethorphan (Phenergan Dm Syrup) 5 ml PO Q6H PRN PRN Reason: Coughing Last Admin: 01/24/19 10:23 Dose: 5 ml Rosuvastatin Calcium (Crestor) 5 mg PO [facility] Last Admin: 01/31/19 22:08 Dose: Not Given - Labs Labs: 02/01/19 07:25 02/01/19 07:25 PT 12.5 SECONDS (9.7-12.2) H 01/30/19 14:04 INR 1.1 01/30/19 14:04 APTT 25 SECONDS (21-34) 01/30/19 14:04
[2019-02-01] MEDS ORDERED: PPN IV SCH (18:00)
[2019-02-01] MEDS ORDERED: Fat Emulsion 20% IV 250 ML IV SCH (18:00)
--- NOTE | 2019-02-01 18:49 | RAD ---
Date of service: 02/01/2019 HISTORY: cough COMPARISON: 01/25/ TECHNIQUE: 1 view obtained. FINDINGS: LUNGS: No active pulmonary disease. PLEURA: Possible small left pleural effusion. No right pleural effusion. No pneumothorax. CARDIOVASCULAR: No aortic atherosclerotic calcification present. Normal cardiac size. No pulmonary vascular congestion. OSSEOUS STRUCTURES: No significant abnormalities. VISUALIZED UPPER ABDOMEN: Normal. OTHER FINDINGS: None. IMPRESSION: Possible small left pleural effusion.
[2019-02-01] MEDS: (Lantus) Insulin Glargine, Recombinant SC SCH (22:27)
--- NOTE | 2019-02-01 23:35 | CP.PCM.PN ---
Subjective - Date & Time of Evaluation Date of Evaluation: 02/01/19 Time of Evaluation: 16:20 - Subjective Subjective: Patient seen and evaluated Denies chest pain and dyspnea Objective - Vital Signs/Intake and Output Vital Signs (last 24 hours): Temp Pulse Resp BP Pulse Ox 98.2 F 82 20 168/76 H 96 02/01/19 15:30 02/01/19 15:37 02/01/19 15:30 02/01/19 18:25 02/01/19 15:30 Intake and Output: 02/01/19 02/02/19 18:59 06:59 Intake Total 930 Output Total 450 325 Balance 480 -325 - Medications Medications: Current Medications Acetaminophen (Tylenol 650 Mg Supp) 650 mg [place] Q6 PRN PRN Reason: Pain, moderate (4-7) Last Admin: 02/01/19 09:36 Dose: 650 mg Acetaminophen (Tylenol 325 Mg Supp) 325 mg [place] Q4 PRN PRN Reason: Pain, moderate (4-7) Albuterol/Ipratropium (Duoneb 3 Mg/0.5 Mg (3 Ml) Ud) 3 ml INH RQ6 [facility] Last Admin: 02/01/19 19:54 Dose: 3 ml Amlodipine Besylate (Norvasc) 2.5 mg PO DAILY [facility] Last Admin: 02/01/19 10:45 Dose: Not Given Clonidine HCl (Catapres-Tts3 0.3 Mg/24 Hr) 1 patch TD Q7D@1000 [facility] Last Admin: 01/29/19 10:45 Dose: 1 patch Cyproheptadine HCl (Periactin) 4 mg PO DAILY [facility] Last Admin: 02/01/19 10:45 Dose: Not Given Gabapentin (Neurontin) 300 mg PO HS [facility] Last Admin: 02/01/19 22:29 Dose: Not Given Heparin Sodium (Porcine) (Heparin) 5,000 units SC Q12 [facility] Last Admin: 02/01/19 22:27 Dose: 5,000 units Hydralazine HCl (Apresoline) 20 mg IVP Q6H [facility] Last Admin: 02/01/19 17:00 Dose: 20 mg Hydrochlorothiazide (Hydrodiuril) 25 mg PO DAILY [facility] Last Admin: 02/01/19 10:45 Dose: Not Given Enalaprilat 5 mg/ Sodium (Chloride) 54 mls @ 200 mls/hr IV Q6 [facility] Last Admin: 02/01/19 18:25 Dose: 200 mls/hr Multivitamins/Vitamin C 10 ml/Chromium/Copper/Manganese/Zinc 1 ml/ Amino Acids 1,011 mls @ 62 mls/hr IV .[id number] [facility] Stop: 02/02/19 10:00 Last Admin: 02/01/19 18:32 Dose: 62 mls/hr Amino Acids (Clinimix 4.25/5 % "E" (1000 Ml)) 1,000 mls @ 62 mls/hr IV .Q16H8M [facility] Stop: 02/02/19 18:00 Fat Emulsion Intravenous (Intralipid 20%) 250 mls @ 23 mls/hr IV MWF@1800 [facility] Stop: 02/08/19 18:01 Last Admin: 02/01/19 18:35 Dose: 23 mls/hr Insulin Glargine (Lantus) 15 unit SC HS [facility] Last Admin: 02/01/19 22:27 Dose: 15 units Insulin Human Regular (Novolin R) 0 unit SC ACHS [facility] Last Admin: 02/01/19 22:26 Dose: 6 unit Lactulose (Enulose) 20 gm PO HS PRN PRN Reason: constipation Lamotrigine (Lamictal) 25 mg PO BID [facility] Last Admin: 02/01/19 18:29 Dose: Not Given Lorazepam (Ativan) 1 mg IVP Q6H PRN PRN Reason: Anxiety Lorazepam (Ativan) 1 mg IVP HS [facility] Last Admin: 02/01/19 22:28 Dose: 1 mg Losartan Potassium (Cozaar) 100 mg PO DAILY [facility] Last Admin: 02/01/19 10:45 Dose: Not Given Metoprolol Succinate (Toprol Xl) 50 mg PO DAILY [facility] Last Admin: 02/01/19 10:45 Dose: Not Given Ondansetron HCl (Zofran Inj) 4 mg IVP ONCE PRN PRN Reason: Nausea/Vomiting Pantoprazole Sodium (Protonix Inj) 40 mg IVP Q12H [facility] Last Admin: 02/01/19 18:33 Dose: 40 mg Promethazine HCl/Dextromethorphan (Phenergan Dm Syrup) 5 ml PO Q6H PRN PRN Reason: Coughing Last Admin: 01/24/19 10:23 Dose: 5 ml Rosuvastatin Calcium (Crestor) 5 mg PO HS [facility] Last Admin: 02/01/19 22:29 Dose: Not Given - Labs Labs: 02/01/19 07:25 02/01/19 07:25 PT 12.5 SECONDS (9.7-12.2) H 01/30/19 14:04 INR 1.1 01/30/19 14:04 APTT 25 SECONDS (21-34) 01/30/19 14:04
[2019-02-02] MEDS: Albuterol-Ipratrop 3 mg / 0.5 (3 ml) UD INH SCH ×4 (02:23→20:05)
[2019-02-02] MEDS: (Novolin R) Insulin Human Regular 100 units/ml vial SC SCH ×4 (07:52→21:43)
[2019-02-02 08:18] LABS: HEMOGLOBIN 8.7 g/dL (11.0-16.0); MEAN CELL VOLUME 95.1 fL (81.0-99.0); MEAN CORPUSCULAR HEMOGLOBIN 31.6 pg (27.0-31.0); MEAN CORPUSCULAR HGB CONC 33.3 g/dL (33.0-37.0); MEAN PLATELET VOLUME 9.6 fL (7.2-11.7); RBC 2.75 Mil/uL (3.80-5.20); RED CELL DISTRIBUTION WIDTH 15.7 % (11.5-14.5)
[2019-02-02 08:34] LABS: ALBUMIN 2.9 g/dL (3.5-5.0); ALT/SGPT 12 U/L (9-52); AST/SGOT 33 U/L (14-36); BLOOD UREA NITROGEN 39 mg/dL (7-17); CALCIUM 8.3 mg/dl (8.6-10.4); GFR NON-AFRICAN AMERICAN 52
[2019-02-02 08:59] VITALS: RESP 20
[2019-02-02] MEDS ORDERED: Enalaprilat 2.5 MG/2 ML ONE (09:22)
[2019-02-02] MEDS: Metoprolol Succinate 50 mg XL Tab PO SCH ×2 (09:35→11:58)
--- NOTE | 2019-02-02 09:39 | CP.PCM.PN ---
Subjective - Date & Time of Evaluation Date of Evaluation: 02/02/19 Time of Evaluation: 09:36 - Subjective Subjective: Patient with daughter at bedside, sleeping. Wakes during dressing change. Objective - Vital Signs/Intake and Output Vital Signs (last 24 hours): Temp Pulse Resp BP Pulse Ox 98.0 F 79 20 153/54 H 95 02/02/19 08:56 02/02/19 08:56 02/02/19 08:56 02/02/19 08:56 02/02/19 08:56 Intake and Output: 02/02/19 02/02/19 06:59 18:59 Intake Total 780 Output Total 525 Balance 255 - Medications Medications: Current Medications Acetaminophen (Tylenol 650 Mg Supp) 650 mg [place] Q6 PRN PRN Reason: Pain, moderate (4-7) Last Admin: 02/01/19 09:36 Dose: 650 mg Acetaminophen (Tylenol 325 Mg Supp) 325 mg [place] Q4 PRN PRN Reason: Pain, moderate (4-7) Albuterol/Ipratropium (Duoneb 3 Mg/0.5 Mg (3 Ml) Ud) 3 ml INH RQ6 [facility] Last Admin: 02/02/19 08:10 Dose: 3 ml Amlodipine Besylate (Norvasc) 2.5 mg PO DAILY [facility] Last Admin: 02/01/19 10:45 Dose: Not Given Clonidine HCl (Catapres-Tts3 0.3 Mg/24 Hr) 1 patch TD Q7D@1000 [facility] Last Admin: 01/29/19 10:45 Dose: 1 patch Cyproheptadine HCl (Periactin) 4 mg PO DAILY [facility] Last Admin: 02/01/19 10:45 Dose: Not Given Gabapentin (Neurontin) 300 mg PO HS [facility] Last Admin: 02/01/19 22:29 Dose: Not Given Heparin Sodium (Porcine) (Heparin) 5,000 units SC Q12 [facility] Last Admin: 02/01/19 22:27 Dose: 5,000 units Hydralazine HCl (Apresoline) 20 mg IVP Q6H [facility] Last Admin: 02/02/19 04:48 Dose: 20 mg Hydrochlorothiazide (Hydrodiuril) 25 mg PO DAILY [facility] Last Admin: 02/01/19 10:45 Dose: Not Given Enalaprilat 5 mg/ Sodium (Chloride) 54 mls @ 200 mls/hr IV Q6 [facility] Last Admin: 02/02/19 06:14 Dose: 200 mls/hr Multivitamins/Vitamin C 10 ml/Chromium/Copper/Manganese/Zinc 1 ml/ Amino Acids 1,011 mls @ 62 mls/hr IV .[id number] [facility] Stop: 02/02/19 10:00 Last Admin: 02/01/19 18:32 Dose: 62 mls/hr Amino Acids (Clinimix 4.25/5 % "E" (1000 Ml)) 1,000 mls @ 62 mls/hr IV .Q16H8M [facility] Stop: 02/02/19 18:00 Fat Emulsion Intravenous (Intralipid 20%) 250 mls @ 23 mls/hr IV MWF@1800 [facility] Stop: 02/08/19 18:01 Last Admin: 02/01/19 18:35 Dose: 23 mls/hr Insulin Glargine (Lantus) 15 unit SC HS [facility] Last Admin: 02/01/19 22:27 Dose: 15 units Insulin Human Regular (Novolin R) 0 unit SC ACHS [facility] Last Admin: 02/02/19 07:52 Dose: 3 unit Lactulose (Enulose) 20 gm PO HS PRN PRN Reason: constipation Lamotrigine (Lamictal) 25 mg PO BID [facility] Last Admin: 02/01/19 18:29 Dose: Not Given Lorazepam (Ativan) 1 mg IVP Q6H PRN PRN Reason: Anxiety Lorazepam (Ativan) 1 mg IVP HS [facility] Last Admin: 02/01/19 22:28 Dose: 1 mg Losartan Potassium (Cozaar) 100 mg PO DAILY [facility] Last Admin: 02/01/19 10:45 Dose: Not Given Metoprolol Succinate (Toprol Xl) 50 mg PO DAILY [facility] Last Admin: 02/01/19 10:45 Dose: Not Given Ondansetron HCl (Zofran Inj) 4 mg IVP ONCE PRN PRN Reason: Nausea/Vomiting Pantoprazole Sodium (Protonix Inj) 40 mg IVP Q12H [facility] Last Admin: 02/02/19 06:37 Dose: 40 mg Promethazine HCl/Dextromethorphan (Phenergan Dm Syrup) 5 ml PO Q6H PRN PRN Reason: Coughing Last Admin: 01/24/19 10:23 Dose: 5 ml Rosuvastatin Calcium (Crestor) 5 mg PO HS [facility] Last Admin: 02/01/19 22:29 Dose: Not Given - Labs Labs: 02/02/19 07:59 02/02/19 07:59 PT 12.5 SECONDS (9.7-12.2) H 01/30/19 14:04 INR 1.1 01/30/19 14:04 APTT 25 SECONDS (21-34) 01/30/19 14:04 - Extremities Exam Additional comments: Right hip: dressings changed. Incisions dry, intact, no erythema. Thigh swelling improved. +ROM ankle/toes, sensation intact calves soft NT neg homans Assessment and Plan (1) Fracture, intertrochanteric, right femur Assessment & Plan: POD#13 s/p Right intertroch long IM nail PT notes appreciated, max assist to sit/stand awaiting placement Right femur follow up xrays ap/lat appreciated, hardware in place, no change in position of hardware or fracture compared to intraoperative fluoroscopic images ortho stable cont VTE proph d/w Dr. Kendall, agrees with above Status: Acute (2) Acute blood loss anemia Assessment & Plan: stable Status: Acute
[2019-02-02] MEDS ORDERED: PPN IV SCH ×2 (10:00→18:00)
--- NOTE | 2019-02-02 11:27 | RAD ---
Date of service: 02/01/2019 PROCEDURE: HISTORY: s/p R hip ORIF long TFN COMPARISON: CT hip 01/19/2019 TECHNIQUE: Four views FINDINGS: There is a intramedullary jm in the proximal right femur shaft any compression dynamic screw over the proximal right femoral neck into the not traversing through the femoral head. Had the extreme femoral neck base at its junction with the trochanters is a fracture with slight cortical offset on one view. No marked displacement suggested. Ground severe right hip arthrosis noted. Osteopenia also noted. Vascular calcifications noted. Subcutaneous edema and the skin stable are in place. IMPRESSION: Postop changes internal fixation of a prior proximal right femoral neck base fracture at its junction with the trochanters.
--- NOTE | 2019-02-02 11:57 | PN ---
DATE: 02/02/2019 SUBJECTIVE: She is resting in bed. She is up during the night. She sleeps during the day. She is on Apresoline IV, Ativan IV, clonidine patch, PPN with lipids IV, supposed to get Cozaar and Crestor p.o., she is not swallowing. Lactulose she is not swallowing. Heparin subcu. She is on HydroDIURIL, Lamictal p.o., she is not taking. Fat emulsion, Lantus, Neurontin, Norvasc, which are p.o., she is not taking. Periactin to stimulate the appetite, she is not taking. She has Protonix IV. Not taking metoprolol, Tylenol suppository that she has. She is given Vasotec and Zofran IV. She is allowed to eat as per swallow evaluation. She is not just doing it. Family refuses the PEG tube. PHYSICAL EXAMINATION: VITAL SIGNS: Temperature 98.2, 80 pulse, 174/91 blood pressure, 18 respiratory rate, 98% O2 sat on room air. GENERAL: She is alert. She does not want to swallow, but she can. HEENT: Head is atraumatic and normocephalic. HEART: Regular rate. LUNGS: Decreased breath sounds. ABDOMEN: Soft. EXTREMITIES: No edema. She just had a fall with surgery. LABORATORY DATA: White count 7.5; hemoglobin 8.5, if it drops below 8, I will transfuse her; hematocrit 25, platelets 268. She has a 141 sodium, potassium 3.8, BUN 39, creatinine 1, GFR is 52, sugar is 100, calcium is 8.6, total bilirubin 0.6, AST 39, ALT is 13, alkaline phosphatase 128, and total protein 5.6. ASSESSMENT AND PLAN: She can eat. She can swallow as per swallow evaluation. She is refusing to do for whatever reasons, mentation changes status post surgery. She had a fall with fracture of the hip with open reduction internal fixation, hypertension, on intravenous medications for that. She might need to go to long-term acute care if possible. Family refuses a percutaneous endoscopic gastrostomy tube. Can go to subacute rehab with peripheral parenteral nutrition running. I am going We will check her labs tomorrow. Saul Peters DO [facility] # [id number] [place]
--- NOTE | 2019-02-02 12:34 | CP.PCM.PN ---
Subjective - Date & Time of Evaluation Date of Evaluation: 02/02/19 Time of Evaluation: 12:33 - Subjective Subjective: RENAL Follow up Note s: seen and examined she is unable to provide hx or ROS she is more calm and pleasant though per family, pt not taking po meds or food. not participating in PT pe: VS as below gen: nad sclera: anicteric op: clear neck: supplec CV: +S1+s2 no rub lungs cta b/l abd: soft ntnd no organomegaly ext: no edema neuro: not agitated. awake alert psych: agitated often but beter nowadays skin no rash labs and imaging reviewed IMP: ARF resolving/ Hypertension uncontrolled with urgency / CVA/ Agitation / Anemia/ DM, hip fracture, severe pulmonary HTN, PUD plan: GRISELDA resolved renal function at baseline continue with vasotec iv at increased dose 5 mg q 6 hr and clonidine transdermal 0.3 mg per pharmacy, labetalol IV not available, started hydralazine 10 m IV q 4 hr once able to take oral meds, plan to d/c iv anithypertensives so far, cr stable on iv aashish-i DM per primary team CVA per neuro had d/w daughter and team Objective - Vital Signs/Intake and Output Vital Signs (last 24 hours): Temp Pulse Resp BP Pulse Ox 98.0 F 79 20 166/68 H 95 02/02/19 08:56 02/02/19 08:56 02/02/19 08:56 02/02/19 11:56 02/02/19 08:56 Intake and Output: 02/02/19 02/02/19 06:59 18:59 Intake Total 780 Output Total 525 Balance 255 - Medications Medications: Current Medications Acetaminophen (Tylenol 650 Mg Supp) 650 mg [place] Q6 PRN PRN Reason: Pain, moderate (4-7) Last Admin: 02/01/19 09:36 Dose: 650 mg Acetaminophen (Tylenol 325 Mg Supp) 325 mg [place] Q4 PRN PRN Reason: Pain, moderate (4-7) Albuterol/Ipratropium (Duoneb 3 Mg/0.5 Mg (3 Ml) Ud) 3 ml INH RQ6 [facility] Last Admin: 02/02/19 08:10 Dose: 3 ml Amlodipine Besylate (Norvasc) 2.5 mg PO DAILY [facility] Last Admin: 02/02/19 12:00 Dose: Not Given Clonidine HCl (Catapres-Tts3 0.3 Mg/24 Hr) 1 patch TD Q7D@1000 [facility] Last Admin: 01/29/19 10:45 Dose: 1 patch Cyproheptadine HCl (Periactin) 4 mg PO DAILY [facility] Last Admin: 02/02/19 09:46 Dose: Not Given Gabapentin (Neurontin) 300 mg PO HS [facility] Last Admin: 02/01/19 22:29 Dose: Not Given Heparin Sodium (Porcine) (Heparin) 5,000 units SC Q12 [facility] Last Admin: 02/02/19 09:38 Dose: 5,000 units Hydralazine HCl (Apresoline) 20 mg IVP Q6H [facility] Last Admin: 02/02/19 11:45 Dose: 20 mg Hydrochlorothiazide (Hydrodiuril) 25 mg PO DAILY [facility] Last Admin: 02/01/19 10:45 Dose: Not Given Enalaprilat 5 mg/ Sodium (Chloride) 54 mls @ 200 mls/hr IV Q6 [facility] Last Admin: 02/02/19 11:56 Dose: 200 mls/hr Amino Acids (Clinimix 4.25/5 % "E" (1000 Ml)) 1,000 mls @ 62 mls/hr IV .Q16H8M [facility] Stop: 02/02/19 18:00 Fat Emulsion Intravenous (Intralipid 20%) 250 mls @ 23 mls/hr IV MWF@1800 [facility] Stop: 02/08/19 18:01 Last Admin: 02/01/19 18:35 Dose: 23 mls/hr Multivitamins/Vitamin C 10 ml/Chromium/Copper/Manganese/Zinc 1 ml/ Amino Acids 1,011 mls @ 62 mls/hr IV .[id number] [facility] Stop: 02/03/19 10:00 Amino Acids (Clinimix 4.25/5 % "E" (1000 Ml)) 1,000 mls @ 62 mls/hr IV .Q16H8M [facility] Stop: 02/03/19 18:00 Insulin Glargine (Lantus) 15 unit SC [facility] Last Admin: 02/01/19 22:27 Dose: 15 units Insulin Human Regular (Novolin R) 0 unit SC [facility] Last Admin: 02/02/19 11:59 Dose: 3 unit Lactulose (Enulose) 20 gm PO HS PRN PRN Reason: constipation Lamotrigine (Lamictal) 25 mg PO BID [facility] Last Admin: 02/02/19 12:01 Dose: Not Given Lorazepam (Ativan) 1 mg IVP Q6H PRN PRN Reason: Anxiety Lorazepam (Ativan) 1 mg IVP HS [facility] Last Admin: 02/01/19 22:28 Dose: 1 mg Losartan Potassium (Cozaar) 100 mg PO DAILY [facility] Last Admin: 02/02/19 09:36 Dose: 100 mg Metoprolol Succinate (Toprol Xl) 50 mg PO DAILY [facility] Last Admin: 02/02/19 11:58 Dose: Not Given Ondansetron HCl (Zofran Inj) 4 mg IVP ONCE PRN PRN Reason: Nausea/Vomiting Pantoprazole Sodium (Protonix Inj) 40 mg IVP Q12H [facility] Last Admin: 02/02/19 06:37 Dose: 40 mg Promethazine HCl/Dextromethorphan (Phenergan Dm Syrup) 5 ml PO Q6H PRN PRN Reason: Coughing Last Admin: 01/24/19 10:23 Dose: 5 ml Rosuvastatin Calcium (Crestor) 5 mg PO HS [facility] Last Admin: 02/01/19 22:29 Dose: Not Given - Labs Labs: 02/02/19 07:59 02/02/19 07:59 PT 12.5 SECONDS (9.7-12.2) H 01/30/19 14:04 INR 1.1 01/30/19 14:04 APTT 25 SECONDS (21-34) 01/30/19 14:04
--- NOTE | 2019-02-02 13:23 | CP.PCM.CON ---
History of Present Illness - History of Present Illness History of Present Illness: Palliative consult requested by Doctor Peters for goals of care discussion/hospice care Patient is a 89 yo admitted from home post fall. Just two days ago patient was treated here for changes in mental status evident by Dysphagia and aphasia. Daughter Tri, admits that her mother was showing sings of dementia lately, has not been walking since Fall, and if she did she used to use walker. This time, she attempted going to bathroom, without walker. Right hip X Ray sowed fracture and on 01/19/19 patient had ORIF done. However, the issues of dysphagia and aphasia remained unsolved. PEG tube is suggested as the mcfp plan for nutrition. Family is not comfortable with the plan and patient is receiving a PPN at present. It has josseline 12 days already and family is still undecided on goals of care. Palliative care was asked to assist in process. PMH: poorly controlled DM, HTN, TIA Soc. Hx: , lives at home, denies drinking/smoking Fam. Hx: not significant Review of Systems - Review of Systems Systems not reviewed;Unavailable: Altered Mental Status All systems: reviewed and no additional remarkable complaints except Review of Systems: ROS obtained from nursing. Per nursing patient is refusing food . Patient has pain to right hip when repositioned in bed Past Patient History - Infectious Disease Hx of Infectious Diseases: None - Past Medical History & Family History Past Medical History?: Yes Past Family History: Reviewed and not pertinent - Past Social History Smoking Status: Never Smoked - CARDIAC Hx Hypertension: Yes - PULMONARY Hx Respiratory Disorders: No - NEUROLOGICAL Hx Dementia: Yes - HEENT Hx HEENT Problems: Yes Hx Cataracts: Yes - RENAL Hx Chronic Kidney Disease: No - ENDOCRINE/METABOLIC Hx Diabetes Mellitus Type 2: Yes - HEMATOLOGICAL/ONCOLOGICAL Hx Blood Disorders: No - INTEGUMENTARY Hx Dermatological Problems: Yes Other/Comment: LEFT LATERAL LEG ULCER 2015. - MUSCULOSKELETAL/RHEUMATOLOGICAL Hx Falls: Yes - GASTROINTESTINAL Hx Gastrointestinal Disorders: No - GENITOURINARY/GYNECOLOGICAL Hx Genitourinary Disorders: No - PSYCHIATRIC Hx Substance Use: No - SURGICAL HISTORY Hx Surgeries: Yes Hx Eye Surgery: Yes (HENRY CATARACT) Other/Comment: Henry. Bunion Removed. - ANESTHESIA Hx Anesthesia: Yes Hx Anesthesia Reactions: No Hx Malignant Hyperthermia: No Has any member of the family had a problem w/ anesthesia?: No Meds Allergies/Adverse Reactions: Allergies Allergy/AdvReac Type Severity Reaction Status Date / Time oxycodone [From Percocet] Allergy Unknown unknown Verified 01/31/19 07:29 - Medications Medications: Current Medications Acetaminophen (Tylenol 650 Mg Supp) 650 mg AL Q6 PRN PRN Reason: Pain, moderate (4-7) Last Admin: 02/01/19 09:36 Dose: 650 mg Acetaminophen (Tylenol 325 Mg Supp) 325 mg AL Q4 PRN PRN Reason: Pain, moderate (4-7) Albuterol/Ipratropium (Duoneb 3 Mg/0.5 Mg (3 Ml) Ud) 3 ml INH RQ6 [facility]S [facility] BEDS AT [facility] Last Admin: 02/02/19 08:10 Dose: 3 ml Amlodipine Besylate (Norvasc) 2.5 mg PO DAILY COUNTS [facility]CLUDE 234 BEDS AT [facility] Last Admin: 02/02/19 12:00 Dose: Not Given Clonidine HCl (Catapres-Tts3 0.3 Mg/24 Hr) 1 patch TD Q7D@1000 [facility]S [facility] 234 BEDS AT [facility] Last Admin: 01/29/19 10:45 Dose: 1 patch Cyproheptadine HCl (Periactin) 4 mg PO DAILY [facility]S [facility]CLUDE 234 BEDS AT [facility] Last Admin: 02/02/19 09:46 Dose: Not Given Gabapentin (Neurontin) 300 mg PO HS [facility]S [facility]CLUDE 234 BEDS AT [facility] Last Admin: 02/01/19 22:29 Dose: Not Given Heparin Sodium (Porcine) (Heparin) 5,000 units SC Q12 COUNTS [facility]CLUDE 234 BEDS AT [facility] Last Admin: 02/02/19 09:38 Dose: 5,000 units Hydralazine HCl (Apresoline) 20 mg IVP Q6H COUNTS [facility]CLUDE 234 BEDS AT [facility] Last Admin: 02/02/19 11:45 Dose: 20 mg Hydrochlorothiazide (Hydrodiuril) 25 mg PO DAILY COUNTS [facility]CLUDE 234 BEDS AT [facility] Last Admin: 02/01/19 10:45 Dose: Not Given Enalaprilat 5 mg/ Sodium (Chloride) 54 mls @ 200 mls/hr IV Q6 COUNTS INCLUDE 234 BEDS AT [facility] Last Admin: 02/02/19 11:56 Dose: 200 mls/hr Amino Acids (Clinimix 4.25/5 % "E" (1000 Ml)) 1,000 mls @ 62 mls/hr IV .Q16H8M COUNTS INCLUDE 234 BEDS AT [facility] Stop: 02/02/19 18:00 Fat Emulsion Intravenous (Intralipid 20%) 250 mls @ 23 mls/hr IV MWF@1800 COUNTS [facility]CLUDE 234 BEDS AT [facility] Stop: 02/08/19 18:01 Last Admin: 02/01/19 18:35 Dose: 23 mls/hr Multivitamins/Vitamin C 10 ml/Chromium/Copper/Manganese/Zinc 1 ml/ Amino Acids 1,011 mls @ 62 mls/hr IV .[id number] COUNTS INCLUDE 234 BEDS AT [facility] Stop: 02/03/19 10:00 Amino Acids (Clinimix 4.25/5 % "E" (1000 Ml)) 1,000 mls @ 62 mls/hr IV .Q16H8M COUNTS INCLUDE 234 BEDS AT [facility] Stop: 02/03/19 18:00 Insulin Glargine (Lantus) 15 unit SC [facility] Last Admin: 02/01/19 22:27 Dose: 15 units Insulin Human Regular (Novolin R) 0 unit SC [facility] Last Admin: 02/02/19 11:59 Dose: 3 unit Lactulose (Enulose) 20 gm PO HS PRN PRN Reason: constipation Lamotrigine (Lamictal) 25 mg PO BID COUNTS INCLUDE 234 BEDS AT [facility] Last Admin: 02/02/19 12:01 Dose: Not Given Lorazepam (Ativan) 1 mg IVP Q6H PRN PRN Reason: Anxiety Lorazepam (Ativan) 1 mg IVP [facility] Last Admin: 02/01/19 22:28 Dose: 1 mg Losartan Potassium (Cozaar) 100 mg PO DAILY COUNTS [facility]CLUDE 234 BEDS AT [facility] Last Admin: 02/02/19 09:36 Dose: 100 mg Metoprolol Succinate (Toprol Xl) 50 mg PO DAILY COUNTS [facility]CLUDE 234 BEDS AT [facility] Last Admin: 02/02/19 11:58 Dose: Not Given Ondansetron HCl (Zofran Inj) 4 mg IVP ONCE PRN PRN Reason: Nausea/Vomiting Pantoprazole Sodium (Protonix Inj) 40 mg IVP Q12H COUNTS INCLUDE 234 BEDS AT [facility] Last Admin: 02/02/19 06:37 Dose: 40 mg Promethazine HCl/Dextromethorphan (Phenergan Dm Syrup) 5 ml PO Q6H PRN PRN Reason: Coughing Last Admin: 01/24/19 10:23 Dose: 5 ml Rosuvastatin Calcium (Crestor) 5 mg PO [facility] Last Admin: 02/01/19 22:29 Dose: Not Given Physical Exam - Constitutional Appears: Chronically Ill - Head Exam Head Exam: ATRAUMATIC, NORMAL INSPECTION, NORMOCEPHALIC - Eye Exam Eye Exam: EOMI, Normal appearance, PERRL Pupil Exam: NORMAL ACCOMODATION, PERRL - ENT Exam ENT Exam: Mucous Membranes Dry - Neck Exam Neck exam: Positive for: Normal Inspection - Respiratory Exam Respiratory Exam: Decreased Breath Sounds, NORMAL BREATHING PATTERN - Cardiovascular Exam Cardiovascular Exam: Tachycardia, Irregular Rhythm - GI/Abdominal Exam GI & Abdominal Exam: Diminished Bowel Sounds, Soft - Rectal Exam Rectal Exam: Deferred - Extremities Exam Extremities exam: Positive for: normal inspection, pedal edema - Back Exam Back exam: NORMAL INSPECTION - Neurological Exam Neurological exam: Alert, Altered - Psychiatric Exam Psychiatric exam: Flat Affect - Skin Skin Exam: Dry, Intact, Pallor Results - Vital Signs Recent Vital Signs: Last Vital Signs Temp 98.0 F 02/02/19 08:56 Pulse 79 02/02/19 08:56 Resp 20 02/02/19 08:56 BP 166/68 H 02/02/19 11:56 Pulse Ox 95 02/02/19 08:56 - Labs Result Diagrams: 02/02/19 07:59 02/02/19 07:59 Labs: Laboratory Results - last 24 hr 02/02/19 02/02/19 07:59 07:59 WBC 8.0 RBC 2.75 L Hgb 8.7 L Hct 26.1 L MCV 95.1 MCH 31.6 H MCHC 33.3 RDW 15.7 H Plt Count 278 MPV 9.6 Sodium 138 Potassium 3.9 Chloride 109 H Carbon Dioxide 24 Anion Gap 9 L BUN 39 H Creatinine 1.0 Est GFR ( Amer) > 60 Est GFR (Non-Af Amer) 52 Random Glucose 175 H D Calcium 8.3 L Total Bilirubin 0.7 AST 33 ALT 12 Alkaline Phosphatase 152 H Total Protein 5.8 L Albumin 2.9 L Globulin 2.9 Albumin/Globulin Ratio 1.0 Assessment & Plan - Assessment and Plan (Free Text) Assessment: Palliative consult Full Code, there is no Advance directive on the chart, PPS 10% I reviewed medical records, diagnostic studies, examined patient in the bed and discussed goals of care with patient's daughters. Patient is alert, but altered, unable to fallow commends. Patient makes eye contacts when approached , than goes back to sleep. Patient is with expressive aphasia, she only attempts to speak. Skin is pale, dry, intact. Hb 8.7. No wounds. Breath sounds diminished, normal breathing pattern, no cough, no SOB, O2Sat 95 % RA. Abdomen soft, diminished bowel sounds, incontinent, no constipation. Right hip ORIF, pedal pulses present, pain elicited with mobility. Pain estimated, patient unable to vocalize the pain. BP 166/68, HR 87, afebrile Hb 8.7, WBC 80. Goals of care discussed with patient's 2 daughters, Hermelinda being the spoke person. I reviewed patient's clinical condition and elicited family's understanding and concerns. Hermelinda said she was unsure weather or not patient should precede with PEG. She wants he mom to recover and live but not at any bucio. Hermelinda feels the PEG estevan only prolong her mother's dying. We discussed options between PEG, PPN and Hospice care. Family advocates for patient to at home. Questions regarding options of pleasure food, pain management at home, and comfort promotion were addressed. hermelinda said that her mother would never want to be kept allive on life support or any tubes to keep her alive. Mary admitted to having difficulties accepting that her mother will . At the same time she wanted to honor her mother's wishes. After discussing all possible options Mary and her sister decided for Hospice evaluation and chance to talk to Hospice provider before final decision was made tomorrow. I shared this with Doctor Lorraine and he agreed. case monitor Alina on board as well. Impression * Dementia * Expressive aphasia * Dysphagia * Right hip Fracture * Acute pain 2nd to fracture * Anticipatory anxiety among family * Family advocates for comfort care at home * Suggestion * Supportive care * Turn and position for comfort and to promote skin condition * Tylenol supp Q 4 hr for pain. Anticipate pain , especially in am before morning care * Pleasure food only, Aspiration precautions * Offer ice cream, * Oral hygiene * Hospice eval by [facility] Palliative care will sign off. Advance care planing 60 min
--- NOTE | 2019-02-02 14:30 | PN ---
DATE: 02/02/2019 SUBJECTIVE: The patient is seen. The patient noted to be very drowsy. According to the family, she did not sleep well last night, but the patient was sleeping all day yesterday. MEDICATIONS: Review of her meds showed that the patient is currently taking Periactin 4 mg daily to improve her appetite. The patient's family reports she is not eating well. I did suggest to hold the Periactin as the Periactin combined with Ativan can cause increased drowsiness and sedation in elderly patients. The nurse will try to hold up Periactin. We decided for heparin this morning. REVIEW OF SYSTEMS: The patient is drowsy, but arousable, sitting in the room, not in acute respiratory distress. PHYSICAL EXAMINATION: VITAL SIGNS: Temperature 98, pulse 79, blood pressure 153/54, respirations 20, and oxygen saturation is 95%. SKIN: No pruritus. HEENT: No headache. No dizziness. NECK: Supple. RESPIRATORY: No dyspnea. CARDIOVASCULAR: No chest pain. GASTROINTESTINAL: Appetite is poor. EXTREMITIES: Moving extremities. MUSCULOSKELETAL: Feels weak. NEUROLOGIC: Drowsy, but arousable, still confused. GENITOURINARY: No urinary problems reported. MENTAL STATUS EXAMINATION: An elderly female who looks stated age, seen with family member, very drowsy, but arousable. Still has periods of confusion. Speech is slow. Affect is restricted. Mood dysphoric. Thought process confused. Thought content, no overt psychosis. No suicidal or homicidal ideation. Attention and memory seemed to be limited. Insight and judgment limited. Impulse control is fair at this time. IMPRESSION: History of senile-onset dementia with behavioral problems as well as continued delirium. PLAN AND RECOMMENDATIONS: The patient is seen and meds reviewed. I suggested to hold Periactin this morning and may continue the rest of her medication. The patient's family, as per in the chart, does not want PEG. The patient needs to be more awake if the patient would try to eat. Luis E Thorne MD
--- NOTE | 2019-02-02 18:33 | PN ---
DATE: 02/02/2019 LOCATION: 667, bed A. SUBJECTIVE: This is an 88-year-old female seen and examined again in rounds in the presence of her family members who refused PEG insertion in the meantime so far. The patient is still having very poor oral intake in general, but no reported actual chest pain, palpitation or significant active bleeding and no significant shortness of breath. LABORATORY DATA: Most recent lab results showed hemoglobin 8.7, hematocrit 26.1 with normal white blood cells and normal platelet count, but BUN 39, normal creatinine, blood glucose level 175, calcium 8.3, albumin 2.9, and total protein 5.8. Most recently done chest x-ray yesterday, official report is seen indicative of possible small left pleural effusions. PHYSICAL EXAMINATION: GENERAL: An 88-year-old female, awake and alert. VITAL SIGNS: Afebrile with pulse of 74, respiratory rate 20-22, and blood pressure of 160/66. HEENT: Showed pale, dry oral mucous membrane. Nonicteric sclerae. LUNGS: Few scattered crepitation. Decreased air entry at bases. HEART: Positive S1 and S2. ABDOMEN: Soft with mild generalized tenderness. No mass or organomegaly. No rebound tenderness or guarding. EXTREMITIES: Without significant clubbing, cyanosis or edema. NEUROLOGICAL: No reported new neurological deficits, sensory or motor. IMPRESSION: 1. Failure to thrive. 2. Dysphagia. 3. Malnutrition with hypoalbuminemia and hypoproteinemia. 4. Peptic ulcer disease with large duodenal ulcer with moderate-sized hiatus hernia as per the recent endoscopy. 5. Anemia, most likely secondary to above. 6. Poorly-controlled diabetes mellitus. 7. Recent history of cerebrovascular accident, by record. SUGGESTIONS: 1. Continue current management. 2. Peripheral hyperalimentation. 3. Albumin IV. 4. Case is to be discussed again with the family as well as the primary MD. Further recommendations to follow. Stephan Dobson MD
[2019-02-02] MEDS: (Lantus) Insulin Glargine, Recombinant SC SCH (21:43)
[2019-02-03] MEDS: Albuterol-Ipratrop 3 mg / 0.5 (3 ml) UD INH SCH ×3 (01:26→14:35)
[2019-02-03] MEDS: (Novolin R) Insulin Human Regular 100 units/ml vial SC SCH ×2 (07:36→11:59)
[2019-02-03 08:43] VITALS: O2SAT 96
[2019-02-03 08:46] LABS: HEMOGLOBIN 8.6 g/dL (11.0-16.0); MEAN CORPUSCULAR HEMOGLOBIN 31.5 pg (27.0-31.0); MEAN CORPUSCULAR HGB CONC 33.2 g/dL (33.0-37.0); MEAN PLATELET VOLUME 9.9 fL (7.2-11.7); RBC 2.72 Mil/uL (3.80-5.20); RED CELL DISTRIBUTION WIDTH 16.1 % (11.5-14.5); WHITE BLOOD COUNT 7.1 K/uL (4.8-10.8)
[2019-02-03 08:58] LABS: ALB/GLOB RATIO 1.1 (1.0-2.1); CALCIUM 8.3 mg/dl (8.6-10.4)
[2019-02-03] MEDS: Metoprolol Succinate 50 mg XL Tab PO SCH (09:32)
[2019-02-03] MEDS ORDERED: PPN IV SCH ×2 (10:00→18:00)
--- NOTE | 2019-02-03 11:02 | CP.PCM.PN ---
Subjective - Date & Time of Evaluation Date of Evaluation: 02/03/19 Time of Evaluation: 11:00 - Subjective Subjective: RENAL Follow up Note s: seen and examined she is unable to provide hx or ROS she is more calm and pleasant though pe: VS as below gen: nad sclera: anicteric op: clear neck: supplec CV: +S1+s2 no rub lungs cta b/l abd: soft ntnd no organomegaly ext: no edema neuro: not agitated. awake alert psych: agitated often but beter nowadays skin no rash labs and imaging reviewed IMP: ARF resolving/ Hypertension uncontrolled with urgency / CVA/ Agitation / Anemia/ DM, hip fracture, severe pulmonary HTN, PUD plan: GRISELDA resolved renal function at baseline pt going home today with hospice seen by palliative care in hospital, BP was controlled with IV meds can resume oral meds at home, if pt able to take had d/w daughter and team Objective - Vital Signs/Intake and Output Vital Signs (last 24 hours): Temp Pulse Resp BP Pulse Ox 97.4 F L 83 20 164/70 H 96 02/03/19 07:00 02/03/19 07:50 02/03/19 07:00 02/03/19 07:00 02/03/19 07:00 Intake and Output: 02/03/19 02/03/19 06:59 18:59 Intake Total 604 Balance 604 - Medications Medications: Current Medications Acetaminophen (Tylenol 650 Mg Supp) 650 mg [place] Q6 PRN PRN Reason: Pain, moderate (4-7) Last Admin: 02/01/19 09:36 Dose: 650 mg Acetaminophen (Tylenol 325 Mg Supp) 325 mg DE Q4 PRN PRN Reason: Pain, moderate (4-7) Albuterol/Ipratropium (Duoneb 3 Mg/0.5 Mg (3 Ml) Ud) 3 ml INH RQ6 [facility] Last Admin: 02/03/19 08:13 Dose: 3 ml Amlodipine Besylate (Norvasc) 2.5 mg PO DAILY [facility] Last Admin: 02/03/19 09:32 Dose: Not Given Clonidine HCl (Catapres-Tts3 0.3 Mg/24 Hr) 1 patch TD Q7D@1000 [facility] Last Admin: 01/29/19 10:45 Dose: 1 patch Cyproheptadine HCl (Periactin) 4 mg PO DAILY [facility] Last Admin: 02/02/19 09:46 Dose: Not Given Gabapentin (Neurontin) 300 mg PO HS [facility] Last Admin: 02/02/19 21:33 Dose: Not Given Heparin Sodium (Porcine) (Heparin) 5,000 units SC Q12 [facility] Last Admin: 02/03/19 09:31 Dose: Not Given Hydralazine HCl (Apresoline) 20 mg IVP Q6H [facility] Last Admin: 02/03/19 09:27 Dose: 20 mg Hydrochlorothiazide (Hydrodiuril) 25 mg PO DAILY [facility] Last Admin: 02/03/19 09:31 Dose: Not Given Enalaprilat 5 mg/ Sodium (Chloride) 54 mls @ 200 mls/hr IV Q6 [facility] Last Admin: 02/03/19 06:23 Dose: 200 mls/hr Fat Emulsion Intravenous (Intralipid 20%) 250 mls @ 23 mls/hr IV MWF@1800 [facility] Stop: 02/08/19 18:01 Last Admin: 02/01/19 18:35 Dose: 23 mls/hr Amino Acids (Clinimix 4.25/5 % "E" (1000 Ml)) 1,000 mls @ 62 mls/hr IV .Q16H8M [facility] Stop: 02/03/19 18:00 Multivitamins/Vitamin C 10 ml/Chromium/Copper/Manganese/Zinc 1 ml/ Amino Acids 1,011 mls @ 62 mls/hr IV .[id number] [facility] Stop: 02/04/19 10:18 Amino Acids (Clinimix 4.25/5 % "E" (1000 Ml)) 1,000 mls @ 62 mls/hr IV .Q16H8M [facility] Stop: 02/04/19 17:59 Insulin Glargine (Lantus) 15 unit SC HS [facility] Last Admin: 02/02/19 21:43 Dose: 15 units Insulin Human Regular (Novolin R) 0 unit SC [facility] Last Admin: 02/03/19 07:36 Dose: Not Given Lactulose (Enulose) 20 gm PO HS PRN PRN Reason: constipation Lamotrigine (Lamictal) 25 mg PO BID [facility] Last Admin: 02/02/19 18:02 Dose: Not Given Lorazepam (Ativan) 1 mg IVP Q6H PRN PRN Reason: Anxiety Lorazepam (Ativan) 1 mg IVP HS [facility] Last Admin: 02/02/19 21:44 Dose: 1 mg Losartan Potassium (Cozaar) 100 mg PO DAILY [facility] Last Admin: 02/03/19 09:30 Dose: Not Given Metoprolol Succinate (Toprol Xl) 50 mg PO DAILY [facility] Last Admin: 02/03/19 09:32 Dose: Not Given Ondansetron HCl (Zofran Inj) 4 mg IVP ONCE PRN PRN Reason: Nausea/Vomiting Pantoprazole Sodium (Protonix Inj) 40 mg IVP Q12H [facility] Last Admin: 02/03/19 06:28 Dose: 40 mg Promethazine HCl/Dextromethorphan (Phenergan Dm Syrup) 5 ml PO Q6H PRN PRN Reason: Coughing Last Admin: 01/24/19 10:23 Dose: 5 ml Rosuvastatin Calcium (Crestor) 5 mg PO HS [facility] Last Admin: 02/02/19 21:32 Dose: Not Given - Labs Labs: 02/03/19 08:37 02/03/19 08:37 PT 12.5 SECONDS (9.7-12.2) H 01/30/19 14:04 INR 1.1 01/30/19 14:04 APTT 25 SECONDS (21-34) 01/30/19 14:04
[2019-02-03 16:56] VITALS: BP 152/70; PULSE 95; TEMP 98.3
--- NOTE | 2019-02-03 20:21 | PN ---
DATE: 02/03/2019 LOCATION: 667, bed A. SUBJECTIVE: This is an 88-year-old female, seen and examined early today in the presence of her family members as well as the staff in the floor with intermittent complaint of right upper quadrant pain, but no reported actual bleeding, chest pain, palpitation, chills or fever. As per the family statement, the patient had been refusing oral intake even her medication. The entire chart is reviewed including the most recent lab and radiology study results, current and the previous medication list. Today's lab showed normal white blood cell of 7.1, hemoglobin 8.6, hematocrit 25.9 with normal platelet count. BUN of 48, creatinine 1.3, blood glucose level 182, calcium 8.3, alkaline phosphatase 159, total protein 5.8 with albumin 3. PHYSICAL EXAMINATION: GENERAL: An 88-year-old female, difficult to communicate with verbally. VITAL SIGNS: Afebrile with pulse of 94, respiratory rate 20-22, blood pressure 156/72. HEENT: Showed pale dry oral mucous membrane. Nonicteric sclerae. LUNGS: Few scattered crepitation. Decreased air entry at bases. HEART: Positive S1 and S2. ABDOMEN: Soft with mild generalized tenderness. No mass or organomegaly. No rebound tenderness or guarding. NEUROLOGIC: No reported new neurological deficits, sensory or motor. IMPRESSION: 1. Reported dysphagia with failure to thrive. 2. Malnutrition with hypoalbuminemia, hypoproteinemia. 3. Electrolyte imbalance. 4. Re-exacerbation of peptic ulcer disease with large duodenal ulcer with moderate-sized hiatus hernia as well as gastritis as per recent upper endoscopy. 5. Poorly controlled diabetes mellitus. 6. Reported recent history of cerebrovascular accident. 7. Anemia most likely secondary to above. SUGGESTIONS: 1. Continue current management. 2. Carafate liquid p.o. if the patient is able to tolerate it. 3. Again at this point, the patient needs PEG insertion, no final decision from the family regarding feeding tube insertion. 4. We will follow up closely with you p.r.n. and no further aggressive GI workup at this point. Stephan Dobson MD [facility] # [id number]
--- NOTE | 2019-02-03 23:55 | PN ---
DATE: 02/03/2019 SUBJECTIVE: The patient is seen. The patient is sleepy, but not agitated. The patient is on Ativan. Spoke with her daughter, the patient will be going home with hospice. The patient's family refused PEG tube and wanted to take her home hoping that she will improve at home. The patient is still n.p.o. at this time. REVIEW OF SYSTEMS: The patient is sleepy, but arousable, seen in her room with her family. No behavioral problems noted. PHYSICAL EXAMINATION: VITAL SIGNS: Temperature 98.4, pulse 83, blood pressure 168/73, respirations 20, and oxygen saturation is 96%. SKIN: No diaphoresis. HEENT: No headache. No dizziness. NECK: Supple. RESPIRATORY: No dyspnea. CARDIOVASCULAR: No chest pain. GASTROINTESTINAL: The patient is still n.p.o. EXTREMITIES: The patient is bed bound. MUSCULOSKELETAL: Feels weak. NEUROLOGIC: Alert, drowsy, still confused. GENITOURINARY: No complaints of urinary problems. MENTAL STATUS EXAMINATION: An elderly female, lying in bed, still drowsy but confused. Speech is slow. Affect is restricted. Mood dysphoric. Thought process still confused. Thought content, no overt psychosis. No suicidal or homicidal ideation. Attention and memory seems to be limited. Insight and judgment limited. Impulse control is guarded at this time. IMPRESSION: Senile-onset dementia with behavioral problem as well as delirium. PLAN AND RECOMMENDATIONS: The patient is seen and meds reviewed. Continue present management. The patient is discharged to home. The patient is n.p.o., may have Ativan gel and the patient will be followed for agitation, and as stated, the patient may have Ativan gel p.r.n. for agitation at home and the patient to be followed by hospice. The patient is tolerating p.o. at this time. Luis E Thorne MD
--- NOTE | 2019-02-04 07:53 | CP.PCM.PN ---
Subjective - Date & Time of Evaluation Date of Evaluation: 02/02/19 Time of Evaluation: 18:45 - Subjective Subjective: Patient is a 89 yo admitted from home post fall. Just two days ago patient was treated here for changes in mental status evident by Dysphagia and aphasia. Daughter Tri, admits that her mother was showing sings of dementia lately, has not been walking since Fall, and if she did she used to use walker. This time, she attempted going to bathroom, without walker. Right hip X Ray sowed fracture and on 01/19/19 patient had ORIF done. However, the issues of dysphagia and aphasia remained unsolved. PEG tube is suggested as the senior living plan for nutrition. PMH: poorly controlled DM, HTN, TIA Soc. Hx: , lives at home, denies drinking/smoking Fam. Hx: not significant Review of Systems - Review of Systems Systems not reviewed;Unavailable: Altered Mental Status All systems: reviewed and no additional remarkable complaints except Review of Systems: ROS obtained from nursing. Per nursing patient is refusing food . Patient has pain to right hip when repositioned in bed Meds Allergies/Adverse Reactions: Allergies Allergy/AdvReac Type Severity Reaction Status Date / Time oxycodone [From Percocet] Allergy Unknown unknown Verified 01/31/19 07:29 - Medications Medications: Current Medications Acetaminophen (Tylenol 650 Mg Supp) 650 mg UT Q6 PRN PRN Reason: Pain, moderate (4-7) Last Admin: 02/01/19 09:36 Dose: 650 mg Acetaminophen (Tylenol 325 Mg Supp) 325 mg UT Q4 PRN PRN Reason: Pain, moderate (4-7) Albuterol/Ipratropium (Duoneb 3 Mg/0.5 Mg (3 Ml) Ud) 3 ml INH RQ6 [facility] Last Admin: 02/02/19 08:10 Dose: 3 ml Amlodipine Besylate (Norvasc) 2.5 mg PO DAILY [facility] Last Admin: 02/02/19 12:00 Dose: Not Given Clonidine HCl (Catapres-Tts3 0.3 Mg/24 Hr) 1 patch TD Q7D@1000 [facility] Last Admin: 01/29/19 10:45 Dose: 1 patch Cyproheptadine HCl (Periactin) 4 mg PO DAILY [facility] Last Admin: 02/02/19 09:46 Dose: Not Given Gabapentin (Neurontin) 300 mg PO [facility] Last Admin: 02/01/19 22:29 Dose: Not Given Heparin Sodium (Porcine) (Heparin) 5,000 units SC Q12 [facility] Last Admin: 02/02/19 09:38 Dose: 5,000 units Hydralazine HCl (Apresoline) 20 mg IVP Q6H [facility] Last Admin: 02/02/19 11:45 Dose: 20 mg Hydrochlorothiazide (Hydrodiuril) 25 mg PO DAILY [facility] Last Admin: 02/01/19 10:45 Dose: Not Given Enalaprilat 5 mg/ Sodium (Chloride) 54 mls @ 200 mls/hr IV Q6 [facility] Last Admin: 02/02/19 11:56 Dose: 200 mls/hr Amino Acids (Clinimix 4.25/5 % "E" (1000 Ml)) 1,000 mls @ 62 mls/hr IV .Q16H8M [facility] Stop: 02/02/19 18:00 Fat Emulsion Intravenous (Intralipid 20%) 250 mls @ 23 mls/hr IV MWF@1800 [facility] Stop: 02/08/19 18:01 Last Admin: 02/01/19 18:35 Dose: 23 mls/hr Multivitamins/Vitamin C 10 ml/Chromium/Copper/Manganese/Zinc 1 ml/ Amino Acids 1,011 mls @ 62 mls/hr IV .[id number] [facility] Stop: 02/03/19 10:00 Amino Acids (Clinimix 4.25/5 % "E" (1000 Ml)) 1,000 mls @ 62 mls/hr IV .Q16H8M [facility] Stop: 02/03/19 18:00 Insulin Glargine (Lantus) 15 unit SC HS [facility] Last Admin: 02/01/19 22:27 Dose: 15 units Insulin Human Regular (Novolin R) 0 unit SC ACHS [facility] Last Admin: 02/02/19 11:59 Dose: 3 unit Lactulose (Enulose) 20 gm PO HS PRN PRN Reason: constipation Lamotrigine (Lamictal) 25 mg PO BID [facility] Last Admin: 02/02/19 12:01 Dose: Not Given Lorazepam (Ativan) 1 mg IVP Q6H PRN PRN Reason: Anxiety Lorazepam (Ativan) 1 mg IVP [facility] Last Admin: 02/01/19 22:28 Dose: 1 mg Losartan Potassium (Cozaar) 100 mg PO DAILY [facility] Last Admin: 02/02/19 09:36 Dose: 100 mg Metoprolol Succinate (Toprol Xl) 50 mg PO DAILY [facility] Last Admin: 02/02/19 11:58 Dose: Not Given Ondansetron HCl (Zofran Inj) 4 mg IVP ONCE PRN PRN Reason: Nausea/Vomiting Pantoprazole Sodium (Protonix Inj) 40 mg IVP Q12H [facility] Last Admin: 02/02/19 06:37 Dose: 40 mg Promethazine HCl/Dextromethorphan (Phenergan Dm Syrup) 5 ml PO Q6H PRN PRN Reason: Coughing Last Admin: 01/24/19 10:23 Dose: 5 ml Rosuvastatin Calcium (Crestor) 5 mg PO HS [facility] Last Admin: 02/01/19 22:29 Dose: Not Given Physical Exam - Constitutional Appears: Chronically Ill - Head Exam Head Exam: ATRAUMATIC, NORMAL INSPECTION, NORMOCEPHALIC - Eye Exam Eye Exam: EOMI, Normal appearance, PERRL Pupil Exam: NORMAL ACCOMODATION, PERRL - ENT Exam ENT Exam: Mucous Membranes Dry - Neck Exam Neck exam: Positive for: Normal Inspection - Respiratory Exam Respiratory Exam: Decreased Breath Sounds, NORMAL BREATHING PATTERN - Cardiovascular Exam Cardiovascular Exam: Tachycardia, Irregular Rhythm - GI/Abdominal Exam GI & Abdominal Exam: Diminished Bowel Sounds, Soft - Rectal Exam Rectal Exam: Deferred - Extremities Exam Extremities exam: Positive for: normal inspection, pedal edema - Back Exam Back exam: NORMAL INSPECTION - Neurological Exam Neurological exam: Alert, Altered - Psychiatric Exam Psychiatric exam: Flat Affect - Skin Skin Exam: Dry, Intact, Pallor Results - Vital Signs Recent Vital Signs: Last Vital Signs Temp 98.0 F 02/02/19 08:56 Pulse 79 02/02/19 08:56 Resp 20 02/02/19 08:56 BP 166/68 H 02/02/19 11:56 Pulse Ox 95 02/02/19 08:56 - Labs Result Diagrams: 02/02/19 07:59 02/02/19 07:59 Labs: Laboratory Results - last 24 hr 02/02/19 02/02/19 07:59 07:59 WBC 8.0 RBC 2.75 L Hgb 8.7 L Hct 26.1 L MCV 95.1 MCH 31.6 H MCHC 33.3 RDW 15.7 H Plt Count 278 MPV 9.6 Sodium 138 Potassium 3.9 Chloride 109 H Carbon Dioxide 24 Anion Gap 9 L BUN 39 H Creatinine 1.0 Est GFR ( Amer) > 60 Est GFR (Non-Af Amer) 52 Random Glucose 175 H D Calcium 8.3 L Total Bilirubin 0.7 AST 33 ALT 12 Alkaline Phosphatase 152 H Total Protein 5.8 L Albumin 2.9 L Globulin 2.9 Albumin/Globulin Ratio 1.0 Assessment & Plan - Assessment and Plan (Free Text) Assessment: Impression * Dementia * Expressive aphasia * Dysphagia * Right hip Fracture * Acute pain 2nd to fracture * Anticipatory anxiety among family * Family advocates for comfort care at home Suggestion * Supportive care Objective - Vital Signs/Intake and Output Vital Signs (last 24 hours): Temp Pulse Resp BP Pulse Ox 98.3 F 95 H 20 152/70 H 96 02/03/19 15:45 02/03/19 15:45 02/03/19 15:45 02/03/19 15:45 02/03/19 15:45 - Labs Labs: 02/03/19 08:37 02/03/19 08:37 PT 12.5 SECONDS (9.7-12.2) H 01/30/19 14:04 INR 1.1 01/30/19 14:04 APTT 25 SECONDS (21-34) 01/30/19 14:04
[2019-02-04] MEDS ORDERED: PPN IV SCH (10:19)
--- NOTE | 2019-02-05 15:03 | DS ---
Family decides to take her home on hospice. They want to do [facility]. She is going home on Apresoline, Ativan, Catapres, DuoNebs. Because, she stopped taking food, the medications will be prescribed does swallow them. She has a Catapres patch for the blood pressure. PHYSICAL EXAMINATION: VITAL SIGNS: She has a 97.1 temperature, 68 pulse, 162/70 blood pressure, 20 respiratory rate, 94% O2 sat on 2 L. HEENT: Head is atraumatic, normocephalic. HEART: Regular rate. LUNGS: Decreased breath sounds. ABDOMEN: Soft. EXTREMITIES: No edema. GENERAL: She is alert and looking at me. She has 8 white count, 8.7 hemoglobin, 26.1 hematocrit, 278 platelets. She has 138 sodium, potassium 3.9, BUN 39, creatinine 1, GFR is greater than 60, sugars 169, calcium is 8.3. Total bilirubin 0.7, AST 33, ALT 12, alkaline phosphatase 152, total protein is 5.8. She was seen by Gastroenterology, Renal, and Psychiatry. Follow up with hospice at home. She has multiple problems, she had fall, fractured her hip, status post open reduction and internal fixation, and ever since then, she has just not been the same. Saul Peters DO MTDD
== END 2019-02-03 17:43 | disposition hospice, home (50) | DRG 480 ==
LOC: C.ER 22:17 → C.9E 01-19 02:58 → C.6T 01-19 03:20
PROVIDERS: ADMIT Family Medicine; ATTEND Family Medicine
PROC: 0QS636Z Reposition Right Upper Femur with Intramedullary Internal Fixation Device, Percutaneous Approach (ICD-10-PCS; 2019-01-23)
PROC: 30233N1 Transfusion of Nonautologous Red Blood Cells into Peripheral Vein, Percutaneous Approach (ICD-10-PCS; principal; 2019-01-23 11:00)
PROC: 0DB68ZX Excision of Stomach, Via Natural or Artificial Opening Endoscopic, Diagnostic (ICD-10-PCS; 2019-01-30)
DX: S72.141A Displaced intertrochanteric fracture of right femur, initial encounter for closed fracture (principal); G92 Toxic encephalopathy; D62 Acute posthemorrhagic anemia; F03.91 Unspecified dementia, unspecified severity, with behavioral disturbance; E46 Unspecified protein-calorie malnutrition; N17.9 Acute kidney failure, unspecified; F05 Delirium due to known physiological condition; M16.11 Unilateral primary osteoarthritis, right hip; I10 Essential (primary) hypertension; I27.20 Pulmonary hypertension, unspecified; R26.89 Other abnormalities of gait and mobility; R13.10 Dysphagia, unspecified; E88.09 Other disorders of plasma-protein metabolism, not elsewhere classified; K59.00 Constipation, unspecified; T50.905A Adverse effect of unspecified drugs, medicaments and biological substances, initial encounter; K22.2 Esophageal obstruction; K44.9 Diaphragmatic hernia without obstruction or gangrene; K26.9 Duodenal ulcer, unspecified as acute or chronic, without hemorrhage or perforation; K31.7 Polyp of stomach and duodenum